=== PATIENT | female | born 1930 | race Caucasian/White ===

== ENCOUNTER 2017-01-15 11:33 | Inpatient (IN) | payer MEDICARE ==
[~2017-01-15] VITALS: Ht 171.4 cm; Wt 71.8 kg
[~2017-01-15 11:33] MED LIST: AMLO5TAB2 PO; ASPI81TA44 PO; ATORVASTATIN CA80 MG PO; CALC-507 PO; CHOL100013 PO; CHOL2000 PO; CYCL10TA2 PO; FOLI20CA PO; HYDR-2758 PO; IBUP-1007 PO; LEVO100T5 PO; LISI40TA PO; MULT-223 PO; OMEG300C PO; PARO30TA3 PO; POLY17PO29 PO; SENN8.6T61 PO
[2017-01-15 12:40] LABS: BASO # 0.1 x10^3/uL (0.0-0.2); BASO % 1 % (0-3); EOS % 13 % (0-3); HEMATOCRIT 36.6 % (36.0-47.0); LYMPH # 1.9 x10^3/uL (1.0-4.8); LYMPH % 32 % (24-48); MEAN CORPUSCULAR HEMOGLOBIN 31 pg (25-35); MEAN CORPUSCULAR HGB CONC 33 g/dL (31-37); MEAN CORPUSCULAR VOLUME 95 fL (79-100); MONO % 10 % (0-9); NEUT % 44 % (31-73); PLATELET COUNT 202 x10^3/uL (140-400); RED BLOOD COUNT 3.85 x10^6/uL (3.50-5.40); RED CELL DISTRIBUTION WIDTH 14.5 % (11.5-14.5)
--- NOTE | 2017-01-15 12:41 | PHYS DOC ---
Past Medical History Past Medical History: Arthritis, COPD, High Cholesterol, Hypertension, Hypothyroid Additional Past Medical Histor: CHRONIC BACK PAIN Past Surgical History: Hip Replacement, Knee Replacement, Tonsillectomy Additional Past Surgical Histo: L hip, bilat knee Alcohol Use: None Drug Use: None Adult General Chief Complaint Chief Complaint: OTHER COMPLAINTS HPI HPI Patient is a 86 year old female was sent from a clinic after they found that she was bradycardic and with low blood pressure as as well as low O2 sats. Patient has no complaints however. She had a fall when she sustained some rib fractures and she was at the clinic for checkup. She did have does not have any recent changes in medications, no recent illnesses. Her friend in the room states the patient has some some probable walking due to feeling weak in her legs. Review of Systems Review of Systems Constitutional: Denies fever or chills [] HENT: Denies nasal congestion or sore throat [] Respiratory: Denies cough or shortness of breath [] Cardiovascular: No chest pain GI: Denies abdominal pain, nausea, vomiting, bloody stools or diarrhea [] : Denies dysuria or hematuria [] Musculoskeletal: Denies back pain or joint pain [] Integument: Denies rash or skin lesions [] Neurologic: Denies headache, focal weakness or sensory changes. Mild weakness of her legs that is chronic Endocrine: Denies polyuria or polydipsia [] Current Medications Current Medications Current Medications Medications (Trade) Dose Ordered Sig/Lukazs Start Time Stop Time Status Last Admin Dose Admin Info (Do NOT chart on this entry -- for MONITORING) 1 each PRN DAILY PRN 01/15/17 14:45 01/17/17 14:44 Iohexol (Omnipaque 300 Mg/ml) 75 ml 1X ONCE 01/15/17 14:45 01/15/17 14:46 DC 01/15/17 15:14 75 ML Ondansetron HCl (Zofran) 4 mg PRN Q8HRS PRN 01/15/17 16:45 01/16/17 16:44 Sodium Chloride 500 ml @ 500 mls/hr 1X ONCE 01/15/17 12:45 01/15/17 13:44 DC 01/15/17 12:53 500 MLS/HR Allergies Allergies Allergies Coded Allergies Type Severity Reaction Last Updated Verified No Known Drug Allergies 01/15/17 No Physical Exam Physical Exam Constitutional: Well developed, well nourished, no acute distress, non-toxic appearance. [] HENT: Normocephalic, atraumatic, dry mucous membranes, no oral exudates, nose normal. [] Eyes:EOMI, conjunctiva normal, no discharge. [] Neck: Normal range of motion, no tenderness, supple, no stridor. No JVD Cardiovascular: Bradycardia, equal pulses, normal perfusion Lungs & Thorax: Bilateral breath sounds clear to auscultation, no tachypnea Abdomen: Bowel sounds normal, soft, no tenderness, no masses, no pulsatile masses. [] Skin: Warm, dry, no erythema, no rash. [] Back: No tenderness, no CVA tenderness. [] Extremities: No tenderness, no cyanosis, no clubbing, ROM intact, no edema. No signs of DVT, no edema Neurologic: Alert and oriented X 3, normal motor function, no focal deficits noted. [] Psychologic: Affect normal, judgement normal, mood normal. [] Current Patient Data Vital Signs Vital Signs Date Time Temp Pulse Resp B/P (MAP) Pulse Ox O2 Delivery O2 Flow Rate FiO2 01/15/17 15:34 54 32 140/63 (88) 97 01/15/17 14:04 Nasal Cannula 4.0 01/15/17 11:39 98.1 98.1 Lab Values Laboratory Tests Test 01/15/17 11:50 01/15/17 12:58 White Blood Count 6.0 x10^3/uL (4.0-11.0) Red Blood Count 3.85 x10^6/uL (3.50-5.40) Hemoglobin 12.0 g/dL (12.0-15.5) Hematocrit 36.6 % (36.0-47.0) Mean Corpuscular Volume 95 fL (79-100) Mean Corpuscular Hemoglobin 31 pg (25-35) Mean Corpuscular Hemoglobin Concent 33 g/dL (31-37) Red Cell Distribution Width 14.5 % (11.5-14.5) Platelet Count 202 x10^3/uL (140-400) Neutrophils (%) (Auto) 44 % (31-73) Lymphocytes (%) (Auto) 32 % (24-48) Monocytes (%) (Auto) 10 % (0-9) H Eosinophils (%) (Auto) 13 % (0-3) H Basophils (%) (Auto) 1 % (0-3) Neutrophils # (Auto) 2.6 x10^3uL (1.8-7.7) Lymphocytes # (Auto) 1.9 x10^3/uL (1.0-4.8) Monocytes # (Auto) 0.6 x10^3/uL (0.0-1.1) Eosinophils # (Auto) 0.8 x10^3/uL (0.0-0.7) H Basophils # (Auto) 0.1 x10^3/uL (0.0-0.2) Sodium Level 143 mmol/L (136-145) Potassium Level 4.4 mmol/L (3.5-5.1) Chloride Level 106 mmol/L (98-107) Carbon Dioxide Level 28 mmol/L (21-32) Anion Gap 9 (6-14) Blood Urea Nitrogen 31 mg/dL (7-20) H Creatinine 0.8 mg/dL (0.6-1.0) Estimated GFR (Cockcroft-Gault) 68.2 Glucose Level 89 mg/dL (70-99) Calcium Level 11.0 mg/dL (8.5-10.1) H Magnesium Level 1.8 mg/dL (1.8-2.4) Total Bilirubin 0.4 mg/dL (0.2-1.0) Direct Bilirubin 0.1 mg/dL (0.0-0.2) Aspartate Amino Transferase (AST) 22 U/L (15-37) Alanine Aminotransferase (ALT) 32 U/L (14-59) Alkaline Phosphatase 71 U/L (46-116) Troponin I Quantitative 0.037 ng/mL (0.000-0.055) Total Protein 6.6 g/dL (6.4-8.2) Albumin 3.2 g/dL (3.4-5.0) L O2 Saturation 82 % (92-99) L Arterial Blood pH 7.36 (7.35-7.45) Arterial Blood pCO2 at Patient Temp 50 mmHg (35-46) H Arterial Blood pO2 at Patient Temp 50 mmHg (65-108) *L Arterial Blood HCO3 27 mmol/L (21-28) Arterial Blood Base Excess 1 mmol/L (-3-3) FiO2 21 Laboratory Tests 01/15/17 11:50 Laboratory Tests 01/15/17 11:50 EKG EKG 1250 48 bradycardia no stemi[] Radiology/Procedures Radiology/Procedures CT no PE, atelectasis questionable infiltrates[] Course & Med Decision Making Course & Med Decision Making Pertinent Labs and Imaging studies reviewed. (See chart for details) Labs, imaging, and plan for admission discussed with patient will agrees with admission Results of labs and imaging discussed with admitting team, questionable findings of pneumonia so they requested holding off on antibiotics. Cardiology consulted for bradycardia, they agreed to send the patient in the morning. [] Dragon Disclaimer Dragon Disclaimer This electronic medical record was generated, in whole or in part, using a voice recognition dictation system. Departure Departure Impression: Primary Impression: Hypoxia Additional Impressions: Bradycardia Hypotension Dehydration Disposition: ADMITTED INPATIENT Admitting Physician: Other Condition: IMPROVED Referrals: AMY WEBER (PCP) Problem Qualifiers Chacho LOZA MD Jan 15, 2017 12:41
[2017-01-15] MEDS ORDERED: IV NORMAL SALINE 500ML BAG 500 ML IV ONE (12:45)
--- NOTE | 2017-01-15 12:51 | RAD ---
Examination: 2 views of the chest History: History of hypoxia Comparison: 12/08/2014 Findings: The cardiomediastinal silhouette grossly appears unremarkable. There is no acute infiltrate or visualized pneumothorax identified. Faint irregularity identified in the left fourth, sixth, seventh ribs region, question nondisplaced fractures. Impression: 1.Faint irregularity identified in the left fourth, sixth, seventh ribs region could be nondisplaced fractures. 2. The lungs appear clear.
[2017-01-15 12:52] LABS: CREATININE 0.8 mg/dL (0.6-1.0); GFR 68.2; POTASSIUM 4.4 mmol/L (3.5-5.1)
[2017-01-15 13:03] LABS: ALBUMIN 3.2 g/dL (3.4-5.0); DIRECT BILIRUBIN 0.1 mg/dL (0.0-0.2); MAGNESIUM 1.8 mg/dL (1.8-2.4); TOTAL BILIRUBIN 0.4 mg/dL (0.2-1.0); TOTAL PROTEIN 6.6 g/dL (6.4-8.2)
--- NOTE | 2017-01-15 13:03 | EKG ---
[facility] [address] [place] [address] Test Date: 2017-01-15 Test Time: 12:49:58 Pat Name: RADHA LUNA Department: Room: Gender: F [employer]: : [id number] Requested By: Chacho LOZA Order Number: [id number] Reading MD: Measurements Intervals [place] Rate: 48 P: 25 VT: 232 QRS: -16 QRSD: 94 T: 16 QT: 416 QTc: 375 Interpretive Statements SINUS BRADYCARDIA PROLONGED VT INTERVAL LEFTWARD AXIS CONSIDER LEFT VENTRICULAR HYPERTROPHY QRS(T) CONTOUR ABNORMALITY CANNOT RULE OUT ANTEROLATERAL MYOCARDIAL DAMAGE CONSIDER INFERIOR INFARCT RI6.01 Unconfirmed report No previous ECG available for comparison
[2017-01-15 13:40] LABS: HCO3 ABG 27 mmol/L (21-28); PCO2 ABG 50 mmHg (35-46); PH ABG 7.36 (7.35-7.45); SAT O2 ABG 82 % (92-99)
[2017-01-15 13:45] LABS: FIO2 ABG 21; PO2 ABG 50 mmHg (65-108)
[2017-01-15] MEDS ORDERED: CONTRAST GIVEN MC PRN (14:45)
[2017-01-15] MEDS ORDERED: IOHEXOL 300 MG/ML 75 ML VIAL IV ONE (14:45)
--- NOTE | 2017-01-15 15:56 | RAD ---
Examination: CT angiogram of the chest History: History of hypoxia. Comparison: None available Technique: Axial CT images of the chest were performed with IV contrast. Coronal and sagittal 3-D MIP reformats are performed. PQRS Compliance Statement: One or more of the following individualized dose reduction techniques were utilized for this examination: 1. Automated exposure control 2. Adjustment of the mA and/or kV according to patient size 3. Use of iterative reconstruction technique Findings: The ascending aorta measures 3.6 cm in transverse dimension There is no evidence of filling defects identified in the main pulmonary artery trunk and right and left main pulmonary arteries and the visualized lobar branches. Evaluation of the distal lobar branches and segmental branches of the pulmonary arteries are limited due to motion artifact particularly in the lower lobes. Mild bibasal lung airspace opacities likely atelectasis or infiltrates. The visualized liver, spleen, adrenals grossly appears unremarkable. Mild degenerative changes thoracic spine. Impression: 1. No evidence of central pulmonary embolism. The evaluation of the distal lobar and segmental branches of the pulmonary arteries is limited on this examination due to motion artifact. Consider bilateral ultrasound lower extremity venous duplex study. 2. Patchy bibasal lung airspace opacities likely atelectasis or infiltrates. Follow-up to resolution. 3. Coronary artery calcifications.
[2017-01-15] MEDS ORDERED: ONDANSETRON PF 4 MG/2 ML VIAL. IV PRN (16:45)
[2017-01-15 18:00] VITALS: BP 147/70
[2017-01-15 19:00] VITALS: BP 130/56
[2017-01-15] MEDS: ATORVASTATIN CALCIUM 40 MG TABLET. PO SCH (21:35)
[2017-01-15 23:01] VITALS: BP 122/57
--- NOTE | 2017-01-15 23:07 | HP ---
ADMIT DATE: 01/15/2017 CHIEF COMPLAINT: Hypoxia and bradycardia. HISTORY OF PRESENT ILLNESS: The patient is an 86-year-old woman with recent history of multiple falls who was found by her home physical therapist to be bradycardic as well as hypoxic with exercise. This is completely new to her. She was asymptomatic at that time, but nevertheless after conferring with her primary care physician, she was recommended to present to the Emergency Room for further evaluation. The patient relates that she never had breathing or heart problems in the past aside from a longstanding heart murmur. She does have a history of hypertension and hypercholesterolemia as well as a history of COPD, although she has never smoked. PAST MEDICAL HISTORY: Hypertension, hypercholesterolemia, hypothyroidism, COPD and arthritis with chronic back pain, receiving injections at pain clinic at [facility]. PAST SURGICAL HISTORY: She is status post hip replacement, knee replacements as well as tonsillectomy. FAMILY HISTORY: Positive only for hypertension in her only sister. SOCIAL HISTORY: Lives by herself, never smoked. No toxic habits. ALLERGIES: No known drug allergies. MEDICATIONS: MAR reconciled with home medications. REVIEW OF SYSTEMS: The patient relates that she has generalized aches and pains due to chronic arthritis as well as recent falls with rib fractures in the left axillary line. She actually gets chronic back injections about every 3-4 months at the pain clinic. She denies, however, any shortness of breath, any chest pain, dizziness, nausea, vomiting, diarrhea or other symptoms in rest of organ system review. PHYSICAL EXAMINATION: VITAL SIGNS: From today show a blood pressure of 147/70, heart rate at 56, respiratory rate at 18. She is afebrile. GENERAL: This is an 86-year-old well-nourished woman, alert and oriented, in no acute distress, very pleasant. HEENT: Shows no scleral icterus. NECK: Supple without any lymphadenopathy. LUNGS: Clear to auscultation bilaterally. CARDIOVASCULAR: Heart is regular rate and rhythm, mildly bradycardic. She does have a 3/6 systolic murmur. ABDOMEN: Has positive bowel sounds, soft, nontender, no organomegaly or masses are appreciated. EXTREMITIES: Show no edema, no clubbing, no cyanosis. SKIN: Warm, soft and dry. LABORATORIES: CBC with a WBC of 6.0, hemoglobin 12.0, platelets of 202. Chemistries with a BUN and creatinine of 31 and 0.8, normal electrolytes, magnesium at 1.8, calcium at 11.0 with an albumin of 3.2 and normal LFTs. Initial troponin at 0.067. IMAGING STUDIES: Chest x-ray showed a left 4th, 6th and 7th rib region with nondisplaced fractures. A CTA did rule out PE but showed bibasilar lung airspace opacities, likely atelectasis or infiltrates. ASSESSMENT AND PLAN: The patient is an 86-year-old woman who is completely asymptomatic, now presenting with hypoxia and bradycardia. The CTA shows some abnormalities in the lower lung bases bilaterally, but I suspect this is more atelectasis and small amount of fluids around the heart than a pneumonia. Hold off on antibiotics at this time. We will obtain a Pulmonary consult. For her bradycardia, which is clearly new, Cardiology consult is indicated as well. Currently, she does not have any medications that could affect her heart rate. She does have minimal troponin leak, which will have to be worked up as well. Cardiology consult has been requested. We will continue all her other home medications including for hypothyroidism and osteoarthritis. DONTE STANFORD MD DR: UR/nts JOB#: [id number] / [id number] Y Butcher MD [facility]
[2017-01-16 03:00] VITALS: BP 148/55
[2017-01-16 05:25] LABS: BASO # 0.1 x10^3/uL (0.0-0.2); BASO % 1 % (0-3); EOS % 12 % (0-3); HEMATOCRIT 32.7 % (36.0-47.0); HEMOGLOBIN 10.8 g/dL (12.0-15.5); LYMPH # 1.7 x10^3/uL (1.0-4.8); LYMPH % 29 % (24-48); MEAN CORPUSCULAR HEMOGLOBIN 31 pg (25-35); MEAN CORPUSCULAR HGB CONC 33 g/dL (31-37); MEAN CORPUSCULAR VOLUME 95 fL (79-100); MONO % 12 % (0-9); NEUT % 46 % (31-73); PLATELET COUNT 196 x10^3/uL (140-400); RED BLOOD COUNT 3.44 x10^6/uL (3.50-5.40); RED CELL DISTRIBUTION WIDTH 14.2 % (11.5-14.5); WHITE BLOOD COUNT 5.8 x10^3/uL (4.0-11.0)
[2017-01-16 06:16] LABS: GFR 52.7; POTASSIUM 4.2 mmol/L (3.5-5.1)
[2017-01-16 07:00] VITALS: BP 140/57
[2017-01-16] MEDS: HYDROcodone/APAP 5/325MG 1 TAB TABLET PO PRN ×3 (08:28→22:05)
[2017-01-16] MEDS: SENNOSIDES 8.6 MG TABLET PO SCH (08:28)
[2017-01-16] MEDS: ASPIRIN CHEWABLE 81 MG TABLET. PO SCH (08:28)
[2017-01-16] MEDS: PARoxetine 20 MG TABLET PO SCH (08:29)
[2017-01-16] MEDS: amLODIPine BESYLATE 5 MG TABLET PO SCH (08:29)
[2017-01-16] MEDS: POLYETHYLENE GLYCOL 3350 17 GM PACKET. PO SCH (08:30)
[2017-01-16] MEDS: LEVOTHYROXINE 100 MCG TABLET PO SCH (08:48)
--- NOTE | 2017-01-16 10:18 | PDOC ---
PROGRESS NOTES Chief Complaint Chief Complaint Bradycardia Hypoxia Hypertension, hypercholesterolemia, hypothyroidism, COPD and arthritis with chronic back pain, receiving injections at pain clinic at [facility]. History of Present Illness History of Present Illness Pt resting. Awoke VSS DW RN Vitals Vitals Vital Signs Date Time Temp Pulse Resp B/P (MAP) Pulse Ox O2 Delivery O2 Flow Rate FiO2 01/16/17 09:50 95 Nasal Cannula 4.0 01/16/17 08:29 60 148/55 01/16/17 07:00 98.3 18 98.3 Physical Exam General: Alert, Oriented X3, Cooperative Heart: Regular rate, Normal S1, Normal S2 Lungs: Clear Abdomen: Normal bowel sounds, Soft Extremities: No clubbing, No cyanosis Skin: No rashes, No breakdown Labs LABS Laboratory Tests Test 01/15/17 11:50 01/15/17 12:58 01/16/17 00:05 01/16/17 03:45 White Blood Count 6.0 x10^3/uL (4.0-11.0) 5.8 x10^3/uL (4.0-11.0) Red Blood Count 3.85 x10^6/uL (3.50-5.40) 3.44 x10^6/uL (3.50-5.40) Hemoglobin 12.0 g/dL (12.0-15.5) 10.8 g/dL (12.0-15.5) Hematocrit 36.6 % (36.0-47.0) 32.7 % (36.0-47.0) Mean Corpuscular Volume 95 fL (79-100) 95 fL (79-100) Mean Corpuscular Hemoglobin 31 pg (25-35) 31 pg (25-35) Mean Corpuscular Hemoglobin Concent 33 g/dL (31-37) 33 g/dL (31-37) Red Cell Distribution Width 14.5 % (11.5-14.5) 14.2 % (11.5-14.5) Platelet Count 202 x10^3/uL (140-400) 196 x10^3/uL (140-400) Neutrophils (%) (Auto) 44 % (31-73) 46 % (31-73) Lymphocytes (%) (Auto) 32 % (24-48) 29 % (24-48) Monocytes (%) (Auto) 10 % (0-9) 12 % (0-9) Eosinophils (%) (Auto) 13 % (0-3) 12 % (0-3) Basophils (%) (Auto) 1 % (0-3) 1 % (0-3) Neutrophils # (Auto) 2.6 x10^3uL (1.8-7.7) 2.7 x10^3uL (1.8-7.7) Lymphocytes # (Auto) 1.9 x10^3/uL (1.0-4.8) 1.7 x10^3/uL (1.0-4.8) Monocytes # (Auto) 0.6 x10^3/uL (0.0-1.1) 0.7 x10^3/uL (0.0-1.1) Eosinophils # (Auto) 0.8 x10^3/uL (0.0-0.7) 0.7 x10^3/uL (0.0-0.7) Basophils # (Auto) 0.1 x10^3/uL (0.0-0.2) 0.1 x10^3/uL (0.0-0.2) Sodium Level 143 mmol/L (136-145) 145 mmol/L (136-145) Potassium Level 4.4 mmol/L (3.5-5.1) 4.2 mmol/L (3.5-5.1) Chloride Level 106 mmol/L (98-107) 109 mmol/L (98-107) Carbon Dioxide Level 28 mmol/L (21-32) 29 mmol/L (21-32) Anion Gap 9 (6-14) 7 (6-14) Blood Urea Nitrogen 31 mg/dL (7-20) 28 mg/dL (7-20) Creatinine 0.8 mg/dL (0.6-1.0) 1.0 mg/dL (0.6-1.0) Estimated GFR (Cockcroft-Gault) 68.2 52.7 Glucose Level 89 mg/dL (70-99) 85 mg/dL (70-99) Calcium Level 11.0 mg/dL (8.5-10.1) 10.0 mg/dL (8.5-10.1) Magnesium Level 1.8 mg/dL (1.8-2.4) Total Bilirubin 0.4 mg/dL (0.2-1.0) Direct Bilirubin 0.1 mg/dL (0.0-0.2) Aspartate Amino Transf (AST/SGOT) 22 U/L (15-37) Alanine Aminotransferase (ALT/SGPT) 32 U/L (14-59) Alkaline Phosphatase 71 U/L (46-116) Troponin I Quantitative 0.037 ng/mL (0.000-0.055) 0.046 ng/mL (0.000-0.055) 0.044 ng/mL (0.000-0.055) Total Protein 6.6 g/dL (6.4-8.2) Albumin 3.2 g/dL (3.4-5.0) O2 Saturation 82 % (92-99) Arterial Blood pH 7.36 (7.35-7.45) Arterial Blood pCO2 at Patient Temp 50 mmHg (35-46) Arterial Blood pO2 at Patient Temp 50 mmHg (65-108) Arterial Blood HCO3 27 mmol/L (21-28) Arterial Blood Base Excess 1 mmol/L (-3-3) FiO2 21 Thyroid Stimulating Hormone (TSH) 1.241 uIU/mL (0.358-3.74) Review of Systems Review of Systems no new complaints Assessment and Plan Assessmemt and Plan Problems Medical Problems: (1) Dehydration Status: Acute (2) Hypotension Status: Acute Bradycardia Hypoxia Hypertension, hypercholesterolemia, hypothyroidism, COPD and arthritis with chronic back pain, receiving injections at pain clinic at [facility]. 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 Labs Laboratory Tests Test 01/15/17 11:50 01/15/17 12:58 01/16/17 00:05 01/16/17 03:45 White Blood Count 6.0 x10^3/uL (4.0-11.0) 5.8 x10^3/uL (4.0-11.0) Red Blood Count 3.85 x10^6/uL (3.50-5.40) 3.44 x10^6/uL (3.50-5.40) Hemoglobin 12.0 g/dL (12.0-15.5) 10.8 g/dL (12.0-15.5) Hematocrit 36.6 % (36.0-47.0) 32.7 % (36.0-47.0) Mean Corpuscular Volume 95 fL (79-100) 95 fL (79-100) Mean Corpuscular Hemoglobin 31 pg (25-35) 31 pg (25-35) Mean Corpuscular Hemoglobin Concent 33 g/dL (31-37) 33 g/dL (31-37) Red Cell Distribution Width 14.5 % (11.5-14.5) 14.2 % (11.5-14.5) Platelet Count 202 x10^3/uL (140-400) 196 x10^3/uL (140-400) Neutrophils (%) (Auto) 44 % (31-73) 46 % (31-73) Lymphocytes (%) (Auto) 32 % (24-48) 29 % (24-48) Monocytes (%) (Auto) 10 % (0-9) 12 % (0-9) Eosinophils (%) (Auto) 13 % (0-3) 12 % (0-3) Basophils (%) (Auto) 1 % (0-3) 1 % (0-3) Neutrophils # (Auto) 2.6 x10^3uL (1.8-7.7) 2.7 x10^3uL (1.8-7.7) Lymphocytes # (Auto) 1.9 x10^3/uL (1.0-4.8) 1.7 x10^3/uL (1.0-4.8) Monocytes # (Auto) 0.6 x10^3/uL (0.0-1.1) 0.7 x10^3/uL (0.0-1.1) Eosinophils # (Auto) 0.8 x10^3/uL (0.0-0.7) 0.7 x10^3/uL (0.0-0.7) Basophils # (Auto) 0.1 x10^3/uL (0.0-0.2) 0.1 x10^3/uL (0.0-0.2) Sodium Level 143 mmol/L (136-145) 145 mmol/L (136-145) Potassium Level 4.4 mmol/L (3.5-5.1) 4.2 mmol/L (3.5-5.1) Chloride Level 106 mmol/L (98-107) 109 mmol/L (98-107) Carbon Dioxide Level 28 mmol/L (21-32) 29 mmol/L (21-32) Anion Gap 9 (6-14) 7 (6-14) Blood Urea Nitrogen 31 mg/dL (7-20) 28 mg/dL (7-20) Creatinine 0.8 mg/dL (0.6-1.0) 1.0 mg/dL (0.6-1.0) Estimated GFR (Cockcroft-Gault) 68.2 52.7 Glucose Level 89 mg/dL (70-99) 85 mg/dL (70-99) Calcium Level 11.0 mg/dL (8.5-10.1) 10.0 mg/dL (8.5-10.1) Magnesium Level 1.8 mg/dL (1.8-2.4) Total Bilirubin 0.4 mg/dL (0.2-1.0) Direct Bilirubin 0.1 mg/dL (0.0-0.2) Aspartate Amino Transf (AST/SGOT) 22 U/L (15-37) Alanine Aminotransferase (ALT/SGPT) 32 U/L (14-59) Alkaline Phosphatase 71 U/L (46-116) Troponin I Quantitative 0.037 ng/mL (0.000-0.055) 0.046 ng/mL (0.000-0.055) 0.044 ng/mL (0.000-0.055) Total Protein 6.6 g/dL (6.4-8.2) Albumin 3.2 g/dL (3.4-5.0) O2 Saturation 82 % (92-99) Arterial Blood pH 7.36 (7.35-7.45) Arterial Blood pCO2 at Patient Temp 50 mmHg (35-46) Arterial Blood pO2 at Patient Temp 50 mmHg (65-108) Arterial Blood HCO3 27 mmol/L (21-28) Arterial Blood Base Excess 1 mmol/L (-3-3) FiO2 21 Thyroid Stimulating Hormone (TSH) 1.241 uIU/mL (0.358-3.74) Laboratory Tests Test 01/15/17 11:50 01/15/17 12:58 01/16/17 00:05 01/16/17 03:45 White Blood Count 6.0 x10^3/uL (4.0-11.0) 5.8 x10^3/uL (4.0-11.0) Red Blood Count 3.85 x10^6/uL (3.50-5.40) 3.44 x10^6/uL (3.50-5.40) Hemoglobin 12.0 g/dL (12.0-15.5) 10.8 g/dL (12.0-15.5) Hematocrit 36.6 % (36.0-47.0) 32.7 % (36.0-47.0) Mean Corpuscular Volume 95 fL (79-100) 95 fL (79-100) Mean Corpuscular Hemoglobin 31 pg (25-35) 31 pg (25-35) Mean Corpuscular Hemoglobin Concent 33 g/dL (31-37) 33 g/dL (31-37) Red Cell Distribution Width 14.5 % (11.5-14.5) 14.2 % (11.5-14.5) Platelet Count 202 x10^3/uL (140-400) 196 x10^3/uL (140-400) Neutrophils (%) (Auto) 44 % (31-73) 46 % (31-73) Lymphocytes (%) (Auto) 32 % (24-48) 29 % (24-48) Monocytes (%) (Auto) 10 % (0-9) 12 % (0-9) Eosinophils (%) (Auto) 13 % (0-3) 12 % (0-3) Basophils (%) (Auto) 1 % (0-3) 1 % (0-3) Neutrophils # (Auto) 2.6 x10^3uL (1.8-7.7) 2.7 x10^3uL (1.8-7.7) Lymphocytes # (Auto) 1.9 x10^3/uL (1.0-4.8) 1.7 x10^3/uL (1.0-4.8) Monocytes # (Auto) 0.6 x10^3/uL (0.0-1.1) 0.7 x10^3/uL (0.0-1.1) Eosinophils # (Auto) 0.8 x10^3/uL (0.0-0.7) 0.7 x10^3/uL (0.0-0.7) Basophils # (Auto) 0.1 x10^3/uL (0.0-0.2) 0.1 x10^3/uL (0.0-0.2) Sodium Level 143 mmol/L (136-145) 145 mmol/L (136-145) Potassium Level 4.4 mmol/L (3.5-5.1) 4.2 mmol/L (3.5-5.1) Chloride Level 106 mmol/L (98-107) 109 mmol/L (98-107) Carbon Dioxide Level 28 mmol/L (21-32) 29 mmol/L (21-32) Anion Gap 9 (6-14) 7 (6-14) Blood Urea Nitrogen 31 mg/dL (7-20) 28 mg/dL (7-20) Creatinine 0.8 mg/dL (0.6-1.0) 1.0 mg/dL (0.6-1.0) Estimated GFR (Cockcroft-Gault) 68.2 52.7 Glucose Level 89 mg/dL (70-99) 85 mg/dL (70-99) Calcium Level 11.0 mg/dL (8.5-10.1) 10.0 mg/dL (8.5-10.1) Magnesium Level 1.8 mg/dL (1.8-2.4) Total Bilirubin 0.4 mg/dL (0.2-1.0) Direct Bilirubin 0.1 mg/dL (0.0-0.2) Aspartate Amino Transf (AST/SGOT) 22 U/L (15-37) Alanine Aminotransferase (ALT/SGPT) 32 U/L (14-59) Alkaline Phosphatase 71 U/L (46-116) Troponin I Quantitative 0.037 ng/mL (0.000-0.055) 0.046 ng/mL (0.000-0.055) 0.044 ng/mL (0.000-0.055) Total Protein 6.6 g/dL (6.4-8.2) Albumin 3.2 g/dL (3.4-5.0) O2 Saturation 82 % (92-99) Arterial Blood pH 7.36 (7.35-7.45) Arterial Blood pCO2 at Patient Temp 50 mmHg (35-46) Arterial Blood pO2 at Patient Temp 50 mmHg (65-108) Arterial Blood HCO3 27 mmol/L (21-28) Arterial Blood Base Excess 1 mmol/L (-3-3) FiO2 21 Thyroid Stimulating Hormone (TSH) 1.241 uIU/mL (0.358-3.74) Medications Current Medications Sodium Chloride 500 ml @ 500 mls/hr 1X ONCE IV Last administered on 12:53; Start 01/15/17 at 12:45; Stop 01/15/17 at 13:44; Status DC Iohexol (Omnipaque 300 Mg/ml) 75 ml 1X ONCE IV Last administered on 01/15/17 15:14; Start 01/15/17 at 14:45; Stop 01/15/17 at 14:46; Status DC Info (Do NOT chart on this entry -- for MONITORING) 1 each PRN DAILY PRN MC SEE COMMENTS; Start 01/15/17 at 14:45; Stop 01/17/17 at 14:44 Ondansetron HCl (Zofran) 4 mg PRN Q8HRS PRN IV NAUSEA/VOMITING; Start 01/15/17 at 16:45; Stop 01/16/17 at 16:44 Amlodipine Besylate (Norvasc) 5 mg DAILY PO Last administered on 01/16/17 08: 29; Start 01/16/17 at 09:00 Aspirin (Children'S Aspirin) 81 mg DAILYWBKFT PO Last administered on 08:28; Start 01/16/17 at 08:00 Atorvastatin Calcium (Lipitor) 80 mg QHS PO Last administered on 01/15/17 21: 35; Start 01/15/17 at 21:00 Acetaminophen/ Hydrocodone Bitart (Lortab 5/325) 1 tab PRN Q6HRS PRN PO SEVERE PAIN Last administered on 01/16/17 08:28; Start 01/15/17 at 21:15 Levothyroxine Sodium (Synthroid) 100 mcg DAILY07 PO Last administered on 08:48; Start 01/16/17 at 07:00 Paroxetine HCl (Paxil) 30 mg DAILY PO Last administered on 01/16/17 08:29; Start 01/16/17 at 09:00 Polyethylene Glycol (miraLAX PACKET) 17 gm DAILY PO Last administered on 08:30; Start 01/16/17 at 09:00 Sennosides (Senna) 17.2 mg DAILY PO Last administered on 01/16/17 08:28; Start 01/16/17 at 09:00 Active Scripts Active Ibuprofen 600 Mg Tablet 400 Mg PO PRN Q6HRS PRN Cyclobenzaprine Hcl 10 Mg Tablet 10 Mg PO TID PRN Reported Vegetable Laxative (Sennosides) 8.6 Mg Tablet 17.2 Mg PO Miralax (Polyethylene Glycol 3350) 17 Gm Powd.pack 1 Packet PO DAILY Children's Aspirin (Aspirin) 81 Mg Tab.chew 81 Mg PO Calcium 600 + D Tablet (Calcium Carbonate/Vitamin D3) 1 Each Tablet 1 Each PO One Daily (Multivitamin) 1 Each Tablet 1 Each PO Vitamin D (Cholecalciferol (Vitamin D3)) 2,000 Unit Capsule 1 Cap PO DAILY Fish Oil ([place]-3 Fatty Acids) 300 Mg Capsule 1,200 Mg PO DAILY Amlodipine Besylate 5 Mg Tablet 1 Tab PO DAILY Hydrocodone-Apap 5-325 (Hydrocodone Bit/Acetaminophen) 1 Each Tablet 1-2 Tab PO Q4-6HRS Paroxetine Hcl 30 Mg Tablet 1.5 Tab PO DAILY Levothyroxine Sodium 100 Mcg Tablet 1 Tab PO DAILY Vitamin D (Cholecalciferol (Vitamin D3)) 1,000 Unit Capsule 5 Cap PO WEEKLY Folic Acid 20 Mg Capsule 80 Mg PO Atorvastatin Calcium 80 Mg Tablet 1 Tab PO DAILY Vitals/I & O Vital Sign - Last 24 Hours 01/15/17 01/15/17 01/15/17 01/15/17 11:39 12:04 12:50 13:04 Temp 98.1 98.1 Pulse 49 46 52 46 Resp 16 32 28 B/P (MAP) 155/67 (96) 114/56 (75) 128/60 (82) 126/60 (82) Pulse Ox 87 88 84 86 O2 Delivery Room Air Room Air 01/15/17 01/15/17 01/15/17 01/15/17 13:34 14:04 14:34 15:04 Pulse 50 46 48 56 Resp 20 14 17 33 B/P (MAP) 131/60 (83) 133/63 (86) 143/68 (93) 146/62 (90) Pulse Ox 100 99 88 O2 Delivery Nasal Cannula O2 Flow Rate 4.0 01/15/17 01/15/17 01/15/17 01/15/17 15:34 16:04 16:34 18:00 Temp 98.9 98.9 Pulse 54 44 44 56 Resp 32 26 32 18 B/P (MAP) 140/63 (88) 122/56 (78) 151/64 (93) 147/70 (95) Pulse Ox 97 92 93 94 O2 Delivery Nasal Cannula O2 Flow Rate 4.0 01/15/17 01/15/17 01/15/17 01/16/17 19:00 19:59 23:01 03:00 Temp 98.6 97.9 98.1 98.6 97.9 98.1 Pulse 56 54 60 Resp 20 20 20 B/P (MAP) 130/56 (80) 122/57 (78) 148/55 (86) Pulse Ox 94 91 95 O2 Delivery Nasal Cannula Nasal Cannula Nasal Cannula Nasal Cannula O2 Flow Rate 4.0 4.0 4.0 4.0 01/16/17 01/16/17 01/16/17 01/16/17 07:00 07:50 08:28 08:29 Temp 98.3 98.3 Pulse 56 60 Resp 18 B/P (MAP) 140/57 (84) 148/55 Pulse Ox 95 95 O2 Delivery Nasal Cannula Nasal Cannula Nasal Cannula O2 Flow Rate 4.0 4.0 4.0 01/16/17 09:50 Pulse Ox 95 O2 Delivery Nasal Cannula O2 Flow Rate 4.0 RON PAINTER III DO Jan 16, 2017 10:18
[2017-01-16 11:00] VITALS: BP 98/45
--- NOTE | 2017-01-16 12:09 | PDOC2 ---
KYLE GRACE COMPUTER REPAIR INSTRUCTOR 01/16/17 1209: CARDIAC CONSULT DATE OF CONSULT Date of Consult DATE: 01/16/17 TIME: 11:56 REASON FOR CONSULT Reason for Consult: Bradycardia REFERRING PHYSICIAN Referring Physician: Dr. Moffett SOURCE Source: Chart review, Patient HISTORY OF PRESENT ILLNESS HISTORY OF PRESENT ILLNESS This is a 86 yo female who sent to the ED after she was found to be bradycardia and hypotensive by visiting physical therapist. Patient was asymptomatic. PCP notified of findings and recommended that patient go to the ED for further evaluation and treatment. No history of CAD or CHF. Is aware of longstanding murmur. Reports multiple recent falls (3 in the last week). Had had home PT/OT. Denies any dizziness, lightheadedness, syncope, or LOC with falls. Reports her "legs just give out" prior to falls. Also denies any chest pain, palpitations, SOA, LE edema, diaphoresis, or nausea/vomiting. Went out of town to visit family for [place]. Had fall while on vacation. Friend reports she had not been the same since. Has noticed some increased fatigue and confusion. Patient has experienced bilateral thigh pain and legs have been giving way intermittently since. PAST MEDICAL HISTORY Cardiovascular: HTN, Hyperlipidemia, Valve insufficiency Pulmonary: COPD GI: GERD Heme/Onc: No pertinent hx, Other (CTCL) Hepatobiliary: No pertinent hx Psych: No pertinent hx Musculoskeletal: Osteoarthritis Infectious disease: No pertinent hx ENT: No pertinent hx Renal/: No pertinent hx Endocrine: No pertinent hx Dermatology: No pertinent hx PAST SURGICAL HISTORY Past Surgical History: Total hip replacement (left ), Total knee replacement ( bilateral), Tonsillectomy FAMILY HISTORY Family History: Coronary Artery Disease (parents ), Hypertension SOCIAL HISTORY Smoke: No ALCOHOL: none Drugs: None Lives: Alone CURRENT MEDICATIONS CURRENT MEDICATIONS Current Medications Medications (Trade) Dose Ordered Sig/Lukasz Route PRN Reason Start Time Stop Time Status Last Admin Dose Admin Sodium Chloride 500 ml @ 500 mls/hr 1X ONCE IV 01/15/17 12:45 01/15/17 13:44 DC 01/15/17 12:53 Iohexol (Omnipaque 300 Mg/ml) 75 ml 1X ONCE IV 01/15/17 14:45 01/15/17 14:46 DC 01/15/17 15:14 Amlodipine Besylate (Norvasc) 5 mg DAILY PO 01/16/17 09:00 01/16/17 08:29 Aspirin (Children'S Aspirin) 81 mg DAILYWBKFT PO 01/16/17 08:00 01/16/17 08:28 Atorvastatin Calcium (Lipitor) 80 mg QHS PO 01/15/17 21:00 01/15/17 21:35 Acetaminophen/ Hydrocodone Bitart (Lortab 5/325) 1 tab PRN Q6HRS PRN PO SEVERE PAIN 01/15/17 21:15 01/16/17 08:28 Levothyroxine Sodium (Synthroid) 100 mcg DAILY07 PO 01/16/17 07:00 01/16/17 08:48 Paroxetine HCl (Paxil) 30 mg DAILY PO 01/16/17 09:00 01/16/17 08:29 Polyethylene Glycol (miraLAX PACKET) 17 gm DAILY PO 01/16/17 09:00 01/16/17 08:30 Sennosides (Senna) 17.2 mg DAILY PO 01/16/17 09:00 01/16/17 08:28 ALLERGIES ALLERGIES: Coded Allergies: No Known Drug Allergies (Unverified , 01/15/17) ROS Review of System 14 point ROS conducted with pertinent positives noted above in HPI. PHYSICAL EXAM General: Alert, Oriented X3, Cooperative, No acute distress HEENT: Atraumatic, Mucous membr. moist/pink Lungs: Clear to auscultation, Normal air movement Heart: Regular rate, Normal S1, Normal S2, Other (2/6 systolic murmur ) Abdomen: Soft, No tenderness Extremities: No edema, Normal pulses Skin: No breakdown, No significant lesion Neuro: Normal speech, Sensation intact Psych/Mental Status: Mental status NL, Mood NL MUSCULOSKELETAL: Osteoarthritic changes both hands VITALS VITALS Vital Signs Date Time Temp Pulse Resp B/P (MAP) Pulse Ox O2 Delivery O2 Flow Rate FiO2 01/16/17 11:00 97.7 56 18 98/45 (62) 92 Nasal Cannula 4.0 97.7 LABS Lab: Laboratory Tests Test 01/15/17 12:58 01/16/17 00:05 01/16/17 03:45 O2 Saturation 82 % (92-99) Arterial Blood pH 7.36 (7.35-7.45) Arterial Blood pCO2 at Patient Temp 50 mmHg (35-46) Arterial Blood pO2 at Patient Temp 50 mmHg (65-108) Arterial Blood HCO3 27 mmol/L (21-28) Arterial Blood Base Excess 1 mmol/L (-3-3) FiO2 21 Troponin I Quantitative 0.046 ng/mL (0.000-0.055) 0.044 ng/mL (0.000-0.055) White Blood Count 5.8 x10^3/uL (4.0-11.0) Red Blood Count 3.44 x10^6/uL (3.50-5.40) Hemoglobin 10.8 g/dL (12.0-15.5) Hematocrit 32.7 % (36.0-47.0) Mean Corpuscular Volume 95 fL (79-100) Mean Corpuscular Hemoglobin 31 pg (25-35) Mean Corpuscular Hemoglobin Concent 33 g/dL (31-37) Red Cell Distribution Width 14.2 % (11.5-14.5) Platelet Count 196 x10^3/uL (140-400) Neutrophils (%) (Auto) 46 % (31-73) Lymphocytes (%) (Auto) 29 % (24-48) Monocytes (%) (Auto) 12 % (0-9) Eosinophils (%) (Auto) 12 % (0-3) Basophils (%) (Auto) 1 % (0-3) Neutrophils # (Auto) 2.7 x10^3uL (1.8-7.7) Lymphocytes # (Auto) 1.7 x10^3/uL (1.0-4.8) Monocytes # (Auto) 0.7 x10^3/uL (0.0-1.1) Eosinophils # (Auto) 0.7 x10^3/uL (0.0-0.7) Basophils # (Auto) 0.1 x10^3/uL (0.0-0.2) Sodium Level 145 mmol/L (136-145) Potassium Level 4.2 mmol/L (3.5-5.1) Chloride Level 109 mmol/L (98-107) Carbon Dioxide Level 29 mmol/L (21-32) Anion Gap 7 (6-14) Blood Urea Nitrogen 28 mg/dL (7-20) Creatinine 1.0 mg/dL (0.6-1.0) Estimated GFR (Cockcroft-Gault) 52.7 Glucose Level 85 mg/dL (70-99) Calcium Level 10.0 mg/dL (8.5-10.1) Thyroid Stimulating Hormone (TSH) 1.241 uIU/mL (0.358-3.74) ASSESSMENT/PLAN ASSESSMENT/PLAN 1. Bradycardia, sinus. asymptomatic. Appropriate chronotropic response noted with activity. 2. Frequent falls 3. Hypoxia with abnormal CXR 4. Hypertension 5. Hyperlipidemia 6. Valvular insufficiency 7. Coronary artery calcifications noted on CT Recommendations Monitor telemetry. No acute indication for PPM at this time. Could consider outpatient event monitor. Avoid AV breana blocking agents Check echo to assess LV function/presence of WMA given CAD noted on CT check lipids, TSH Given risk factors, could consider further ischemic workup, possible on an outpatient basis. Supportive care. Problems: ISAEL JOHNSON MD 01/16/17 1711: CARDIAC CONSULT ALLERGIES ALLERGIES: Coded Allergies: No Known Drug Allergies (Unverified , 01/15/17) ASSESSMENT/PLAN ASSESSMENT/PLAN Pt. seen and examined. 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 Etiology of hypoxia is unclear. No acute cardiac abnormalities noted. echo unremarkable. Supportive care. No indication for pacer Will follow. Thanks for consultation Problems: KYLE GRACE APRN Jan 16, 2017 12:09 ISAEL JOHNSON MD Jan 16, 2017 17:11
[2017-01-16] MEDS ORDERED: CARV3.122 PO (12:35)
[2017-01-16] MEDS ORDERED: PANT40TA3 PO (12:35)
[2017-01-16] MEDS ORDERED: CALC600T4 PO (12:35)
[2017-01-16 12:50] LABS: CHOLESTEROL/HDL RATIO 2.8
[2017-01-16 15:00] VITALS: BP 102/69
--- NOTE | 2017-01-16 15:51 | CARD ---
APPROVED REPORT EXAM: Two-dimensional and M-mode echocardiogram with Doppler and color Doppler. Other Information Quality : GoodHR: 63bpm Rhythm : NSR INDICATION CAD,Hypoxia 2D DIMENSIONS RVDd3.0 (2.9-3.5cm)Left Atrium(2D)3.1 (1.6-4.0cm) IVSd1.0 (0.7-1.1cm)Aortic Root(2D)3.3 (2.0-3.7cm) LVDd3.7 (3.9-5.9cm)LVOT Diameter2.2 (1.8-2.4cm) PWd1.0 (0.7-1.1cm)LVDs2.5 (2.5-4.0cm) FS (%) 31.9 %SV34.8 ml LVEF(%)60.9 (>50%) Aortic Valve AoV Peak Ac.171.6cm/sAoV VTI39.3cm AO Peak GR.11.8mmHgLVOT VTI 33.70cm AO Mean GR.7mmHgAI P 1/2 [id number] Mitral Valve MV E Fbqfhbth29.9cm/sMV E Peak Gr.3mmHg MV DECEL [id number] A Vjynjvyr53.6cm/s MV E Mean Gr.1mmHgE/A Ratio0.7 MV A [id number] TDI Lateral E' P. V10.17cm/sMedial E' P. V6.95cm/s Tricuspid Valve TR P. [id number]/sRAP [id number] TR Peak Gr.24mmHg Pulmonary Vein S1 Qovtsuxs84.9cm/sS2 Jgywdaye51.79cm/s D2 Ypuxisim59.8cm/sPVa [id number] LEFT VENTRICLE The left ventricle is normal size. There is normal left ventricular wall thickness. The left ventricu lar systolic function is normal and the ejection fraction is within normal range. The Ejection Fracti on is 60-65%. There is normal LV segmental wall motion. Transmitral Doppler flow pattern is Grade I-a bnormal relaxation pattern. RIGHT VENTRICLE The right ventricle is normal size. There is normal right ventricular wall thickness. The right ventr icular systolic function is normal. ATRIA The left atrium size is normal. The right atrium size is normal. The interatrial septum is intact wit h no evidence for an atrial septal defect or patent foramen ovale as noted on 2-D or Doppler imaging. AORTIC VALVE The aortic valve is mildly sclerotic. The aortic valve is trileaflet. Doppler and Color Flow revealed mild aortic regurgitation. There is no significant aortic valvular stenosis. MITRAL VALVE Mitral annular calcification is mild. The mitral valve leaflets are thickened. There is no evidence o f mitral valve prolapse. There is no mitral valve stenosis. Doppler and Color Flow revealed trace lisa ral regurgitation. TRICUSPID VALVE Doppler and Color Flow revealed mild tricuspid regurgitation. The pulmonary artery systolic pressure is estimated at 28 mmHg. There is no pulmonary hypertension. PULMONIC VALVE The pulmonic valve is not well visualized but appears to open adequately. Doppler and Color Flow reve aled trace pulmonic valvular regurgitation. There is no pulmonic valvular stenosis by spectral Dopple r. GREAT VESSELS The aortic root is normal in size. The ascending aorta is normal in size. The IVC is obscured, unable to assess. PERICARDIAL EFFUSION There is no evidence of significant pericardial effusion. Critical Notification Critical Value: No <Conclusion> The left ventricular systolic function is normal and the ejection fraction is within normal range. Th e Ejection Fraction is 60-65%. There is normal LV segmental wall motion. Doppler and Color Flow revealed mild aortic regurgitation.
[2017-01-16 19:00] VITALS: BP 106/50
[2017-01-16] MEDS: ATORVASTATIN CALCIUM 40 MG TABLET. PO SCH (21:45)
[2017-01-16 23:00] VITALS: BP 134/57
[2017-01-17 03:00] VITALS: BP 111/52
[2017-01-17 07:00] VITALS: BP 179/89
[2017-01-17] MEDS: LEVOTHYROXINE 100 MCG TABLET PO SCH (07:53)
[2017-01-17] MEDS: ASPIRIN CHEWABLE 81 MG TABLET. PO SCH (07:54)
[2017-01-17] MEDS: SENNOSIDES 8.6 MG TABLET PO SCH (08:58)
[2017-01-17] MEDS: POLYETHYLENE GLYCOL 3350 17 GM PACKET. PO SCH (08:58)
[2017-01-17] MEDS: PARoxetine 20 MG TABLET PO SCH (08:58)
[2017-01-17] MEDS: amLODIPine BESYLATE 5 MG TABLET PO SCH (08:59)
[2017-01-17] MEDS: HYDROcodone/APAP 5/325MG 1 TAB TABLET PO PRN ×3 (09:03→23:58)
--- NOTE | 2017-01-17 09:08 | PDOC ---
VANNESA PATEL ACCELERATOR TECHNICIAN 01/17/17 0908: PROGRESS NOTES Subjective Subjective Continues to require 4L NC oxygen, denies dyspnea however, no chest pain, no lightheadedness or palpitations. Objective Objective tele - mild rebecca with low of 47. Vital Signs Date Time Temp Pulse Resp B/P (MAP) Pulse Ox O2 Delivery O2 Flow Rate FiO2 01/17/17 03:00 98.6 57 18 111/52 (71) 96 Nasal Cannula 4.0 98.6 Physical Exam Abdomen: Normal bowel sounds, Soft, No tenderness Heart: Regular rate, Normal S1, Normal S2, Other (soft systolic murmur, no gallops, clicks or rubs) General: Alert, Oriented X3, Cooperative, No acute distress Lungs: Other (Right upper lobe crackles clears with cough, decreased bases. ) Neuro: Normal speech Psych/Mental Status: Mental status NL, Mood NL Assessment Assessment Problems Medical Problems: (1) Dehydration Status: Acute (2) Hypotension Status: Acute 1. Bradycardia, sinus. asymptomatic. Appropriate chronotropic response noted with activity. No significant decreases and low of 47 during HS. continue to avoid AV breana blockers and plan outpatient MCT 2. Hypoxia - remains on 4L/NC oxygen, consider pulm consult and PFTs 3. Hypertension - controlled 4. Hyperlipidemia - controlled Comment Review of Relevant I have reviewed the following items harvey (where applicable) has been applied. Labs Laboratory Tests Test 01/15/17 11:50 01/15/17 12:58 01/16/17 00:05 01/16/17 03:45 White Blood Count 6.0 x10^3/uL (4.0-11.0) 5.8 x10^3/uL (4.0-11.0) Red Blood Count 3.85 x10^6/uL (3.50-5.40) 3.44 x10^6/uL (3.50-5.40) Hemoglobin 12.0 g/dL (12.0-15.5) 10.8 g/dL (12.0-15.5) Hematocrit 36.6 % (36.0-47.0) 32.7 % (36.0-47.0) Mean Corpuscular Volume 95 fL (79-100) 95 fL (79-100) Mean Corpuscular Hemoglobin 31 pg (25-35) 31 pg (25-35) Mean Corpuscular Hemoglobin Concent 33 g/dL (31-37) 33 g/dL (31-37) Red Cell Distribution Width 14.5 % (11.5-14.5) 14.2 % (11.5-14.5) Platelet Count 202 x10^3/uL (140-400) 196 x10^3/uL (140-400) Neutrophils (%) (Auto) 44 % (31-73) 46 % (31-73) Lymphocytes (%) (Auto) 32 % (24-48) 29 % (24-48) Monocytes (%) (Auto) 10 % (0-9) 12 % (0-9) Eosinophils (%) (Auto) 13 % (0-3) 12 % (0-3) Basophils (%) (Auto) 1 % (0-3) 1 % (0-3) Neutrophils # (Auto) 2.6 x10^3uL (1.8-7.7) 2.7 x10^3uL (1.8-7.7) Lymphocytes # (Auto) 1.9 x10^3/uL (1.0-4.8) 1.7 x10^3/uL (1.0-4.8) Monocytes # (Auto) 0.6 x10^3/uL (0.0-1.1) 0.7 x10^3/uL (0.0-1.1) Eosinophils # (Auto) 0.8 x10^3/uL (0.0-0.7) 0.7 x10^3/uL (0.0-0.7) Basophils # (Auto) 0.1 x10^3/uL (0.0-0.2) 0.1 x10^3/uL (0.0-0.2) Sodium Level 143 mmol/L (136-145) 145 mmol/L (136-145) Potassium Level 4.4 mmol/L (3.5-5.1) 4.2 mmol/L (3.5-5.1) Chloride Level 106 mmol/L (98-107) 109 mmol/L (98-107) Carbon Dioxide Level 28 mmol/L (21-32) 29 mmol/L (21-32) Anion Gap 9 (6-14) 7 (6-14) Blood Urea Nitrogen 31 mg/dL (7-20) 28 mg/dL (7-20) Creatinine 0.8 mg/dL (0.6-1.0) 1.0 mg/dL (0.6-1.0) Estimated GFR (Cockcroft-Gault) 68.2 52.7 Glucose Level 89 mg/dL (70-99) 85 mg/dL (70-99) Calcium Level 11.0 mg/dL (8.5-10.1) 10.0 mg/dL (8.5-10.1) Magnesium Level 1.8 mg/dL (1.8-2.4) Total Bilirubin 0.4 mg/dL (0.2-1.0) Direct Bilirubin 0.1 mg/dL (0.0-0.2) Aspartate Amino Transf (AST/SGOT) 22 U/L (15-37) Alanine Aminotransferase (ALT/SGPT) 32 U/L (14-59) Alkaline Phosphatase 71 U/L (46-116) Troponin I Quantitative 0.037 ng/mL (0.000-0.055) 0.046 ng/mL (0.000-0.055) 0.044 ng/mL (0.000-0.055) Total Protein 6.6 g/dL (6.4-8.2) Albumin 3.2 g/dL (3.4-5.0) O2 Saturation 82 % (92-99) Arterial Blood pH 7.36 (7.35-7.45) Arterial Blood pCO2 at Patient Temp 50 mmHg (35-46) Arterial Blood pO2 at Patient Temp 50 mmHg (65-108) Arterial Blood HCO3 27 mmol/L (21-28) Arterial Blood Base Excess 1 mmol/L (-3-3) FiO2 21 UW-Nxg-I-Type Natriuretic Peptide 374 pg/mL (0-449) Thyroid Stimulating Hormone (TSH) 1.241 uIU/mL (0.358-3.74) Test 01/16/17 06:00 Triglycerides Level 85 mg/dL (0-150) Cholesterol Level 125 mg/dL (0-200) LDL Cholesterol, Calculated 63 mg/dL (0-100) VLDL Cholesterol, Calculated 17 mg/dL (0-40) Non-HDL Cholesterol Calculated 80 mg/dL (0-129) HDL Cholesterol 45 mg/dL (40-60) Cholesterol/HDL Ratio 2.8 Medications Current Medications Sodium Chloride 500 ml @ 500 mls/hr 1X ONCE IV Last administered on 12:53; Start 01/15/17 at 12:45; Stop 01/15/17 at 13:44; Status DC Iohexol (Omnipaque 300 Mg/ml) 75 ml 1X ONCE IV Last administered on 01/15/17 15:14; Start 01/15/17 at 14:45; Stop 01/15/17 at 14:46; Status DC Info (Do NOT chart on this entry -- for MONITORING) 1 each PRN DAILY PRN MC SEE COMMENTS; Start 01/15/17 at 14:45; Stop 01/17/17 at 14:44 Ondansetron HCl (Zofran) 4 mg PRN Q8HRS PRN IV NAUSEA/VOMITING; Start 01/15/17 at 16:45; Stop 01/16/17 at 16:44; Status DC Amlodipine Besylate (Norvasc) 5 mg DAILY PO Last administered on 01/16/17 08: 29; Start 01/16/17 at 09:00 Aspirin (Children'S Aspirin) 81 mg DAILYWBKFT PO Last administered on 07:54; Start 01/16/17 at 08:00 Atorvastatin Calcium (Lipitor) 80 mg QHS PO Last administered on 01/16/17 21: 45; Start 01/15/17 at 21:00 Acetaminophen/ Hydrocodone Bitart (Lortab 5/325) 1 tab PRN Q6HRS PRN PO SEVERE PAIN Last administered on 01/16/17 22:05; Start 01/15/17 at 21:15 Levothyroxine Sodium (Synthroid) 100 mcg DAILY07 PO Last administered on 07:53; Start 01/16/17 at 07:00 Paroxetine HCl (Paxil) 30 mg DAILY PO Last administered on 01/16/17 08:29; Start 01/16/17 at 09:00 Polyethylene Glycol (miraLAX PACKET) 17 gm DAILY PO Last administered on 08:30; Start 01/16/17 at 09:00 Sennosides (Senna) 17.2 mg DAILY PO Last administered on 9/29/17at 08:28; Start 01/16/17 at 09:00 Active Scripts Active Reported Calcium (Calcium Carbonate) 600 Mg Tablet 1,200 Mg PO Protonix (Pantoprazole Sodium) 40 Mg Tablet.dr 1 Tab PO DAILY Carvedilol 3.125 Mg Tablet 1 Tab PO BID Children's Aspirin (Aspirin) 81 Mg Tab.chew 81 Mg PO One Daily (Multivitamin) 1 Each Tablet 1 Each PO Vitamin D (Cholecalciferol (Vitamin D3)) 2,000 Unit Capsule 1 Cap PO DAILY Fish Oil ([place]-3 Fatty Acids) 300 Mg Capsule 1,200 Mg PO DAILY Hydrocodone-Apap 5-325 (Hydrocodone Bit/Acetaminophen) 1 Each Tablet 1-2 Tab PO Q4-6HRS Paroxetine Hcl 30 Mg Tablet 1.5 Tab PO DAILY Levothyroxine Sodium 100 Mcg Tablet 1 Tab PO DAILY Vitamin D (Cholecalciferol (Vitamin D3)) 1,000 Unit Capsule 5 Cap PO WEEKLY Atorvastatin Calcium 80 Mg Tablet 1 Tab PO DAILY Vitals/I & O Vital Sign - Last 24 Hours 01/16/17 01/16/17 01/16/17 01/16/17 11:00 15:00 17:00 19:00 Temp 97.7 98.0 98.0 97.7 98.0 98.0 Pulse 56 60 59 Resp 18 18 18 B/P (MAP) 98/45 (62) 102/69 (80) 106/50 (68) Pulse Ox 92 96 96 97 O2 Delivery Nasal Cannula Nasal Cannula Nasal Cannula Nasal Cannula O2 Flow Rate 4.0 4.0 4.0 4.0 01/16/17 01/16/17 01/16/17 01/16/17 20:00 22:05 23:00 23:10 Temp 98.3 98.3 Pulse 59 Resp 20 18 18 B/P (MAP) 134/57 (82) Pulse Ox 94 94 O2 Delivery Nasal Cannula Room Air Nasal Cannula Nasal Cannula O2 Flow Rate 4.0 4.0 4.0 01/17/17 03:00 Temp 98.6 98.6 Pulse 57 Resp 18 B/P (MAP) 111/52 (71) Pulse Ox 96 O2 Delivery Nasal Cannula O2 Flow Rate 4.0 ISAEL JOHNSON MD 01/17/17 1321: PROGRESS NOTES Plan Plan of Care Patient seen and examined. Agree with above nurse practitioner note. No acute events overnight. Continue supportive care. Please call with any further questions. Await pulmonary evaluation. VANNESA PATEL APRN Jan 17, 2017 09:08 ISAEL JOHNSON MD Jan 17, 2017 13:21
[2017-01-17 11:00] VITALS: BP 126/45
--- NOTE | 2017-01-17 12:42 | PDOC ---
PROGRESS NOTES Chief Complaint Chief Complaint Bradycardia Hypoxia Weakness in legs PMH: Arthritis COPD high cholesterol HTN Hypothyroid Chronic back pain History of Present Illness History of Present Illness Pt was awake and laying in bed. Discussed plan of care with pt and nurse. PT would like to get out of the hospital. Cardio: monitor telemetry possible event monitor post D/C EKG - bradycardia with no STEMI CT - no PE Echo - EF of 60-65% Troponins <.017 Vitals Vitals Vital Signs Date Time Temp Pulse Resp B/P (MAP) Pulse Ox O2 Delivery O2 Flow Rate FiO2 01/17/17 11:00 99.5 54 19 126/45 (72) 93 Nasal Cannula 99.5 01/17/17 10:03 4.0 Physical Exam General: Alert, Oriented X3, Cooperative, No acute distress Heart: Regular rate, Normal S1, Normal S2, Other (distant herart sounds) Lungs: Clear Abdomen: Normal bowel sounds, Soft, No tenderness Extremities: No edema, Normal pulses Skin: No rashes, No breakdown, No significant lesion Review of Systems Review of Systems PT complains of fatigue Pt complains of hunger Pt complains of leg stiffness and pain Assessment and Plan Assessmemt and Plan Problems Medical Problems: (1) Dehydration Status: Acute (2) Hypotension Status: Acute Bradycardia Hypoxia Weakness in legs PMH: Arthritis COPD high cholesterol HTN Hypothyroid Chronic back pain Plan: Appreciate subspecialty input PT/OT needs to walk Consult pulmonary regarding hypoxia consult social work program coordinator for D/C to correction eventually Cont. home meds Monitor pulse ox Problems: Comment Review of Relevant I have reviewed the following items harvey (where applicable) has been applied. Labs Laboratory Tests Test 01/15/17 12:58 01/16/17 00:05 01/16/17 03:45 01/16/17 06:00 O2 Saturation 82 % (92-99) Arterial Blood pH 7.36 (7.35-7.45) Arterial Blood pCO2 at Patient Temp 50 mmHg (35-46) Arterial Blood pO2 at Patient Temp 50 mmHg (65-108) Arterial Blood HCO3 27 mmol/L (21-28) Arterial Blood Base Excess 1 mmol/L (-3-3) FiO2 21 Troponin I Quantitative 0.046 ng/mL (0.000-0.055) 0.044 ng/mL (0.000-0.055) White Blood Count 5.8 x10^3/uL (4.0-11.0) Red Blood Count 3.44 x10^6/uL (3.50-5.40) Hemoglobin 10.8 g/dL (12.0-15.5) Hematocrit 32.7 % (36.0-47.0) Mean Corpuscular Volume 95 fL (79-100) Mean Corpuscular Hemoglobin 31 pg (25-35) Mean Corpuscular Hemoglobin Concent 33 g/dL (31-37) Red Cell Distribution Width 14.2 % (11.5-14.5) Platelet Count 196 x10^3/uL (140-400) Neutrophils (%) (Auto) 46 % (31-73) Lymphocytes (%) (Auto) 29 % (24-48) Monocytes (%) (Auto) 12 % (0-9) Eosinophils (%) (Auto) 12 % (0-3) Basophils (%) (Auto) 1 % (0-3) Neutrophils # (Auto) 2.7 x10^3uL (1.8-7.7) Lymphocytes # (Auto) 1.7 x10^3/uL (1.0-4.8) Monocytes # (Auto) 0.7 x10^3/uL (0.0-1.1) Eosinophils # (Auto) 0.7 x10^3/uL (0.0-0.7) Basophils # (Auto) 0.1 x10^3/uL (0.0-0.2) Sodium Level 145 mmol/L (136-145) Potassium Level 4.2 mmol/L (3.5-5.1) Chloride Level 109 mmol/L (98-107) Carbon Dioxide Level 29 mmol/L (21-32) Anion Gap 7 (6-14) Blood Urea Nitrogen 28 mg/dL (7-20) Creatinine 1.0 mg/dL (0.6-1.0) Estimated GFR (Cockcroft-Gault) 52.7 Glucose Level 85 mg/dL (70-99) Calcium Level 10.0 mg/dL (8.5-10.1) EK-Ima-S-Type Natriuretic Peptide 374 pg/mL (0-449) Thyroid Stimulating Hormone (TSH) 1.241 uIU/mL (0.358-3.74) Triglycerides Level 85 mg/dL (0-150) Cholesterol Level 125 mg/dL (0-200) LDL Cholesterol, Calculated 63 mg/dL (0-100) VLDL Cholesterol, Calculated 17 mg/dL (0-40) Non-HDL Cholesterol Calculated 80 mg/dL (0-129) HDL Cholesterol 45 mg/dL (40-60) Cholesterol/HDL Ratio 2.8 Medications Current Medications Sodium Chloride 500 ml @ 500 mls/hr 1X ONCE IV Last administered on 12:53; Start 01/15/17 at 12:45; Stop 01/15/17 at 13:44; Status DC Iohexol (Omnipaque 300 Mg/ml) 75 ml 1X ONCE IV Last administered on 01/15/17 15:14; Start 01/15/17 at 14:45; Stop 01/15/17 at 14:46; Status DC Info (Do NOT chart on this entry -- for MONITORING) 1 each PRN DAILY PRN MC SEE COMMENTS; Start 01/15/17 at 14:45; Stop 01/17/17 at 14:44 Ondansetron HCl (Zofran) 4 mg PRN Q8HRS PRN IV NAUSEA/VOMITING; Start 01/15/17 at 16:45; Stop 01/16/17 at 16:44; Status DC Amlodipine Besylate (Norvasc) 5 mg DAILY PO Last administered on 01/17/17 08: 59; Start 01/16/17 at 09:00 Aspirin (Children'S Aspirin) 81 mg DAILYWBKFT PO Last administered on 07:54; Start 01/16/17 at 08:00 Atorvastatin Calcium (Lipitor) 80 mg QHS PO Last administered on 01/16/17 21: 45; Start 01/15/17 at 21:00 Acetaminophen/ Hydrocodone Bitart (Lortab 5/325) 1 tab PRN Q6HRS PRN PO SEVERE PAIN Last administered on 01/17/17 09:03; Start 01/15/17 at 21:15 Levothyroxine Sodium (Synthroid) 100 mcg DAILY07 PO Last administered on 07:53; Start 01/16/17 at 07:00 Paroxetine HCl (Paxil) 30 mg DAILY PO Last administered on 01/17/17 08:58; Start 01/16/17 at 09:00 Polyethylene Glycol (miraLAX PACKET) 17 gm DAILY PO Last administered on 08:58; Start 01/16/17 at 09:00 Sennosides (Senna) 17.2 mg DAILY PO Last administered on 01/17/17 08:58; Start 01/16/17 at 09:00 Active Scripts Active Reported Calcium (Calcium Carbonate) 600 Mg Tablet 1,200 Mg PO Protonix (Pantoprazole Sodium) 40 Mg Tablet.dr 1 Tab PO DAILY Carvedilol 3.125 Mg Tablet 1 Tab PO BID Children's Aspirin (Aspirin) 81 Mg Tab.chew 81 Mg PO One Daily (Multivitamin) 1 Each Tablet 1 Each PO Vitamin D (Cholecalciferol (Vitamin D3)) 2,000 Unit Capsule 1 Cap PO DAILY Fish Oil ([place]-3 Fatty Acids) 300 Mg Capsule 1,200 Mg PO DAILY Hydrocodone-Apap 5-325 (Hydrocodone Bit/Acetaminophen) 1 Each Tablet 1-2 Tab PO Q4-6HRS Paroxetine Hcl 30 Mg Tablet 1.5 Tab PO DAILY Levothyroxine Sodium 100 Mcg Tablet 1 Tab PO DAILY Vitamin D (Cholecalciferol (Vitamin D3)) 1,000 Unit Capsule 5 Cap PO WEEKLY Atorvastatin Calcium 80 Mg Tablet 1 Tab PO DAILY Vitals/I & O Vital Sign - Last 24 Hours 01/16/17 01/16/17 01/16/17 01/16/17 15:00 17:00 19:00 20:00 Temp 98.0 98.0 98.0 98.0 Pulse 60 59 Resp 18 18 B/P (MAP) 102/69 (80) 106/50 (68) Pulse Ox 96 96 97 O2 Delivery Nasal Cannula Nasal Cannula Nasal Cannula Nasal Cannula O2 Flow Rate 4.0 4.0 4.0 4.0 01/16/17 01/16/17 01/16/17 01/17/17 22:05 23:00 23:10 03:00 Temp 98.3 98.6 98.3 98.6 Pulse 59 57 Resp 20 18 18 B/P (MAP) 134/57 (82) 111/52 (71) Pulse Ox 94 94 96 O2 Delivery Room Air Nasal Cannula Nasal Cannula O2 Flow Rate 4.0 4.0 01/17/17 01/17/17 01/17/17 01/17/17 07:00 08:00 08:59 09:03 Temp 97.9 97.9 Pulse 62 62 Resp 19 18 B/P (MAP) 179/89 (119) 179/89 Pulse Ox 90 O2 Delivery Nasal Cannula Nasal Cannula Nasal Cannula O2 Flow Rate 4.0 4.0 01/17/17 01/17/17 10:03 11:00 Temp 99.5 99.5 Pulse 54 Resp 18 19 B/P (MAP) 126/45 (72) Pulse Ox 93 O2 Delivery Nasal Cannula Nasal Cannula O2 Flow Rate 4.0 RON PAINTER III DO Jan 17, 2017 12:42
[2017-01-17] MEDS ORDERED: ACETAMINOPHEN 325 MG TABLET. PO PRN (14:45)
[2017-01-17 15:00] VITALS: BP 126/40
[2017-01-17 19:00] VITALS: BP 120/59
[2017-01-17] MEDS: ATORVASTATIN CALCIUM 40 MG TABLET. PO SCH (20:16)
[2017-01-17 23:00] VITALS: BP 139/65
[2017-01-18 03:19] VITALS: BP 183/91
[2017-01-18] MEDS: LEVOTHYROXINE 100 MCG TABLET PO SCH (06:04)
[2017-01-18 06:31] LABS: BASO # 0.1 x10^3/uL (0.0-0.2); BASO % 1 % (0-3); EOS % 12 % (0-3); HEMATOCRIT 34.3 % (36.0-47.0); HEMOGLOBIN 11.7 g/dL (12.0-15.5); LYMPH # 1.9 x10^3/uL (1.0-4.8); LYMPH % 27 % (24-48); MEAN CORPUSCULAR HEMOGLOBIN 32 pg (25-35); MEAN CORPUSCULAR HGB CONC 34 g/dL (31-37); MEAN CORPUSCULAR VOLUME 93 fL (79-100); MONO % 11 % (0-9); NEUT % 50 % (31-73); PLATELET COUNT 192 x10^3/uL (140-400); RED BLOOD COUNT 3.68 x10^6/uL (3.50-5.40); WHITE BLOOD COUNT 7.3 x10^3/uL (4.0-11.0)
[2017-01-18 06:40] LABS: CALCIUM 10.3 mg/dL (8.5-10.1); CREATININE 0.7 mg/dL (0.6-1.0); GFR 79.5
[2017-01-18 06:58] LABS: POTASSIUM 4.9 mmol/L (3.5-5.1)
[2017-01-18 07:00] VITALS: BP 137/62
[2017-01-18] MEDS: POLYETHYLENE GLYCOL 3350 17 GM PACKET. PO SCH (08:44)
[2017-01-18] MEDS: ASPIRIN CHEWABLE 81 MG TABLET. PO SCH (08:45)
[2017-01-18] MEDS: SENNOSIDES 8.6 MG TABLET PO SCH (08:45)
[2017-01-18] MEDS: PARoxetine 20 MG TABLET PO SCH (08:45)
[2017-01-18] MEDS: amLODIPine BESYLATE 5 MG TABLET PO SCH (08:46)
[2017-01-18] MEDS: HYDROcodone/APAP 5/325MG 1 TAB TABLET PO PRN ×3 (08:49→20:53)
[2017-01-18 11:00] VITALS: BP 132/64
--- NOTE | 2017-01-18 12:06 | PDOC ---
Provider Note Provider Note dictated MARVIN COLEY MD Jan 18, 2017 12:05
--- NOTE | 2017-01-18 12:50 | PDOC ---
PROGRESS NOTES Chief Complaint Chief Complaint Bradycardia Hypoxia Weakness in legs PMH: Arthritis COPD high cholesterol HTN Hypothyroid Chronic back pain History of Present Illness History of Present Illness Pt was sitting beside in a chair. Pt was conversant. Discussed plan of care with pt including going to a care home facility due to unsteadiness. on site services specialist consulted. PT mentioned mild right hand pain. Vitals Vitals Vital Signs Date Time Temp Pulse Resp B/P (MAP) Pulse Ox O2 Delivery O2 Flow Rate FiO2 01/18/17 11:00 97.9 61 132/64 (86) 95 Nasal Cannula 4.0 97.9 01/18/17 09:49 18 Physical Exam General: Alert, Oriented X3, Cooperative, No acute distress Heart: Regular rate, Normal S1, Normal S2, Other (distant herart sounds) Lungs: Clear Abdomen: Normal bowel sounds, Soft, No tenderness Extremities: No clubbing, No cyanosis, No edema, Normal pulses Skin: No rashes, No breakdown, No significant lesion Labs LABS Laboratory Tests Test 01/18/17 05:55 White Blood Count 7.3 x10^3/uL (4.0-11.0) Red Blood Count 3.68 x10^6/uL (3.50-5.40) Hemoglobin 11.7 g/dL (12.0-15.5) Hematocrit 34.3 % (36.0-47.0) Mean Corpuscular Volume 93 fL (79-100) Mean Corpuscular Hemoglobin 32 pg (25-35) Mean Corpuscular Hemoglobin Concent 34 g/dL (31-37) Red Cell Distribution Width 14.0 % (11.5-14.5) Platelet Count 192 x10^3/uL (140-400) Neutrophils (%) (Auto) 50 % (31-73) Lymphocytes (%) (Auto) 27 % (24-48) Monocytes (%) (Auto) 11 % (0-9) Eosinophils (%) (Auto) 12 % (0-3) Basophils (%) (Auto) 1 % (0-3) Neutrophils # (Auto) 3.7 x10^3uL (1.8-7.7) Lymphocytes # (Auto) 1.9 x10^3/uL (1.0-4.8) Monocytes # (Auto) 0.8 x10^3/uL (0.0-1.1) Eosinophils # (Auto) 0.9 x10^3/uL (0.0-0.7) Basophils # (Auto) 0.1 x10^3/uL (0.0-0.2) Sodium Level 145 mmol/L (136-145) Potassium Level 4.9 mmol/L (3.5-5.1) Chloride Level 110 mmol/L (98-107) Carbon Dioxide Level 31 mmol/L (21-32) Anion Gap 4 (6-14) Blood Urea Nitrogen 22 mg/dL (7-20) Creatinine 0.7 mg/dL (0.6-1.0) Estimated GFR (Cockcroft-Gault) 79.5 Glucose Level 99 mg/dL (70-99) Calcium Level 10.3 mg/dL (8.5-10.1) Review of Systems Review of Systems Pt complains of fatigue Pt complains of hunger Pt complains of right hand pain Assessment and Plan Assessmemt and Plan Problems Medical Problems: (1) Dehydration Status: Acute (2) Hypotension Status: Acute Bradycardia Hypoxia Weakness in legs PMH: Arthritis COPD high cholesterol HTN Hypothyroid Chronic back pain Plan: Consulted social services manager for SNU eval Recheck labs Cont. PT/OT Cont. meds Appreciate subspecialty input Problems: Comment Review of Relevant I have reviewed the following items harvey (where applicable) has been applied. Labs Laboratory Tests Test 01/18/17 05:55 White Blood Count 7.3 x10^3/uL (4.0-11.0) Red Blood Count 3.68 x10^6/uL (3.50-5.40) Hemoglobin 11.7 g/dL (12.0-15.5) Hematocrit 34.3 % (36.0-47.0) Mean Corpuscular Volume 93 fL (79-100) Mean Corpuscular Hemoglobin 32 pg (25-35) Mean Corpuscular Hemoglobin Concent 34 g/dL (31-37) Red Cell Distribution Width 14.0 % (11.5-14.5) Platelet Count 192 x10^3/uL (140-400) Neutrophils (%) (Auto) 50 % (31-73) Lymphocytes (%) (Auto) 27 % (24-48) Monocytes (%) (Auto) 11 % (0-9) Eosinophils (%) (Auto) 12 % (0-3) Basophils (%) (Auto) 1 % (0-3) Neutrophils # (Auto) 3.7 x10^3uL (1.8-7.7) Lymphocytes # (Auto) 1.9 x10^3/uL (1.0-4.8) Monocytes # (Auto) 0.8 x10^3/uL (0.0-1.1) Eosinophils # (Auto) 0.9 x10^3/uL (0.0-0.7) Basophils # (Auto) 0.1 x10^3/uL (0.0-0.2) Sodium Level 145 mmol/L (136-145) Potassium Level 4.9 mmol/L (3.5-5.1) Chloride Level 110 mmol/L (98-107) Carbon Dioxide Level 31 mmol/L (21-32) Anion Gap 4 (6-14) Blood Urea Nitrogen 22 mg/dL (7-20) Creatinine 0.7 mg/dL (0.6-1.0) Estimated GFR (Cockcroft-Gault) 79.5 Glucose Level 99 mg/dL (70-99) Calcium Level 10.3 mg/dL (8.5-10.1) Laboratory Tests Test 01/18/17 05:55 White Blood Count 7.3 x10^3/uL (4.0-11.0) Red Blood Count 3.68 x10^6/uL (3.50-5.40) Hemoglobin 11.7 g/dL (12.0-15.5) Hematocrit 34.3 % (36.0-47.0) Mean Corpuscular Volume 93 fL (79-100) Mean Corpuscular Hemoglobin 32 pg (25-35) Mean Corpuscular Hemoglobin Concent 34 g/dL (31-37) Red Cell Distribution Width 14.0 % (11.5-14.5) Platelet Count 192 x10^3/uL (140-400) Neutrophils (%) (Auto) 50 % (31-73) Lymphocytes (%) (Auto) 27 % (24-48) Monocytes (%) (Auto) 11 % (0-9) Eosinophils (%) (Auto) 12 % (0-3) Basophils (%) (Auto) 1 % (0-3) Neutrophils # (Auto) 3.7 x10^3uL (1.8-7.7) Lymphocytes # (Auto) 1.9 x10^3/uL (1.0-4.8) Monocytes # (Auto) 0.8 x10^3/uL (0.0-1.1) Eosinophils # (Auto) 0.9 x10^3/uL (0.0-0.7) Basophils # (Auto) 0.1 x10^3/uL (0.0-0.2) Sodium Level 145 mmol/L (136-145) Potassium Level 4.9 mmol/L (3.5-5.1) Chloride Level 110 mmol/L (98-107) Carbon Dioxide Level 31 mmol/L (21-32) Anion Gap 4 (6-14) Blood Urea Nitrogen 22 mg/dL (7-20) Creatinine 0.7 mg/dL (0.6-1.0) Estimated GFR (Cockcroft-Gault) 79.5 Glucose Level 99 mg/dL (70-99) Calcium Level 10.3 mg/dL (8.5-10.1) Medications Current Medications Sodium Chloride 500 ml @ 500 mls/hr 1X ONCE IV Last administered on 12:53; Start 01/15/17 at 12:45; Stop 01/15/17 at 13:44; Status DC Iohexol (Omnipaque 300 Mg/ml) 75 ml 1X ONCE IV Last administered on 01/15/17 15:14; Start 01/15/17 at 14:45; Stop 01/15/17 at 14:46; Status DC Info (Do NOT chart on this entry -- for MONITORING) 1 each PRN DAILY PRN MC SEE COMMENTS; Start 01/15/17 at 14:45; Stop 01/17/17 at 14:44; Status DC Ondansetron HCl (Zofran) 4 mg PRN Q8HRS PRN IV NAUSEA/VOMITING; Start 01/15/17 at 16:45; Stop 01/16/17 at 16:44; Status DC Amlodipine Besylate (Norvasc) 5 mg DAILY PO Last administered on 01/18/17 08: 46; Start 01/16/17 at 09:00 Aspirin (Children'S Aspirin) 81 mg DAILYWBKFT PO Last administered on 08:45; Start 01/16/17 at 08:00 Atorvastatin Calcium (Lipitor) 80 mg QHS PO Last administered on 01/17/17 20: 16; Start 01/15/17 at 21:00 Acetaminophen/ Hydrocodone Bitart (Lortab 5/325) 1 tab PRN Q6HRS PRN PO SEVERE PAIN Last administered on 01/18/17 08:49; Start 01/15/17 at 21:15 Levothyroxine Sodium (Synthroid) 100 mcg DAILY07 PO Last administered on 06:04; Start 01/16/17 at 07:00 Paroxetine HCl (Paxil) 30 mg DAILY PO Last administered on 01/18/17 08:45; Start 01/16/17 at 09:00 Polyethylene Glycol (miraLAX PACKET) 17 gm DAILY PO Last administered on 08:44; Start 01/16/17 at 09:00 Sennosides (Senna) 17.2 mg DAILY PO Last administered on 01/18/17 08:45; Start 01/16/17 at 09:00 Acetaminophen (Tylenol) 650 mg PRN Q6HRS PRN PO MILD PAIN / TEMP Last administered on 01/17/17 14:52; Start 01/17/17 at 14:45 Ceftriaxone Sodium 1 gm/ Sodium Chloride 50 ml @ 100 mls/hr Q24H IV Last administered on 01/17/17 16:15; Start 01/17/17 at 15:00 Albuterol/ Ipratropium (Duoneb) 3 ml RTQID NEB ; Start 01/18/17 at 16:00 Active Scripts Active Reported Calcium (Calcium Carbonate) 600 Mg Tablet 1,200 Mg PO Protonix (Pantoprazole Sodium) 40 Mg Tablet. 1 Tab PO DAILY Carvedilol 3.125 Mg Tablet 1 Tab PO BID Children's Aspirin (Aspirin) 81 Mg Tab.chew 81 Mg PO One Daily (Multivitamin) 1 Each Tablet 1 Each PO Vitamin D (Cholecalciferol (Vitamin D3)) 2,000 Unit Capsule 1 Cap PO DAILY Fish Oil ([place]-3 Fatty Acids) 300 Mg Capsule 1,200 Mg PO DAILY Hydrocodone-Apap 5-325 (Hydrocodone Bit/Acetaminophen) 1 Each Tablet 1-2 Tab PO Q4-6HRS Paroxetine Hcl 30 Mg Tablet 1.5 Tab PO DAILY Levothyroxine Sodium 100 Mcg Tablet 1 Tab PO DAILY Vitamin D (Cholecalciferol (Vitamin D3)) 1,000 Unit Capsule 5 Cap PO WEEKLY Atorvastatin Calcium 80 Mg Tablet 1 Tab PO DAILY Vitals/I & O Vital Sign - Last 24 Hours 01/17/17 01/17/17 01/17/17 01/17/17 14:53 15:00 19:00 20:00 Temp 100.4 98.4 100.4 98.4 Pulse 59 54 Resp 18 19 20 B/P (MAP) 126/40 (68) 120/59 (79) Pulse Ox 89 95 O2 Delivery Nasal Cannula Nasal Cannula Nasal Cannula Nasal Cannula O2 Flow Rate 4.0 4.0 01/17/17 01/17/17 01/18/17 01/18/17 23:00 23:58 00:58 03:19 Temp 98.4 98.0 98.4 98.0 Pulse 61 57 Resp 20 20 B/P (MAP) 139/65 (89) 183/91 (121) Pulse Ox 95 95 95 95 O2 Delivery Nasal Cannula Nasal Cannula Nasal Cannula O2 Flow Rate 4.0 01/18/17 01/18/17 01/18/17 01/18/17 07:00 08:00 08:46 08:49 Temp 95.7 95.7 Pulse 61 61 Resp 18 20 B/P (MAP) 137/62 (87) 137/61 Pulse Ox 94 O2 Delivery Nasal Cannula Nasal Cannula Nasal Cannula O2 Flow Rate 4.0 4.0 01/18/17 01/18/17 09:49 11:00 Temp 97.9 97.9 Pulse 61 Resp 18 B/P (MAP) 132/64 (86) Pulse Ox 95 O2 Delivery Nasal Cannula Nasal Cannula O2 Flow Rate 4.0 4.0 RON PAINTER III DO Jan 18, 2017 12:50
--- NOTE | 2017-01-18 12:51 | CONS ---
DATE OF CONSULTATION: ATTENDING PHYSICIAN: Dr. Mejia. REASON FOR CONSULTATION: Hypoxia. HISTORY OF PRESENT ILLNESS: The patient is an 86-year-old female who has no significant history of tobacco use. She has recent history of multiple falls and was found by her home physical therapists to be bradycardic as well as hypoxic. The patient states that she does not have any shortness of breath. She does not have a cough, fever or chills. Currently, she is requiring 4 liters of oxygen with saturations of 95%. She states she normally does not use oxygen. She is afebrile. I have reviewed patient's CT chest, which was performed in the Emergency Room. There was no evidence of pulmonary embolism; however, it was difficult to evaluate the distal branches. She does have some bilateral basal airspace infiltrates which could be related to infection such as pneumonia versus atelectasis. She appears to be comfortable, with no obvious respiratory distress. PAST MEDICAL HISTORY: Hypertension, hypercholesterolemia, hypothyroidism, questionable COPD, arthritis, chronic back pain. PAST SURGICAL HISTORY: Including hip replacement, knee replacement, and tonsillectomy. FAMILY HISTORY: Positive for hypertension in her sister. SOCIAL HISTORY: Lives by herself. Nonsmoker. ALLERGIES: None. MEDICATIONS: Reviewed as listed in the MRAD including antibiotic, Rocephin. PHYSICAL EXAMINATION: GENERAL: She is awake, following commands. VITAL SIGNS: Pulse ox 95% on 4 liters. NECK: Supple. LUNGS: With few crackles, rhonchi posteriorly at the bases. CARDIOVASCULAR: Regular rate and rhythm. ABDOMEN: Soft, nontender. EXTREMITIES: With no pitting edema. LABORATORY DATA: Reviewed. White cell count 7.3, hemoglobin 11.7, platelets are 192. ABGs with a pH of 7.36, pCO2 of 50, pO2 of 50 on room air. BUN 22, creatinine 0.7. IMPRESSION: 1. Acute hypoxic respiratory failure, most likely secondary to combination of basal pneumonia/atelectasis. 2. No evidence of central pulmonary embolism by CT angiogram. 3. Mild hypernatremia. 4. Compensated respiratory acidosis, but hypoxia on room air, which corrects well with 4 liters of supplemental oxygen. RECOMMENDATIONS: 1. Continue with present antibiotics. 2. Slowly wean FIO2. Keep saturation 92% and above. 3. Add bronchodilators. 4. Incentive spirometry. 5. Once suction requirements improve, then she could be discharged on oral antibiotics. Discussed with RN. MARVIN COLEY MD DR: JO-ANN/monalisa JOB#: [id number] / [id number]
[2017-01-18] MEDS: IPRATRPIUM/ALBUTEROL 0.5/2.5MG 3 ML NEBU. NEB SCH ×2 (14:51→20:53)
[2017-01-18 15:00] VITALS: BP 155/67
[2017-01-18 19:00] VITALS: BP 147/71
[2017-01-18] MEDS: ATORVASTATIN CALCIUM 40 MG TABLET. PO SCH (20:53)
[2017-01-18 23:00] VITALS: BP 121/45
[2017-01-19 03:04] VITALS: BP 188/92
[2017-01-19 04:50] LABS: BASO # 0.1 x10^3/uL (0.0-0.2); BASO % 1 % (0-3); EOS % 10 % (0-3); HEMOGLOBIN 11.2 g/dL (12.0-15.5); LYMPH # 1.8 x10^3/uL (1.0-4.8); LYMPH % 26 % (24-48); MEAN CORPUSCULAR HEMOGLOBIN 31 pg (25-35); MEAN CORPUSCULAR HGB CONC 33 g/dL (31-37); MEAN CORPUSCULAR VOLUME 95 fL (79-100); MONO % 10 % (0-9); NEUT % 53 % (31-73); PLATELET COUNT 186 x10^3/uL (140-400); RED BLOOD COUNT 3.58 x10^6/uL (3.50-5.40); RED CELL DISTRIBUTION WIDTH 14.2 % (11.5-14.5)
[2017-01-19 05:05] LABS: CALCIUM 9.8 mg/dL (8.5-10.1); CREATININE 0.7 mg/dL (0.6-1.0); GFR 79.5; POTASSIUM 3.7 mmol/L (3.5-5.1)
[2017-01-19] MEDS: HYDROcodone/APAP 5/325MG 1 TAB TABLET PO PRN ×3 (05:41→19:52)
[2017-01-19] MEDS: LEVOTHYROXINE 100 MCG TABLET PO SCH (05:41)
[2017-01-19] MEDS: IPRATRPIUM/ALBUTEROL 0.5/2.5MG 3 ML NEBU. NEB SCH ×4 (07:25→20:37)
[2017-01-19 07:30] VITALS: BP 126/79
[2017-01-19] MEDS: SENNOSIDES 8.6 MG TABLET PO SCH (08:09)
[2017-01-19] MEDS: ASPIRIN CHEWABLE 81 MG TABLET. PO SCH (08:10)
[2017-01-19] MEDS: PARoxetine 20 MG TABLET PO SCH (08:10)
[2017-01-19] MEDS: amLODIPine BESYLATE 5 MG TABLET PO SCH (08:21)
[2017-01-19] MEDS: POLYETHYLENE GLYCOL 3350 17 GM PACKET. PO SCH ×2 (08:21→19:57)
--- NOTE | 2017-01-19 09:18 | PDOC ---
PULMONARY PROGRESS NOTES Vitals Vital Signs Date Time Temp Pulse Resp B/P (MAP) Pulse Ox O2 Delivery O2 Flow Rate FiO2 01/19/17 08:21 75 126/79 01/19/17 07:30 98.2 16 91 Nasal Cannula 3.0 98.2 Lungs: Clear Cardiovascular: S1 Labs Laboratory Tests Test 01/18/17 05:55 01/19/17 04:25 White Blood Count 7.3 x10^3/uL (4.0-11.0) 7.0 x10^3/uL (4.0-11.0) Red Blood Count 3.68 x10^6/uL (3.50-5.40) 3.58 x10^6/uL (3.50-5.40) Hemoglobin 11.7 g/dL (12.0-15.5) 11.2 g/dL (12.0-15.5) Hematocrit 34.3 % (36.0-47.0) 34.0 % (36.0-47.0) Mean Corpuscular Volume 93 fL (79-100) 95 fL (79-100) Mean Corpuscular Hemoglobin 32 pg (25-35) 31 pg (25-35) Mean Corpuscular Hemoglobin Concent 34 g/dL (31-37) 33 g/dL (31-37) Red Cell Distribution Width 14.0 % (11.5-14.5) 14.2 % (11.5-14.5) Platelet Count 192 x10^3/uL (140-400) 186 x10^3/uL (140-400) Neutrophils (%) (Auto) 50 % (31-73) 53 % (31-73) Lymphocytes (%) (Auto) 27 % (24-48) 26 % (24-48) Monocytes (%) (Auto) 11 % (0-9) 10 % (0-9) Eosinophils (%) (Auto) 12 % (0-3) 10 % (0-3) Basophils (%) (Auto) 1 % (0-3) 1 % (0-3) Neutrophils # (Auto) 3.7 x10^3uL (1.8-7.7) 3.7 x10^3uL (1.8-7.7) Lymphocytes # (Auto) 1.9 x10^3/uL (1.0-4.8) 1.8 x10^3/uL (1.0-4.8) Monocytes # (Auto) 0.8 x10^3/uL (0.0-1.1) 0.7 x10^3/uL (0.0-1.1) Eosinophils # (Auto) 0.9 x10^3/uL (0.0-0.7) 0.7 x10^3/uL (0.0-0.7) Basophils # (Auto) 0.1 x10^3/uL (0.0-0.2) 0.1 x10^3/uL (0.0-0.2) Sodium Level 145 mmol/L (136-145) 144 mmol/L (136-145) Potassium Level 4.9 mmol/L (3.5-5.1) 3.7 mmol/L (3.5-5.1) Chloride Level 110 mmol/L (98-107) 108 mmol/L (98-107) Carbon Dioxide Level 31 mmol/L (21-32) 29 mmol/L (21-32) Anion Gap 4 (6-14) 7 (6-14) Blood Urea Nitrogen 22 mg/dL (7-20) 25 mg/dL (7-20) Creatinine 0.7 mg/dL (0.6-1.0) 0.7 mg/dL (0.6-1.0) Estimated GFR (Cockcroft-Gault) 79.5 79.5 Glucose Level 99 mg/dL (70-99) 101 mg/dL (70-99) Calcium Level 10.3 mg/dL (8.5-10.1) 9.8 mg/dL (8.5-10.1) Laboratory Tests Test 01/19/17 04:25 White Blood Count 7.0 x10^3/uL (4.0-11.0) Red Blood Count 3.58 x10^6/uL (3.50-5.40) Hemoglobin 11.2 g/dL (12.0-15.5) Hematocrit 34.0 % (36.0-47.0) Mean Corpuscular Volume 95 fL (79-100) Mean Corpuscular Hemoglobin 31 pg (25-35) Mean Corpuscular Hemoglobin Concent 33 g/dL (31-37) Red Cell Distribution Width 14.2 % (11.5-14.5) Platelet Count 186 x10^3/uL (140-400) Neutrophils (%) (Auto) 53 % (31-73) Lymphocytes (%) (Auto) 26 % (24-48) Monocytes (%) (Auto) 10 % (0-9) Eosinophils (%) (Auto) 10 % (0-3) Basophils (%) (Auto) 1 % (0-3) Neutrophils # (Auto) 3.7 x10^3uL (1.8-7.7) Lymphocytes # (Auto) 1.8 x10^3/uL (1.0-4.8) Monocytes # (Auto) 0.7 x10^3/uL (0.0-1.1) Eosinophils # (Auto) 0.7 x10^3/uL (0.0-0.7) Basophils # (Auto) 0.1 x10^3/uL (0.0-0.2) Sodium Level 144 mmol/L (136-145) Potassium Level 3.7 mmol/L (3.5-5.1) Chloride Level 108 mmol/L (98-107) Carbon Dioxide Level 29 mmol/L (21-32) Anion Gap 7 (6-14) Blood Urea Nitrogen 25 mg/dL (7-20) Creatinine 0.7 mg/dL (0.6-1.0) Estimated GFR (Cockcroft-Gault) 79.5 Glucose Level 101 mg/dL (70-99) Calcium Level 9.8 mg/dL (8.5-10.1) Medications Active Scripts Medications Dose Route/Sig Max Daily Dose Days Date Category Calcium (Calcium Carbonate) 600 Mg Tablet 1,200 Mg PO 01/16/17 Reported Protonix (Pantoprazole Sodium) 40 Mg Tablet.dr 1 Tab PO DAILY 01/16/17 Reported Carvedilol 3.125 Mg Tablet 1 Tab PO BID 01/16/17 Reported Children's Aspirin (Aspirin) 81 Mg Tab.chew 81 Mg PO 12/09/14 Reported One Daily (Multivitamin) 1 Each Tablet 1 Each PO 12/09/14 Reported Vitamin D (Cholecalciferol (Vitamin D3)) 2,000 Unit Capsule 1 Cap PO DAILY 12/09/14 Reported Fish Oil ([place]-3 Fatty Acids) 300 Mg Capsule 1,200 Mg PO DAILY 12/09/14 Reported Hydrocodone-Apap 5-325 (Hydrocodone Bit/Acetaminophen) 1 Each Tablet 1-2 Tab PO Q4-6HRS 12/09/14 Reported Paroxetine Hcl 30 Mg Tablet 1.5 Tab PO DAILY 12/09/14 Reported Levothyroxine Sodium 100 Mcg Tablet 1 Tab PO DAILY 12/09/14 Reported Vitamin D (Cholecalciferol (Vitamin D3)) 1,000 Unit Capsule 5 Cap PO WEEKLY 12/09/14 Reported Atorvastatin Calcium 80 Mg Tablet 1 Tab PO DAILY 12/09/14 Reported Impression . IMPRESSION: 1. Acute hypoxic respiratory failure, most likely secondary to combination of basal pneumonia/atelectasis. 2. No evidence of central pulmonary embolism by CT angiogram. 3. Mild hypernatremia. 4. Compensated respiratory acidosis Plan . D/C 02 6 MIN WALK IN AM 1. Continue with present antibiotics. 2. Slowly wean FIO2. Keep saturation 92% and above. 3. Add bronchodilators. 4. Incentive spirometry. 5. Once suction requirements improve, then she could be discharged on oral antibiotics. ANNABELLE HOLLOWAY MD Jan 19, 2017 09:18
[2017-01-19 11:00] VITALS: BP 125/60
--- NOTE | 2017-01-19 11:21 | PDOC ---
PROGRESS NOTES Chief Complaint Chief Complaint Bradycardia Hypoxia Weakness in legs PMH: Arthritis COPD high cholesterol HTN Hypothyroid Chronic back pain History of Present Illness History of Present Illness Pt was laying in bed on 3L of oxygen via NC. Pt was conversant. she says she would like to go home. Discussed plan of care with her including D/C when ok with pulmonary. Pulmonary will cont abx and attempt to slowly wean her FiO2 down. Will also add a bronchodilator and instruct on use of incentive spirometry. Vitals Vitals Vital Signs Date Time Temp Pulse Resp B/P (MAP) Pulse Ox O2 Delivery O2 Flow Rate FiO2 01/19/17 10:40 Nasal Cannula 3.0 01/19/17 08:21 75 126/79 01/19/17 07:30 98.2 16 91 98.2 Physical Exam General: Alert, Oriented X3, Cooperative, No acute distress Heart: Regular rate, Normal S1, Normal S2, Other (distant herart sounds) Lungs: Clear, Other (3L O2 via NC - attempting to wean down) Abdomen: Normal bowel sounds, Soft, No tenderness Extremities: No clubbing, No cyanosis, No edema, Normal pulses Skin: No rashes, No breakdown, No significant lesion Labs LABS Laboratory Tests Test 01/19/17 04:25 White Blood Count 7.0 x10^3/uL (4.0-11.0) Red Blood Count 3.58 x10^6/uL (3.50-5.40) Hemoglobin 11.2 g/dL (12.0-15.5) Hematocrit 34.0 % (36.0-47.0) Mean Corpuscular Volume 95 fL (79-100) Mean Corpuscular Hemoglobin 31 pg (25-35) Mean Corpuscular Hemoglobin Concent 33 g/dL (31-37) Red Cell Distribution Width 14.2 % (11.5-14.5) Platelet Count 186 x10^3/uL (140-400) Neutrophils (%) (Auto) 53 % (31-73) Lymphocytes (%) (Auto) 26 % (24-48) Monocytes (%) (Auto) 10 % (0-9) Eosinophils (%) (Auto) 10 % (0-3) Basophils (%) (Auto) 1 % (0-3) Neutrophils # (Auto) 3.7 x10^3uL (1.8-7.7) Lymphocytes # (Auto) 1.8 x10^3/uL (1.0-4.8) Monocytes # (Auto) 0.7 x10^3/uL (0.0-1.1) Eosinophils # (Auto) 0.7 x10^3/uL (0.0-0.7) Basophils # (Auto) 0.1 x10^3/uL (0.0-0.2) Sodium Level 144 mmol/L (136-145) Potassium Level 3.7 mmol/L (3.5-5.1) Chloride Level 108 mmol/L (98-107) Carbon Dioxide Level 29 mmol/L (21-32) Anion Gap 7 (6-14) Blood Urea Nitrogen 25 mg/dL (7-20) Creatinine 0.7 mg/dL (0.6-1.0) Estimated GFR (Cockcroft-Gault) 79.5 Glucose Level 101 mg/dL (70-99) Calcium Level 9.8 mg/dL (8.5-10.1) Review of Systems Review of Systems Pt complains of mild SOB PT complains of hunger Pt has mild hand pains Assessment and Plan Assessmemt and Plan Problems Medical Problems: (1) Dehydration Status: Acute (2) Hypotension Status: Acute Bradycardia Hypoxia Weakness in legs PMH: Arthritis COPD high cholesterol HTN Hypothyroid Chronic back pain Plan: Recheck labs Bronchodilate Cont. meds Monitor pulse ox PT/OT Wean down FiO2 Will D/C when ok with pulmonary Problems: Comment Review of Relevant I have reviewed the following items harvey (where applicable) has been applied. Labs Laboratory Tests Test 01/18/17 05:55 01/19/17 04:25 White Blood Count 7.3 x10^3/uL (4.0-11.0) 7.0 x10^3/uL (4.0-11.0) Red Blood Count 3.68 x10^6/uL (3.50-5.40) 3.58 x10^6/uL (3.50-5.40) Hemoglobin 11.7 g/dL (12.0-15.5) 11.2 g/dL (12.0-15.5) Hematocrit 34.3 % (36.0-47.0) 34.0 % (36.0-47.0) Mean Corpuscular Volume 93 fL (79-100) 95 fL (79-100) Mean Corpuscular Hemoglobin 32 pg (25-35) 31 pg (25-35) Mean Corpuscular Hemoglobin Concent 34 g/dL (31-37) 33 g/dL (31-37) Red Cell Distribution Width 14.0 % (11.5-14.5) 14.2 % (11.5-14.5) Platelet Count 192 x10^3/uL (140-400) 186 x10^3/uL (140-400) Neutrophils (%) (Auto) 50 % (31-73) 53 % (31-73) Lymphocytes (%) (Auto) 27 % (24-48) 26 % (24-48) Monocytes (%) (Auto) 11 % (0-9) 10 % (0-9) Eosinophils (%) (Auto) 12 % (0-3) 10 % (0-3) Basophils (%) (Auto) 1 % (0-3) 1 % (0-3) Neutrophils # (Auto) 3.7 x10^3uL (1.8-7.7) 3.7 x10^3uL (1.8-7.7) Lymphocytes # (Auto) 1.9 x10^3/uL (1.0-4.8) 1.8 x10^3/uL (1.0-4.8) Monocytes # (Auto) 0.8 x10^3/uL (0.0-1.1) 0.7 x10^3/uL (0.0-1.1) Eosinophils # (Auto) 0.9 x10^3/uL (0.0-0.7) 0.7 x10^3/uL (0.0-0.7) Basophils # (Auto) 0.1 x10^3/uL (0.0-0.2) 0.1 x10^3/uL (0.0-0.2) Sodium Level 145 mmol/L (136-145) 144 mmol/L (136-145) Potassium Level 4.9 mmol/L (3.5-5.1) 3.7 mmol/L (3.5-5.1) Chloride Level 110 mmol/L (98-107) 108 mmol/L (98-107) Carbon Dioxide Level 31 mmol/L (21-32) 29 mmol/L (21-32) Anion Gap 4 (6-14) 7 (6-14) Blood Urea Nitrogen 22 mg/dL (7-20) 25 mg/dL (7-20) Creatinine 0.7 mg/dL (0.6-1.0) 0.7 mg/dL (0.6-1.0) Estimated GFR (Cockcroft-Gault) 79.5 79.5 Glucose Level 99 mg/dL (70-99) 101 mg/dL (70-99) Calcium Level 10.3 mg/dL (8.5-10.1) 9.8 mg/dL (8.5-10.1) Laboratory Tests Test 01/19/17 04:25 White Blood Count 7.0 x10^3/uL (4.0-11.0) Red Blood Count 3.58 x10^6/uL (3.50-5.40) Hemoglobin 11.2 g/dL (12.0-15.5) Hematocrit 34.0 % (36.0-47.0) Mean Corpuscular Volume 95 fL (79-100) Mean Corpuscular Hemoglobin 31 pg (25-35) Mean Corpuscular Hemoglobin Concent 33 g/dL (31-37) Red Cell Distribution Width 14.2 % (11.5-14.5) Platelet Count 186 x10^3/uL (140-400) Neutrophils (%) (Auto) 53 % (31-73) Lymphocytes (%) (Auto) 26 % (24-48) Monocytes (%) (Auto) 10 % (0-9) Eosinophils (%) (Auto) 10 % (0-3) Basophils (%) (Auto) 1 % (0-3) Neutrophils # (Auto) 3.7 x10^3uL (1.8-7.7) Lymphocytes # (Auto) 1.8 x10^3/uL (1.0-4.8) Monocytes # (Auto) 0.7 x10^3/uL (0.0-1.1) Eosinophils # (Auto) 0.7 x10^3/uL (0.0-0.7) Basophils # (Auto) 0.1 x10^3/uL (0.0-0.2) Sodium Level 144 mmol/L (136-145) Potassium Level 3.7 mmol/L (3.5-5.1) Chloride Level 108 mmol/L (98-107) Carbon Dioxide Level 29 mmol/L (21-32) Anion Gap 7 (6-14) Blood Urea Nitrogen 25 mg/dL (7-20) Creatinine 0.7 mg/dL (0.6-1.0) Estimated GFR (Cockcroft-Gault) 79.5 Glucose Level 101 mg/dL (70-99) Calcium Level 9.8 mg/dL (8.5-10.1) Medications Current Medications Sodium Chloride 500 ml @ 500 mls/hr 1X ONCE IV Last administered on 12:53; Start 01/15/17 at 12:45; Stop 01/15/17 at 13:44; Status DC Iohexol (Omnipaque 300 Mg/ml) 75 ml 1X ONCE IV Last administered on 01/15/17 15:14; Start 01/15/17 at 14:45; Stop 01/15/17 at 14:46; Status DC Info (Do NOT chart on this entry -- for MONITORING) 1 each PRN DAILY PRN MC SEE COMMENTS; Start 01/15/17 at 14:45; Stop 01/17/17 at 14:44; Status DC Ondansetron HCl (Zofran) 4 mg PRN Q8HRS PRN IV NAUSEA/VOMITING; Start 01/15/17 at 16:45; Stop 01/16/17 at 16:44; Status DC Amlodipine Besylate (Norvasc) 5 mg DAILY PO Last administered on 01/19/17 08: 21; Start 01/16/17 at 09:00 Aspirin (Children'S Aspirin) 81 mg [id number] PO Last administered on 08:10; Start 01/16/17 at 08:00 Atorvastatin Calcium (Lipitor) 80 mg QHS PO Last administered on 01/18/17 20: 53; Start 01/15/17 at 21:00 Acetaminophen/ Hydrocodone Bitart (Lortab 5/325) 1 tab PRN Q6HRS PRN PO SEVERE PAIN Last administered on 01/19/17 05:41; Start 01/15/17 at 21:15 Levothyroxine Sodium (Synthroid) 100 mcg DAILY07 PO Last administered on 05:41; Start 01/16/17 at 07:00 Paroxetine HCl (Paxil) 30 mg DAILY PO Last administered on 01/19/17 08:10; Start 01/16/17 at 09:00 Polyethylene Glycol (miraLAX PACKET) 17 gm DAILY PO Last administered on 08:44; Start 01/16/17 at 09:00 Sennosides (Senna) 17.2 mg DAILY PO Last administered on 01/19/17 08:09; Start 01/16/17 at 09:00 Acetaminophen (Tylenol) 650 mg PRN Q6HRS PRN PO MILD PAIN / TEMP Last administered on 01/17/17 14:52; Start 01/17/17 at 14:45 Ceftriaxone Sodium 1 gm/ Sodium Chloride 50 ml @ 100 mls/hr Q24H IV Last administered on 01/18/17 14:59; Start 01/17/17 at 15:00 Albuterol/ Ipratropium (Duoneb) 3 ml RTQID NEB Last administered on 01/19/17 07:25; Start 01/18/17 at 16:00 Active Scripts Active Reported Calcium (Calcium Carbonate) 600 Mg Tablet 1,200 Mg PO Protonix (Pantoprazole Sodium) 40 Mg Tablet.dr 1 Tab PO DAILY Carvedilol 3.125 Mg Tablet 1 Tab PO BID Children's Aspirin (Aspirin) 81 Mg Tab.chew 81 Mg PO One Daily (Multivitamin) 1 Each Tablet 1 Each PO Vitamin D (Cholecalciferol (Vitamin D3)) 2,000 Unit Capsule 1 Cap PO DAILY Fish Oil ([place]-3 Fatty Acids) 300 Mg Capsule 1,200 Mg PO DAILY Hydrocodone-Apap 5-325 (Hydrocodone Bit/Acetaminophen) 1 Each Tablet 1-2 Tab PO Q4-6HRS Paroxetine Hcl 30 Mg Tablet 1.5 Tab PO DAILY Levothyroxine Sodium 100 Mcg Tablet 1 Tab PO DAILY Vitamin D (Cholecalciferol (Vitamin D3)) 1,000 Unit Capsule 5 Cap PO WEEKLY Atorvastatin Calcium 80 Mg Tablet 1 Tab PO DAILY Vitals/I & O Vital Sign - Last 24 Hours 01/18/17 01/18/17 01/18/17 01/18/17 14:55 15:00 15:03 16:03 Temp 97.7 97.7 Pulse 64 Resp 18 20 18 B/P (MAP) 155/67 (96) Pulse Ox 91 94 O2 Delivery Nasal Cannula Nasal Cannula Nasal Cannula O2 Flow Rate 4.0 4.0 4.0 01/18/17 01/18/17 01/18/17 01/18/17 19:00 20:11 20:53 20:55 Temp 99.0 99.0 Pulse 65 Resp 20 B/P (MAP) 147/71 (96) Pulse Ox 95 95 97 O2 Delivery Nasal Cannula Nasal Cannula Nasal Cannula Nasal Cannula O2 Flow Rate 4.0 4.0 4.0 01/18/17 01/18/17 01/19/17 01/19/17 21:53 23:00 03:04 05:41 Temp 97.9 97.5 97.9 97.5 Pulse 58 58 Resp 20 20 B/P (MAP) 121/45 (70) 188/92 (124) Pulse Ox 97 91 94 94 O2 Delivery Nasal Cannula Nasal Cannula Nasal Cannula Nasal Cannula O2 Flow Rate 4.0 4.0 01/19/17 01/19/17 01/19/17 01/19/17 07:25 07:30 08:21 10:40 Temp 98.2 98.2 Pulse 75 75 Resp 16 B/P (MAP) 126/79 (95) 126/79 Pulse Ox 96 91 O2 Delivery Nasal Cannula Nasal Cannula O2 Flow Rate 3.0 3.0 Intake and Output 01/19/17 01/19/17 01/20/17 15:00 23:00 07:00 Intake Total 250 ml Balance 250 ml ROGELIO PAINTERL Mckenna III DO Jan 19, 2017 11:21
[2017-01-19 15:00] VITALS: BP 124/43
[2017-01-19 19:00] VITALS: BP 172/90
[2017-01-19] MEDS: ATORVASTATIN CALCIUM 40 MG TABLET. PO SCH (19:52)
[2017-01-19 23:00] VITALS: BP 119/87
[2017-01-20] MEDS: HYDROcodone/APAP 5/325MG 1 TAB TABLET PO PRN ×4 (02:18→20:49)
[2017-01-20] MEDS: LEVOTHYROXINE 100 MCG TABLET PO SCH (02:18)
[2017-01-20 03:00] VITALS: BP 141/76
[2017-01-20 06:14] LABS: BASO # 0.1 x10^3/uL (0.0-0.2); BASO % 1 % (0-3); EOS % 14 % (0-3); HEMATOCRIT 32.9 % (36.0-47.0); HEMOGLOBIN 11.2 g/dL (12.0-15.5); LYMPH # 1.8 x10^3/uL (1.0-4.8); LYMPH % 29 % (24-48); MEAN CORPUSCULAR HEMOGLOBIN 31 pg (25-35); MEAN CORPUSCULAR HGB CONC 34 g/dL (31-37); MEAN CORPUSCULAR VOLUME 93 fL (79-100); MONO % 10 % (0-9); NEUT % 47 % (31-73); PLATELET COUNT 195 x10^3/uL (140-400); RED BLOOD COUNT 3.56 x10^6/uL (3.50-5.40); WHITE BLOOD COUNT 6.5 x10^3/uL (4.0-11.0)
[2017-01-20 06:34] LABS: CALCIUM 9.8 mg/dL (8.5-10.1); CREATININE 0.7 mg/dL (0.6-1.0); GFR 79.5; POTASSIUM 3.6 mmol/L (3.5-5.1)
[2017-01-20 07:00] VITALS: BP 175/83
[2017-01-20] MEDS: SENNOSIDES 8.6 MG TABLET PO SCH (08:21)
[2017-01-20] MEDS: PARoxetine 20 MG TABLET PO SCH (08:22)
[2017-01-20] MEDS: amLODIPine BESYLATE 5 MG TABLET PO SCH (08:22)
[2017-01-20] MEDS: ASPIRIN CHEWABLE 81 MG TABLET. PO SCH (08:22)
[2017-01-20] MEDS: IPRATRPIUM/ALBUTEROL 0.5/2.5MG 3 ML NEBU. NEB SCH ×4 (08:51→19:51)
--- NOTE | 2017-01-20 10:54 | PDOC ---
PROGRESS NOTES Chief Complaint Chief Complaint Bradycardia Hypoxia Weakness in legs PMH: Arthritis COPD high cholesterol HTN Hypothyroid Chronic back pain History of Present Illness History of Present Illness PT just returned from a walk when we arrived. She laid in bed and was conversant and pleasant. Discussed plan of care with her and PT/OT. They mentioned her O2 is 86% while on RA and sitting in her room. Discussed possible D/C in 2-3 days when ok with pulm. Pulmonary says she can be D/C when her suctioning requirement decreases. Vitals Vitals Vital Signs Date Time Temp Pulse Resp B/P (MAP) Pulse Ox O2 Delivery O2 Flow Rate FiO2 01/20/17 08:52 91 Room Air 01/20/17 08:22 65 175/83 01/20/17 07:00 97.9 18 3.0 97.9 Physical Exam General: Alert, Oriented X3, Cooperative, No acute distress Heart: Regular rate, Normal S1, Normal S2, Other (distant herart sounds) Lungs: Clear, Other (pt pulse ox at 86% on RA while seated) Abdomen: Normal bowel sounds, Soft, No tenderness Extremities: No clubbing, No cyanosis, No edema, Normal pulses Skin: No rashes, No breakdown, No significant lesion Labs LABS Laboratory Tests Test 01/20/17 05:25 White Blood Count 6.5 x10^3/uL (4.0-11.0) Red Blood Count 3.56 x10^6/uL (3.50-5.40) Hemoglobin 11.2 g/dL (12.0-15.5) Hematocrit 32.9 % (36.0-47.0) Mean Corpuscular Volume 93 fL (79-100) Mean Corpuscular Hemoglobin 31 pg (25-35) Mean Corpuscular Hemoglobin Concent 34 g/dL (31-37) Red Cell Distribution Width 14.0 % (11.5-14.5) Platelet Count 195 x10^3/uL (140-400) Neutrophils (%) (Auto) 47 % (31-73) Lymphocytes (%) (Auto) 29 % (24-48) Monocytes (%) (Auto) 10 % (0-9) Eosinophils (%) (Auto) 14 % (0-3) Basophils (%) (Auto) 1 % (0-3) Neutrophils # (Auto) 3.0 x10^3uL (1.8-7.7) Lymphocytes # (Auto) 1.8 x10^3/uL (1.0-4.8) Monocytes # (Auto) 0.6 x10^3/uL (0.0-1.1) Eosinophils # (Auto) 0.9 x10^3/uL (0.0-0.7) Basophils # (Auto) 0.1 x10^3/uL (0.0-0.2) Sodium Level 141 mmol/L (136-145) Potassium Level 3.6 mmol/L (3.5-5.1) Chloride Level 107 mmol/L (98-107) Carbon Dioxide Level 27 mmol/L (21-32) Anion Gap 7 (6-14) Blood Urea Nitrogen 23 mg/dL (7-20) Creatinine 0.7 mg/dL (0.6-1.0) Estimated GFR (Cockcroft-Gault) 79.5 Glucose Level 97 mg/dL (70-99) Calcium Level 9.8 mg/dL (8.5-10.1) Review of Systems Review of Systems Pt complains of trouble breathing Pt complains of fatigue Pt complains of hunger Assessment and Plan Assessmemt and Plan Problems Medical Problems: (1) Dehydration Status: Acute (2) Hypotension Status: Acute Bradycardia Hypoxia Weakness in legs PMH: Arthritis COPD high cholesterol HTN Hypothyroid Chronic back pain Plan: Recheck labs Monitor pulse ox Awaiting pulm Possible D/C in 2-3 days PT/OT Bronchodilate Wean FiO2 down slowly Problems: Comment Review of Relevant I have reviewed the following items harvey (where applicable) has been applied. Labs Laboratory Tests Test 01/19/17 04:25 01/20/17 05:25 White Blood Count 7.0 x10^3/uL (4.0-11.0) 6.5 x10^3/uL (4.0-11.0) Red Blood Count 3.58 x10^6/uL (3.50-5.40) 3.56 x10^6/uL (3.50-5.40) Hemoglobin 11.2 g/dL (12.0-15.5) 11.2 g/dL (12.0-15.5) Hematocrit 34.0 % (36.0-47.0) 32.9 % (36.0-47.0) Mean Corpuscular Volume 95 fL (79-100) 93 fL (79-100) Mean Corpuscular Hemoglobin 31 pg (25-35) 31 pg (25-35) Mean Corpuscular Hemoglobin Concent 33 g/dL (31-37) 34 g/dL (31-37) Red Cell Distribution Width 14.2 % (11.5-14.5) 14.0 % (11.5-14.5) Platelet Count 186 x10^3/uL (140-400) 195 x10^3/uL (140-400) Neutrophils (%) (Auto) 53 % (31-73) 47 % (31-73) Lymphocytes (%) (Auto) 26 % (24-48) 29 % (24-48) Monocytes (%) (Auto) 10 % (0-9) 10 % (0-9) Eosinophils (%) (Auto) 10 % (0-3) 14 % (0-3) Basophils (%) (Auto) 1 % (0-3) 1 % (0-3) Neutrophils # (Auto) 3.7 x10^3uL (1.8-7.7) 3.0 x10^3uL (1.8-7.7) Lymphocytes # (Auto) 1.8 x10^3/uL (1.0-4.8) 1.8 x10^3/uL (1.0-4.8) Monocytes # (Auto) 0.7 x10^3/uL (0.0-1.1) 0.6 x10^3/uL (0.0-1.1) Eosinophils # (Auto) 0.7 x10^3/uL (0.0-0.7) 0.9 x10^3/uL (0.0-0.7) Basophils # (Auto) 0.1 x10^3/uL (0.0-0.2) 0.1 x10^3/uL (0.0-0.2) Sodium Level 144 mmol/L (136-145) 141 mmol/L (136-145) Potassium Level 3.7 mmol/L (3.5-5.1) 3.6 mmol/L (3.5-5.1) Chloride Level 108 mmol/L (98-107) 107 mmol/L (98-107) Carbon Dioxide Level 29 mmol/L (21-32) 27 mmol/L (21-32) Anion Gap 7 (6-14) 7 (6-14) Blood Urea Nitrogen 25 mg/dL (7-20) 23 mg/dL (7-20) Creatinine 0.7 mg/dL (0.6-1.0) 0.7 mg/dL (0.6-1.0) Estimated GFR (Cockcroft-Gault) 79.5 79.5 Glucose Level 101 mg/dL (70-99) 97 mg/dL (70-99) Calcium Level 9.8 mg/dL (8.5-10.1) 9.8 mg/dL (8.5-10.1) Laboratory Tests Test 01/20/17 05:25 White Blood Count 6.5 x10^3/uL (4.0-11.0) Red Blood Count 3.56 x10^6/uL (3.50-5.40) Hemoglobin 11.2 g/dL (12.0-15.5) Hematocrit 32.9 % (36.0-47.0) Mean Corpuscular Volume 93 fL (79-100) Mean Corpuscular Hemoglobin 31 pg (25-35) Mean Corpuscular Hemoglobin Concent 34 g/dL (31-37) Red Cell Distribution Width 14.0 % (11.5-14.5) Platelet Count 195 x10^3/uL (140-400) Neutrophils (%) (Auto) 47 % (31-73) Lymphocytes (%) (Auto) 29 % (24-48) Monocytes (%) (Auto) 10 % (0-9) Eosinophils (%) (Auto) 14 % (0-3) Basophils (%) (Auto) 1 % (0-3) Neutrophils # (Auto) 3.0 x10^3uL (1.8-7.7) Lymphocytes # (Auto) 1.8 x10^3/uL (1.0-4.8) Monocytes # (Auto) 0.6 x10^3/uL (0.0-1.1) Eosinophils # (Auto) 0.9 x10^3/uL (0.0-0.7) Basophils # (Auto) 0.1 x10^3/uL (0.0-0.2) Sodium Level 141 mmol/L (136-145) Potassium Level 3.6 mmol/L (3.5-5.1) Chloride Level 107 mmol/L (98-107) Carbon Dioxide Level 27 mmol/L (21-32) Anion Gap 7 (6-14) Blood Urea Nitrogen 23 mg/dL (7-20) Creatinine 0.7 mg/dL (0.6-1.0) Estimated GFR (Cockcroft-Gault) 79.5 Glucose Level 97 mg/dL (70-99) Calcium Level 9.8 mg/dL (8.5-10.1) Medications Current Medications Sodium Chloride 500 ml @ 500 mls/hr 1X ONCE IV Last administered on 12:53; Start 01/15/17 at 12:45; Stop 01/15/17 at 13:44; Status DC Iohexol (Omnipaque 300 Mg/ml) 75 ml 1X ONCE IV Last administered on 01/15/17 15:14; Start 01/15/17 at 14:45; Stop 01/15/17 at 14:46; Status DC Info (Do NOT chart on this entry -- for MONITORING) 1 each PRN DAILY PRN MC SEE COMMENTS; Start 01/15/17 at 14:45; Stop 01/17/17 at 14:44; Status DC Ondansetron HCl (Zofran) 4 mg PRN Q8HRS PRN IV NAUSEA/VOMITING; Start 01/15/17 at 16:45; Stop 01/16/17 at 16:44; Status DC Amlodipine Besylate (Norvasc) 5 mg DAILY PO Last administered on 01/20/17 08: 22; Start 01/16/17 at 09:00 Aspirin (Children'S Aspirin) 81 mg [id number] PO Last administered on 08:22; Start 01/16/17 at 08:00 Atorvastatin Calcium (Lipitor) 80 mg QHS PO Last administered on 01/19/17 19: 52; Start 01/15/17 at 21:00 Acetaminophen/ Hydrocodone Bitart (Lortab 5/325) 1 tab PRN Q6HRS PRN PO SEVERE PAIN Last administered on 01/20/17 08:21; Start 01/15/17 at 21:15 Levothyroxine Sodium (Synthroid) 100 mcg DAILY07 PO Last administered on 02:18; Start 01/16/17 at 07:00 Paroxetine HCl (Paxil) 30 mg DAILY PO Last administered on 01/20/17 08:22; Start 01/16/17 at 09:00 Polyethylene Glycol (miraLAX PACKET) 17 gm DAILY PO Last administered on 19:57; Start 01/16/17 at 09:00; Stop 01/19/17 at 20:02; Status DC Sennosides (Senna) 17.2 mg DAILY PO Last administered on 01/20/17 08:21; Start 01/16/17 at 09:00 Acetaminophen (Tylenol) 650 mg PRN Q6HRS PRN PO MILD PAIN / TEMP Last administered on 01/17/17 14:52; Start 01/17/17 at 14:45 Ceftriaxone Sodium 1 gm/ Sodium Chloride 50 ml @ 100 mls/hr Q24H IV Last administered on 01/19/17 14:47; Start 01/17/17 at 15:00 Albuterol/ Ipratropium (Duoneb) 3 ml RTQID NEB Last administered on 01/20/17 08:51; Start 01/18/17 at 16:00 Polyethylene Glycol (miraLAX PACKET) 17 gm HS PO ; Start 01/20/17 at 21:00 Active Scripts Active Reported Calcium (Calcium Carbonate) 600 Mg Tablet 1,200 Mg PO Protonix (Pantoprazole Sodium) 40 Mg Tablet.dr 1 Tab PO DAILY Carvedilol 3.125 Mg Tablet 1 Tab PO BID Children's Aspirin (Aspirin) 81 Mg Tab.chew 81 Mg PO One Daily (Multivitamin) 1 Each Tablet 1 Each PO Vitamin D (Cholecalciferol (Vitamin D3)) 2,000 Unit Capsule 1 Cap PO DAILY Fish Oil ([place]-3 Fatty Acids) 300 Mg Capsule 1,200 Mg PO DAILY Hydrocodone-Apap 5-325 (Hydrocodone Bit/Acetaminophen) 1 Each Tablet 1-2 Tab PO Q4-6HRS Paroxetine Hcl 30 Mg Tablet 1.5 Tab PO DAILY Levothyroxine Sodium 100 Mcg Tablet 1 Tab PO DAILY Vitamin D (Cholecalciferol (Vitamin D3)) 1,000 Unit Capsule 5 Cap PO WEEKLY Atorvastatin Calcium 80 Mg Tablet 1 Tab PO DAILY Vitals/I & O Vital Sign - Last 24 Hours 01/19/17 01/19/17 01/19/17 01/19/17 11:00 11:22 13:32 15:00 Temp 97.9 98.1 97.9 98.1 Pulse 64 64 Resp 18 16 18 B/P (MAP) 125/60 (81) 124/43 (70) Pulse Ox 92 92 92 O2 Delivery Nasal Cannula Nasal Cannula Nasal Cannula Nasal Cannula O2 Flow Rate 3.0 4.0 2.0 3.0 01/19/17 01/19/17 01/19/17 01/19/17 15:17 19:00 19:20 19:52 Temp 98.4 98.4 Pulse 70 Resp 18 18 B/P (MAP) 172/90 (117) Pulse Ox 95 91 95 O2 Delivery Nasal Cannula Nasal Cannula Nasal Cannula Nasal Cannula O2 Flow Rate 1.0 3.0 1.0 1.0 01/19/17 01/19/17 01/19/17 01/20/17 20:38 20:50 23:00 02:18 Temp 98.4 98.4 Pulse 79 Resp 18 18 B/P (MAP) 119/87 (98) Pulse Ox 92 93 93 O2 Delivery Room Air Nasal Cannula Nasal Cannula O2 Flow Rate 1.0 3.0 01/20/17 01/20/17 01/20/17 01/20/17 03:00 03:04 07:00 08:21 Temp 98.4 97.9 98.4 97.9 Pulse 79 65 Resp 18 18 18 B/P (MAP) 141/76 (97) 175/83 (113) Pulse Ox 93 93 98 O2 Delivery Nasal Cannula Room Air Nasal Cannula Room Air O2 Flow Rate 3.0 3.0 01/20/17 01/20/17 08:22 08:52 Pulse 65 B/P (MAP) 175/83 Pulse Ox 91 O2 Delivery Room Air RON PAINTER III DO Jan 20, 2017 10:54
[2017-01-20 11:00] VITALS: BP 134/55
--- NOTE | 2017-01-20 13:06 | PDOC ---
PULMONARY PROGRESS NOTES Subjective PT STILL SOA AT TIMES Vitals Vital Signs Date Time Temp Pulse Resp B/P (MAP) Pulse Ox O2 Delivery O2 Flow Rate FiO2 01/20/17 13:00 94 Nasal Cannula 2.0 01/20/17 11:00 98.1 68 18 134/55 (81) 98.1 ROS: No Nausea, No Chest Pain, No Abdominal Pain, No Increase Cough Lungs: Crackles Cardiovascular: S1, S2 Abdomen: Soft Neuro Exam: Alert Extremities: No Edema Skin: Warm Labs Laboratory Tests Test 01/19/17 04:25 01/20/17 05:25 White Blood Count 7.0 x10^3/uL (4.0-11.0) 6.5 x10^3/uL (4.0-11.0) Red Blood Count 3.58 x10^6/uL (3.50-5.40) 3.56 x10^6/uL (3.50-5.40) Hemoglobin 11.2 g/dL (12.0-15.5) 11.2 g/dL (12.0-15.5) Hematocrit 34.0 % (36.0-47.0) 32.9 % (36.0-47.0) Mean Corpuscular Volume 95 fL (79-100) 93 fL (79-100) Mean Corpuscular Hemoglobin 31 pg (25-35) 31 pg (25-35) Mean Corpuscular Hemoglobin Concent 33 g/dL (31-37) 34 g/dL (31-37) Red Cell Distribution Width 14.2 % (11.5-14.5) 14.0 % (11.5-14.5) Platelet Count 186 x10^3/uL (140-400) 195 x10^3/uL (140-400) Neutrophils (%) (Auto) 53 % (31-73) 47 % (31-73) Lymphocytes (%) (Auto) 26 % (24-48) 29 % (24-48) Monocytes (%) (Auto) 10 % (0-9) 10 % (0-9) Eosinophils (%) (Auto) 10 % (0-3) 14 % (0-3) Basophils (%) (Auto) 1 % (0-3) 1 % (0-3) Neutrophils # (Auto) 3.7 x10^3uL (1.8-7.7) 3.0 x10^3uL (1.8-7.7) Lymphocytes # (Auto) 1.8 x10^3/uL (1.0-4.8) 1.8 x10^3/uL (1.0-4.8) Monocytes # (Auto) 0.7 x10^3/uL (0.0-1.1) 0.6 x10^3/uL (0.0-1.1) Eosinophils # (Auto) 0.7 x10^3/uL (0.0-0.7) 0.9 x10^3/uL (0.0-0.7) Basophils # (Auto) 0.1 x10^3/uL (0.0-0.2) 0.1 x10^3/uL (0.0-0.2) Sodium Level 144 mmol/L (136-145) 141 mmol/L (136-145) Potassium Level 3.7 mmol/L (3.5-5.1) 3.6 mmol/L (3.5-5.1) Chloride Level 108 mmol/L (98-107) 107 mmol/L (98-107) Carbon Dioxide Level 29 mmol/L (21-32) 27 mmol/L (21-32) Anion Gap 7 (6-14) 7 (6-14) Blood Urea Nitrogen 25 mg/dL (7-20) 23 mg/dL (7-20) Creatinine 0.7 mg/dL (0.6-1.0) 0.7 mg/dL (0.6-1.0) Estimated GFR (Cockcroft-Gault) 79.5 79.5 Glucose Level 101 mg/dL (70-99) 97 mg/dL (70-99) Calcium Level 9.8 mg/dL (8.5-10.1) 9.8 mg/dL (8.5-10.1) Laboratory Tests Test 01/20/17 05:25 White Blood Count 6.5 x10^3/uL (4.0-11.0) Red Blood Count 3.56 x10^6/uL (3.50-5.40) Hemoglobin 11.2 g/dL (12.0-15.5) Hematocrit 32.9 % (36.0-47.0) Mean Corpuscular Volume 93 fL (79-100) Mean Corpuscular Hemoglobin 31 pg (25-35) Mean Corpuscular Hemoglobin Concent 34 g/dL (31-37) Red Cell Distribution Width 14.0 % (11.5-14.5) Platelet Count 195 x10^3/uL (140-400) Neutrophils (%) (Auto) 47 % (31-73) Lymphocytes (%) (Auto) 29 % (24-48) Monocytes (%) (Auto) 10 % (0-9) Eosinophils (%) (Auto) 14 % (0-3) Basophils (%) (Auto) 1 % (0-3) Neutrophils # (Auto) 3.0 x10^3uL (1.8-7.7) Lymphocytes # (Auto) 1.8 x10^3/uL (1.0-4.8) Monocytes # (Auto) 0.6 x10^3/uL (0.0-1.1) Eosinophils # (Auto) 0.9 x10^3/uL (0.0-0.7) Basophils # (Auto) 0.1 x10^3/uL (0.0-0.2) Sodium Level 141 mmol/L (136-145) Potassium Level 3.6 mmol/L (3.5-5.1) Chloride Level 107 mmol/L (98-107) Carbon Dioxide Level 27 mmol/L (21-32) Anion Gap 7 (6-14) Blood Urea Nitrogen 23 mg/dL (7-20) Creatinine 0.7 mg/dL (0.6-1.0) Estimated GFR (Cockcroft-Gault) 79.5 Glucose Level 97 mg/dL (70-99) Calcium Level 9.8 mg/dL (8.5-10.1) Medications Active Scripts Medications Dose Route/Sig Max Daily Dose Days Date Category Calcium (Calcium Carbonate) 600 Mg Tablet 1,200 Mg PO 01/16/17 Reported Protonix (Pantoprazole Sodium) 40 Mg Tablet.dr 1 Tab PO DAILY 01/16/17 Reported Carvedilol 3.125 Mg Tablet 1 Tab PO BID 01/16/17 Reported Children's Aspirin (Aspirin) 81 Mg Tab.chew 81 Mg PO 12/09/14 Reported One Daily (Multivitamin) 1 Each Tablet 1 Each PO 12/09/14 Reported Vitamin D (Cholecalciferol (Vitamin D3)) 2,000 Unit Capsule 1 Cap PO DAILY 12/09/14 Reported Fish Oil ([place]-3 Fatty Acids) 300 Mg Capsule 1,200 Mg PO DAILY 12/09/14 Reported Hydrocodone-Apap 5-325 (Hydrocodone Bit/Acetaminophen) 1 Each Tablet 1-2 Tab PO Q4-6HRS 12/09/14 Reported Paroxetine Hcl 30 Mg Tablet 1.5 Tab PO DAILY 12/09/14 Reported Levothyroxine Sodium 100 Mcg Tablet 1 Tab PO DAILY 12/09/14 Reported Vitamin D (Cholecalciferol (Vitamin D3)) 1,000 Unit Capsule 5 Cap PO WEEKLY 12/09/14 Reported Atorvastatin Calcium 80 Mg Tablet 1 Tab PO DAILY 12/09/14 Reported Impression . 1. Acute hypoxic respiratory failure, most likely secondary to combination of basal pneumonia/atelectasis. 2. No evidence of central pulmonary embolism by CT angiogram. 3. Mild hypernatremia. 4. Compensated respiratory acidosis Plan . D/C IN AM 6 MIN WALK NEEDS O2 RX WRITTEN FOLLOW UP IN OFFICE IN 4-6 WEEKS I/S HOME ON [facility]QU[facility] OR [facility] ANNABELLE HOLLOWAY MD Jan 20, 2017 13:06
[2017-01-20 15:00] VITALS: BP 143/56
[2017-01-20 19:00] VITALS: BP 139/63
[2017-01-20] MEDS: ATORVASTATIN CALCIUM 40 MG TABLET. PO SCH (20:49)
[2017-01-20] MEDS ORDERED: POLYETHYLENE GLYCOL 3350 17 GM PACKET. PO SCH (21:00)
[2017-01-20 23:00] VITALS: BP 159/64
[2017-01-21 03:25] VITALS: BP 164/91
[2017-01-21] MEDS: LEVOTHYROXINE 100 MCG TABLET PO SCH (05:42)
[2017-01-21] MEDS: HYDROcodone/APAP 5/325MG 1 TAB TABLET PO PRN (05:43)
[2017-01-21 05:55] LABS: BASO # 0.1 x10^3/uL (0.0-0.2); BASO % 1 % (0-3); EOS % 19 % (0-3); HEMATOCRIT 32.7 % (36.0-47.0); HEMOGLOBIN 11.1 g/dL (12.0-15.5); LYMPH # 1.9 x10^3/uL (1.0-4.8); LYMPH % 29 % (24-48); MEAN CORPUSCULAR HEMOGLOBIN 32 pg (25-35); MEAN CORPUSCULAR HGB CONC 34 g/dL (31-37); MEAN CORPUSCULAR VOLUME 93 fL (79-100); MONO % 10 % (0-9); NEUT % 41 % (31-73); PLATELET COUNT 186 x10^3/uL (140-400); RED BLOOD COUNT 3.51 x10^6/uL (3.50-5.40); RED CELL DISTRIBUTION WIDTH 14.2 % (11.5-14.5); WHITE BLOOD COUNT 6.5 x10^3/uL (4.0-11.0)
[2017-01-21 06:25] LABS: CREATININE 0.7 mg/dL (0.6-1.0); GFR 79.5
[2017-01-21 07:00] VITALS: BP 163/55
[2017-01-21] MEDS: IPRATRPIUM/ALBUTEROL 0.5/2.5MG 3 ML NEBU. NEB SCH ×2 (07:36→11:15)
[2017-01-21] MEDS: PARoxetine 20 MG TABLET PO SCH (08:27)
[2017-01-21] MEDS: SENNOSIDES 8.6 MG TABLET PO SCH (08:27)
[2017-01-21] MEDS: ASPIRIN CHEWABLE 81 MG TABLET. PO SCH (08:27)
[2017-01-21] MEDS: amLODIPine BESYLATE 5 MG TABLET PO SCH (08:28)
--- NOTE | 2017-01-21 10:40 | PDOC ---
PROGRESS NOTES Chief Complaint Chief Complaint Bradycardia Hypoxia Weakness in legs PMH: Arthritis COPD high cholesterol HTN Hypothyroid Chronic back pain History of Present Illness History of Present Illness Pt seen at bedside. She is resting comfortably and in no acute distress. No acute complaints at this time. Probable d/c this AM if cleared with pulm. Vitals Vitals Vital Signs Date Time Temp Pulse Resp B/P (MAP) Pulse Ox O2 Delivery O2 Flow Rate FiO2 01/21/17 08:30 Nasal Cannula 2.0 01/21/17 08:28 74 163/55 01/21/17 07:37 92 01/21/17 07:00 97.7 19 97.7 Physical Exam General: Alert, Oriented X3, Cooperative, No acute distress Heart: Regular rate, Normal S1, Normal S2, Other (distant herart sounds) Lungs: Clear, Crackles Abdomen: Normal bowel sounds, Soft, No tenderness Extremities: No clubbing, No cyanosis, No edema, Normal pulses Skin: No rashes, No breakdown, No significant lesion Labs LABS Laboratory Tests Test 01/21/17 05:20 White Blood Count 6.5 x10^3/uL (4.0-11.0) Red Blood Count 3.51 x10^6/uL (3.50-5.40) Hemoglobin 11.1 g/dL (12.0-15.5) Hematocrit 32.7 % (36.0-47.0) Mean Corpuscular Volume 93 fL (79-100) Mean Corpuscular Hemoglobin 32 pg (25-35) Mean Corpuscular Hemoglobin Concent 34 g/dL (31-37) Red Cell Distribution Width 14.2 % (11.5-14.5) Platelet Count 186 x10^3/uL (140-400) Neutrophils (%) (Auto) 41 % (31-73) Lymphocytes (%) (Auto) 29 % (24-48) Monocytes (%) (Auto) 10 % (0-9) Eosinophils (%) (Auto) 19 % (0-3) Basophils (%) (Auto) 1 % (0-3) Neutrophils # (Auto) 2.6 x10^3uL (1.8-7.7) Lymphocytes # (Auto) 1.9 x10^3/uL (1.0-4.8) Monocytes # (Auto) 0.7 x10^3/uL (0.0-1.1) Eosinophils # (Auto) 1.3 x10^3/uL (0.0-0.7) Basophils # (Auto) 0.1 x10^3/uL (0.0-0.2) Sodium Level 144 mmol/L (136-145) Potassium Level 4.0 mmol/L (3.5-5.1) Chloride Level 109 mmol/L (98-107) Carbon Dioxide Level 28 mmol/L (21-32) Anion Gap 7 (6-14) Blood Urea Nitrogen 23 mg/dL (7-20) Creatinine 0.7 mg/dL (0.6-1.0) Estimated GFR (Cockcroft-Gault) 79.5 Glucose Level 97 mg/dL (70-99) Calcium Level 10.0 mg/dL (8.5-10.1) Review of Systems Review of Systems Gen: + fatigue, No fevers or chills CV: No CP or palpitations Resp: No SOB or wheezing Assessment and Plan Assessmemt and Plan Problems Medical Problems: (1) Dehydration Status: Acute (2) Hypotension Status: Acute Assessment: Bradycardia Hypoxia Weakness in legs Arthritis COPD high cholesterol HTN Hypothyroid Chronic back pain Plan: -discussed plan of care with RN at bedside -Rx for home Levoquin per pulm -Rx for home O2 per pulm -probable d/c to appropriate facility if cleared by pulm -follow up with pulm as an outpatient Problems: Comment Review of Relevant I have reviewed the following items harvey (where applicable) has been applied. Labs Laboratory Tests Test 01/20/17 05:25 01/21/17 05:20 White Blood Count 6.5 x10^3/uL (4.0-11.0) 6.5 x10^3/uL (4.0-11.0) Red Blood Count 3.56 x10^6/uL (3.50-5.40) 3.51 x10^6/uL (3.50-5.40) Hemoglobin 11.2 g/dL (12.0-15.5) 11.1 g/dL (12.0-15.5) Hematocrit 32.9 % (36.0-47.0) 32.7 % (36.0-47.0) Mean Corpuscular Volume 93 fL (79-100) 93 fL (79-100) Mean Corpuscular Hemoglobin 31 pg (25-35) 32 pg (25-35) Mean Corpuscular Hemoglobin Concent 34 g/dL (31-37) 34 g/dL (31-37) Red Cell Distribution Width 14.0 % (11.5-14.5) 14.2 % (11.5-14.5) Platelet Count 195 x10^3/uL (140-400) 186 x10^3/uL (140-400) Neutrophils (%) (Auto) 47 % (31-73) 41 % (31-73) Lymphocytes (%) (Auto) 29 % (24-48) 29 % (24-48) Monocytes (%) (Auto) 10 % (0-9) 10 % (0-9) Eosinophils (%) (Auto) 14 % (0-3) 19 % (0-3) Basophils (%) (Auto) 1 % (0-3) 1 % (0-3) Neutrophils # (Auto) 3.0 x10^3uL (1.8-7.7) 2.6 x10^3uL (1.8-7.7) Lymphocytes # (Auto) 1.8 x10^3/uL (1.0-4.8) 1.9 x10^3/uL (1.0-4.8) Monocytes # (Auto) 0.6 x10^3/uL (0.0-1.1) 0.7 x10^3/uL (0.0-1.1) Eosinophils # (Auto) 0.9 x10^3/uL (0.0-0.7) 1.3 x10^3/uL (0.0-0.7) Basophils # (Auto) 0.1 x10^3/uL (0.0-0.2) 0.1 x10^3/uL (0.0-0.2) Sodium Level 141 mmol/L (136-145) 144 mmol/L (136-145) Potassium Level 3.6 mmol/L (3.5-5.1) 4.0 mmol/L (3.5-5.1) Chloride Level 107 mmol/L (98-107) 109 mmol/L (98-107) Carbon Dioxide Level 27 mmol/L (21-32) 28 mmol/L (21-32) Anion Gap 7 (6-14) 7 (6-14) Blood Urea Nitrogen 23 mg/dL (7-20) 23 mg/dL (7-20) Creatinine 0.7 mg/dL (0.6-1.0) 0.7 mg/dL (0.6-1.0) Estimated GFR (Cockcroft-Gault) 79.5 79.5 Glucose Level 97 mg/dL (70-99) 97 mg/dL (70-99) Calcium Level 9.8 mg/dL (8.5-10.1) 10.0 mg/dL (8.5-10.1) Laboratory Tests Test 01/21/17 05:20 White Blood Count 6.5 x10^3/uL (4.0-11.0) Red Blood Count 3.51 x10^6/uL (3.50-5.40) Hemoglobin 11.1 g/dL (12.0-15.5) Hematocrit 32.7 % (36.0-47.0) Mean Corpuscular Volume 93 fL (79-100) Mean Corpuscular Hemoglobin 32 pg (25-35) Mean Corpuscular Hemoglobin Concent 34 g/dL (31-37) Red Cell Distribution Width 14.2 % (11.5-14.5) Platelet Count 186 x10^3/uL (140-400) Neutrophils (%) (Auto) 41 % (31-73) Lymphocytes (%) (Auto) 29 % (24-48) Monocytes (%) (Auto) 10 % (0-9) Eosinophils (%) (Auto) 19 % (0-3) Basophils (%) (Auto) 1 % (0-3) Neutrophils # (Auto) 2.6 x10^3uL (1.8-7.7) Lymphocytes # (Auto) 1.9 x10^3/uL (1.0-4.8) Monocytes # (Auto) 0.7 x10^3/uL (0.0-1.1) Eosinophils # (Auto) 1.3 x10^3/uL (0.0-0.7) Basophils # (Auto) 0.1 x10^3/uL (0.0-0.2) Sodium Level 144 mmol/L (136-145) Potassium Level 4.0 mmol/L (3.5-5.1) Chloride Level 109 mmol/L (98-107) Carbon Dioxide Level 28 mmol/L (21-32) Anion Gap 7 (6-14) Blood Urea Nitrogen 23 mg/dL (7-20) Creatinine 0.7 mg/dL (0.6-1.0) Estimated GFR (Cockcroft-Gault) 79.5 Glucose Level 97 mg/dL (70-99) Calcium Level 10.0 mg/dL (8.5-10.1) Medications Current Medications Sodium Chloride 500 ml @ 500 mls/hr 1X ONCE IV Last administered on 12:53; Start 01/15/17 at 12:45; Stop 01/15/17 at 13:44; Status DC Iohexol (Omnipaque 300 Mg/ml) 75 ml 1X ONCE IV Last administered on 01/15/17 15:14; Start 01/15/17 at 14:45; Stop 01/15/17 at 14:46; Status DC Info (Do NOT chart on this entry -- for MONITORING) 1 each PRN DAILY PRN MC SEE COMMENTS; Start 01/15/17 at 14:45; Stop 01/17/17 at 14:44; Status DC Ondansetron HCl (Zofran) 4 mg PRN Q8HRS PRN IV NAUSEA/VOMITING; Start 01/15/17 at 16:45; Stop 01/16/17 at 16:44; Status DC Amlodipine Besylate (Norvasc) 5 mg DAILY PO Last administered on 01/21/17 08: 28; Start 01/16/17 at 09:00 Aspirin (Children'S Aspirin) 81 mg [id number] PO Last administered on 08:27; Start 01/16/17 at 08:00 Atorvastatin Calcium (Lipitor) 80 mg QHS PO Last administered on 01/20/17 20: 49; Start 01/15/17 at 21:00 Acetaminophen/ Hydrocodone Bitart (Lortab 5/325) 1 tab PRN Q6HRS PRN PO SEVERE PAIN Last administered on 01/21/17 05:43; Start 01/15/17 at 21:15 Levothyroxine Sodium (Synthroid) 100 mcg DAILY07 PO Last administered on 05:42; Start 01/16/17 at 07:00 Paroxetine HCl (Paxil) 30 mg DAILY PO Last administered on 01/21/17 08:27; Start 01/16/17 at 09:00 Polyethylene Glycol (miraLAX PACKET) 17 gm DAILY PO Last administered on 19:57; Start 01/16/17 at 09:00; Stop 01/19/17 at 20:02; Status DC Sennosides (Senna) 17.2 mg DAILY PO Last administered on 01/21/17 08:27; Start 01/16/17 at 09:00 Acetaminophen (Tylenol) 650 mg PRN Q6HRS PRN PO MILD PAIN / TEMP Last administered on 01/17/17 14:52; Start 01/17/17 at 14:45 Ceftriaxone Sodium 1 gm/ Sodium Chloride 50 ml @ 100 mls/hr Q24H IV Last administered on 01/20/17 14:35; Start 01/17/17 at 15:00 Albuterol/ Ipratropium (Duoneb) 3 ml RTQID NEB Last administered on 01/21/17 07:36; Start 01/18/17 at 16:00 Polyethylene Glycol (miraLAX PACKET) 17 gm HS PO Last administered on 20:49; Start 01/20/17 at 21:00 Active Scripts Active Reported Calcium (Calcium Carbonate) 600 Mg Tablet 1,200 Mg PO Protonix (Pantoprazole Sodium) 40 Mg Tablet.dr 1 Tab PO DAILY Carvedilol 3.125 Mg Tablet 1 Tab PO BID Children's Aspirin (Aspirin) 81 Mg Tab.chew 81 Mg PO One Daily (Multivitamin) 1 Each Tablet 1 Each PO Vitamin D (Cholecalciferol (Vitamin D3)) 2,000 Unit Capsule 1 Cap PO DAILY Fish Oil ([place]-3 Fatty Acids) 300 Mg Capsule 1,200 Mg PO DAILY Hydrocodone-Apap 5-325 (Hydrocodone Bit/Acetaminophen) 1 Each Tablet 1-2 Tab PO Q4-6HRS Paroxetine Hcl 30 Mg Tablet 1.5 Tab PO DAILY Levothyroxine Sodium 100 Mcg Tablet 1 Tab PO DAILY Vitamin D (Cholecalciferol (Vitamin D3)) 1,000 Unit Capsule 5 Cap PO WEEKLY Atorvastatin Calcium 80 Mg Tablet 1 Tab PO DAILY Vitals/I & O Vital Sign - Last 24 Hours 10/3/17 10/3/17 10/3/17 10/3/17 11:00 13:00 14:35 15:00 Temp 98.1 97.9 98.1 97.9 Pulse 68 74 Resp 18 18 B/P (MAP) 134/55 (81) 143/56 (85) Pulse Ox 91 94 93 O2 Delivery Nasal Cannula Nasal Cannula Nasal Cannula Nasal Cannula O2 Flow Rate 3.0 2.0 2.0 3.0 01/20/17 01/20/17 01/20/17 01/20/17 19:00 19:52 20:00 20:49 Temp 98.2 98.2 Pulse 65 Resp 20 B/P (MAP) 139/63 (88) Pulse Ox 94 94 94 O2 Delivery Nasal Cannula Nasal Cannula Nasal Cannula Nasal Cannula O2 Flow Rate 2.0 2.0 2.0 01/20/17 01/21/17 01/21/17 01/21/17 23:00 03:25 05:43 06:43 Temp 97.9 98.2 97.9 98.2 Pulse 64 65 Resp 20 20 B/P (MAP) 159/64 (95) 164/91 (115) Pulse Ox 91 94 94 94 O2 Delivery Nasal Cannula Nasal Cannula Nasal Cannula Nasal Cannula O2 Flow Rate 2.0 2.0 01/21/17 01/21/17 01/21/17 01/21/17 07:00 07:37 08:28 08:30 Temp 97.7 97.7 Pulse 74 74 Resp 19 B/P (MAP) 163/55 (91) 163/55 Pulse Ox 97 92 O2 Delivery Nasal Cannula Nasal Cannula Nasal Cannula O2 Flow Rate 2.0 2.0 RON PAINTER III DO Jan 21, 2017 10:40
[2017-01-21 10:53] LABS: % EOS 21 % (0-5)
[2017-01-21 10:54] LABS: PLT ESTIMATE ADEQUATE (ADEQUATE)
[2017-01-21 11:00] VITALS: BP 162/71
--- NOTE | 2017-01-21 12:05 | PDOC ---
PULMONARY PROGRESS NOTES Subjective PT feels better Vitals Vital Signs Date Time Temp Pulse Resp B/P (MAP) Pulse Ox O2 Delivery O2 Flow Rate FiO2 01/21/17 11:15 94 Nasal Cannula 2.0 01/21/17 11:00 98.2 71 19 162/71 (101) 98.2 ROS: No Nausea, No Chest Pain, No Abdominal Pain, No Increase Cough General: Alert, No acute distress Lungs: Clear Cardiovascular: S1, S2 Abdomen: Soft Neuro Exam: Alert Extremities: No Edema Skin: Warm Labs Laboratory Tests Test 01/20/17 05:25 01/21/17 05:20 White Blood Count 6.5 x10^3/uL (4.0-11.0) 6.5 x10^3/uL (4.0-11.0) Red Blood Count 3.56 x10^6/uL (3.50-5.40) 3.51 x10^6/uL (3.50-5.40) Hemoglobin 11.2 g/dL (12.0-15.5) 11.1 g/dL (12.0-15.5) Hematocrit 32.9 % (36.0-47.0) 32.7 % (36.0-47.0) Mean Corpuscular Volume 93 fL (79-100) 93 fL (79-100) Mean Corpuscular Hemoglobin 31 pg (25-35) 32 pg (25-35) Mean Corpuscular Hemoglobin Concent 34 g/dL (31-37) 34 g/dL (31-37) Red Cell Distribution Width 14.0 % (11.5-14.5) 14.2 % (11.5-14.5) Platelet Count 195 x10^3/uL (140-400) 186 x10^3/uL (140-400) Neutrophils (%) (Auto) 47 % (31-73) 41 % (31-73) Lymphocytes (%) (Auto) 29 % (24-48) 29 % (24-48) Monocytes (%) (Auto) 10 % (0-9) 10 % (0-9) Eosinophils (%) (Auto) 14 % (0-3) 19 % (0-3) Basophils (%) (Auto) 1 % (0-3) 1 % (0-3) Neutrophils # (Auto) 3.0 x10^3uL (1.8-7.7) 2.6 x10^3uL (1.8-7.7) Lymphocytes # (Auto) 1.8 x10^3/uL (1.0-4.8) 1.9 x10^3/uL (1.0-4.8) Monocytes # (Auto) 0.6 x10^3/uL (0.0-1.1) 0.7 x10^3/uL (0.0-1.1) Eosinophils # (Auto) 0.9 x10^3/uL (0.0-0.7) 1.3 x10^3/uL (0.0-0.7) Basophils # (Auto) 0.1 x10^3/uL (0.0-0.2) 0.1 x10^3/uL (0.0-0.2) Sodium Level 141 mmol/L (136-145) 144 mmol/L (136-145) Potassium Level 3.6 mmol/L (3.5-5.1) 4.0 mmol/L (3.5-5.1) Chloride Level 107 mmol/L (98-107) 109 mmol/L (98-107) Carbon Dioxide Level 27 mmol/L (21-32) 28 mmol/L (21-32) Anion Gap 7 (6-14) 7 (6-14) Blood Urea Nitrogen 23 mg/dL (7-20) 23 mg/dL (7-20) Creatinine 0.7 mg/dL (0.6-1.0) 0.7 mg/dL (0.6-1.0) Estimated GFR (Cockcroft-Gault) 79.5 79.5 Glucose Level 97 mg/dL (70-99) 97 mg/dL (70-99) Calcium Level 9.8 mg/dL (8.5-10.1) 10.0 mg/dL (8.5-10.1) Segmented Neutrophils % 46 % (35-66) Lymphocytes % 30 % (24-48) Monocytes % 3 % (0-10) Eosinophils % 21 % (0-5) Platelet Estimate Adequate (ADEQUATE) Laboratory Tests Test 01/21/17 05:20 White Blood Count 6.5 x10^3/uL (4.0-11.0) Red Blood Count 3.51 x10^6/uL (3.50-5.40) Hemoglobin 11.1 g/dL (12.0-15.5) Hematocrit 32.7 % (36.0-47.0) Mean Corpuscular Volume 93 fL (79-100) Mean Corpuscular Hemoglobin 32 pg (25-35) Mean Corpuscular Hemoglobin Concent 34 g/dL (31-37) Red Cell Distribution Width 14.2 % (11.5-14.5) Platelet Count 186 x10^3/uL (140-400) Neutrophils (%) (Auto) 41 % (31-73) Lymphocytes (%) (Auto) 29 % (24-48) Monocytes (%) (Auto) 10 % (0-9) Eosinophils (%) (Auto) 19 % (0-3) Basophils (%) (Auto) 1 % (0-3) Neutrophils # (Auto) 2.6 x10^3uL (1.8-7.7) Lymphocytes # (Auto) 1.9 x10^3/uL (1.0-4.8) Monocytes # (Auto) 0.7 x10^3/uL (0.0-1.1) Eosinophils # (Auto) 1.3 x10^3/uL (0.0-0.7) Basophils # (Auto) 0.1 x10^3/uL (0.0-0.2) Segmented Neutrophils % 46 % (35-66) Lymphocytes % 30 % (24-48) Monocytes % 3 % (0-10) Eosinophils % 21 % (0-5) Platelet Estimate Adequate (ADEQUATE) Sodium Level 144 mmol/L (136-145) Potassium Level 4.0 mmol/L (3.5-5.1) Chloride Level 109 mmol/L (98-107) Carbon Dioxide Level 28 mmol/L (21-32) Anion Gap 7 (6-14) Blood Urea Nitrogen 23 mg/dL (7-20) Creatinine 0.7 mg/dL (0.6-1.0) Estimated GFR (Cockcroft-Gault) 79.5 Glucose Level 97 mg/dL (70-99) Calcium Level 10.0 mg/dL (8.5-10.1) Medications Active Scripts Medications Dose Route/Sig Max Daily Dose Days Date Category Calcium (Calcium Carbonate) 600 Mg Tablet 1,200 Mg PO 01/16/17 Reported Protonix (Pantoprazole Sodium) 40 Mg Tablet.dr 1 Tab PO DAILY 01/16/17 Reported Carvedilol 3.125 Mg Tablet 1 Tab PO BID 01/16/17 Reported Children's Aspirin (Aspirin) 81 Mg Tab.chew 81 Mg PO 12/09/14 Reported One Daily (Multivitamin) 1 Each Tablet 1 Each PO 12/09/14 Reported Vitamin D (Cholecalciferol (Vitamin D3)) 2,000 Unit Capsule 1 Cap PO DAILY 12/09/14 Reported Fish Oil ([place]-3 Fatty Acids) 300 Mg Capsule 1,200 Mg PO DAILY 12/09/14 Reported Hydrocodone-Apap 5-325 (Hydrocodone Bit/Acetaminophen) 1 Each Tablet 1-2 Tab PO Q4-6HRS 12/09/14 Reported Paroxetine Hcl 30 Mg Tablet 1.5 Tab PO DAILY 12/09/14 Reported Levothyroxine Sodium 100 Mcg Tablet 1 Tab PO DAILY 12/09/14 Reported Vitamin D (Cholecalciferol (Vitamin D3)) 1,000 Unit Capsule 5 Cap PO WEEKLY 12/09/14 Reported Atorvastatin Calcium 80 Mg Tablet 1 Tab PO DAILY 12/09/14 Reported Impression . 1. Acute hypoxic respiratory failure, most likely secondary to combination of basal pneumonia/atelectasis. 2. No evidence of central pulmonary embolism by CT angiogram. 3. Mild hypernatremia. 4. Compensated respiratory acidosis Plan . D/C TODAY 6 MIN WALK NEEDS O2 RX WRITTEN FOLLOW UP IN OFFICE IN 4-6 WEEKS I/S HOME ON [place] OR [facility] MARVIN COLEY MD Jan 21, 2017 12:05
== END 2017-01-21 14:59 | disposition home health service (06) | DRG 871 ==
LOC: ER 11:33 → 5 NORTH 16:14 → OBSVTOIN 01-16 09:20
PROVIDERS: ADMIT Internal Medicine Hematology & Oncology; ATTEND Internal Medicine Hematology & Oncology
DX: A41.9 Sepsis, unspecified organism (principal); J96.01 Acute respiratory failure with hypoxia; J15.6 Pneumonia due to other Gram-negative bacteria; E44.0 Moderate protein-calorie malnutrition; E87.0 Hyperosmolality and hypernatremia; E87.2 Acidosis; J44.0 Chronic obstructive pulmonary disease with (acute) lower respiratory infection; E86.0 Dehydration; J98.11 Atelectasis; E03.9 Hypothyroidism, unspecified; E78.00 Pure hypercholesterolemia, unspecified; E78.5 Hyperlipidemia, unspecified; G89.29 Other chronic pain; M54.9 Dorsalgia, unspecified; I10 Essential (primary) hypertension; I25.10 Atherosclerotic heart disease of native coronary artery without angina pectoris; Z96.642 Presence of left artificial hip joint; Z96.653 Presence of artificial knee joint, bilateral; K21.9 Gastro-esophageal reflux disease without esophagitis; R53.81 Other malaise; M19.90 Unspecified osteoarthritis, unspecified site; R29.6 Repeated falls; Z82.49 Family history of ischemic heart disease and other diseases of the circulatory system; Z91.81 History of falling; Z90.89 Acquired absence of other organs; Z68.24 Body mass index [BMI] 24.0-24.9, adult
CPT/HCPCS: 36415; 36600; 71020; 71275; 80048; 80061; 80076; 82805; 83735; 83880; 84443; 84484; 85007; 85025; 93005; 93306; 94250; 94620; 94640; 94760; 96360; G0238; G0378; G0379; J0696; J7040; J7620; Q9967; 97110; 97116; 97530; 97535; 99285-25

== ENCOUNTER 2017-12-24 13:06 | Inpatient (IN) | payer MEDICARE ==
[~2017-12-24] VITALS: Ht 170.2 cm; Wt 74.0 kg
[~2017-12-24 13:06] MED LIST changes: -AMLO5TAB2 PO; +AMLO5TAB7 PO; -ASPI81TA44 PO; +ASPI81TA59 PO; +CALC600T4 PO; +CARV3.122 PO; +LISI-130 PO; -LISI40TA PO; +PANT40TA3 PO
--- NOTE | 2017-12-24 13:43 | PHYS DOC ---
Past Medical History Past Medical History: Arthritis, COPD, High Cholesterol, Hypertension, Hypothyroid Additional Past Medical Histor: CHRONIC BACK PAIN Past Surgical History: Hip Replacement, Knee Replacement, Tonsillectomy Additional Past Surgical Histo: L hip, bilat knee Alcohol Use: None Drug Use: None Adult General Chief Complaint Chief Complaint: MECHANICAL FALL HPI HPI 87-year-old female presents to ER via EMS for complaints of slipping and falling while grocery shopping at him house. Patient reports she landed on her left elbow and has since had left elbow pain. Patient reports she has also had some right rib pain denying any shortness of air or difficulty breathing. Patient reports her left hand feels numb and tingly. Patient denies striking her head or having any head, neck, or back pain. Patient denies any loss of consciousness. Patient reports she is uncertain if she slipped in water or if her sandals were slick due to the wet pavement. Any symptoms prior to fall including dizziness, lightheadedness, chest pain, or palpitations. Review of Systems Review of Systems Constitutional: Denies confusion or LOC Eyes: Denies change in visual acuity, redness, or eye pain [] HENT: Denies head pain or injury Respiratory: Denies cough or shortness of breath. Reports right side rib pain Cardiovascular: Denies chest pain or palpitations GI: Denies abdominal pain, nausea, vomiting, bloody stools or diarrhea [] : Denies dysuria or hematuria. Denies incontinence Musculoskeletal: Denies back/neck pain. Reports left elbow pain with numbness and tingling in left hand Integument: Denies abrasions, bruising, or swelling Neurologic: Denies headache, focal weakness or sensory changes [] All other systems were reviewed and found to be within normal limits, except as documented in this note. Current Medications Current Medications Current Medications Medications (Trade) Dose Ordered Sig/Lukasz Start Time Stop Time Status Last Admin Dose Admin Fentanyl Citrate (Fentanyl 2ml Vial) 25 mcg 1X ONCE 12/24/17 13:45 12/24/17 13:46 DC 12/24/17 14:03 25 MCG Allergies Allergies Allergies Coded Allergies Type Severity Reaction Last Updated Verified No Known Drug Allergies 01/15/17 No Physical Exam Physical Exam Constitutional: Well developed, well nourished, mild distress with any movement of left upper extremity, non-toxic appearance. Clear speech HENT: Normocephalic, atraumatic, bilateral external ears normal, oropharynx moist, no oral exudates, nose normal. [] Eyes: PERRLA, EOMI, conjunctiva normal, no discharge. [] Neck: Normal range of motion, no tenderness-no midline cervical tenderness on palpation or palpable deformity/step-off, supple, no stridor. [] Cardiovascular:Heart rate regular rhythm, no murmur [] Lungs & Thorax: Bilateral breath sounds clear to auscultation respirations equal and nonlabored. Tender to palpation right anterior lower ribs with no palp. deformity/crepitus Abdomen: Bowel sounds normal, soft/nondistended, no tenderness, no masses, no pulsatile masses. [] Skin: Warm, dry, no ecchymosis/abrasions/swelling Back: No tenderness- no midline spinal tenderness or palp. deformity, no CVA tenderness. [] Extremities: Pelvis stable and nontender. No cyanosis, no clubbing. Tender to palpation left posterior elbow with no palpable deformity or visible injury. Patient has full range of motion of left shoulder and left wrist/hand with no skin discoloration in extremity. Right upper and bilateral lower extremity normal limits exams with full range of motion denying any pain. Neurologic: Alert and oriented X 3, normal motor function, normal sensory function, no focal deficits noted. [] Psychologic: Affect normal, judgement normal, mood normal. [] Current Patient Data Vital Signs Vital Signs Date Time Temp Pulse Resp B/P (MAP) Pulse Ox O2 Delivery O2 Flow Rate FiO2 12/24/17 14:34 20 87 12/24/17 14:32 59 12/24/17 13:06 98.3 151/68 (95) Room Air 98.3 EKG EKG [] Radiology/Procedures Radiology/Procedures [] Course & Med Decision Making Course & Med Decision Making Pertinent Imaging studies reviewed. (See chart for details) [] Dragon Disclaimer Dragon Disclaimer This electronic medical record was generated, in whole or in part, using a voice recognition dictation system. Departure Departure Impression: Primary Impression: Left humeral fracture Additional Impressions: Rib pain on right side Fall Disposition: ADMITTED INPATIENT Admitting Physician: Kurtis Conner Condition: STABLE Referrals: AMY WEBER (PCP) Problem Qualifiers SANDRA MORENO [employer] Dec 24, 2017 13:43
[2017-12-24] MEDS ORDERED: fentaNYL PF VIAL 100 MCG/2 ML VIAL IV ONE ×2 (13:45→15:00)
[2017-12-24] MEDS: fentaNYL PF VIAL 100 MCG/2 ML VIAL IV PRN ×3 (13:55→19:18)
[2017-12-24] MEDS ORDERED: ONDANSETRON PF 4 MG/2 ML VIAL. IV PRN (15:00)
--- NOTE | 2017-12-24 15:25 | RAD ---
Portable portable left humerus, 2 views, 12/24/2017: HISTORY: Fall There is a spiral fracture of the mid to distal humeral shaft. There is moderate lateral and posterior displacement of the proximal end of the distal fracture fragment with mild anterior angulation of the distal fracture fragment. The bony structures are demineralized. The proximal humerus is unremarkable. Left elbow, 2 views, 12/24/2017: No additional fracture or dislocation is identified. No joint effusion is evident. IMPRESSION: Mildly displaced and angulated left humeral shaft fracture. Portable chest, 12/24/2017: HISTORY: Fall, right rib pain Comparison is made to a study from 01/15/2017. The heart is at the upper limits of normal in size. There is calcific plaquing of the aorta. There is minimal left basilar atelectasis or scarring. The lungs are otherwise clear. There is no evidence of pleural fluid or pneumothorax. The bony structures are demineralized. There are degenerative changes at both shoulders. There are several left lateral rib deformities which are probably old. The given history is that of right-sided pain IMPRESSION: 1. Borderline cardiomegaly and aortic atherosclerosis. 2. Minimal left basilar atelectasis or scarring. Electronically signed by: Gabriel Chavira MD (12/24/2017 3:22 PM) [facility]
--- NOTE | 2017-12-24 17:14 | PDOC1 ---
History and Physical Date of Admission Date of Admission DATE: 12/24/17 TIME: 17:13 Identification/Chief Complaint Chief Complaint CC presented to ER via EMS for complaints of slipping and falling while grocery shopping Patient reports she landed on her left elbow and has since had left elbow pain. NO HEAD INJURY OR loc Past Medical History Cardiovascular: HTN, Hyperlipidemia, Valve insufficiency Pulmonary: COPD GI: GERD Heme/Onc: No pertinent hx, Other Hepatobiliary: No pertinent hx Psych: No pertinent hx Musculoskeletal: Osteoarthritis Infectious disease: No pertinent hx Renal/: No pertinent hx Endocrine: No pertinent hx Past Surgical History Past Surgical History: Total hip replacement, Total knee replacement, Tonsillectomy Family History Family History: Coronary Artery Disease, Hypertension Family History: Other Social History Smoke: No ALCOHOL: none Drugs: None Current Problem List Problem List Problems Medical Problems: (1) Fall Status: Acute (2) Rib pain on right side Status: Acute Current Medications Current Medications Current Medications Fentanyl Citrate (Fentanyl 2ml Vial) 25 mcg 1X ONCE IV Last administered on 12/24/17at 14:03; Start 12/24/17 at 13:45; Stop 12/24/17 at 13:46; Status DC Fentanyl Citrate (Fentanyl 2ml Vial) 25 mcg 1X ONCE IV Last administered on 12/24/17at 15:26; Start 12/24/17 at 15:00; Stop 12/24/17 at 15:01; Status DC Ondansetron HCl (Zofran) 4 mg PRN Q8HRS PRN IV NAUSEA/VOMITING; Start 12/24/17 at 15:00; Stop 12/25/17 at 14:59 Fentanyl Citrate (Fentanyl 2ml Vial) 25 mcg PRN Q3HRS PRN IV PAIN Last administered on 12/24/17at 15:55; Start 12/24/17 at 15:00; Stop 12/25/17 at 14:59 Active Scripts Active Reported Calcium (Calcium Carbonate) 600 Mg Tablet 1,200 Mg PO Protonix (Pantoprazole Sodium) 40 Mg Tablet.dr 1 Tab PO DAILY Carvedilol 3.125 Mg Tablet 1 Tab PO BID Children's Aspirin (Aspirin) 81 Mg Tab.chew 81 Mg PO One Daily (Multivitamin) 1 Each Tablet 1 Each PO Vitamin D (Cholecalciferol (Vitamin D3)) 2,000 Unit Capsule 1 Cap PO DAILY Fish Oil ([place]-3 Fatty Acids) 300 Mg Capsule 1,200 Mg PO DAILY Hydrocodone-Apap 5-325 (Hydrocodone Bit/Acetaminophen) 1 Each Tablet 1-2 Tab PO Q4-6HRS Paroxetine Hcl 30 Mg Tablet 1.5 Tab PO DAILY Levothyroxine Sodium 100 Mcg Tablet 1 Tab PO DAILY Vitamin D (Cholecalciferol (Vitamin D3)) 1,000 Unit Capsule 5 Cap PO WEEKLY Atorvastatin Calcium 80 Mg Tablet 1 Tab PO DAILY Allergies Allergies: Coded Allergies: No Known Drug Allergies (Unverified , 01/15/17) ROS Review of System Review of Systems Review of Systems Constitutional: Denies confusion or LOC Eyes: Denies change in visual acuity, redness, or eye pain [] HENT: Denies head pain or injury Respiratory: Denies cough or shortness of breath. Reports right side rib pain Cardiovascular: Denies chest pain or palpitations GI: Denies abdominal pain, nausea, vomiting, bloody stools or diarrhea [] : Denies dysuria or hematuria. Denies incontinence Musculoskeletal: Denies back/neck pain. Reports left elbow pain with numbness and tingling in left hand Integument: Denies abrasions, bruising, has left elbow swelling Neurologic: Denies headache, focal weakness or sensory changes [] 14 pt systems were reviewed and found to be within normal limits, except as documented General: No: Chills, Night Sweats, Fatigue, Malaise, Appetite, Other Neurological: Yes Gait Disturbance Skin: Yes Dry Skin Physical Exam Physical Exam Physical Exam Physical Exam Constitutional: Well developed, well nourished, mild distress with any movement of left upper extremity, non-toxic appearance. Clear speech HENT: Normocephalic, atraumatic, bilateral external ears normal, oropharynx moist, no oral exudates, nose normal. [] Eyes: PERRLA, EOMI, conjunctiva normal, no discharge. [] Neck: Normal range of motion, no tenderness-no midline cervical tenderness on palpation or palpable deformity/step-off, supple, no stridor. [] Cardiovascular:Heart rate regular rhythm, no murmur [] Lungs & Thorax: Bilateral breath sounds clear to auscultation respirations equal and nonlabored. Tender to palpation right anterior lower ribs with no palp. deformity/crepitus Abdomen: Bowel sounds normal, soft/nondistended, no tenderness, no masses, no pulsatile masses. [] Skin: Warm, dry, no ecchymosis/abrasions/swelling Back: No tenderness- no midline spinal tenderness or palp. deformity, no CVA tenderness. [] Extremities: Pelvis stable and nontender. No cyanosis, no clubbing. Tender to palpation left posterior elbow with no palpable deformity or visible injury. Patient has full range of motion of left shoulder and left wrist/hand with no skin discoloration in extremity. Right upper and bilateral lower extremity normal limits exams with full range of motion denying any pain. Neurologic: Alert and oriented X 3, normal motor function, normal sensory function, no focal deficits noted. [] Psychologic: Affect normal, judgement normal, mood normal. [] General: Alert, Oriented X3, Cooperative HEENT: Atraumatic, EOMI, Mucous membr. moist/pink Lungs: Clear to auscultation Breasts: Not examined Abdomen: Normal bowel sounds, Soft, No tenderness Rectal Exam: not examined PELVIC: Examination not indicated Extremities: No cyanosis Vitals Vitals Vital Signs Date Time Temp Pulse Resp B/P (MAP) Pulse Ox O2 Delivery O2 Flow Rate FiO2 12/24/17 16:45 52 18 92 12/24/17 15:26 Nasal Cannula 2.0 12/24/17 13:06 98.3 151/68 (95) 98.3 Images Images HISTORY: Fall There is a spiral fracture of the mid to distal humeral shaft. There is moderate lateral and posterior displacement of the proximal end of the distal fracture fragment with mild anterior angulation of the distal fracture fragment. The bony structures are demineralized. The proximal humerus is unremarkable. Left elbow, 2 views, 12/24/2017: No additional fracture or dislocation is identified. No joint effusion is evident. IMPRESSION: Mildly displaced and angulated left humeral shaft fracture. Portable chest, 12/24/2017: HISTORY: Fall, right rib pain Comparison is made to a study from 01/15/2017. The heart is at the upper limits of normal in size. There is calcific plaquing of the aorta. There is minimal left basilar atelectasis or scarring. The lungs are otherwise clear. There is no evidence of pleural fluid or pneumothorax. The bony structures are demineralized. There are degenerative changes at both shoulders. There are several left lateral rib deformities which are probably old. The given history is that of right-sided pain IMPRESSION: 1. Borderline cardiomegaly and aortic atherosclerosis. 2. Minimal left basilar atelectasis or scarring. Electronically signed by: Gabriel Chavira MD (12/24/2017 3:22 PM) [facility] VTE Prophylaxis Ordered VTE Prophylaxis Devices: Yes VTE Pharmacological Prophylaxi: Yes Assessment/Plan Assessment/Plan impression spiral fracture of the mid to distal humeral shaft. moderate lateral and posterior displacement of the proximal end of the distal fracture fragment with mild anterior angulation of the distal fracture fragment. proximal humerus is unremarkable. htn GERD Osteoporosis hypothyroid state on replacement plan npo ortho consult gi prophylaxis sq lovenox dvt prophylaxis CHI SUN MD Dec 24, 2017 17:14
[2017-12-24] MEDS ORDERED: [UNRECOGNIZED DRUG - CODE] TP (17:36)
[2017-12-24] MEDS ORDERED: FISH1CAP PO (17:36)
[2017-12-24] MEDS ORDERED: ACET325T9 PO (17:36)
[2017-12-24] MEDS ORDERED: SENN8.6T11 PO (17:36)
[2017-12-24] MEDS ORDERED: AMLO5TAB7 PO (17:36)
[2017-12-24] MEDS ORDERED: OXYC-323 PO (17:36)
[2017-12-24 19:20] VITALS: BP 116/65
[2017-12-24] MEDS ORDERED: ACETAMINOPHEN 325 MG TABLET. PO SCH (20:00)
[2017-12-24] MEDS ORDERED: HYDROcodone/APAP 5/325MG 1 TAB TABLET PO PRN (20:00)
[2017-12-24] MEDS: ENOXAPARIN 40 MG/0.4 ML SYRINGE. SQ SCH (20:15)
[2017-12-24] MEDS: CARVEDILOL 3.125 MG TABLET. PO SCH (21:00)
[2017-12-24] MEDS: CHOLECALCIFEROL (VITAMIN D3) 1,000 UNIT TABLET PO SCH (21:25)
[2017-12-24] MEDS: ATORVASTATIN CALCIUM 40 MG TABLET. PO SCH (21:25)
[2017-12-24 23:20] VITALS: BP 139/69
[2017-12-25] VITALS (10 sets, daily range): BP systolic 143–166; BP diastolic 47–80
[2017-12-25] MEDS: fentaNYL PF VIAL 100 MCG/2 ML VIAL IV PRN ×4 (02:48→13:15)
[2017-12-25] MEDS: PANTOPRAZOLE 40 MG TABLET.DR. PO SCH ×2 (05:23→08:12)
[2017-12-25] MEDS: ASPIRIN CHEWABLE 81 MG TABLET. PO SCH (05:23)
[2017-12-25] MEDS: amLODIPine BESYLATE 5 MG TABLET PO SCH (08:11)
[2017-12-25] MEDS: OMEGA-3 FATTY ACIDS/FISH OIL 1,000 MG CAPSULE. PO SCH (08:11)
[2017-12-25] MEDS: CALCIUM CARBONATE 500 MG TABLET PO SCH ×3 (08:12→17:12)
[2017-12-25] MEDS: LEVOTHYROXINE 100 MCG TABLET PO SCH (08:12)
[2017-12-25] MEDS: CARVEDILOL 3.125 MG TABLET. PO SCH ×2 (08:13→21:54)
[2017-12-25] MEDS ORDERED: PARO40TA61 PO (08:22)
[2017-12-25] MEDS ORDERED: PANTOPRAZOLE 40 MG TABLET.DR. PO SCH (09:00)
[2017-12-25] MEDS ORDERED: PARoxetine 10 MG TABLET PO SCH (09:00)
[2017-12-25] MEDS: CHOLECALCIFEROL (VITAMIN D3) 5,000 UNIT CAPSULE PO SCH ×2 (09:18→21:59)
--- NOTE | 2017-12-25 10:33 | PDOC2 ---
CONSULT Date of Consult Date of Consult DATE: 12/25/17 TIME: 10:29 Reason for Consult Reason for Consult: Left humerus fracture Referring Physician Referring Physician: Stevenson Identification/Chief Complaint Chief Complaint Left arm pain Source Source: Patient History of Present Illness Reason for Visit: Patient had a ground-level fall without any preceding symptoms and her posterior left elbow. She had immediate pain and deformity and inability to move her arm and was brought into the emergency department and discovered to have a left humerus fracture. She was placed into a posterior splint and admitted for care regarding this. She tells me her arm is still quite sore hurts worse in the any attempted movement. His low bit better in the splint and with pain medicine. She denies any abnormal sensations in her left hand. Past Medical History Cardiovascular: HTN, Hyperlipidemia, Valve insufficiency Pulmonary: COPD GI: GERD Heme/Onc: No pertinent hx, Other Hepatobiliary: No pertinent hx Psych: No pertinent hx Musculoskeletal: Osteoarthritis Infectious disease: No pertinent hx Renal/: No pertinent hx Endocrine: No pertinent hx Past Surgical History Past Surgical History: Total hip replacement, Total knee replacement, Tonsillectomy Family History Family History: Coronary Artery Disease, Hypertension Social History Social History: Other No ALCOHOL: none Drugs: None Lives: Alone Current Problem List Problem List Problems Medical Problems: (1) Fall Status: Acute (2) Rib pain on right side Status: Acute Current Medications Current Medications Current Medications Fentanyl Citrate (Fentanyl 2ml Vial) 25 mcg 1X ONCE IV Last administered on 12/24/17at 14:03; Start 12/24/17 at 13:45; Stop 12/24/17 at 13:46; Status DC Fentanyl Citrate (Fentanyl 2ml Vial) 25 mcg 1X ONCE IV Last administered on 12/24/17at 15:26; Start 12/24/17 at 15:00; Stop 12/24/17 at 15:01; Status DC Ondansetron HCl (Zofran) 4 mg PRN Q8HRS PRN IV NAUSEA/VOMITING Last administered on 12/24/17at 17:17; Start 12/24/17 at 15:00; Stop 12/25/17 at 14:59 Fentanyl Citrate (Fentanyl 2ml Vial) 25 mcg PRN Q3HRS PRN IV PAIN Last administered on 12/25/17at 06:14; Start 12/24/17 at 15:00; Stop 12/25/17 at 14:59 Albuterol Sulfate (Ventolin Neb Soln) 2.5 mg PRN Q4HRS PRN NEB SHORTNESS OF BREATH; Start 12/24/17 at 18:15 Acetaminophen (Tylenol) 325 mg PRN Q4HRS PO ; Start 12/24/17 at 20:00 Amlodipine Besylate (Norvasc) 5 mg DAILY PO Last administered on 12/25/17at 08:11 ; Start 12/25/17 at 09:00 Aspirin (Children'S Aspirin) 81 mg DAILY07 PO ; Start 12/25/17 at 07:00 Carvedilol (Coreg) 3.125 mg BID PO Last administered on 12/25/17at 08:13; Start 12/24/17 at 21:00 Acetaminophen/ Hydrocodone Bitart (Lortab 5/325) 1 tab PRN Q4HRS PRN PO MODERATE PAIN Last administered on 12/24/17at 23:32; Start 12/24/17 at 20:00 Levothyroxine Sodium (Synthroid) 100 mcg DAILY PO Last administered on at 08:12; Start 12/25/17 at 09:00 Pantoprazole Sodium (Protonix) 40 mg DAILY PO ; Start 12/25/17 at 09:00; Stop 12/25/17 at 09:00; Status DC Atorvastatin Calcium (Lipitor) 80 mg QHS PO Last administered on 12/24/17at 21:25 ; Start 12/24/17 at 21:00 Non-Formulary Medication (Cholecalciferol (Vitamin D3) (Vitamin D)) 5 cap WEEKLY PO ; Start 12/31/17 at 09:00; Status UNV Vitamin D (Vitamin D3) 2,000 unit HS PO Last administered on 12/24/17at 21:25; Start 12/24/17 at 21:00 Fish Oil (Fish Oil) 1,000 mg DAILY PO Last administered on 12/25/17at 08:11; Start 12/25/17 at 09:00 Paroxetine HCl (Paxil) 45 mg DAILY PO ; Start 12/25/17 at 09:00; Stop 12/25/17 at 09:00; Status DC Calcium Carbonate/ Glycine (Oscal) 500 mg TIDAFTMEAL PO Last administered on 12/25/17at 08:12; Start 12/25/17 at 09:00 Sennosides (Senna) 8.6 mg PRN BID PRN PO CONSTIPATION; Start 12/24/17 at 20:00 Enoxaparin Sodium (Lovenox 40mg Syringe) 40 mg Q24H SQ ; Start 12/24/17 at 20:15 Pantoprazole Sodium (Protonix) 40 mg DAILYAC PO Last administered on 12/25/17at 08:12; Start 12/25/17 at 07:30 Fentanyl Citrate (Fentanyl 2ml Vial) 50 mcg PRN Q2HR PRN IV SEVERE PAIN Last administered on 12/25/17at 09:15; Start 12/25/17 at 07:00 Non-Formulary Medication (Paroxetine Hcl (Paxil)) 45 mg QHS PO ; Start 12/25/17 at 21:00; Status UNV Paroxetine HCl (Paxil) 45 mg QHS PO ; Start 12/25/17 at 21:00 Vitamin D (Vitamin D3) 5,000 unit DAILY PO Last administered on 12/25/17at 09:18 ; Start 12/25/17 at 09:00 Active Scripts Active Reported Paxil (Paroxetine Hcl) 40 Mg Tablet 45 Mg PO QHS Targretin (Bexarotene) 60 Gm Gel..gram. 60 Gm TP Fish Oil 1,200 Mg Fish Oil (Fish Oil/Dha/Epa) 1 Each Capsule 1 Each PO Tylenol (Acetaminophen) 325 Mg Tablet 1 Tab PO PRN Q4HRS Senna Laxative (Sennosides) 8.6 Mg Tablet 8.6 Mg PO Amlodipine Besylate 5 Mg Tablet 5 Mg PO DAILY Percocet 5-325 Mg Tablet (Oxycodone/Acetaminophen) 1 Each Tablet 1 Tab PO PRN Q8HRS PRN Calcium (Calcium Carbonate) 600 Mg Tablet 1,200 Mg PO Protonix (Pantoprazole Sodium) 40 Mg Tablet.dr 1 Tab PO DAILY Carvedilol 3.125 Mg Tablet 1 Tab PO BID Children's Aspirin (Aspirin) 81 Mg Tab.chew 81 Mg PO One Daily (Multivitamin) 1 Each Tablet 1 Each PO Vitamin D (Cholecalciferol (Vitamin D3)) 2,000 Unit Capsule 1 Cap PO HS Fish Oil ([place]-3 Fatty Acids) 300 Mg Capsule 1,200 Mg PO DAILY Hydrocodone-Apap 5-325 (Hydrocodone Bit/Acetaminophen) 1 Each Tablet 1-2 Tab PO Q4-6HRS Levothyroxine Sodium 100 Mcg Tablet 1 Tab PO DAILY Vitamin D (Cholecalciferol (Vitamin D3)) 1,000 Unit Capsule 5 Cap PO DAILY Atorvastatin Calcium 80 Mg Tablet 1 Tab PO DAILY Allergies Allergies: Coded Allergies: No Known Drug Allergies (Unverified , 01/15/17) ROS General: No: Chills, Night Sweats, Fatigue, Malaise, Appetite, Other PSYCHOLOGICAL ROS: No: Anxiety, Behavioral Disorder, Concentration difficultie , Decreased libido, Depression, Disorientation, Hallucinations, Hostility, Irritablity, Memory difficulties, Mood Swings, Obsessive thoughts, Physical abuse, Sexual abuse, Sleep disturbances, Suicidal ideation, Other Eyes: No Blurry vision, No Decreased vision, No Double vision, No Dry eyes, No Excessive tearing, No Eye Pain, No Itchy Eyes, No Loss of vision, No Photophobia , No Scotomata, No Uses contacts, No Uses glasses, No Other HEENT: No: Heacaches, Visual Changes, Hearing change, Nasal congestion, Nasal discharge, Oral lesions, Sinus pain, Sore Throat, Epistaxis, Sneezing, Snoring, Tinnitus, Vertigo, Vocal changes, Other ALLERGY AND IMMUNOLOGY: No: Hives, Insect Bite Sensitivity, Itchy/Watery Eyes, Nasal Congestion, Post Nasal Drip, Seasonal Allergies, Other Hematological and Lymphatic: No: Bleeding Problems, Blood Clots, Blood Transfusions, Brusing, Night Sweats, Pallor, Swollen Lymph Nodes, Other ENDOCRINE: No: Breast Changes, Galactorrhea, Hair Pattern Changes, Hot Flashes , Malaise/lethargy, Mood Swings, Palpitations, Polydipsia/polyuria, Skin Changes , Temperature Intolerance, Unexpected Weight Changes, Other Respiratory: No: Cough, Hemoptysis, Orthopnea, Pleuritic Pain, Shortness of breath, SOB with excertion, Sputum Changes, Stridor, Tachypnea, Wheezing, Other Cardiovascular: No Chest Pain, No Palpitations, No Orthopnea, No Paroxysmal Noc. Dyspnea, No Edema, No Lt Headedness, No Other Gastrointestinal: No Nausea, No Vomiting, No Abdominal Pain, No Diarrhea, No Constipation, No Melena, No Hematochezia, No Other Genitourinary: No Dysuria, No Frequency, No Incontinence, No Hematuria, No Retention, No Discharge, No Urgency, No Pain, No Flank Pain, No Other, No , No , No , No , No , No , No Musculoskeletal: Yes Joint Pain Neurological: No Behavorial Changes, No Bowel/Bladder ControlChng, No Confusion , No Dizziness, No Gait Disturbance, No Headaches, No Impaired Coord/balance, No Memory Loss, No Numbness/Tingling, No Seizures, No Speech Problems, No Tremors, No Visual Changes, No Weakness, No Other Physical Exam General: Alert, Oriented X3, mild distress HEENT: Atraumatic, EOMI Lungs: Other (respirations unlabored with symmetric chest rise.) Heart: Other (regular rate and rhythm, radial pulse 2+) Extremities: No clubbing, No edema Skin: No rashes Neuro: Strength at 5/5 X4 ext, Sensation intact, Other (able to extend her wrist and fingers with good strength. Normal sensation in her left hand.) Psych/Mental Status: Mental status NL, Mood NL MUSCULOSKELETAL: Other (left upper extremity is in a posterior splint. Visible skin is intact and unremarkable. Motor and sensation are intact in her hand median, radial, ulnar nerves.) Vitals VITALS Vital Signs Date Time Temp Pulse Resp B/P (MAP) Pulse Ox O2 Delivery O2 Flow Rate FiO2 12/25/17 09:15 18 Nasal Cannula 4.0 12/25/17 08:13 63 166/71 12/25/17 07:00 98.3 91 98.3 Images Images X-rays were interpreted by myself. Reports reviewed. She has a long spiral humeral shaft fracture Assessment/Plan Assessment/Plan Closed left humeral shaft fracture. Given the nature of the fracture I think he would benefit her to proceed with operative intervention I did discuss the risks , benefits, and alternatives with her as well as a rationale for earlier joint mobilization. Surgery scheduled for midafternoon today NIHARIKA CORREIA II, MD Dec 25, 2017 10:33
[2017-12-25] MEDS ORDERED: LIDOCAINE 1% PF 30 ML VIAL. ONE (14:15)
[2017-12-25] MEDS ORDERED: fentaNYL PF VIAL 100 MCG/2 ML VIAL ONE (14:16)
[2017-12-25] MEDS ORDERED: PROPOFOL 20 ML IV ONE (14:16)
[2017-12-25] MEDS ORDERED: BUPIVACAINE 0.5% 50 ML VIAL. ONE (14:16)
--- NOTE | 2017-12-25 14:20 | PDOC ---
PROGRESS NOTES Chief Complaint Chief Complaint spiral fracture of the mid to distal humeral shaft. moderate lateral and posterior displacement of the proximal end of the distal fracture fragment with mild anterior angulation of the distal fracture fragment. proximal humerus is unremarkable. htn GERD Osteoporosis hypothyroid state on replacement History of Present Illness History of Present Illness plan npo ortho consult gi prophylaxis sq lovenox dvt prophylaxis Vitals Vitals Vital Signs Date Time Temp Pulse Resp B/P (MAP) Pulse Ox O2 Delivery O2 Flow Rate FiO2 12/25/17 13:15 16 Nasal Cannula 4.0 12/25/17 11:00 98.3 54 143/53 (83) 92 98.3 Physical Exam General: Alert, Oriented X3, mild distress Heart: Regular rate, No murmurs, Other (regular rate and rhythm, radial pulse 2 +) Lungs: Clear Abdomen: Normal bowel sounds, Soft, No tenderness Extremities: No clubbing, No edema Skin: No rashes Assessment and Plan Assessmemt and Plan Problems Medical Problems: (1) Fall Status: Acute (2) Rib pain on right side Status: Acute Comment Review of Relevant I have reviewed the following items harvey (where applicable) has been applied. Medications Current Medications Fentanyl Citrate (Fentanyl 2ml Vial) 25 mcg 1X ONCE IV Last administered on 12/24/17at 14:03; Start 12/24/17 at 13:45; Stop 12/24/17 at 13:46; Status DC Fentanyl Citrate (Fentanyl 2ml Vial) 25 mcg 1X ONCE IV Last administered on 12/24/17at 15:26; Start 12/24/17 at 15:00; Stop 12/24/17 at 15:01; Status DC Ondansetron HCl (Zofran) 4 mg PRN Q8HRS PRN IV NAUSEA/VOMITING Last administered on 12/24/17at 17:17; Start 12/24/17 at 15:00; Stop 12/25/17 at 14:59 Fentanyl Citrate (Fentanyl 2ml Vial) 25 mcg PRN Q3HRS PRN IV PAIN Last administered on 12/25/17at 06:14; Start 12/24/17 at 15:00; Stop 12/25/17 at 14:59 Albuterol Sulfate (Ventolin Neb Soln) 2.5 mg PRN Q4HRS PRN NEB SHORTNESS OF BREATH; Start 12/24/17 at 18:15 Acetaminophen (Tylenol) 325 mg PRN Q4HRS PO ; Start 12/24/17 at 20:00 Amlodipine Besylate (Norvasc) 5 mg DAILY PO Last administered on 12/25/17at 08:11 ; Start 12/25/17 at 09:00 Aspirin (Children'S Aspirin) 81 mg DAILY07 PO ; Start 12/25/17 at 07:00 Carvedilol (Coreg) 3.125 mg BID PO Last administered on 12/25/17at 08:13; Start 12/24/17 at 21:00 Acetaminophen/ Hydrocodone Bitart (Lortab 5/325) 1 tab PRN Q4HRS PRN PO PAIN Last administered on 12/24/17at 23:32; Start 12/24/17 at 20:00 Levothyroxine Sodium (Synthroid) 100 mcg DAILY PO Last administered on at 08:12; Start 12/25/17 at 09:00 Pantoprazole Sodium (Protonix) 40 mg DAILY PO ; Start 12/25/17 at 09:00; Stop 12/25/17 at 09:00; Status DC Atorvastatin Calcium (Lipitor) 80 mg QHS PO Last administered on 12/24/17at 21:25 ; Start 12/24/17 at 21:00 Non-Formulary Medication (Cholecalciferol (Vitamin D3) (Vitamin D)) 5 cap WEEKLY PO ; Start 12/31/17 at 09:00; Status UNV Vitamin D (Vitamin D3) 2,000 unit HS PO Last administered on 12/24/17at 21:25; Start 12/24/17 at 21:00 Fish Oil (Fish Oil) 1,000 mg DAILY PO Last administered on 12/25/17at 08:11; Start 12/25/17 at 09:00 Paroxetine HCl (Paxil) 45 mg DAILY PO ; Start 12/25/17 at 09:00; Stop 12/25/17 at 09:00; Status DC Calcium Carbonate/ Glycine (Oscal) 500 mg TIDAFTMEAL PO Last administered on 12/25/17at 08:12; Start 12/25/17 at 09:00 Sennosides (Senna) 8.6 mg PRN BID PRN PO CONSTIPATION; Start 12/24/17 at 20:00 Enoxaparin Sodium (Lovenox 40mg Syringe) 40 mg Q24H SQ ; Start 12/24/17 at 20:15 Pantoprazole Sodium (Protonix) 40 mg DAILYAC PO Last administered on 12/25/17at 08:12; Start 12/25/17 at 07:30 Fentanyl Citrate (Fentanyl 2ml Vial) 50 mcg PRN Q2HR PRN IV SEVERE PAIN Last administered on 12/25/17at 13:15; Start 12/25/17 at 07:00 Non-Formulary Medication (Paroxetine Hcl (Paxil)) 45 mg QHS PO ; Start 12/25/17 at 21:00; Status UNV Paroxetine HCl (Paxil) 45 mg QHS PO ; Start 12/25/17 at 21:00 Vitamin D (Vitamin D3) 5,000 unit DAILY PO Last administered on 12/25/17at 09:18 ; Start 12/25/17 at 09:00 Cefazolin Sodium 50 ml @ 100 mls/hr 1X ONCE IV ; Start 12/25/17 at 10:15; Stop 12/25/17 at 10:44; Status DC Propofol 20 ml @ As Directed STK-MED ONCE IV ; Start 12/25/17 at 14:16; Stop 12/25 at 14:17; Status DC Fentanyl Citrate (Fentanyl 2ml Vial) 100 mcg STK-MED ONCE .ROUTE ; Start at 14:16; Stop 12/25/17 at 14:17; Status DC Active Scripts Active Reported Paxil (Paroxetine Hcl) 40 Mg Tablet 45 Mg PO QHS Targretin (Bexarotene) 60 Gm Gel..gram. 60 Gm TP Fish Oil 1,200 Mg Fish Oil (Fish Oil/Dha/Epa) 1 Each Capsule 1 Each PO Tylenol (Acetaminophen) 325 Mg Tablet 1 Tab PO PRN Q4HRS Senna Laxative (Sennosides) 8.6 Mg Tablet 8.6 Mg PO Amlodipine Besylate 5 Mg Tablet 5 Mg PO DAILY Percocet 5-325 Mg Tablet (Oxycodone/Acetaminophen) 1 Each Tablet 1 Tab PO PRN Q8HRS PRN Calcium (Calcium Carbonate) 600 Mg Tablet 1,200 Mg PO Protonix (Pantoprazole Sodium) 40 Mg Tablet.dr 1 Tab PO DAILY Carvedilol 3.125 Mg Tablet 1 Tab PO BID Children's Aspirin (Aspirin) 81 Mg Tab.chew 81 Mg PO One Daily (Multivitamin) 1 Each Tablet 1 Each PO Vitamin D (Cholecalciferol (Vitamin D3)) 2,000 Unit Capsule 1 Cap PO HS Fish Oil ([place]-3 Fatty Acids) 300 Mg Capsule 1,200 Mg PO DAILY Hydrocodone-Apap 5-325 (Hydrocodone Bit/Acetaminophen) 1 Each Tablet 1-2 Tab PO Q4-6HRS Levothyroxine Sodium 100 Mcg Tablet 1 Tab PO DAILY Vitamin D (Cholecalciferol (Vitamin D3)) 1,000 Unit Capsule 5 Cap PO DAILY Atorvastatin Calcium 80 Mg Tablet 1 Tab PO DAILY Vitals/I & O Vital Sign - Last 24 Hours 12/24/17 12/24/17 12/24/17 12/24/17 14:32 14:34 15:13 15:26 Pulse 59 63 Resp 18 20 18 16 Pulse Ox 87 87 83 93 O2 Delivery Nasal Cannula O2 Flow Rate 2.0 12/24/17 12/24/17 12/24/17 12/24/17 16:30 16:45 19:18 19:20 Temp 98.3 98.3 Pulse 52 69 Resp 18 18 18 B/P (MAP) 116/65 (82) Pulse Ox 92 92 O2 Delivery Nasal Cannula Nasal Cannula O2 Flow Rate 4.0 3.0 12/24/17 12/24/17 12/24/17 12/24/17 20:00 21:06 23:20 23:32 Temp 99.0 99.0 Pulse 64 Resp 18 B/P (MAP) 139/69 (92) Pulse Ox 92 91 O2 Delivery Nasal Cannula Nasal Cannula Nasal Cannula Nasal Cannula O2 Flow Rate 4.0 3.0 3.0 4.0 12/25/17 12/25/17 12/25/17 12/25/17 00:20 02:48 03:28 06:14 Temp 98.3 98.3 Pulse 68 Resp 20 B/P (MAP) 154/69 (97) Pulse Ox 93 O2 Delivery Nasal Cannula Nasal Cannula Nasal Cannula Nasal Cannula O2 Flow Rate 4.0 4.0 3.0 4.0 12/25/17 12/25/17 12/25/17 12/25/17 06:48 07:00 08:00 08:11 Temp 98.3 98.3 Pulse 63 63 Resp 18 B/P (MAP) 166/71 (102) 166/71 Pulse Ox 91 O2 Delivery Nasal Cannula Nasal Cannula Nasal Cannula O2 Flow Rate 4.0 4.0 4.0 12/25/17 12/25/17 12/25/17 12/25/17 08:13 09:15 09:45 11:00 Temp 98.3 98.3 Pulse 63 54 Resp 18 16 18 B/P (MAP) 166/71 143/53 (83) Pulse Ox 92 O2 Delivery Nasal Cannula Room Air Nasal Cannula O2 Flow Rate 4.0 12/25/17 13:15 Resp 16 O2 Delivery Nasal Cannula O2 Flow Rate 4.0 Intake and Output 12/24/17 12/24/17 12/25/17 15:00 23:00 07:00 Intake Total 360 ml Balance 360 ml ASHLY SERVIN MD Dec 25, 2017 14:20
[2017-12-25] MEDS ORDERED: IV RINGERS,LACTATED 1000ML 1,000 ML IV SCH (14:56)
[2017-12-25] MEDS ORDERED: ROCURONIUM 50 MG/5 ML VIAL. ONE (14:58)
[2017-12-25] MEDS ORDERED: LIDOCAINE 1% PF 5 ML VIAL. ONE (14:58)
[2017-12-25] MEDS ORDERED: FAMOTIDINE 20 MG/2 ML VIAL ONE (14:58)
[2017-12-25] MEDS ORDERED: DEXAMETHASONE SOD PHOS 20 MG/5 ML VIAL. ONE (14:58)
[2017-12-25] MEDS ORDERED: fentaNYL PF VIAL 100 MCG/2 ML VIAL IV PRN ×2 (15:00)
[2017-12-25] MEDS ORDERED: ONDANSETRON PF 4 MG/2 ML VIAL. IV PRN (15:00)
[2017-12-25] MEDS ORDERED: HYDROmorphone 2 MG/ML VIAL IV PRN (15:00)
[2017-12-25] MEDS ORDERED: LIDOCAINE 1% PF 2 ML VIAL. ID PRN (15:00)
[2017-12-25] MEDS ORDERED: MORPHINE SULFATE 2 MG/ML VIAL. IV PRN (15:00)
[2017-12-25] MEDS ORDERED: PROCHLORPERAZINE 10 MG/2 ML VIAL. IV PRN (15:00)
[2017-12-25] MEDS ORDERED: ePHEDrine PF IN SALINE 50 MG/5 ML DISP.SYRIN IV ONE (15:43)
[2017-12-25] MEDS ORDERED: GLYCOPYRROLATE 1 MG/5 ML VIAL. ONE (15:45)
[2017-12-25] MEDS ORDERED: ceFAZolin SODIUM 1 GM in IV DEXTROSE 5% 50 ML IV SCH (15:45)
[2017-12-25] MEDS: ENOXAPARIN 40 MG/0.4 ML SYRINGE. SQ SCH (17:13)
[2017-12-25] MEDS ORDERED: DESFLURANE > 120 MINUTES IH ONE (17:34)
[2017-12-25] MEDS ORDERED: NEOSTIGMINE METHYLSULFATE 5 MG/5 ML SYRINGE. ONE (17:34)
--- NOTE | 2017-12-25 18:27 | PDOC4 ---
Operative Note Operative Note Date of Procedure: 12/25/17 Surgeon: Shine Correia Powdered Metal Supervisor: Hoa Salgado Pre-operative diagnosis: Left spiral humeral shaft fracture, closed Postoperative diagnosis: Same Procedure performed: Open reduction internal fixation left humeral shaft fracture Anesthesia: Gen. Tourniquet time: 70 minutes Blood loss: 100 mL Complications: None Components inserted Marcos periarticular locking plate system distal posterior/ lateral humeral plate (15 holes 220 mm length Findings: Acute fracture Radial nerve begins at hole 5 from top of the plate, proceeding to hole 7, nerve immediately lateral to plate at hole 8 Reason for procedure: Monica Harden is a pleasant 87-year-old female with a ground- level fall. Please see my consult note for full details. Clinical and radiographic examination were consistent with the preoperative diagnosis. In order to help facilitate her recovery and allow earlier joint mobilization had a discussion of the risks, benefits, alternatives to the above surgery. She wished to proceed. Description of procedure: Patient was greeted in the preoperative area by myself for the correct extremity was verified and marked. She was taken back to the operative suite and underwent successful induction of a general anesthetic after being transferred gently supine to the operating room table and secured to bed with all pressure points padded in a lateral decubitus position with the left side up. We used a vacuum beanbag for this case. I then took her splint down and performed a chlorhexidine pre-scrub to her left upper extremity. We then proceeded prep and drape left upper extremity in our usual sterile fashion. I then applied a sterile tourniquet to her left arm. I then palpated and marked surface anatomy including medial and lateral epicondyles as well as a 20 cm proximal to the medial epicondyle 14 cm proximal to the lateral epicondyle. I then tyson a line from my skin incision and made a long posterior incision in the midline. I dissected subcutaneous tissues tissue with electrocautery and cauterized bleeders. I incised fashion line with the skin incision. Identified the tricipital aponeurosis and muscle fibers I incised the tricipital aponeurosis with a scalpel and then split the muscle fibers in line. Identified the radial nerve and using a mosquito and tenotomies dissected it free carefully. I took my time and work slowly. I then passed a vessel loop around it once I had mobilized it up adequately. After this I proceeded to use an elevator along the course of my anticipated plate application. I then inspected the fracture site and debrided the fracture of the early hematoma using a metal tipped suction and small Rongeur. After this I inspected the fracture and an laboratory chemical assistant held very gentle traction elevating the nerve off the cortex and I pulled traction and heat the fracture back into position with digital manipulation and then clamped it securely. I then checked fracture alignment and reduction under biplanar fluoroscopy and was happy with reduction. I then placed my plate against bone and checked position as well and was happy with this and then placed 2 nonlocking screws, 1 proximal and distal the fracture site and I then placed the remainder of the holes, at least 4 above and below the fracture with locking screws. After this I took my final images and was happy with plate position and fracture reduction. In order to place the 2 most proximal screws I did let the tourniquet down and cauterized couple bleeders and extended the incision approximately 4 cm proximal. Without my plate and screws in place I again checked my final images and was happy. After this, irrigated out the operative field thoroughly with sterile saline and proceeded to reapproximate the aponeurosis with simple interrupted 0 Vicryl. Fascia was closed with simple interrupted 0 Vicryl as well. Inverted interrupted 2-0 Vicryl was used for subcutaneous tissues tissue and moiz for skin. I injected about 20 mL of sterile local anesthetic mixture into the layne- incisional soft tissues. The arm was cleansed and dried and a sterile dressing was applied we noted 2 skin tears over her dorsal mid forearm that were reapproximated with Steri-Strips and covered with sterile gauze as well. After this, I fashioned a well-padded posterior splint. She was then awakened from anesthesia and laid gently supine. Prior to wound closure, all counts correct 2. No complications. The conclusion of the surgery she was transferred gently supine to the hospital bed and taken to PACU stable and extubated condition. Postoperative plan is to transfer back to the floor. She'll be nonweightbearing in her operative extremity. She will receive antibiotic prophylaxis. I anticipate she will need placement. I will follow along with her postoperative course. SHINE CORREIA II, MD Dec 25, 2017 18:27
[2017-12-25] MEDS: ALBUTEROL SULFATE 2.5 MG/3 ML NEBU. NEB PRN (18:45)
[2017-12-25] MEDS: CHOLECALCIFEROL (VITAMIN D3) 1,000 UNIT TABLET PO SCH (21:00)
[2017-12-25] MEDS ORDERED: PAROXETINE HCL PO SCH (21:00)
[2017-12-25] MEDS: PARoxetine 10 MG TABLET PO SCH (21:54)
[2017-12-25] MEDS: ATORVASTATIN CALCIUM 40 MG TABLET. PO SCH (21:54)
[2017-12-25] MEDS: ceFAZolin SODIUM IV Push 1 GM VIAL. IVP SCH (21:56)
[2017-12-25] MEDS: ACETAMINOPHEN 325 MG TABLET. PO PRN (22:13)
[2017-12-25] MEDS: HYDROcodone/APAP 5/325MG 1 TAB TABLET PO PRN (22:48)
[2017-12-25] MEDS: LORazepam 0.5 MG TABLET PO PRN (23:56)
[2017-12-26] MEDS: fentaNYL PF VIAL 100 MCG/2 ML VIAL IV PRN (02:15)
[2017-12-26 03:00] VITALS: BP 151/67
[2017-12-26] MEDS: ceFAZolin SODIUM IV Push 1 GM VIAL. IVP SCH ×2 (05:31→11:45)
[2017-12-26 05:51] LABS: BASO % 0 % (0-3); EOS % 0 % (0-3); HEMATOCRIT 34.5 % (36.0-47.0); HEMOGLOBIN 11.6 g/dL (12.0-15.5); LYMPH # 0.9 x10^3/uL (1.0-4.8); LYMPH % 9 % (24-48); MEAN CORPUSCULAR HEMOGLOBIN 33 pg (25-35); MEAN CORPUSCULAR HGB CONC 34 g/dL (31-37); MEAN CORPUSCULAR VOLUME 97 fL (79-100); MONO # 0.6 x10^3/uL (0.0-1.1); MONO % 6 % (0-9); NEUT # 8.6 x10^3uL (1.8-7.7); NEUT % 85 % (31-73); PLATELET COUNT 128 x10^3/uL (140-400); RED BLOOD COUNT 3.56 x10^6/uL (3.50-5.40)
[2017-12-26 06:26] LABS: ALBUMIN 2.9 g/dL (3.4-5.0); ALBUMIN/GLOBULIN RATIO 0.9 (1.0-1.7); CALCIUM 9.6 mg/dL (8.5-10.1); CREATININE 0.7 mg/dL (0.6-1.0); GFR 79.3; POTASSIUM 4.4 mmol/L (3.5-5.1); TOTAL BILIRUBIN 0.4 mg/dL (0.2-1.0)
[2017-12-26 07:00] VITALS: BP 175/69
--- NOTE | 2017-12-26 09:44 | PDOC ---
ORTHO PROGRESS NOTES Subjective arm pain, little better since OR. no other complaints. Denies numbness/tingling LUE Vitals Vital Signs Date Time Temp Pulse Resp B/P (MAP) Pulse Ox O2 Delivery O2 Flow Rate FiO2 12/26/17 07:00 98.1 68 20 175/69 (104) 90 Nasal Cannula 4.0 98.1 Labs Laboratory Tests Test 12/26/17 04:20 White Blood Count 10.0 x10^3/uL (4.0-11.0) Red Blood Count 3.56 x10^6/uL (3.50-5.40) Hemoglobin 11.6 g/dL (12.0-15.5) Hematocrit 34.5 % (36.0-47.0) Mean Corpuscular Volume 97 fL (79-100) Mean Corpuscular Hemoglobin 33 pg (25-35) Mean Corpuscular Hemoglobin Concent 34 g/dL (31-37) Red Cell Distribution Width 14.0 % (11.5-14.5) Platelet Count 128 x10^3/uL (140-400) Neutrophils (%) (Auto) 85 % (31-73) Lymphocytes (%) (Auto) 9 % (24-48) Monocytes (%) (Auto) 6 % (0-9) Eosinophils (%) (Auto) 0 % (0-3) Basophils (%) (Auto) 0 % (0-3) Neutrophils # (Auto) 8.6 x10^3uL (1.8-7.7) Lymphocytes # (Auto) 0.9 x10^3/uL (1.0-4.8) Monocytes # (Auto) 0.6 x10^3/uL (0.0-1.1) Eosinophils # (Auto) 0.0 x10^3/uL (0.0-0.7) Basophils # (Auto) 0.0 x10^3/uL (0.0-0.2) Sodium Level 142 mmol/L (136-145) Potassium Level 4.4 mmol/L (3.5-5.1) Chloride Level 107 mmol/L (98-107) Carbon Dioxide Level 23 mmol/L (21-32) Anion Gap 12 (6-14) Blood Urea Nitrogen 20 mg/dL (7-20) Creatinine 0.7 mg/dL (0.6-1.0) Estimated GFR (Cockcroft-Gault) 79.3 BUN/Creatinine Ratio 29 (6-20) Glucose Level 147 mg/dL (70-99) Calcium Level 9.6 mg/dL (8.5-10.1) Total Bilirubin 0.4 mg/dL (0.2-1.0) Aspartate Amino Transf (AST/SGOT) 44 U/L (15-37) Alanine Aminotransferase (ALT/SGPT) 36 U/L (14-59) Alkaline Phosphatase 32 U/L (46-116) Total Protein 6.0 g/dL (6.4-8.2) Albumin 2.9 g/dL (3.4-5.0) Albumin/Globulin Ratio 0.9 (1.0-1.7) Laboratory Tests Test 12/26/17 04:20 White Blood Count 10.0 x10^3/uL (4.0-11.0) Red Blood Count 3.56 x10^6/uL (3.50-5.40) Hemoglobin 11.6 g/dL (12.0-15.5) Hematocrit 34.5 % (36.0-47.0) Mean Corpuscular Volume 97 fL (79-100) Mean Corpuscular Hemoglobin 33 pg (25-35) Mean Corpuscular Hemoglobin Concent 34 g/dL (31-37) Red Cell Distribution Width 14.0 % (11.5-14.5) Platelet Count 128 x10^3/uL (140-400) Neutrophils (%) (Auto) 85 % (31-73) Lymphocytes (%) (Auto) 9 % (24-48) Monocytes (%) (Auto) 6 % (0-9) Eosinophils (%) (Auto) 0 % (0-3) Basophils (%) (Auto) 0 % (0-3) Neutrophils # (Auto) 8.6 x10^3uL (1.8-7.7) Lymphocytes # (Auto) 0.9 x10^3/uL (1.0-4.8) Monocytes # (Auto) 0.6 x10^3/uL (0.0-1.1) Eosinophils # (Auto) 0.0 x10^3/uL (0.0-0.7) Basophils # (Auto) 0.0 x10^3/uL (0.0-0.2) Sodium Level 142 mmol/L (136-145) Potassium Level 4.4 mmol/L (3.5-5.1) Chloride Level 107 mmol/L (98-107) Carbon Dioxide Level 23 mmol/L (21-32) Anion Gap 12 (6-14) Blood Urea Nitrogen 20 mg/dL (7-20) Creatinine 0.7 mg/dL (0.6-1.0) Estimated GFR (Cockcroft-Gault) 79.3 BUN/Creatinine Ratio 29 (6-20) Glucose Level 147 mg/dL (70-99) Calcium Level 9.6 mg/dL (8.5-10.1) Total Bilirubin 0.4 mg/dL (0.2-1.0) Aspartate Amino Transf (AST/SGOT) 44 U/L (15-37) Alanine Aminotransferase (ALT/SGPT) 36 U/L (14-59) Alkaline Phosphatase 32 U/L (46-116) Total Protein 6.0 g/dL (6.4-8.2) Albumin 2.9 g/dL (3.4-5.0) Albumin/Globulin Ratio 0.9 (1.0-1.7) Notes A and A speech clear LUE in splint able to ext at wrist and fingers, normal sensation Assessment and Plan cont splint NWB LUE placement f/u in my clinic in 2 wks NIHARIKA CORREIA II, MD Dec 26, 2017 09:44
[2017-12-26] MEDS: OMEGA-3 FATTY ACIDS/FISH OIL 1,000 MG CAPSULE. PO SCH (10:14)
[2017-12-26] MEDS: amLODIPine BESYLATE 5 MG TABLET PO SCH (10:15)
[2017-12-26] MEDS: LEVOTHYROXINE 100 MCG TABLET PO SCH (10:16)
[2017-12-26] MEDS: CALCIUM CARBONATE 500 MG TABLET PO SCH ×3 (10:16→17:55)
[2017-12-26] MEDS: CARVEDILOL 3.125 MG TABLET. PO SCH ×2 (10:17→16:14)
[2017-12-26] MEDS: ASPIRIN CHEWABLE 81 MG TABLET. PO SCH (10:33)
[2017-12-26] MEDS: CHOLECALCIFEROL (VITAMIN D3) 5,000 UNIT CAPSULE PO SCH (10:34)
[2017-12-26] MEDS: HYDROcodone/APAP 5/325MG 1 TAB TABLET PO PRN ×3 (10:34→21:14)
[2017-12-26 10:51] LABS: % BANDS 4 % (0-9); % LYMPHS 7 % (24-48); % MONOS 6 % (0-10); % SEGS 83 % (35-66); PLT ESTIMATE ADEQUATE (ADEQUATE)
[2017-12-26 11:00] VITALS: BP 172/68
--- NOTE | 2017-12-26 12:41 | PDOC ---
PROGRESS NOTES Chief Complaint Chief Complaint spiral fracture of the mid to distal humeral shaft. moderate lateral and posterior displacement of the proximal end of the distal fracture fragment with mild anterior angulation of the distal fracture fragment. proximal humerus is unremarkable. htn GERD Osteoporosis hypothyroid state on replacement acute encephalopathy, delirium post-op, improving History of Present Illness History of Present Illness start PT and OT pain better, some hallucinations this AM, likely post-anethesia, and hospital, pain related, OOB to chair POD #1, surg went well Vitals Vitals Vital Signs Date Time Temp Pulse Resp B/P (MAP) Pulse Ox O2 Delivery O2 Flow Rate FiO2 12/26/17 11:34 90 Nasal Cannula 4.0 12/26/17 10:17 68 175/69 12/26/17 07:00 98.1 20 98.1 Physical Exam General: Alert, Oriented X3, mild distress Heart: Regular rate, No murmurs, Other (regular rate and rhythm, radial pulse 2 +) Lungs: Clear Abdomen: Normal bowel sounds, Soft, No tenderness Extremities: No clubbing, No edema Skin: No rashes Labs LABS Laboratory Tests Test 12/26/17 04:20 White Blood Count 10.0 x10^3/uL (4.0-11.0) Red Blood Count 3.56 x10^6/uL (3.50-5.40) Hemoglobin 11.6 g/dL (12.0-15.5) Hematocrit 34.5 % (36.0-47.0) Mean Corpuscular Volume 97 fL (79-100) Mean Corpuscular Hemoglobin 33 pg (25-35) Mean Corpuscular Hemoglobin Concent 34 g/dL (31-37) Red Cell Distribution Width 14.0 % (11.5-14.5) Platelet Count 128 x10^3/uL (140-400) Neutrophils (%) (Auto) 85 % (31-73) Lymphocytes (%) (Auto) 9 % (24-48) Monocytes (%) (Auto) 6 % (0-9) Eosinophils (%) (Auto) 0 % (0-3) Basophils (%) (Auto) 0 % (0-3) Neutrophils # (Auto) 8.6 x10^3uL (1.8-7.7) Lymphocytes # (Auto) 0.9 x10^3/uL (1.0-4.8) Monocytes # (Auto) 0.6 x10^3/uL (0.0-1.1) Eosinophils # (Auto) 0.0 x10^3/uL (0.0-0.7) Basophils # (Auto) 0.0 x10^3/uL (0.0-0.2) Segmented Neutrophils % 83 % (35-66) Band Neutrophils % 4 % (0-9) Lymphocytes % 7 % (24-48) Monocytes % 6 % (0-10) Platelet Estimate Adequate (ADEQUATE) Sodium Level 142 mmol/L (136-145) Potassium Level 4.4 mmol/L (3.5-5.1) Chloride Level 107 mmol/L (98-107) Carbon Dioxide Level 23 mmol/L (21-32) Anion Gap 12 (6-14) Blood Urea Nitrogen 20 mg/dL (7-20) Creatinine 0.7 mg/dL (0.6-1.0) Estimated GFR (Cockcroft-Gault) 79.3 BUN/Creatinine Ratio 29 (6-20) Glucose Level 147 mg/dL (70-99) Calcium Level 9.6 mg/dL (8.5-10.1) Total Bilirubin 0.4 mg/dL (0.2-1.0) Aspartate Amino Transf (AST/SGOT) 44 U/L (15-37) Alanine Aminotransferase (ALT/SGPT) 36 U/L (14-59) Alkaline Phosphatase 32 U/L (46-116) Total Protein 6.0 g/dL (6.4-8.2) Albumin 2.9 g/dL (3.4-5.0) Albumin/Globulin Ratio 0.9 (1.0-1.7) Assessment and Plan Assessmemt and Plan Problems Medical Problems: (1) Fall Status: Acute (2) Rib pain on right side Status: Acute Comment Review of Relevant I have reviewed the following items harvey (where applicable) has been applied. Labs Laboratory Tests Test 12/26/17 04:20 White Blood Count 10.0 x10^3/uL (4.0-11.0) Red Blood Count 3.56 x10^6/uL (3.50-5.40) Hemoglobin 11.6 g/dL (12.0-15.5) Hematocrit 34.5 % (36.0-47.0) Mean Corpuscular Volume 97 fL (79-100) Mean Corpuscular Hemoglobin 33 pg (25-35) Mean Corpuscular Hemoglobin Concent 34 g/dL (31-37) Red Cell Distribution Width 14.0 % (11.5-14.5) Platelet Count 128 x10^3/uL (140-400) Neutrophils (%) (Auto) 85 % (31-73) Lymphocytes (%) (Auto) 9 % (24-48) Monocytes (%) (Auto) 6 % (0-9) Eosinophils (%) (Auto) 0 % (0-3) Basophils (%) (Auto) 0 % (0-3) Neutrophils # (Auto) 8.6 x10^3uL (1.8-7.7) Lymphocytes # (Auto) 0.9 x10^3/uL (1.0-4.8) Monocytes # (Auto) 0.6 x10^3/uL (0.0-1.1) Eosinophils # (Auto) 0.0 x10^3/uL (0.0-0.7) Basophils # (Auto) 0.0 x10^3/uL (0.0-0.2) Segmented Neutrophils % 83 % (35-66) Band Neutrophils % 4 % (0-9) Lymphocytes % 7 % (24-48) Monocytes % 6 % (0-10) Platelet Estimate Adequate (ADEQUATE) Sodium Level 142 mmol/L (136-145) Potassium Level 4.4 mmol/L (3.5-5.1) Chloride Level 107 mmol/L (98-107) Carbon Dioxide Level 23 mmol/L (21-32) Anion Gap 12 (6-14) Blood Urea Nitrogen 20 mg/dL (7-20) Creatinine 0.7 mg/dL (0.6-1.0) Estimated GFR (Cockcroft-Gault) 79.3 BUN/Creatinine Ratio 29 (6-20) Glucose Level 147 mg/dL (70-99) Calcium Level 9.6 mg/dL (8.5-10.1) Total Bilirubin 0.4 mg/dL (0.2-1.0) Aspartate Amino Transf (AST/SGOT) 44 U/L (15-37) Alanine Aminotransferase (ALT/SGPT) 36 U/L (14-59) Alkaline Phosphatase 32 U/L (46-116) Total Protein 6.0 g/dL (6.4-8.2) Albumin 2.9 g/dL (3.4-5.0) Albumin/Globulin Ratio 0.9 (1.0-1.7) Laboratory Tests Test 12/26/17 04:20 White Blood Count 10.0 x10^3/uL (4.0-11.0) Red Blood Count 3.56 x10^6/uL (3.50-5.40) Hemoglobin 11.6 g/dL (12.0-15.5) Hematocrit 34.5 % (36.0-47.0) Mean Corpuscular Volume 97 fL (79-100) Mean Corpuscular Hemoglobin 33 pg (25-35) Mean Corpuscular Hemoglobin Concent 34 g/dL (31-37) Red Cell Distribution Width 14.0 % (11.5-14.5) Platelet Count 128 x10^3/uL (140-400) Neutrophils (%) (Auto) 85 % (31-73) Lymphocytes (%) (Auto) 9 % (24-48) Monocytes (%) (Auto) 6 % (0-9) Eosinophils (%) (Auto) 0 % (0-3) Basophils (%) (Auto) 0 % (0-3) Neutrophils # (Auto) 8.6 x10^3uL (1.8-7.7) Lymphocytes # (Auto) 0.9 x10^3/uL (1.0-4.8) Monocytes # (Auto) 0.6 x10^3/uL (0.0-1.1) Eosinophils # (Auto) 0.0 x10^3/uL (0.0-0.7) Basophils # (Auto) 0.0 x10^3/uL (0.0-0.2) Segmented Neutrophils % 83 % (35-66) Band Neutrophils % 4 % (0-9) Lymphocytes % 7 % (24-48) Monocytes % 6 % (0-10) Platelet Estimate Adequate (ADEQUATE) Sodium Level 142 mmol/L (136-145) Potassium Level 4.4 mmol/L (3.5-5.1) Chloride Level 107 mmol/L (98-107) Carbon Dioxide Level 23 mmol/L (21-32) Anion Gap 12 (6-14) Blood Urea Nitrogen 20 mg/dL (7-20) Creatinine 0.7 mg/dL (0.6-1.0) Estimated GFR (Cockcroft-Gault) 79.3 BUN/Creatinine Ratio 29 (6-20) Glucose Level 147 mg/dL (70-99) Calcium Level 9.6 mg/dL (8.5-10.1) Total Bilirubin 0.4 mg/dL (0.2-1.0) Aspartate Amino Transf (AST/SGOT) 44 U/L (15-37) Alanine Aminotransferase (ALT/SGPT) 36 U/L (14-59) Alkaline Phosphatase 32 U/L (46-116) Total Protein 6.0 g/dL (6.4-8.2) Albumin 2.9 g/dL (3.4-5.0) Albumin/Globulin Ratio 0.9 (1.0-1.7) Medications Current Medications Fentanyl Citrate (Fentanyl 2ml Vial) 25 mcg 1X ONCE IV Last administered on 12/24/17at 14:03; Start 12/24/17 at 13:45; Stop 12/24/17 at 13:46; Status DC Fentanyl Citrate (Fentanyl 2ml Vial) 25 mcg 1X ONCE IV Last administered on 12/24/17at 15:26; Start 12/24/17 at 15:00; Stop 12/24/17 at 15:01; Status DC Ondansetron HCl (Zofran) 4 mg PRN Q8HRS PRN IV NAUSEA/VOMITING Last administered on 12/24/17at 17:17; Start 12/24/17 at 15:00; Stop 12/25/17 at 14:59; Status DC Fentanyl Citrate (Fentanyl 2ml Vial) 25 mcg PRN Q3HRS PRN IV PAIN Last administered on 12/25/17at 06:14; Start 12/24/17 at 15:00; Stop 12/25/17 at 14:59; Status DC Albuterol Sulfate (Ventolin Neb Soln) 2.5 mg PRN Q4HRS PRN NEB SHORTNESS OF BREATH Last administered on 12/25/17at 18:45; Start 12/24/17 at 18:15 Acetaminophen (Tylenol) 325 mg PRN Q4HRS PO ; Start 12/24/17 at 20:00; Stop 12/25 at 22:04; Status DC Amlodipine Besylate (Norvasc) 5 mg DAILY PO Last administered on 12/26/17 10:15 ; Start 12/25/17 at 09:00 Aspirin (Children'S Aspirin) 81 mg DAILY07 PO Last administered on 12/26/17 10: 33; Start 12/25/17 at 07:00 Carvedilol (Coreg) 3.125 mg BID PO Last administered on 12/26/17 10:17; Start 12/24/17 at 21:00 Acetaminophen/ Hydrocodone Bitart (Lortab 5/325) 1 tab PRN Q4HRS PRN PO PAIN Last administered on 12/24/17 23:32; Start 12/24/17 at 20:00; Stop 12/25/17 at 15: 39; Status DC Levothyroxine Sodium (Synthroid) 100 mcg DAILY PO Last administered on 10:16; Start 12/25/17 at 09:00 Pantoprazole Sodium (Protonix) 40 mg DAILY PO ; Start 12/25/17 at 09:00; Stop 12/25/17 at 09:00; Status DC Atorvastatin Calcium (Lipitor) 80 mg QHS PO Last administered on 12/25/17at 21:54 ; Start 12/24/17 at 21:00 Non-Formulary Medication (Cholecalciferol (Vitamin D3) (Vitamin D)) 5 cap WEEKLY PO ; Start 12/31/17 at 09:00; Status UNV Vitamin D (Vitamin D3) 2,000 unit HS PO Last administered on 12/25/17at 21:00; Start 12/24/17 at 21:00 Fish Oil (Fish Oil) 1,000 mg DAILY PO Last administered on 12/26/17at 10:14; Start 12/25/17 at 09:00 Paroxetine HCl (Paxil) 45 mg DAILY PO ; Start 12/25/17 at 09:00; Stop 12/25/17 at 09:00; Status DC Calcium Carbonate/ Glycine (Oscal) 500 mg TIDAFTMEAL PO Last administered on 12/26/17at 10:16; Start 12/25/17 at 09:00 Sennosides (Senna) 8.6 mg PRN BID PRN PO CONSTIPATION; Start 12/24/17 at 20:00 Enoxaparin Sodium (Lovenox 40mg Syringe) 40 mg Q24H SQ ; Start 12/24/17 at 20:15 Pantoprazole Sodium (Protonix) 40 mg DAILYAC PO Last administered on 12/25/17at 08:12; Start 12/25/17 at 07:30 Fentanyl Citrate (Fentanyl 2ml Vial) 50 mcg PRN Q2HR PRN IV SEVERE PAIN Last administered on 12/26/17at 02:15; Start 12/25/17 at 07:00 Non-Formulary Medication (Paroxetine Hcl (Paxil)) 45 mg QHS PO ; Start 12/25/17 at 21:00; Status UNV Paroxetine HCl (Paxil) 45 mg QHS PO Last administered on 12/25/17at 21:54; Start 12/25/17 at 21:00 Vitamin D (Vitamin D3) 5,000 unit DAILY PO Last administered on 12/26/17at 10:34 ; Start 12/25/17 at 09:00 Cefazolin Sodium 50 ml @ 100 mls/hr 1X ONCE IV Last administered on 12/25/17at 15:45; Start 12/25/17 at 10:15; Stop 12/25/17 at 10:44; Status DC Propofol 20 ml @ As Directed STK-MED ONCE IV ; Start 12/25/17 at 14:16; Stop 12/25 at 14:17; Status DC Fentanyl Citrate (Fentanyl 2ml Vial) 100 mcg STK-MED ONCE .ROUTE ; Start at 14:16; Stop 12/25/17 at 14:17; Status DC Ondansetron HCl (Zofran) 4 mg PRN Q6HRS PRN IV NAUSEA/VOMITING; Start 12/25/17 at 15:00; Stop 12/26/17 at 14:59 Fentanyl Citrate (Fentanyl 2ml Vial) 25 mcg PRN Q5MIN PRN IV MILD PAIN; Start 12/25/17 at 15:00; Stop 12/25/17 at 20:00; Status DC Fentanyl Citrate (Fentanyl 2ml Vial) 50 mcg PRN Q5MIN PRN IV MODERATE TO SEVERE PAIN; Start 12/25/17 at 15:00; Stop 12/25/17 at 20:00; Status DC Morphine Sulfate (Morphine Sulfate) 1 mg PRN Q10MIN PRN IV SEVERE PAIN; Start 12/25/17 at 15:00; Stop 12/25/17 at 20:00; Status DC Ringer's Solution 1,000 ml @ 30 mls/hr Q24H IV Last administered on 12/25/17at 15:01; Start 12/25/17 at 14:56; Stop 12/26/17 at 02:55; Status DC Lidocaine HCl (Xylocaine-Mpf 1% 2ml Vial) 2 ml 1X PRN PRN ID IV START; Start at 15:00; Stop 12/25/17 at 20:00; Status DC Hydromorphone HCl (Dilaudid) 0.5 mg PRN Q10MIN PRN IV SEV PAIN, Second choice; Start 12/25/17 at 15:00; Stop 12/25/17 at 20:00; Status DC Prochlorperazine Edisylate (Compazine) 5 mg PACU PRN PRN IV NAUSEA, MRX1; Start 12/25/17 at 15:00; Stop 12/25/17 at 20:00; Status DC Dexamethasone Sodium Phosphate (Decadron) 20 mg STK-MED ONCE .ROUTE ; Start 12/25 at 14:58; Stop 12/25/17 at 14:59; Status DC Famotidine (Pepcid Vial) 20 mg STK-MED ONCE .ROUTE ; Start 12/25/17 at 14:58; Stop 12/25/17 at 14:59; Status DC Lidocaine HCl (Xylocaine-Mpf 1% 5ml Vial) 5 ml STK-MED ONCE .ROUTE ; Start at 14:58; Stop 12/25/17 at 14:59; Status DC Rocuronium [place] (Zemuron) 50 mg STK-MED ONCE .ROUTE ; Start 12/25/17 at 14:58 ; Stop 12/25/17 at 14:59; Status DC Lidocaine HCl (Xylocaine 1% Pf 30ml Vial) 30 ml STK-MED ONCE .ROUTE Last administered on 12/25/17at 15:58; Start 12/25/17 at 14:15; Stop 12/25/17 at 15:16; Status DC Bupivacaine HCl (Marcaine 0.5%) 50 ml STK-MED ONCE .ROUTE Last administered on 12/25/17at 15:58; Start 12/25/17 at 14:16; Stop 12/25/17 at 15:16; Status DC Cefazolin Sodium 1 gm/Dextrose 50 ml @ 100 mls/hr Q6H IV ; Start 12/25/17 at 15: 45; Stop 12/26/17 at 04:14; Status UNV Acetaminophen/ Hydrocodone Bitart (Lortab 5/325) 1 tab PRN Q4HRS PRN PO PAIN Last administered on 12/26/17at 10:34; Start 12/25/17 at 15:30 Ephedrine Sulfate (ePHEDrine PF IN SALINE SYRINGE) 50 mg STK-MED ONCE IV ; Start 12/25/17 at 15:43; Stop 12/25/17 at 15:44; Status DC Glycopyrrolate (Robinul) 1 mg STK-MED ONCE .ROUTE ; Start 12/25/17 at 15:45; Stop 12/25/17 at 15:46; Status DC Cefazolin Sodium (Ancef) 1 gm Q6H IVP Last administered on 12/26/17at 11:45; Start 12/25/17 at 23:00 Neostigmine Methylsulfate (Neostigmine Methylsulfate) 5 mg STK-MED ONCE .ROUTE ; Start 12/25/17 at 17:34; Stop 12/25/17 at 17:35; Status DC Desflurane (Suprane) 90 ml STK-MED ONCE IH ; Start 12/25/17 at 17:34; Stop at 17:35; Status DC Acetaminophen (Tylenol) 325 mg PRN Q4HRS PRN PO MILD PAIN / TEMP Last administered on 12/25/17at 22:13; Start 12/25/17 at 22:15 Lorazepam (Ativan) 0.5 mg PRN Q4HRS PRN PO ANXIETY / AGITATION Last administered on 12/25/17at 23:56; Start 12/25/17 at 23:45 Active Scripts Active Reported Paxil (Paroxetine Hcl) 40 Mg Tablet 45 Mg PO QHS Targretin (Bexarotene) 60 Gm Gel..gram. 60 Gm TP Fish Oil 1,200 Mg Fish Oil (Fish Oil/Dha/Epa) 1 Each Capsule 1 Each PO Tylenol (Acetaminophen) 325 Mg Tablet 1 Tab PO PRN Q4HRS Senna Laxative (Sennosides) 8.6 Mg Tablet 8.6 Mg PO Amlodipine Besylate 5 Mg Tablet 5 Mg PO DAILY Percocet 5-325 Mg Tablet (Oxycodone/Acetaminophen) 1 Each Tablet 1 Tab PO PRN Q8HRS PRN Calcium (Calcium Carbonate) 600 Mg Tablet 1,200 Mg PO Protonix (Pantoprazole Sodium) 40 Mg Tablet.dr 1 Tab PO DAILY Carvedilol 3.125 Mg Tablet 1 Tab PO BID Children's Aspirin (Aspirin) 81 Mg Tab.chew 81 Mg PO One Daily (Multivitamin) 1 Each Tablet 1 Each PO Vitamin D (Cholecalciferol (Vitamin D3)) 2,000 Unit Capsule 1 Cap PO HS Fish Oil ([place]-3 Fatty Acids) 300 Mg Capsule 1,200 Mg PO DAILY Hydrocodone-Apap 5-325 (Hydrocodone Bit/Acetaminophen) 1 Each Tablet 1-2 Tab PO Q4-6HRS Levothyroxine Sodium 100 Mcg Tablet 1 Tab PO DAILY Vitamin D (Cholecalciferol (Vitamin D3)) 1,000 Unit Capsule 5 Cap PO DAILY Atorvastatin Calcium 80 Mg Tablet 1 Tab PO DAILY Vitals/I & O Vital Sign - Last 24 Hours 12/25/17 12/25/17 12/25/17 12/25/17 13:15 15:09 18:14 18:28 Temp 98.8 99.1 98.8 99.1 Pulse 54 67 Resp 16 24 24 B/P (MAP) 170/72 134/55 Pulse Ox 91 89 O2 Delivery Nasal Cannula Nasal Cannula Simple Mask Mask O2 Flow Rate 4.0 4.0 10 10 12/25/17 12/25/17 12/25/17 12/25/17 18:30 18:45 18:50 19:00 Temp 99.1 99.1 99.1 99.1 99.1 99.1 Pulse 62 62 64 Resp 24 24 B/P (MAP) 149/58 146/75 155/73 Pulse Ox 89 87 90 O2 Delivery Simple Mask Simple Mask BiPAP/CPAP Simple Mask O2 Flow Rate 10 10 10 12/25/17 12/25/17 12/25/17 12/25/17 19:05 19:23 19:32 19:47 Temp 99.1 99.1 99.1 99.1 99.1 99.1 Pulse 64 66 64 Resp 24 20 B/P (MAP) 155/73 163/70 163/70 Pulse Ox 90 94 90 89 O2 Delivery BiPAP/CPAP BiPAP/CPAP BiPAP/CPAP O2 Flow Rate 10 4 12/25/17 12/25/17 12/25/17 12/25/17 20:07 20:30 20:30 21:01 Temp 99.4 98.5 99.4 98.5 Pulse 65 66 66 Resp 20 20 20 B/P (MAP) 156/74 148/63 (91) 159/73 (101) Pulse Ox 90 88 88 O2 Delivery BiPAP/CPAP Nasal Cannula Nasal Cannula Nasal Cannula O2 Flow Rate 4 4.0 4.0 4.0 12/25/17 12/25/17 12/25/17 12/25/17 21:19 21:45 21:54 22:04 Pulse 69 71 65 74 Resp 20 20 20 B/P (MAP) 154/68 (96) 153/47 (82) 156/74 149/80 (103) Pulse Ox 88 88 O2 Delivery Nasal Cannula Nasal Cannula Nasal Cannula O2 Flow Rate 4.0 4.0 4.0 12/25/17 12/25/17 12/25/17 12/25/17 22:15 22:45 22:48 23:58 Pulse 69 78 Resp 20 18 18 18 B/P (MAP) 149/80 (103) 149/68 (95) Pulse Ox 88 87 89 O2 Delivery Nasal Cannula Nasal Cannula BiPAP/CPAP O2 Flow Rate 4.0 4.0 4.0 12/26/17 12/26/17 12/26/17 12/26/17 02:15 02:45 03:00 07:00 Temp 99.7 98.1 99.7 98.1 Pulse 76 68 Resp 16 18 20 20 B/P (MAP) 151/67 (95) 175/69 (104) Pulse Ox 90 90 90 90 O2 Delivery Nasal Cannula Nasal Cannula Nasal Cannula Nasal Cannula O2 Flow Rate 4.0 4.0 4.0 4.0 12/26/17 12/26/17 12/26/17 12/26/17 10:15 10:17 10:34 11:34 Pulse 68 68 B/P (MAP) 175/69 175/69 Pulse Ox 90 O2 Delivery Nasal Cannula Nasal Cannula O2 Flow Rate 4.0 4.0 Intake and Output 12/25/17 12/25/17 12/26/17 15:00 23:00 07:00 Intake Total 1150 ml 200 ml Output Total 100 ml Balance 1050 ml 200 ml ASHLY SERVIN MD Dec 26, 2017 12:41
[2017-12-26 15:00] VITALS: BP 160/62
[2017-12-26] MEDS: ALBUTEROL SULFATE 2.5 MG/3 ML NEBU. NEB PRN (16:33)
[2017-12-26 19:00] VITALS: BP 152/51
[2017-12-26] MEDS: ENOXAPARIN 40 MG/0.4 ML SYRINGE. SQ SCH (21:14)
[2017-12-26] MEDS: CHOLECALCIFEROL (VITAMIN D3) 1,000 UNIT TABLET PO SCH (21:14)
[2017-12-26] MEDS: LORazepam 0.5 MG TABLET PO PRN (21:14)
[2017-12-26] MEDS: ATORVASTATIN CALCIUM 40 MG TABLET. PO SCH (21:14)
[2017-12-26] MEDS: PARoxetine 10 MG TABLET PO SCH (21:16)
[2017-12-26 23:00] VITALS: BP 176/66
[2017-12-27] VITALS (19 sets, daily range): BP systolic 116–200; BP diastolic 50–86
[2017-12-27] MEDS ORDERED: IPRATRPIUM/ALBUTEROL 0.5/2.5MG 3 ML NEBU. NEB ONE (04:00)
[2017-12-27 04:11] LABS: BASE EXCESS ABG 1 mmol/L (-3-3); HCO3 ABG 26 mmol/L (21-28); PCO2 ABG 46 mmHg (35-46); PO2 ABG 64 mmHg (65-108); SAT O2 ABG 92 % (92-99)
--- NOTE | 2017-12-27 04:51 | RAD ---
INDICATION: low O2 sats and rt side cp, s/p arm surgery, prior sent COMPARISON: December 24, 2017 FINDINGS: Single view of chest obtained. Enlarged cardiomediastinal silhouette. Hypoexpanded lungs with interstitial opacities bilaterally. Elevation of the right hemidiaphragm with patchy opacity in the region. Prominent air-filled structures are seen at the left upper abdomen as well as right upper abdomen. IMPRESSION: 1. Hypoexpanded examination the lungs with mild interstitial prominence bilaterally. Could be from causes such as edema or interstitial infiltrate. 2. Elevation of the right hemidiaphragm with mild opacity in the region which could be from atelectasis or infiltrate. Aspiration also not excluded. There is some blunting of the right costophrenic angle therefore a component of pleural effusion is also possible. 3. Air-filled prominent structures are seen in the left upper quadrant the abdomen as well as right upper quadrant underneath the hemidiaphragm. Could be from air-filled dilated loops of bowel but would consider obtaining a dedicated free air series of the abdomen to further evaluate for pathologic causes of bowel dilatation as well as to ensure that there is no free air contributing to this appearance. Report was called to the patient's floor at 4:45AM on date of exam. Electronically signed by: Sandro Hansen MD (12/27/2017 4:47 AM) [place] [id number]
--- NOTE | 2017-12-27 05:55 | RAD ---
INDICATION: abnormal cxr, dilated bowel COMPARISON: Chest x-ray earlier same day IMPRESSION: 2 views of abdomen obtained. There is air-filled dilated loops of bowel within the abdomen including underneath the right hemidiaphragm which is likely secondary to air-filled dilated colon. Would correlate for possible causes such as colonic ileus. There is air-filled distended loops of bowel in the left upper quadrant the abdomen which could be secondary to combination of stomach bubble and large bowel. Elevation of the right hemidiaphragm again seen. Severe degenerative changes the spine with scoliotic curvature. Calcific atherosclerosis. Left hip arthroplasty changes. Electronically signed by: Sandro Hansen MD (12/27/2017 5:51 AM) [id number]
[2017-12-27] MEDS: ASPIRIN CHEWABLE 81 MG TABLET. PO SCH (06:31)
[2017-12-27 07:00] LABS: BASO % 0 % (0-3); EOS # 0.2 x10^3/uL (0.0-0.7); EOS % 2 % (0-3); HEMATOCRIT 33.2 % (36.0-47.0); HEMOGLOBIN 11.3 g/dL (12.0-15.5); LYMPH % 12 % (24-48); MEAN CORPUSCULAR HEMOGLOBIN 32 pg (25-35); MEAN CORPUSCULAR HGB CONC 34 g/dL (31-37); MEAN CORPUSCULAR VOLUME 95 fL (79-100); MONO # 0.7 x10^3/uL (0.0-1.1); MONO % 8 % (0-9); NEUT # 6.9 x10^3uL (1.8-7.7); NEUT % 78 % (31-73); PLATELET COUNT 133 x10^3/uL (140-400); RED BLOOD COUNT 3.51 x10^6/uL (3.50-5.40); RED CELL DISTRIBUTION WIDTH 13.9 % (11.5-14.5); WHITE BLOOD COUNT 8.8 x10^3/uL (4.0-11.0)
[2017-12-27 07:02] LABS: CALCIUM 9.9 mg/dL (8.5-10.1); CREATININE 0.7 mg/dL (0.6-1.0); GFR 79.3; POTASSIUM 4.1 mmol/L (3.5-5.1)
[2017-12-27 07:07] LABS: ALBUMIN 2.8 g/dL (3.4-5.0); ALBUMIN/GLOBULIN RATIO 0.8 (1.0-1.7); TOTAL BILIRUBIN 0.4 mg/dL (0.2-1.0); TOTAL PROTEIN 6.3 g/dL (6.4-8.2)
--- NOTE | 2017-12-27 07:12 | PDOC ---
Provider Note Provider Note [id number] acute resp fail atelectasis ? over sedation bipap, BD, ICS see orders KEVIN GUADARRAMA MD Dec 27, 2017 07:12
[2017-12-27] MEDS: CARVEDILOL 3.125 MG TABLET. PO SCH ×2 (08:00→16:05)
--- NOTE | 2017-12-27 08:50 | CONS ---
DATE OF CONSULTATION: 12/27/2017 I was asked to see this 87-year-old lady for acute hypoxemic respiratory failure. HISTORY OF PRESENT ILLNESS: She has history of smoking. Details are not known. She is currently on BiPAP and answers some of my questions. She states that she does not smoke anymore. She fell and had a mid to distal humeral shaft fracture of humerus, underwent an open reduction and internal fixation. She was given pain medication, and she was found to be hypoxemic. She was transferred to ICU, was placed on BiPAP. Currently, she is on BiPAP. She answers some of my questions. She appears comfortable. PAST MEDICAL HISTORY: COPD, osteoporosis, gastroesophageal reflux disease, hypertension and hypothyroidism. ALLERGIES: No known drug allergies. CURRENT MEDICATIONS: She is on Coreg, Ativan p.r.n., Paxil, hydrocodone p.r.n., vitamin D, levothyroxine, Norvasc, Protonix, aspirin, Lovenox 40 mg subcutaneous daily, albuterol p.r.n. SOCIAL HISTORY: Positive for smoking, details are not known. FAMILY HISTORY: Hypertension per chart. REVIEW OF SYSTEMS: As mentioned above. I have discussed the patient with RN. Apparently, the patient was in her normal health when she fell in grocery store yesterday. She did not lose consciousness. Other systems are otherwise negative. PHYSICAL EXAMINATION: GENERAL: This is an elderly lady. VITAL SIGNS: Her O2 saturation on BiPAP 14/6 is 96%, respiratory rate 22, heart rate 54. Blood pressure 170/77, temperature 97.8. HEENT: Normocephalic, atraumatic. Pupils equal, round, reactive to light. She has a BiPAP mask on. NECK: There is no JVD, lymphadenopathy or thyromegaly. CARDIOVASCULAR: Regular rate and rhythm. PMI is nondisplaced. CHEST: Inspection is normal. LUNGS: There are bibasilar crackles, dullness at the bases. ABDOMEN: Distended, diminished bowel sounds. EXTREMITIES: There is no edema. LYMPHATICS: There is no lymphadenopathy. NEUROLOGIC: She answers all my questions. SKIN: Chronic changes. LYMPHATICS: There is no lymphadenopathy. LABORATORY DATA: I reviewed the following lab data: Chest x-ray shows bibasilar atelectasis, elevation of right hemidiaphragm, air filled prominent structure seen in the left upper quadrant of abdomen as well as right upper quadrant underneath the hemidiaphragm. She appears to have air filled dilated loops. WBC 10, hemoglobin 11.6, platelets 128. Sodium 142, potassium 4.4, chloride 107, CO2 of 23, glucose 147, BUN 20, creatinine 0.7. ABG earlier this morning, pH 7.38, pCO2 of 46, pO2 of 64. IMPRESSION: 1. Acute hypoxemic respiratory failure, could be secondary to atelectasis, pain medication, ileus versus others. 2. Abnormal chest x-ray. 3. Status post left spiral humeral shaft fracture, open reduction and internal fixation. 4. Chronic obstructive pulmonary disease. 5. ?ileus. 6. Hypothyroidism. 7. Hypertension. 8. Gastroesophageal reflux disease. PLAN AND RECOMMENDATIONS: 1. Continue BiPAP. BiPAP setting was reviewed. We will titrate FiO2 to keep O2 saturation 92%. We will do an ABG. 2. NG, which was placed by RN, will connect to low intermittent suction. 3. Elevate head of bed. 4. Start bronchodilator. 5. Start inhaled corticosteroid, Pulmicort b.i.d. 6. Monitor respiratory status very closely. 7. Continue BiPAP until the patient is more stable. We will monitor closely in ICU. 8. Protonix for stress ulcer prophylaxis. 9. Lovenox for DVT prophylaxis. 10. Avoid oversedation. 11. The findings and recommendations were discussed with RN and RT. Thank you very much for allowing me to participate in care of this very nice lady. KEVIN GUADARRAMA M.D. DR: AMPARO/monalisa JOB#: [id number] / [id number]
--- NOTE | 2017-12-27 09:16 | RAD ---
EXAM: Supine AP view of the abdomen DATE: 12/27/2017 9:00 AM INDICATION: PLACEMENT VERIFICATION OF NG TUBE COMPARISON: No Prior FINDINGS: NG tube is looped within the body of the stomach, tip projecting toward the fundus. Prominent gas-filled loops of small and large bowel without abnormal dilatation. Moderate colonic stool content. No abnormal soft tissue mass effect. No suspicious calcifications are seen. Evaluation for free intraperitoneal gas is limited on this supine exam. Levoscoliosis of the thoracolumbar spine. IMPRESSION: 1. NG tube is looped within the body of the stomach, tip projecting toward the fundus. 2. No evidence for bowel obstruction. Electronically signed by: Michael Acevedo MD (12/27/2017 9:13 AM) [facility]
[2017-12-27] MEDS: OMEGA-3 FATTY ACIDS/FISH OIL 1,000 MG CAPSULE. PO SCH (10:14)
[2017-12-27] MEDS: PANTOPRAZOLE 40 MG TABLET.DR. PO SCH (10:14)
[2017-12-27] MEDS: amLODIPine BESYLATE 5 MG TABLET PO SCH (10:15)
[2017-12-27] MEDS: CALCIUM CARBONATE 500 MG TABLET PO SCH ×3 (10:15→16:04)
[2017-12-27] MEDS: LEVOTHYROXINE 100 MCG TABLET PO SCH (10:15)
[2017-12-27] MEDS: CHOLECALCIFEROL (VITAMIN D3) 5,000 UNIT CAPSULE PO SCH (10:17)
[2017-12-27] MEDS ORDERED: ENALAPRILAT 1.25 MG/ML VIAL. IVP PRN (10:30)
--- NOTE | 2017-12-27 10:55 | PDOC2 ---
CARDIOLOGY CONSULT NOTE CHEIF COMPLAINT: High BP mgmt. HPI: 87 y.o woman with past medical history as noted below presented due to fall and left humeral fracture, s/p treatment with ORIF. Cardiology asked to see her for evaluation of acute hypoxic resp failure. She is currently sleeping and sedated on BiPAP. She had high BP this a.m. in the setting of pain but currently comfortable. She was admitted last year with hypoxia of unclear etiology. Currently on FiO2 of 40%. PMHX: HTN Probable diastolic HF SOCHX: Lives by herself at home. FAMHX: NC CURRENT MEDS: amlodipine, atorvastatin, asa, and coreg ALLERGIES: Allergies Coded Allergies Type Severity Reaction Last Updated Verified No Known Drug Allergies 01/15/17 No ROS: Not obtained due to patient sleeping PHYSICAL EXAM: Vital Signs: On bipap, af, HR 50's, BP- 170/90. I & O +740 ml Physical Exam: Gen: Sedated on BiPAP CVS: RRR, no m/r/g PULM: Bilateral rhonchi ABD: Soft, hypoactive bowel sounds EXT: no edema, warm.2+ radial DIAGNOSTIC TESTING: Labs reviewed. CXR reviewed. Prior CT/Echo reviewed ASSESSMENT: 1. Acute hypoxic resp failure: DDx is broad, consider flash pulm edema versus oversedation versus AMI versus hypoventilation due to bowel issues. 2. HTN PLAN: 1. Check EKG/Trop 2. Consider diuresis if she starts taking p.o and has B.M 3. Prior CTA reviewed and no significant lung disease. 4. Will consider for ischemic evaluation based on above. Thanks for consultation. ISAEL JOHNSON MD Dec 27, 2017 10:55
[2017-12-27] MEDS: amLODIPine BESYLATE 10 MG TABLET PO SCH (11:00)
[2017-12-27] MEDS: IPRATRPIUM/ALBUTEROL 0.5/2.5MG 3 ML NEBU. NEB SCH ×3 (11:53→19:33)
[2017-12-27] MEDS: BUDESONIDE 0.5 MG/2 ML NEBU. NEB SCH ×2 (12:00→19:33)
--- NOTE | 2017-12-27 12:15 | EKG ---
[facility] [address] [place] [address] Test Date: 2017-12-27 Test Time: 11:16:32 Pat Name: RADHA LUNA Department: Room: 106 1 Gender: F Extension Service Advisor: SHERRI : [id number] Requested By: ISAEL JOHNSON Order Number: [id number] Reading MD: Isael Johnson MD Measurements Intervals [place] Rate: 51 P: [place]: QRS: 3 QRSD: 96 T: -1 QT: 402 QTc: 372 Interpretive Statements SR Electronically Signed On 12-29-2017 13:40:50 CDT by Isael Johnson MD
--- NOTE | 2017-12-27 13:19 | PDOC ---
PROGRESS NOTES Chief Complaint Chief Complaint acute hypoxic respiratory failure overnight, transferred to ICU, CV and PULM consult, spiral fracture of the mid to distal humeral shaft. moderate lateral and posterior displacement of the proximal end of the distal fracture fragment with mild anterior angulation of the distal fracture fragment. proximal humerus is unremarkable. htn GERD Osteoporosis hypothyroid state on replacement acute encephalopathy, delirium post-op, improving History of Present Illness History of Present Illness jansen CHF or acute coronary, consider other or embolism, has been on lovenox better on BIPAP in ICU POD#2 Vitals Vitals Vital Signs Date Time Temp Pulse Resp B/P (MAP) Pulse Ox O2 Delivery O2 Flow Rate FiO2 12/27/17 11:53 93 BiPAP/CPAP 12/27/17 11:00 58 23 185/84 (117) 12/27/17 10:00 97.2 97.2 12/27/17 08:15 15.0 Physical Exam General: Alert, Oriented X3, mild distress Heart: Regular rate, No murmurs, Other (regular rate and rhythm, radial pulse 2 +) Lungs: Clear Abdomen: Normal bowel sounds, Soft, No tenderness Extremities: No clubbing, No edema Skin: No rashes Labs LABS Laboratory Tests Test 12/27/17 04:09 12/27/17 06:30 O2 Saturation 92 % (92-99) Arterial Blood pH 7.38 (7.35-7.45) Arterial Blood pCO2 at Patient Temp 46 mmHg (35-46) Arterial Blood pO2 at Patient Temp 64 mmHg (65-108) Arterial Blood HCO3 26 mmol/L (21-28) Arterial Blood Base Excess 1 mmol/L (-3-3) FiO2 100.0 White Blood Count 8.8 x10^3/uL (4.0-11.0) Red Blood Count 3.51 x10^6/uL (3.50-5.40) Hemoglobin 11.3 g/dL (12.0-15.5) Hematocrit 33.2 % (36.0-47.0) Mean Corpuscular Volume 95 fL (79-100) Mean Corpuscular Hemoglobin 32 pg (25-35) Mean Corpuscular Hemoglobin Concent 34 g/dL (31-37) Red Cell Distribution Width 13.9 % (11.5-14.5) Platelet Count 133 x10^3/uL (140-400) Neutrophils (%) (Auto) 78 % (31-73) Lymphocytes (%) (Auto) 12 % (24-48) Monocytes (%) (Auto) 8 % (0-9) Eosinophils (%) (Auto) 2 % (0-3) Basophils (%) (Auto) 0 % (0-3) Neutrophils # (Auto) 6.9 x10^3uL (1.8-7.7) Lymphocytes # (Auto) 1.0 x10^3/uL (1.0-4.8) Monocytes # (Auto) 0.7 x10^3/uL (0.0-1.1) Eosinophils # (Auto) 0.2 x10^3/uL (0.0-0.7) Basophils # (Auto) 0.0 x10^3/uL (0.0-0.2) Sodium Level 137 mmol/L (136-145) Potassium Level 4.1 mmol/L (3.5-5.1) Chloride Level 103 mmol/L (98-107) Carbon Dioxide Level 27 mmol/L (21-32) Anion Gap 7 (6-14) Blood Urea Nitrogen 18 mg/dL (7-20) Creatinine 0.7 mg/dL (0.6-1.0) Estimated GFR (Cockcroft-Gault) 79.3 BUN/Creatinine Ratio 26 (6-20) Glucose Level 127 mg/dL (70-99) Calcium Level 9.9 mg/dL (8.5-10.1) Total Bilirubin 0.4 mg/dL (0.2-1.0) Aspartate Amino Transf (AST/SGOT) 59 U/L (15-37) Alanine Aminotransferase (ALT/SGPT) 53 U/L (14-59) Alkaline Phosphatase 34 U/L (46-116) Troponin I Quantitative 0.121 ng/mL (0.000-0.055) Total Protein 6.3 g/dL (6.4-8.2) Albumin 2.8 g/dL (3.4-5.0) Albumin/Globulin Ratio 0.8 (1.0-1.7) Assessment and Plan Assessmemt and Plan Problems Medical Problems: (1) Fall Status: Acute (2) Rib pain on right side Status: Acute Comment Review of Relevant I have reviewed the following items harvey (where applicable) has been applied. Labs Laboratory Tests Test 9/8/18 04:20 12/27/17 04:09 12/27/17 06:30 White Blood Count 10.0 x10^3/uL (4.0-11.0) 8.8 x10^3/uL (4.0-11.0) Red Blood Count 3.56 x10^6/uL (3.50-5.40) 3.51 x10^6/uL (3.50-5.40) Hemoglobin 11.6 g/dL (12.0-15.5) 11.3 g/dL (12.0-15.5) Hematocrit 34.5 % (36.0-47.0) 33.2 % (36.0-47.0) Mean Corpuscular Volume 97 fL (79-100) 95 fL (79-100) Mean Corpuscular Hemoglobin 33 pg (25-35) 32 pg (25-35) Mean Corpuscular Hemoglobin Concent 34 g/dL (31-37) 34 g/dL (31-37) Red Cell Distribution Width 14.0 % (11.5-14.5) 13.9 % (11.5-14.5) Platelet Count 128 x10^3/uL (140-400) 133 x10^3/uL (140-400) Neutrophils (%) (Auto) 85 % (31-73) 78 % (31-73) Lymphocytes (%) (Auto) 9 % (24-48) 12 % (24-48) Monocytes (%) (Auto) 6 % (0-9) 8 % (0-9) Eosinophils (%) (Auto) 0 % (0-3) 2 % (0-3) Basophils (%) (Auto) 0 % (0-3) 0 % (0-3) Neutrophils # (Auto) 8.6 x10^3uL (1.8-7.7) 6.9 x10^3uL (1.8-7.7) Lymphocytes # (Auto) 0.9 x10^3/uL (1.0-4.8) 1.0 x10^3/uL (1.0-4.8) Monocytes # (Auto) 0.6 x10^3/uL (0.0-1.1) 0.7 x10^3/uL (0.0-1.1) Eosinophils # (Auto) 0.0 x10^3/uL (0.0-0.7) 0.2 x10^3/uL (0.0-0.7) Basophils # (Auto) 0.0 x10^3/uL (0.0-0.2) 0.0 x10^3/uL (0.0-0.2) Segmented Neutrophils % 83 % (35-66) Band Neutrophils % 4 % (0-9) Lymphocytes % 7 % (24-48) Monocytes % 6 % (0-10) Platelet Estimate Adequate (ADEQUATE) Sodium Level 142 mmol/L (136-145) 137 mmol/L (136-145) Potassium Level 4.4 mmol/L (3.5-5.1) 4.1 mmol/L (3.5-5.1) Chloride Level 107 mmol/L (98-107) 103 mmol/L (98-107) Carbon Dioxide Level 23 mmol/L (21-32) 27 mmol/L (21-32) Anion Gap 12 (6-14) 7 (6-14) Blood Urea Nitrogen 20 mg/dL (7-20) 18 mg/dL (7-20) Creatinine 0.7 mg/dL (0.6-1.0) 0.7 mg/dL (0.6-1.0) Estimated GFR (Cockcroft-Gault) 79.3 79.3 BUN/Creatinine Ratio 29 (6-20) 26 (6-20) Glucose Level 147 mg/dL (70-99) 127 mg/dL (70-99) Calcium Level 9.6 mg/dL (8.5-10.1) 9.9 mg/dL (8.5-10.1) Total Bilirubin 0.4 mg/dL (0.2-1.0) 0.4 mg/dL (0.2-1.0) Aspartate Amino Transf (AST/SGOT) 44 U/L (15-37) 59 U/L (15-37) Alanine Aminotransferase (ALT/SGPT) 36 U/L (14-59) 53 U/L (14-59) Alkaline Phosphatase 32 U/L (46-116) 34 U/L (46-116) Total Protein 6.0 g/dL (6.4-8.2) 6.3 g/dL (6.4-8.2) Albumin 2.9 g/dL (3.4-5.0) 2.8 g/dL (3.4-5.0) Albumin/Globulin Ratio 0.9 (1.0-1.7) 0.8 (1.0-1.7) O2 Saturation 92 % (92-99) Arterial Blood pH 7.38 (7.35-7.45) Arterial Blood pCO2 at Patient Temp 46 mmHg (35-46) Arterial Blood pO2 at Patient Temp 64 mmHg (65-108) Arterial Blood HCO3 26 mmol/L (21-28) Arterial Blood Base Excess 1 mmol/L (-3-3) FiO2 100.0 Troponin I Quantitative 0.121 ng/mL (0.000-0.055) Laboratory Tests Test 12/27/17 04:09 12/27/17 06:30 O2 Saturation 92 % (92-99) Arterial Blood pH 7.38 (7.35-7.45) Arterial Blood pCO2 at Patient Temp 46 mmHg (35-46) Arterial Blood pO2 at Patient Temp 64 mmHg (65-108) Arterial Blood HCO3 26 mmol/L (21-28) Arterial Blood Base Excess 1 mmol/L (-3-3) FiO2 100.0 White Blood Count 8.8 x10^3/uL (4.0-11.0) Red Blood Count 3.51 x10^6/uL (3.50-5.40) Hemoglobin 11.3 g/dL (12.0-15.5) Hematocrit 33.2 % (36.0-47.0) Mean Corpuscular Volume 95 fL (79-100) Mean Corpuscular Hemoglobin 32 pg (25-35) Mean Corpuscular Hemoglobin Concent 34 g/dL (31-37) Red Cell Distribution Width 13.9 % (11.5-14.5) Platelet Count 133 x10^3/uL (140-400) Neutrophils (%) (Auto) 78 % (31-73) Lymphocytes (%) (Auto) 12 % (24-48) Monocytes (%) (Auto) 8 % (0-9) Eosinophils (%) (Auto) 2 % (0-3) Basophils (%) (Auto) 0 % (0-3) Neutrophils # (Auto) 6.9 x10^3uL (1.8-7.7) Lymphocytes # (Auto) 1.0 x10^3/uL (1.0-4.8) Monocytes # (Auto) 0.7 x10^3/uL (0.0-1.1) Eosinophils # (Auto) 0.2 x10^3/uL (0.0-0.7) Basophils # (Auto) 0.0 x10^3/uL (0.0-0.2) Sodium Level 137 mmol/L (136-145) Potassium Level 4.1 mmol/L (3.5-5.1) Chloride Level 103 mmol/L (98-107) Carbon Dioxide Level 27 mmol/L (21-32) Anion Gap 7 (6-14) Blood Urea Nitrogen 18 mg/dL (7-20) Creatinine 0.7 mg/dL (0.6-1.0) Estimated GFR (Cockcroft-Gault) 79.3 BUN/Creatinine Ratio 26 (6-20) Glucose Level 127 mg/dL (70-99) Calcium Level 9.9 mg/dL (8.5-10.1) Total Bilirubin 0.4 mg/dL (0.2-1.0) Aspartate Amino Transf (AST/SGOT) 59 U/L (15-37) Alanine Aminotransferase (ALT/SGPT) 53 U/L (14-59) Alkaline Phosphatase 34 U/L (46-116) Troponin I Quantitative 0.121 ng/mL (0.000-0.055) Total Protein 6.3 g/dL (6.4-8.2) Albumin 2.8 g/dL (3.4-5.0) Albumin/Globulin Ratio 0.8 (1.0-1.7) Medications Current Medications Fentanyl Citrate (Fentanyl 2ml Vial) 25 mcg 1X ONCE IV Last administered on 12/24/17at 14:03; Start 12/24/17 at 13:45; Stop 12/24/17 at 13:46; Status DC Fentanyl Citrate (Fentanyl 2ml Vial) 25 mcg 1X ONCE IV Last administered on 12/24/17at 15:26; Start 12/24/17 at 15:00; Stop 12/24/17 at 15:01; Status DC Ondansetron HCl (Zofran) 4 mg PRN Q8HRS PRN IV NAUSEA/VOMITING Last administered on 12/24/17 17:17; Start 12/24/17 at 15:00; Stop 12/25/17 at 14:59; Status DC Fentanyl Citrate (Fentanyl 2ml Vial) 25 mcg PRN Q3HRS PRN IV PAIN Last administered on 12/25/17at 06:14; Start 12/24/17 at 15:00; Stop 12/25/17 at 14:59; Status DC Albuterol Sulfate (Ventolin Neb Soln) 2.5 mg PRN Q4HRS PRN NEB SHORTNESS OF BREATH Last administered on 12/26/17at 16:33; Start 12/24/17 at 18:15 Acetaminophen (Tylenol) 325 mg PRN Q4HRS PO ; Start 12/24/17 at 20:00; Stop 12/25 at 22:04; Status DC Amlodipine Besylate (Norvasc) 5 mg DAILY PO Last administered on 12/27/17 10:15 ; Start 12/25/17 at 09:00; Stop 12/27/17 at 10:23; Status DC Aspirin (Children'S Aspirin) 81 mg DAILY07 PO Last administered on 12/26/17at 10: 33; Start 12/25/17 at 07:00 Carvedilol (Coreg) 3.125 mg BID PO Last administered on 12/26/17 10:17; Start 12/24/17 at 21:00; Stop 12/26/17 at 15:15; Status DC Acetaminophen/ Hydrocodone Bitart (Lortab 5/325) 1 tab PRN Q4HRS PRN PO PAIN Last administered on 12/24/17at 23:32; Start 12/24/17 at 20:00; Stop 12/25/17 at 15: 39; Status DC Levothyroxine Sodium (Synthroid) 100 mcg DAILY PO Last administered on at 10:15; Start 12/25/17 at 09:00 Pantoprazole Sodium (Protonix) 40 mg DAILY PO ; Start 12/25/17 at 09:00; Stop 12/25/17 at 09:00; Status DC Atorvastatin Calcium (Lipitor) 80 mg QHS PO Last administered on 12/26/17at 21:14 ; Start 12/24/17 at 21:00 Non-Formulary Medication (Cholecalciferol (Vitamin D3) (Vitamin D)) 5 cap WEEKLY PO ; Start 12/31/17 at 09:00; Status UNV Vitamin D (Vitamin D3) 2,000 unit HS PO Last administered on 12/26/17 21:14; Start 12/24/17 at 21:00 Fish Oil (Fish Oil) 1,000 mg DAILY PO Last administered on 12/27/17 10:14; Start 12/25/17 at 09:00 Paroxetine HCl (Paxil) 45 mg DAILY PO ; Start 12/25/17 at 09:00; Stop 12/25/17 at 09:00; Status DC Calcium Carbonate/ Glycine (Oscal) 500 mg TIDAFTMEAL PO Last administered on 10:15; Start 12/25/17 at 09:00 Sennosides (Senna) 8.6 mg PRN BID PRN PO CONSTIPATION; Start 12/24/17 at 20:00 Enoxaparin Sodium (Lovenox 40mg Syringe) 40 mg Q24H SQ Last administered on 12/26at 21:14; Start 12/24/17 at 20:15 Pantoprazole Sodium (Protonix) 40 mg DAILYAC PO Last administered on 12/27/17 10:14; Start 12/25/17 at 07:30 Fentanyl Citrate (Fentanyl 2ml Vial) 50 mcg PRN Q2HR PRN IV SEVERE PAIN Last administered on 12/26/17 02:15; Start 12/25/17 at 07:00 Non-Formulary Medication (Paroxetine Hcl (Paxil)) 45 mg QHS PO ; Start 12/25/17 at 21:00; Status UNV Paroxetine HCl (Paxil) 45 mg QHS PO Last administered on 12/26/17 21:16; Start 12/25/17 at 21:00 Vitamin D (Vitamin D3) 5,000 unit DAILY PO Last administered on 12/27/17 10:17 ; Start 12/25/17 at 09:00 Cefazolin Sodium 50 ml @ 100 mls/hr 1X ONCE IV Last administered on 12/25/17at 15:45; Start 12/25/17 at 10:15; Stop 12/25/17 at 10:44; Status DC Propofol 20 ml @ As Directed STK-MED ONCE IV ; Start 12/25/17 at 14:16; Stop 12/25 at 14:17; Status DC Fentanyl Citrate (Fentanyl 2ml Vial) 100 mcg STK-MED ONCE .ROUTE ; Start at 14:16; Stop 12/25/17 at 14:17; Status DC Ondansetron HCl (Zofran) 4 mg PRN Q6HRS PRN IV NAUSEA/VOMITING; Start 12/25/17 at 15:00; Stop 12/26/17 at 14:59; Status DC Fentanyl Citrate (Fentanyl 2ml Vial) 25 mcg PRN Q5MIN PRN IV MILD PAIN; Start 12/25/17 at 15:00; Stop 12/25/17 at 20:00; Status DC Fentanyl Citrate (Fentanyl 2ml Vial) 50 mcg PRN Q5MIN PRN IV MODERATE TO SEVERE PAIN; Start 12/25/17 at 15:00; Stop 12/25/17 at 20:00; Status DC Morphine Sulfate (Morphine Sulfate) 1 mg PRN Q10MIN PRN IV SEVERE PAIN; Start 12/25/17 at 15:00; Stop 12/25/17 at 20:00; Status DC Ringer's Solution 1,000 ml @ 30 mls/hr Q24H IV Last administered on 12/25/17at 15:01; Start 12/25/17 at 14:56; Stop 12/26/17 at 02:55; Status DC Lidocaine HCl (Xylocaine-Mpf 1% 2ml Vial) 2 ml 1X PRN PRN ID IV START; Start at 15:00; Stop 12/25/17 at 20:00; Status DC Hydromorphone HCl (Dilaudid) 0.5 mg PRN Q10MIN PRN IV SEV PAIN, Second choice; Start 12/25/17 at 15:00; Stop 12/25/17 at 20:00; Status DC Prochlorperazine Edisylate (Compazine) 5 mg PACU PRN PRN IV NAUSEA, MRX1; Start 12/25/17 at 15:00; Stop 12/25/17 at 20:00; Status DC Dexamethasone Sodium Phosphate (Decadron) 20 mg STK-MED ONCE .ROUTE ; Start 12/25 at 14:58; Stop 12/25/17 at 14:59; Status DC Famotidine (Pepcid Vial) 20 mg STK-MED ONCE .ROUTE ; Start 12/25/17 at 14:58; Stop 12/25/17 at 14:59; Status DC Lidocaine HCl (Xylocaine-Mpf 1% 5ml Vial) 5 ml STK-MED ONCE .ROUTE ; Start at 14:58; Stop 12/25/17 at 14:59; Status DC Rocuronium [place] (Zemuron) 50 mg STK-MED ONCE .ROUTE ; Start 12/25/17 at 14:58 ; Stop 12/25/17 at 14:59; Status DC Lidocaine HCl (Xylocaine 1% Pf 30ml Vial) 30 ml STK-MED ONCE .ROUTE Last administered on 12/25/17at 15:58; Start 12/25/17 at 14:15; Stop 12/25/17 at 15:16; Status DC Bupivacaine HCl (Marcaine 0.5%) 50 ml STK-MED ONCE .ROUTE Last administered on 12/25/17at 15:58; Start 12/25/17 at 14:16; Stop 12/25/17 at 15:16; Status DC Cefazolin Sodium 1 gm/Dextrose 50 ml @ 100 mls/hr Q6H IV ; Start 12/25/17 at 15: 45; Stop 12/26/17 at 04:14; Status UNV Acetaminophen/ Hydrocodone Bitart (Lortab 5/325) 1 tab PRN Q4HRS PRN PO MODERATE PAIN Last administered on 12/26/17at 21:14; Start 12/25/17 at 15:30 Ephedrine Sulfate (ePHEDrine PF IN SALINE SYRINGE) 50 mg STK-MED ONCE IV ; Start 12/25/17 at 15:43; Stop 12/25/17 at 15:44; Status DC Glycopyrrolate (Robinul) 1 mg STK-MED ONCE .ROUTE ; Start 12/25/17 at 15:45; Stop 12/25/17 at 15:46; Status DC Cefazolin Sodium (Ancef) 1 gm Q6H IVP Last administered on 12/26/17at 11:45; Start 12/25/17 at 23:00; Stop 12/26/17 at 14:00; Status DC Neostigmine Methylsulfate (Neostigmine Methylsulfate) 5 mg STK-MED ONCE .ROUTE ; Start 12/25/17 at 17:34; Stop 12/25/17 at 17:35; Status DC Desflurane (Suprane) 90 ml STK-MED ONCE IH ; Start 12/25/17 at 17:34; Stop at 17:35; Status DC Acetaminophen (Tylenol) 325 mg PRN Q4HRS PRN PO MILD PAIN / TEMP Last administered on 12/25/17at 22:13; Start 12/25/17 at 22:15 Lorazepam (Ativan) 0.5 mg PRN Q4HRS PRN PO ANXIETY / AGITATION Last administered on 12/26/17at 21:14; Start 12/25/17 at 23:45 Enoxaparin Sodium (Lovenox Per Pharmacy Prophylaxis Dosing) 1 each PRN DAILY PRN MC SEE COMMENTS; Start 12/26/17 at 12:45; Status UNV Carvedilol (Coreg) 3.125 mg BIDWMEALS PO Last administered on 12/26/17at 16:14; Start 12/26/17 at 17:00 Albuterol/ Ipratropium (Duoneb) 3 ml 1X ONCE NEB Last administered on at 04:00; Start 12/27/17 at 04:00; Stop 12/27/17 at 04:01; Status DC Amlodipine Besylate (Norvasc) 10 mg DAILY PO ; Start 12/27/17 at 11:00 Enalaprilat (Vasotec Inj) 1.25 mg PRN Q6HRS PRN IVP HYPERTENSION, SEE COMMENTS ; Start 12/27/17 at 10:30 Albuterol/ Ipratropium (Duoneb) 3 ml RTQID NEB Last administered on 12/27/17at 11 :53; Start 12/27/17 at 12:00 Budesonide (Pulmicort) 0.5 mg RTBID NEB ; Start 12/27/17 at 12:00 Active Scripts Active Reported Paxil (Paroxetine Hcl) 40 Mg Tablet 45 Mg PO QHS Targretin (Bexarotene) 60 Gm Gel..gram. 60 Gm TP Fish Oil 1,200 Mg Fish Oil (Fish Oil/Dha/Epa) 1 Each Capsule 1 Each PO Tylenol (Acetaminophen) 325 Mg Tablet 1 Tab PO PRN Q4HRS Senna Laxative (Sennosides) 8.6 Mg Tablet 8.6 Mg PO Amlodipine Besylate 5 Mg Tablet 5 Mg PO DAILY Percocet 5-325 Mg Tablet (Oxycodone/Acetaminophen) 1 Each Tablet 1 Tab PO PRN Q8HRS PRN Calcium (Calcium Carbonate) 600 Mg Tablet 1,200 Mg PO Protonix (Pantoprazole Sodium) 40 Mg Tablet.dr 1 Tab PO DAILY Carvedilol 3.125 Mg Tablet 1 Tab PO BID Children's Aspirin (Aspirin) 81 Mg Tab.chew 81 Mg PO One Daily (Multivitamin) 1 Each Tablet 1 Each PO Vitamin D (Cholecalciferol (Vitamin D3)) 2,000 Unit Capsule 1 Cap PO HS Fish Oil (Ensign-3 Fatty Acids) 300 Mg Capsule 1,200 Mg PO DAILY Hydrocodone-Apap 5-325 (Hydrocodone Bit/Acetaminophen) 1 Each Tablet 1-2 Tab PO Q4-6HRS Levothyroxine Sodium 100 Mcg Tablet 1 Tab PO DAILY Vitamin D (Cholecalciferol (Vitamin D3)) 1,000 Unit Capsule 5 Cap PO DAILY Atorvastatin Calcium 80 Mg Tablet 1 Tab PO DAILY Vitals/I & O Vital Sign - Last 24 Hours 12/26/17 12/26/17 12/26/17 12/26/17 15:00 16:13 16:14 16:35 Temp 99.5 99.5 Pulse 58 58 Resp 22 B/P (MAP) 160/62 (94) 160/62 Pulse Ox 89 90 O2 Delivery Nasal Cannula Nasal Cannula Nasal Cannula O2 Flow Rate 4.0 4.0 3.0 12/26/17 12/26/17 12/26/17 12/26/17 17:13 19:00 19:24 20:00 Temp 99.7 99.7 Pulse 51 Resp 18 B/P (MAP) 152/51 (84) Pulse Ox 96 94 O2 Delivery Nasal Cannula Nasal Cannula Nasal Cannula O2 Flow Rate 4.0 4.0 4.0 12/26/17 12/27/17 12/27/17 12/27/17 23:00 03:00 04:00 05:00 Temp 98.5 98.0 98.5 98.0 Pulse 61 64 Resp 18 18 B/P (MAP) 176/66 (102) 159/77 (104) Pulse Ox 90 85 90 O2 Delivery Nasal Cannula Nasal Cannula NonRebreather Mask Bi-pap O2 Flow Rate 4.0 4.0 15.0 12/27/17 12/27/17 12/27/17 12/27/17 05:00 05:10 06:00 07:00 Temp 97.8 97.8 Pulse 65 54 54 Resp 22 27 32 B/P (MAP) 200/85 (123) 170/77 (108) 187/86 (119) Pulse Ox 92 94 96 93 O2 Delivery BiPAP/CPAP BiPAP/CPAP BiPAP/CPAP BiPAP/CPAP 12/27/17 12/27/17 12/27/17 12/27/17 07:28 08:00 08:00 08:15 Pulse 50 49 Resp 28 B/P (MAP) 172/80 (110) 135/64 Pulse Ox 92 94 O2 Delivery BiPAP/CPAP BiPAP/CPAP Bi-pap O2 Flow Rate 15.0 12/27/17 12/27/17 12/27/17 12/27/17 09:00 09:59 10:00 10:15 Temp 97.2 97.2 Pulse 56 50 50 Resp 27 16 B/P (MAP) 180/77 (111) 135/64 (87) 135/64 Pulse Ox 94 98 96 O2 Delivery BiPAP/CPAP BiPAP/CPAP BiPAP/CPAP 12/27/17 12/27/17 12/27/17 11:00 11:00 11:53 Pulse 52 58 Resp 23 B/P (MAP) 135/52 185/84 (117) Pulse Ox 96 93 O2 Delivery BiPAP/CPAP BiPAP/CPAP Intake and Output 12/26/17 12/26/17 12/27/17 15:00 23:00 07:00 Intake Total 540 ml 800 ml Output Total 250 ml 350 ml Balance 540 ml 550 ml -350 ml ASHLY SERVIN MD Dec 27, 2017 13:19
[2017-12-27] MEDS: AMINO AC 3%/ELECTROLYTE/GLYCER 1,000 ML IV SCH (14:09)
[2017-12-27] MEDS: fentaNYL PF VIAL 100 MCG/2 ML VIAL IV PRN ×2 (14:09→17:14)
--- NOTE | 2017-12-27 15:43 | PDOC ---
ORTHO PROGRESS NOTES Subjective ICU for resp status, doing better today Vitals Vital Signs Date Time Temp Pulse Resp B/P (MAP) Pulse Ox O2 Delivery O2 Flow Rate FiO2 12/27/17 14:38 93 Venturi Mask 15.0 12/27/17 14:00 64 28 182/73 (109) 12/27/17 10:00 97.2 97.2 Labs Laboratory Tests Test 12/26/17 04:20 12/27/17 04:09 12/27/17 06:30 White Blood Count 10.0 x10^3/uL (4.0-11.0) 8.8 x10^3/uL (4.0-11.0) Red Blood Count 3.56 x10^6/uL (3.50-5.40) 3.51 x10^6/uL (3.50-5.40) Hemoglobin 11.6 g/dL (12.0-15.5) 11.3 g/dL (12.0-15.5) Hematocrit 34.5 % (36.0-47.0) 33.2 % (36.0-47.0) Mean Corpuscular Volume 97 fL (79-100) 95 fL (79-100) Mean Corpuscular Hemoglobin 33 pg (25-35) 32 pg (25-35) Mean Corpuscular Hemoglobin Concent 34 g/dL (31-37) 34 g/dL (31-37) Red Cell Distribution Width 14.0 % (11.5-14.5) 13.9 % (11.5-14.5) Platelet Count 128 x10^3/uL (140-400) 133 x10^3/uL (140-400) Neutrophils (%) (Auto) 85 % (31-73) 78 % (31-73) Lymphocytes (%) (Auto) 9 % (24-48) 12 % (24-48) Monocytes (%) (Auto) 6 % (0-9) 8 % (0-9) Eosinophils (%) (Auto) 0 % (0-3) 2 % (0-3) Basophils (%) (Auto) 0 % (0-3) 0 % (0-3) Neutrophils # (Auto) 8.6 x10^3uL (1.8-7.7) 6.9 x10^3uL (1.8-7.7) Lymphocytes # (Auto) 0.9 x10^3/uL (1.0-4.8) 1.0 x10^3/uL (1.0-4.8) Monocytes # (Auto) 0.6 x10^3/uL (0.0-1.1) 0.7 x10^3/uL (0.0-1.1) Eosinophils # (Auto) 0.0 x10^3/uL (0.0-0.7) 0.2 x10^3/uL (0.0-0.7) Basophils # (Auto) 0.0 x10^3/uL (0.0-0.2) 0.0 x10^3/uL (0.0-0.2) Segmented Neutrophils % 83 % (35-66) Band Neutrophils % 4 % (0-9) Lymphocytes % 7 % (24-48) Monocytes % 6 % (0-10) Platelet Estimate Adequate (ADEQUATE) Sodium Level 142 mmol/L (136-145) 137 mmol/L (136-145) Potassium Level 4.4 mmol/L (3.5-5.1) 4.1 mmol/L (3.5-5.1) Chloride Level 107 mmol/L (98-107) 103 mmol/L (98-107) Carbon Dioxide Level 23 mmol/L (21-32) 27 mmol/L (21-32) Anion Gap 12 (6-14) 7 (6-14) Blood Urea Nitrogen 20 mg/dL (7-20) 18 mg/dL (7-20) Creatinine 0.7 mg/dL (0.6-1.0) 0.7 mg/dL (0.6-1.0) Estimated GFR (Cockcroft-Gault) 79.3 79.3 BUN/Creatinine Ratio 29 (6-20) 26 (6-20) Glucose Level 147 mg/dL (70-99) 127 mg/dL (70-99) Calcium Level 9.6 mg/dL (8.5-10.1) 9.9 mg/dL (8.5-10.1) Total Bilirubin 0.4 mg/dL (0.2-1.0) 0.4 mg/dL (0.2-1.0) Aspartate Amino Transf (AST/SGOT) 44 U/L (15-37) 59 U/L (15-37) Alanine Aminotransferase (ALT/SGPT) 36 U/L (14-59) 53 U/L (14-59) Alkaline Phosphatase 32 U/L (46-116) 34 U/L (46-116) Total Protein 6.0 g/dL (6.4-8.2) 6.3 g/dL (6.4-8.2) Albumin 2.9 g/dL (3.4-5.0) 2.8 g/dL (3.4-5.0) Albumin/Globulin Ratio 0.9 (1.0-1.7) 0.8 (1.0-1.7) O2 Saturation 92 % (92-99) Arterial Blood pH 7.38 (7.35-7.45) Arterial Blood pCO2 at Patient Temp 46 mmHg (35-46) Arterial Blood pO2 at Patient Temp 64 mmHg (65-108) Arterial Blood HCO3 26 mmol/L (21-28) Arterial Blood Base Excess 1 mmol/L (-3-3) FiO2 100.0 Troponin I Quantitative 0.121 ng/mL (0.000-0.055) Laboratory Tests Test 12/27/17 04:09 12/27/17 06:30 O2 Saturation 92 % (92-99) Arterial Blood pH 7.38 (7.35-7.45) Arterial Blood pCO2 at Patient Temp 46 mmHg (35-46) Arterial Blood pO2 at Patient Temp 64 mmHg (65-108) Arterial Blood HCO3 26 mmol/L (21-28) Arterial Blood Base Excess 1 mmol/L (-3-3) FiO2 100.0 White Blood Count 8.8 x10^3/uL (4.0-11.0) Red Blood Count 3.51 x10^6/uL (3.50-5.40) Hemoglobin 11.3 g/dL (12.0-15.5) Hematocrit 33.2 % (36.0-47.0) Mean Corpuscular Volume 95 fL (79-100) Mean Corpuscular Hemoglobin 32 pg (25-35) Mean Corpuscular Hemoglobin Concent 34 g/dL (31-37) Red Cell Distribution Width 13.9 % (11.5-14.5) Platelet Count 133 x10^3/uL (140-400) Neutrophils (%) (Auto) 78 % (31-73) Lymphocytes (%) (Auto) 12 % (24-48) Monocytes (%) (Auto) 8 % (0-9) Eosinophils (%) (Auto) 2 % (0-3) Basophils (%) (Auto) 0 % (0-3) Neutrophils # (Auto) 6.9 x10^3uL (1.8-7.7) Lymphocytes # (Auto) 1.0 x10^3/uL (1.0-4.8) Monocytes # (Auto) 0.7 x10^3/uL (0.0-1.1) Eosinophils # (Auto) 0.2 x10^3/uL (0.0-0.7) Basophils # (Auto) 0.0 x10^3/uL (0.0-0.2) Sodium Level 137 mmol/L (136-145) Potassium Level 4.1 mmol/L (3.5-5.1) Chloride Level 103 mmol/L (98-107) Carbon Dioxide Level 27 mmol/L (21-32) Anion Gap 7 (6-14) Blood Urea Nitrogen 18 mg/dL (7-20) Creatinine 0.7 mg/dL (0.6-1.0) Estimated GFR (Cockcroft-Gault) 79.3 BUN/Creatinine Ratio 26 (6-20) Glucose Level 127 mg/dL (70-99) Calcium Level 9.9 mg/dL (8.5-10.1) Total Bilirubin 0.4 mg/dL (0.2-1.0) Aspartate Amino Transf (AST/SGOT) 59 U/L (15-37) Alanine Aminotransferase (ALT/SGPT) 53 U/L (14-59) Alkaline Phosphatase 34 U/L (46-116) Troponin I Quantitative 0.121 ng/mL (0.000-0.055) Total Protein 6.3 g/dL (6.4-8.2) Albumin 2.8 g/dL (3.4-5.0) Albumin/Globulin Ratio 0.8 (1.0-1.7) Notes Resting RUE in splint fingers warm Assessment and Plan [facility] RUE mgmt per ICU/hosp NIHARIKA CORREIA II, MD Dec 27, 2017 15:43
[2017-12-27] MEDS: ATORVASTATIN CALCIUM 40 MG TABLET. PO SCH (21:35)
[2017-12-27] MEDS: CHOLECALCIFEROL (VITAMIN D3) 1,000 UNIT TABLET PO SCH (21:35)
[2017-12-27] MEDS: HYDROcodone/APAP 5/325MG 1 TAB TABLET PO PRN (21:35)
[2017-12-27] MEDS: PARoxetine 10 MG TABLET PO SCH (21:36)
[2017-12-27] MEDS: ENOXAPARIN 40 MG/0.4 ML SYRINGE. SQ SCH (21:36)
[2017-12-28] VITALS (15 sets, daily range): BP systolic 108–167; BP diastolic 51–78
[2017-12-28] MEDS: AMINO AC 3%/ELECTROLYTE/GLYCER 1,000 ML IV SCH (02:56)
[2017-12-28 03:46] LABS: BASO % 1 % (0-3); EOS # 0.3 x10^3/uL (0.0-0.7); EOS % 4 % (0-3); HEMATOCRIT 32.3 % (36.0-47.0); HEMOGLOBIN 11.1 g/dL (12.0-15.5); LYMPH # 1.4 x10^3/uL (1.0-4.8); LYMPH % 21 % (24-48); MEAN CORPUSCULAR HEMOGLOBIN 33 pg (25-35); MEAN CORPUSCULAR HGB CONC 35 g/dL (31-37); MEAN CORPUSCULAR VOLUME 95 fL (79-100); MONO # 0.7 x10^3/uL (0.0-1.1); MONO % 9 % (0-9); NEUT # 4.6 x10^3uL (1.8-7.7); NEUT % 66 % (31-73); PLATELET COUNT 156 x10^3/uL (140-400); RED BLOOD COUNT 3.41 x10^6/uL (3.50-5.40); RED CELL DISTRIBUTION WIDTH 13.6 % (11.5-14.5); WHITE BLOOD COUNT 6.9 x10^3/uL (4.0-11.0)
[2017-12-28] MEDS: HYDROcodone/APAP 5/325MG 1 TAB TABLET PO PRN ×4 (03:50→20:58)
[2017-12-28 05:20] LABS: ALBUMIN 2.3 g/dL (3.4-5.0); ALBUMIN/GLOBULIN RATIO 0.7 (1.0-1.7); CALCIUM 10.3 mg/dL (8.5-10.1); CREATININE 0.6 mg/dL (0.6-1.0); GFR 94.8; POTASSIUM 4.2 mmol/L (3.5-5.1); TOTAL BILIRUBIN 0.5 mg/dL (0.2-1.0); TOTAL PROTEIN 5.7 g/dL (6.4-8.2)
[2017-12-28 05:21] LABS: CHOLESTEROL/HDL RATIO 2.7
[2017-12-28] MEDS: PANTOPRAZOLE 40 MG TABLET.DR. PO SCH (07:30)
[2017-12-28] MEDS: OMEGA-3 FATTY ACIDS/FISH OIL 1,000 MG CAPSULE. PO SCH (07:46)
[2017-12-28] MEDS: IPRATRPIUM/ALBUTEROL 0.5/2.5MG 3 ML NEBU. NEB SCH ×4 (07:49→20:03)
[2017-12-28] MEDS: BUDESONIDE 0.5 MG/2 ML NEBU. NEB SCH ×2 (07:49→20:03)
[2017-12-28] MEDS: CALCIUM CARBONATE 500 MG TABLET PO SCH ×3 (08:02→17:42)
[2017-12-28] MEDS: CARVEDILOL 3.125 MG TABLET. PO SCH ×2 (08:02→16:58)
[2017-12-28] MEDS: amLODIPine BESYLATE 10 MG TABLET PO SCH (08:03)
[2017-12-28] MEDS: SENNOSIDES 8.6 MG TABLET PO PRN (08:03)
[2017-12-28] MEDS: LEVOTHYROXINE 100 MCG TABLET PO SCH (08:03)
[2017-12-28] MEDS: ASPIRIN CHEWABLE 81 MG TABLET. PO SCH (08:03)
[2017-12-28] MEDS: CHOLECALCIFEROL (VITAMIN D3) 5,000 UNIT CAPSULE PO SCH (08:06)
--- NOTE | 2017-12-28 08:30 | PDOC ---
PULMONARY PROGRESS NOTES Subjective OFF BIPAP NOT MORE SOA DOES NOT WEAR 02 AT HOME Vitals Vital Signs Date Time Temp Pulse Resp B/P (MAP) Pulse Ox O2 Delivery O2 Flow Rate FiO2 12/28/17 08:03 55 167/72 12/28/17 07:52 95 Venturi Mask 9.0 12/28/17 06:00 24 12/28/17 03:00 98.4 98.4 ROS: No Nausea, No Chest Pain, No Abdominal Pain, No Increase Cough General: Alert, No acute distress Lungs: Clear Cardiovascular: S1, S2 Abdomen: Soft Extremities: No Edema Labs Laboratory Tests Test 12/27/17 04:09 12/27/17 06:30 12/28/17 03:25 O2 Saturation 92 % (92-99) Arterial Blood pH 7.38 (7.35-7.45) Arterial Blood pCO2 at Patient Temp 46 mmHg (35-46) Arterial Blood pO2 at Patient Temp 64 mmHg (65-108) Arterial Blood HCO3 26 mmol/L (21-28) Arterial Blood Base Excess 1 mmol/L (-3-3) FiO2 100.0 White Blood Count 8.8 x10^3/uL (4.0-11.0) 6.9 x10^3/uL (4.0-11.0) Red Blood Count 3.51 x10^6/uL (3.50-5.40) 3.41 x10^6/uL (3.50-5.40) Hemoglobin 11.3 g/dL (12.0-15.5) 11.1 g/dL (12.0-15.5) Hematocrit 33.2 % (36.0-47.0) 32.3 % (36.0-47.0) Mean Corpuscular Volume 95 fL (79-100) 95 fL (79-100) Mean Corpuscular Hemoglobin 32 pg (25-35) 33 pg (25-35) Mean Corpuscular Hemoglobin Concent 34 g/dL (31-37) 35 g/dL (31-37) Red Cell Distribution Width 13.9 % (11.5-14.5) 13.6 % (11.5-14.5) Platelet Count 133 x10^3/uL (140-400) 156 x10^3/uL (140-400) Neutrophils (%) (Auto) 78 % (31-73) 66 % (31-73) Lymphocytes (%) (Auto) 12 % (24-48) 21 % (24-48) Monocytes (%) (Auto) 8 % (0-9) 9 % (0-9) Eosinophils (%) (Auto) 2 % (0-3) 4 % (0-3) Basophils (%) (Auto) 0 % (0-3) 1 % (0-3) Neutrophils # (Auto) 6.9 x10^3uL (1.8-7.7) 4.6 x10^3uL (1.8-7.7) Lymphocytes # (Auto) 1.0 x10^3/uL (1.0-4.8) 1.4 x10^3/uL (1.0-4.8) Monocytes # (Auto) 0.7 x10^3/uL (0.0-1.1) 0.7 x10^3/uL (0.0-1.1) Eosinophils # (Auto) 0.2 x10^3/uL (0.0-0.7) 0.3 x10^3/uL (0.0-0.7) Basophils # (Auto) 0.0 x10^3/uL (0.0-0.2) 0.0 x10^3/uL (0.0-0.2) Sodium Level 137 mmol/L (136-145) 139 mmol/L (136-145) Potassium Level 4.1 mmol/L (3.5-5.1) 4.2 mmol/L (3.5-5.1) Chloride Level 103 mmol/L (98-107) 104 mmol/L (98-107) Carbon Dioxide Level 27 mmol/L (21-32) 28 mmol/L (21-32) Anion Gap 7 (6-14) 7 (6-14) Blood Urea Nitrogen 18 mg/dL (7-20) 23 mg/dL (7-20) Creatinine 0.7 mg/dL (0.6-1.0) 0.6 mg/dL (0.6-1.0) Estimated GFR (Cockcroft-Gault) 79.3 94.8 BUN/Creatinine Ratio 26 (6-20) 38 (6-20) Glucose Level 127 mg/dL (70-99) 108 mg/dL (70-99) Calcium Level 9.9 mg/dL (8.5-10.1) 10.3 mg/dL (8.5-10.1) Total Bilirubin 0.4 mg/dL (0.2-1.0) 0.5 mg/dL (0.2-1.0) Aspartate Amino Transf (AST/SGOT) 59 U/L (15-37) 36 U/L (15-37) Alanine Aminotransferase (ALT/SGPT) 53 U/L (14-59) 40 U/L (14-59) Alkaline Phosphatase 34 U/L (46-116) 28 U/L (46-116) Troponin I Quantitative 0.121 ng/mL (0.000-0.055) Total Protein 6.3 g/dL (6.4-8.2) 5.7 g/dL (6.4-8.2) Albumin 2.8 g/dL (3.4-5.0) 2.3 g/dL (3.4-5.0) Albumin/Globulin Ratio 0.8 (1.0-1.7) 0.7 (1.0-1.7) Triglycerides Level 160 mg/dL (0-150) Cholesterol Level 131 mg/dL (0-200) LDL Cholesterol, Calculated 51 mg/dL (0-100) VLDL Cholesterol, Calculated 32 mg/dL (0-40) Non-HDL Cholesterol Calculated 83 mg/dL (0-129) HDL Cholesterol 48 mg/dL (40-60) Cholesterol/HDL Ratio 2.7 Laboratory Tests Test 12/28/17 03:25 White Blood Count 6.9 x10^3/uL (4.0-11.0) Red Blood Count 3.41 x10^6/uL (3.50-5.40) Hemoglobin 11.1 g/dL (12.0-15.5) Hematocrit 32.3 % (36.0-47.0) Mean Corpuscular Volume 95 fL (79-100) Mean Corpuscular Hemoglobin 33 pg (25-35) Mean Corpuscular Hemoglobin Concent 35 g/dL (31-37) Red Cell Distribution Width 13.6 % (11.5-14.5) Platelet Count 156 x10^3/uL (140-400) Neutrophils (%) (Auto) 66 % (31-73) Lymphocytes (%) (Auto) 21 % (24-48) Monocytes (%) (Auto) 9 % (0-9) Eosinophils (%) (Auto) 4 % (0-3) Basophils (%) (Auto) 1 % (0-3) Neutrophils # (Auto) 4.6 x10^3uL (1.8-7.7) Lymphocytes # (Auto) 1.4 x10^3/uL (1.0-4.8) Monocytes # (Auto) 0.7 x10^3/uL (0.0-1.1) Eosinophils # (Auto) 0.3 x10^3/uL (0.0-0.7) Basophils # (Auto) 0.0 x10^3/uL (0.0-0.2) Sodium Level 139 mmol/L (136-145) Potassium Level 4.2 mmol/L (3.5-5.1) Chloride Level 104 mmol/L (98-107) Carbon Dioxide Level 28 mmol/L (21-32) Anion Gap 7 (6-14) Blood Urea Nitrogen 23 mg/dL (7-20) Creatinine 0.6 mg/dL (0.6-1.0) Estimated GFR (Cockcroft-Gault) 94.8 BUN/Creatinine Ratio 38 (6-20) Glucose Level 108 mg/dL (70-99) Calcium Level 10.3 mg/dL (8.5-10.1) Total Bilirubin 0.5 mg/dL (0.2-1.0) Aspartate Amino Transf (AST/SGOT) 36 U/L (15-37) Alanine Aminotransferase (ALT/SGPT) 40 U/L (14-59) Alkaline Phosphatase 28 U/L (46-116) Total Protein 5.7 g/dL (6.4-8.2) Albumin 2.3 g/dL (3.4-5.0) Albumin/Globulin Ratio 0.7 (1.0-1.7) Triglycerides Level 160 mg/dL (0-150) Cholesterol Level 131 mg/dL (0-200) LDL Cholesterol, Calculated 51 mg/dL (0-100) VLDL Cholesterol, Calculated 32 mg/dL (0-40) Non-HDL Cholesterol Calculated 83 mg/dL (0-129) HDL Cholesterol 48 mg/dL (40-60) Cholesterol/HDL Ratio 2.7 Medications Active Scripts Medications Dose Route/Sig Max Daily Dose Days Date Category Paxil (Paroxetine Hcl) 40 Mg Tablet 45 Mg PO QHS 12/25/17 Reported Targretin (Bexarotene) 60 Gm Gel..gram. 60 Gm TP 12/24/17 Reported Fish Oil 1,200 Mg Fish Oil (Fish Oil/Dha/Epa) 1 Each Capsule 1 Each PO 12/24/17 Reported Tylenol (Acetaminophen) 325 Mg Tablet 1 Tab PO PRN Q4HRS 12/24/17 Reported Senna Laxative (Sennosides) 8.6 Mg Tablet 8.6 Mg PO 12/24/17 Reported Amlodipine Besylate 5 Mg Tablet 5 Mg PO DAILY 12/24/17 Reported Percocet 5-325 Mg Tablet (Oxycodone/Acetaminophen) 1 Each Tablet 1 Tab PO PRN Q8HRS PRN 12/24/17 Reported Calcium (Calcium Carbonate) 600 Mg Tablet 1,200 Mg PO 01/16/17 Reported Protonix (Pantoprazole Sodium) 40 Mg Tablet.dr 1 Tab PO DAILY 01/16/17 Reported Carvedilol 3.125 Mg Tablet 1 Tab PO BID 01/16/17 Reported Children's Aspirin (Aspirin) 81 Mg Tab.chew 81 Mg PO 12/09/14 Reported One Daily (Multivitamin) 1 Each Tablet 1 Each PO 12/09/14 Reported Vitamin D (Cholecalciferol (Vitamin D3)) 2,000 Unit Capsule 1 Cap PO HS 12/09/14 Reported Fish Oil ([place]-3 Fatty Acids) 300 Mg Capsule 1,200 Mg PO DAILY 12/09/14 Reported Hydrocodone-Apap 5-325 (Hydrocodone Bit/Acetaminophen) 1 Each Tablet 1-2 Tab PO Q4-6HRS 12/09/14 Reported Levothyroxine Sodium 100 Mcg Tablet 1 Tab PO DAILY 12/09/14 Reported Vitamin D (Cholecalciferol (Vitamin D3)) 1,000 Unit Capsule 5 Cap PO DAILY 12/09/14 Reported Atorvastatin Calcium 80 Mg Tablet 1 Tab PO DAILY 12/09/14 Reported Impression . IMPRESSION: 1. Acute hypoxemic respiratory failure, could be secondary to atelectasis, pain medication, ileus 2. ILEUS 3. Status post left spiral humeral shaft fracture, open reduction and internal fixation. 4. Chronic obstructive pulmonary disease. 5. GERD 6. Hypothyroidism. 7. Hypertension. Plan . PRN BIPAP O2 FOLLOW GI INPUT : 1. Continue BiPAP PRN 2. NG 3. Elevate head of bed. 4. Start bronchodilator. 5. Start inhaled corticosteroid, Pulmicort b.i.d. 6. Monitor respiratory status very closely. 7. DVT AND GI PROPH 8. Protonix for stress ulcer prophylaxis. ANNABELLE HOLLOWAY MD Dec 28, 2017 08:30
--- NOTE | 2017-12-28 08:33 | RAD ---
Chest radiograph 12/28/2017 6:47 AM INDICATION: Infiltrates COMPARISON: December 27, 2017 TECHNIQUE: Portable frontal semi-upright view of the chest is provided. FINDINGS: The cardiomediastinal silhouette is within normal limits. Nasogastric tube is identified coursing below the diaphragm but distal tip projecting over the left upper quadrant in the expected region of the stomach. Lateral plate and screw fixation of a mid humeral fracture is noted. There are no pleural effusions. There is no pulmonary vascular congestion. There is no pneumothorax. The lungs are clear. IMPRESSION: No acute cardiopulmonary process. Electronically signed by: Erin Coleman MD (12/28/2017 8:29 AM) [id number]
--- NOTE | 2017-12-28 10:23 | PDOC ---
ORTHO PROGRESS NOTES Subjective Patient more responsive and respiratory status improved. Post-op Day: 4 Procedure ORIF Left Humerus fx Vitals Vital Signs Date Time Temp Pulse Resp B/P (MAP) Pulse Ox O2 Delivery O2 Flow Rate FiO2 12/28/17 10:18 20 35 Venturi Mask 12/28/17 09:00 51 142/63 (89) 12/28/17 08:00 99.0 99.0 12/28/17 07:52 9.0 Labs Laboratory Tests Test 12/27/17 04:09 12/27/17 06:30 12/28/17 03:25 O2 Saturation 92 % (92-99) Arterial Blood pH 7.38 (7.35-7.45) Arterial Blood pCO2 at Patient Temp 46 mmHg (35-46) Arterial Blood pO2 at Patient Temp 64 mmHg (65-108) Arterial Blood HCO3 26 mmol/L (21-28) Arterial Blood Base Excess 1 mmol/L (-3-3) FiO2 100.0 White Blood Count 8.8 x10^3/uL (4.0-11.0) 6.9 x10^3/uL (4.0-11.0) Red Blood Count 3.51 x10^6/uL (3.50-5.40) 3.41 x10^6/uL (3.50-5.40) Hemoglobin 11.3 g/dL (12.0-15.5) 11.1 g/dL (12.0-15.5) Hematocrit 33.2 % (36.0-47.0) 32.3 % (36.0-47.0) Mean Corpuscular Volume 95 fL (79-100) 95 fL (79-100) Mean Corpuscular Hemoglobin 32 pg (25-35) 33 pg (25-35) Mean Corpuscular Hemoglobin Concent 34 g/dL (31-37) 35 g/dL (31-37) Red Cell Distribution Width 13.9 % (11.5-14.5) 13.6 % (11.5-14.5) Platelet Count 133 x10^3/uL (140-400) 156 x10^3/uL (140-400) Neutrophils (%) (Auto) 78 % (31-73) 66 % (31-73) Lymphocytes (%) (Auto) 12 % (24-48) 21 % (24-48) Monocytes (%) (Auto) 8 % (0-9) 9 % (0-9) Eosinophils (%) (Auto) 2 % (0-3) 4 % (0-3) Basophils (%) (Auto) 0 % (0-3) 1 % (0-3) Neutrophils # (Auto) 6.9 x10^3uL (1.8-7.7) 4.6 x10^3uL (1.8-7.7) Lymphocytes # (Auto) 1.0 x10^3/uL (1.0-4.8) 1.4 x10^3/uL (1.0-4.8) Monocytes # (Auto) 0.7 x10^3/uL (0.0-1.1) 0.7 x10^3/uL (0.0-1.1) Eosinophils # (Auto) 0.2 x10^3/uL (0.0-0.7) 0.3 x10^3/uL (0.0-0.7) Basophils # (Auto) 0.0 x10^3/uL (0.0-0.2) 0.0 x10^3/uL (0.0-0.2) Sodium Level 137 mmol/L (136-145) 139 mmol/L (136-145) Potassium Level 4.1 mmol/L (3.5-5.1) 4.2 mmol/L (3.5-5.1) Chloride Level 103 mmol/L (98-107) 104 mmol/L (98-107) Carbon Dioxide Level 27 mmol/L (21-32) 28 mmol/L (21-32) Anion Gap 7 (6-14) 7 (6-14) Blood Urea Nitrogen 18 mg/dL (7-20) 23 mg/dL (7-20) Creatinine 0.7 mg/dL (0.6-1.0) 0.6 mg/dL (0.6-1.0) Estimated GFR (Cockcroft-Gault) 79.3 94.8 BUN/Creatinine Ratio 26 (6-20) 38 (6-20) Glucose Level 127 mg/dL (70-99) 108 mg/dL (70-99) Calcium Level 9.9 mg/dL (8.5-10.1) 10.3 mg/dL (8.5-10.1) Total Bilirubin 0.4 mg/dL (0.2-1.0) 0.5 mg/dL (0.2-1.0) Aspartate Amino Transf (AST/SGOT) 59 U/L (15-37) 36 U/L (15-37) Alanine Aminotransferase (ALT/SGPT) 53 U/L (14-59) 40 U/L (14-59) Alkaline Phosphatase 34 U/L (46-116) 28 U/L (46-116) Troponin I Quantitative 0.121 ng/mL (0.000-0.055) Total Protein 6.3 g/dL (6.4-8.2) 5.7 g/dL (6.4-8.2) Albumin 2.8 g/dL (3.4-5.0) 2.3 g/dL (3.4-5.0) Albumin/Globulin Ratio 0.8 (1.0-1.7) 0.7 (1.0-1.7) Triglycerides Level 160 mg/dL (0-150) Cholesterol Level 131 mg/dL (0-200) LDL Cholesterol, Calculated 51 mg/dL (0-100) VLDL Cholesterol, Calculated 32 mg/dL (0-40) Non-HDL Cholesterol Calculated 83 mg/dL (0-129) HDL Cholesterol 48 mg/dL (40-60) Cholesterol/HDL Ratio 2.7 Laboratory Tests Test 12/28/17 03:25 White Blood Count 6.9 x10^3/uL (4.0-11.0) Red Blood Count 3.41 x10^6/uL (3.50-5.40) Hemoglobin 11.1 g/dL (12.0-15.5) Hematocrit 32.3 % (36.0-47.0) Mean Corpuscular Volume 95 fL (79-100) Mean Corpuscular Hemoglobin 33 pg (25-35) Mean Corpuscular Hemoglobin Concent 35 g/dL (31-37) Red Cell Distribution Width 13.6 % (11.5-14.5) Platelet Count 156 x10^3/uL (140-400) Neutrophils (%) (Auto) 66 % (31-73) Lymphocytes (%) (Auto) 21 % (24-48) Monocytes (%) (Auto) 9 % (0-9) Eosinophils (%) (Auto) 4 % (0-3) Basophils (%) (Auto) 1 % (0-3) Neutrophils # (Auto) 4.6 x10^3uL (1.8-7.7) Lymphocytes # (Auto) 1.4 x10^3/uL (1.0-4.8) Monocytes # (Auto) 0.7 x10^3/uL (0.0-1.1) Eosinophils # (Auto) 0.3 x10^3/uL (0.0-0.7) Basophils # (Auto) 0.0 x10^3/uL (0.0-0.2) Sodium Level 139 mmol/L (136-145) Potassium Level 4.2 mmol/L (3.5-5.1) Chloride Level 104 mmol/L (98-107) Carbon Dioxide Level 28 mmol/L (21-32) Anion Gap 7 (6-14) Blood Urea Nitrogen 23 mg/dL (7-20) Creatinine 0.6 mg/dL (0.6-1.0) Estimated GFR (Cockcroft-Gault) 94.8 BUN/Creatinine Ratio 38 (6-20) Glucose Level 108 mg/dL (70-99) Calcium Level 10.3 mg/dL (8.5-10.1) Total Bilirubin 0.5 mg/dL (0.2-1.0) Aspartate Amino Transf (AST/SGOT) 36 U/L (15-37) Alanine Aminotransferase (ALT/SGPT) 40 U/L (14-59) Alkaline Phosphatase 28 U/L (46-116) Total Protein 5.7 g/dL (6.4-8.2) Albumin 2.3 g/dL (3.4-5.0) Albumin/Globulin Ratio 0.7 (1.0-1.7) Triglycerides Level 160 mg/dL (0-150) Cholesterol Level 131 mg/dL (0-200) LDL Cholesterol, Calculated 51 mg/dL (0-100) VLDL Cholesterol, Calculated 32 mg/dL (0-40) Non-HDL Cholesterol Calculated 83 mg/dL (0-129) HDL Cholesterol 48 mg/dL (40-60) Cholesterol/HDL Ratio 2.7 Assessment and Plan NWB left UE Splint to remain in place transferring from ICU resp improved JOEL PHOENIX MAINSPRING [employer]QUE TESTER Dec 28, 2017 10:23
--- NOTE | 2017-12-28 11:41 | PDOC ---
PROGRESS NOTES Chief Complaint Chief Complaint s/p ORIF L humerus PO day 4 Acute hypoxic respiratory failure HTN GERD Osteoporosis Hypothyroid state on replacement History of Present Illness History of Present Illness Pt seen and examined in ICU Dw RN O2 via nasal cannula NG tube in place L arm sling Diane catheter Pt complains constipation No BM since Vitals Vitals Vital Signs Date Time Temp Pulse Resp B/P (MAP) Pulse Ox O2 Delivery O2 Flow Rate FiO2 12/28/17 11:00 58 20 144/61 (88) 93 Nasal Cannula 4.0 12/28/17 08:00 99.0 99.0 Physical Exam General: Alert, Oriented X3, No acute distress Heart: Regular rate, No murmurs, Other (regular rate and rhythm, radial pulse 2 +) Lungs: Clear Abdomen: Soft, No tenderness Extremities: No clubbing, No edema Skin: No rashes, Other (L arm with CDI dressings, in sling) Labs LABS Laboratory Tests Test 12/28/17 03:25 White Blood Count 6.9 x10^3/uL (4.0-11.0) Red Blood Count 3.41 x10^6/uL (3.50-5.40) Hemoglobin 11.1 g/dL (12.0-15.5) Hematocrit 32.3 % (36.0-47.0) Mean Corpuscular Volume 95 fL (79-100) Mean Corpuscular Hemoglobin 33 pg (25-35) Mean Corpuscular Hemoglobin Concent 35 g/dL (31-37) Red Cell Distribution Width 13.6 % (11.5-14.5) Platelet Count 156 x10^3/uL (140-400) Neutrophils (%) (Auto) 66 % (31-73) Lymphocytes (%) (Auto) 21 % (24-48) Monocytes (%) (Auto) 9 % (0-9) Eosinophils (%) (Auto) 4 % (0-3) Basophils (%) (Auto) 1 % (0-3) Neutrophils # (Auto) 4.6 x10^3uL (1.8-7.7) Lymphocytes # (Auto) 1.4 x10^3/uL (1.0-4.8) Monocytes # (Auto) 0.7 x10^3/uL (0.0-1.1) Eosinophils # (Auto) 0.3 x10^3/uL (0.0-0.7) Basophils # (Auto) 0.0 x10^3/uL (0.0-0.2) Sodium Level 139 mmol/L (136-145) Potassium Level 4.2 mmol/L (3.5-5.1) Chloride Level 104 mmol/L (98-107) Carbon Dioxide Level 28 mmol/L (21-32) Anion Gap 7 (6-14) Blood Urea Nitrogen 23 mg/dL (7-20) Creatinine 0.6 mg/dL (0.6-1.0) Estimated GFR (Cockcroft-Gault) 94.8 BUN/Creatinine Ratio 38 (6-20) Glucose Level 108 mg/dL (70-99) Calcium Level 10.3 mg/dL (8.5-10.1) Total Bilirubin 0.5 mg/dL (0.2-1.0) Aspartate Amino Transf (AST/SGOT) 36 U/L (15-37) Alanine Aminotransferase (ALT/SGPT) 40 U/L (14-59) Alkaline Phosphatase 28 U/L (46-116) Total Protein 5.7 g/dL (6.4-8.2) Albumin 2.3 g/dL (3.4-5.0) Albumin/Globulin Ratio 0.7 (1.0-1.7) Triglycerides Level 160 mg/dL (0-150) Cholesterol Level 131 mg/dL (0-200) LDL Cholesterol, Calculated 51 mg/dL (0-100) VLDL Cholesterol, Calculated 32 mg/dL (0-40) Non-HDL Cholesterol Calculated 83 mg/dL (0-129) HDL Cholesterol 48 mg/dL (40-60) Cholesterol/HDL Ratio 2.7 Review of Systems Review of Systems CO constipation CO bloating Assessment and Plan Assessmemt and Plan Problems Medical Problems: (1) Fall Status: Acute (2) Rib pain on right side Status: Acute s/p ORIF L humerus PO day 4 Acute hypoxic respiratory failure HTN GERD Osteoporosis Hypothyroid state on replacement Plan: ICU monitoring PRN narcotics Diane catheter NG tube L arm sling Miralax Colace Possible transfer to floor today Comment Review of Relevant I have reviewed the following items harvey (where applicable) has been applied. Labs Laboratory Tests Test 12/27/17 04:09 12/27/17 06:30 12/28/17 03:25 O2 Saturation 92 % (92-99) Arterial Blood pH 7.38 (7.35-7.45) Arterial Blood pCO2 at Patient Temp 46 mmHg (35-46) Arterial Blood pO2 at Patient Temp 64 mmHg (65-108) Arterial Blood HCO3 26 mmol/L (21-28) Arterial Blood Base Excess 1 mmol/L (-3-3) FiO2 100.0 White Blood Count 8.8 x10^3/uL (4.0-11.0) 6.9 x10^3/uL (4.0-11.0) Red Blood Count 3.51 x10^6/uL (3.50-5.40) 3.41 x10^6/uL (3.50-5.40) Hemoglobin 11.3 g/dL (12.0-15.5) 11.1 g/dL (12.0-15.5) Hematocrit 33.2 % (36.0-47.0) 32.3 % (36.0-47.0) Mean Corpuscular Volume 95 fL (79-100) 95 fL (79-100) Mean Corpuscular Hemoglobin 32 pg (25-35) 33 pg (25-35) Mean Corpuscular Hemoglobin Concent 34 g/dL (31-37) 35 g/dL (31-37) Red Cell Distribution Width 13.9 % (11.5-14.5) 13.6 % (11.5-14.5) Platelet Count 133 x10^3/uL (140-400) 156 x10^3/uL (140-400) Neutrophils (%) (Auto) 78 % (31-73) 66 % (31-73) Lymphocytes (%) (Auto) 12 % (24-48) 21 % (24-48) Monocytes (%) (Auto) 8 % (0-9) 9 % (0-9) Eosinophils (%) (Auto) 2 % (0-3) 4 % (0-3) Basophils (%) (Auto) 0 % (0-3) 1 % (0-3) Neutrophils # (Auto) 6.9 x10^3uL (1.8-7.7) 4.6 x10^3uL (1.8-7.7) Lymphocytes # (Auto) 1.0 x10^3/uL (1.0-4.8) 1.4 x10^3/uL (1.0-4.8) Monocytes # (Auto) 0.7 x10^3/uL (0.0-1.1) 0.7 x10^3/uL (0.0-1.1) Eosinophils # (Auto) 0.2 x10^3/uL (0.0-0.7) 0.3 x10^3/uL (0.0-0.7) Basophils # (Auto) 0.0 x10^3/uL (0.0-0.2) 0.0 x10^3/uL (0.0-0.2) Sodium Level 137 mmol/L (136-145) 139 mmol/L (136-145) Potassium Level 4.1 mmol/L (3.5-5.1) 4.2 mmol/L (3.5-5.1) Chloride Level 103 mmol/L (98-107) 104 mmol/L (98-107) Carbon Dioxide Level 27 mmol/L (21-32) 28 mmol/L (21-32) Anion Gap 7 (6-14) 7 (6-14) Blood Urea Nitrogen 18 mg/dL (7-20) 23 mg/dL (7-20) Creatinine 0.7 mg/dL (0.6-1.0) 0.6 mg/dL (0.6-1.0) Estimated GFR (Cockcroft-Gault) 79.3 94.8 BUN/Creatinine Ratio 26 (6-20) 38 (6-20) Glucose Level 127 mg/dL (70-99) 108 mg/dL (70-99) Calcium Level 9.9 mg/dL (8.5-10.1) 10.3 mg/dL (8.5-10.1) Total Bilirubin 0.4 mg/dL (0.2-1.0) 0.5 mg/dL (0.2-1.0) Aspartate Amino Transf (AST/SGOT) 59 U/L (15-37) 36 U/L (15-37) Alanine Aminotransferase (ALT/SGPT) 53 U/L (14-59) 40 U/L (14-59) Alkaline Phosphatase 34 U/L (46-116) 28 U/L (46-116) Troponin I Quantitative 0.121 ng/mL (0.000-0.055) Total Protein 6.3 g/dL (6.4-8.2) 5.7 g/dL (6.4-8.2) Albumin 2.8 g/dL (3.4-5.0) 2.3 g/dL (3.4-5.0) Albumin/Globulin Ratio 0.8 (1.0-1.7) 0.7 (1.0-1.7) Triglycerides Level 160 mg/dL (0-150) Cholesterol Level 131 mg/dL (0-200) LDL Cholesterol, Calculated 51 mg/dL (0-100) VLDL Cholesterol, Calculated 32 mg/dL (0-40) Non-HDL Cholesterol Calculated 83 mg/dL (0-129) HDL Cholesterol 48 mg/dL (40-60) Cholesterol/HDL Ratio 2.7 Laboratory Tests Test 12/28/17 03:25 White Blood Count 6.9 x10^3/uL (4.0-11.0) Red Blood Count 3.41 x10^6/uL (3.50-5.40) Hemoglobin 11.1 g/dL (12.0-15.5) Hematocrit 32.3 % (36.0-47.0) Mean Corpuscular Volume 95 fL (79-100) Mean Corpuscular Hemoglobin 33 pg (25-35) Mean Corpuscular Hemoglobin Concent 35 g/dL (31-37) Red Cell Distribution Width 13.6 % (11.5-14.5) Platelet Count 156 x10^3/uL (140-400) Neutrophils (%) (Auto) 66 % (31-73) Lymphocytes (%) (Auto) 21 % (24-48) Monocytes (%) (Auto) 9 % (0-9) Eosinophils (%) (Auto) 4 % (0-3) Basophils (%) (Auto) 1 % (0-3) Neutrophils # (Auto) 4.6 x10^3uL (1.8-7.7) Lymphocytes # (Auto) 1.4 x10^3/uL (1.0-4.8) Monocytes # (Auto) 0.7 x10^3/uL (0.0-1.1) Eosinophils # (Auto) 0.3 x10^3/uL (0.0-0.7) Basophils # (Auto) 0.0 x10^3/uL (0.0-0.2) Sodium Level 139 mmol/L (136-145) Potassium Level 4.2 mmol/L (3.5-5.1) Chloride Level 104 mmol/L (98-107) Carbon Dioxide Level 28 mmol/L (21-32) Anion Gap 7 (6-14) Blood Urea Nitrogen 23 mg/dL (7-20) Creatinine 0.6 mg/dL (0.6-1.0) Estimated GFR (Cockcroft-Gault) 94.8 BUN/Creatinine Ratio 38 (6-20) Glucose Level 108 mg/dL (70-99) Calcium Level 10.3 mg/dL (8.5-10.1) Total Bilirubin 0.5 mg/dL (0.2-1.0) Aspartate Amino Transf (AST/SGOT) 36 U/L (15-37) Alanine Aminotransferase (ALT/SGPT) 40 U/L (14-59) Alkaline Phosphatase 28 U/L (46-116) Total Protein 5.7 g/dL (6.4-8.2) Albumin 2.3 g/dL (3.4-5.0) Albumin/Globulin Ratio 0.7 (1.0-1.7) Triglycerides Level 160 mg/dL (0-150) Cholesterol Level 131 mg/dL (0-200) LDL Cholesterol, Calculated 51 mg/dL (0-100) VLDL Cholesterol, Calculated 32 mg/dL (0-40) Non-HDL Cholesterol Calculated 83 mg/dL (0-129) HDL Cholesterol 48 mg/dL (40-60) Cholesterol/HDL Ratio 2.7 Medications Current Medications Fentanyl Citrate (Fentanyl 2ml Vial) 25 mcg 1X ONCE IV Last administered on 12/24/17at 14:03; Start 12/24/17 at 13:45; Stop 12/24/17 at 13:46; Status DC Fentanyl Citrate (Fentanyl 2ml Vial) 25 mcg 1X ONCE IV Last administered on 12/24/17at 15:26; Start 12/24/17 at 15:00; Stop 12/24/17 at 15:01; Status DC Ondansetron HCl (Zofran) 4 mg PRN Q8HRS PRN IV NAUSEA/VOMITING Last administered on 12/24/17at 17:17; Start 12/24/17 at 15:00; Stop 12/25/17 at 14:59; Status DC Fentanyl Citrate (Fentanyl 2ml Vial) 25 mcg PRN Q3HRS PRN IV PAIN Last administered on 12/25/17at 06:14; Start 12/24/17 at 15:00; Stop 12/25/17 at 14:59; Status DC Albuterol Sulfate (Ventolin Neb Soln) 2.5 mg PRN Q4HRS PRN NEB SHORTNESS OF BREATH Last administered on 12/26/17at 16:33; Start 12/24/17 at 18:15 Acetaminophen (Tylenol) 325 mg PRN Q4HRS PO ; Start 12/24/17 at 20:00; Stop 12/25 at 22:04; Status DC Amlodipine Besylate (Norvasc) 5 mg DAILY PO Last administered on 12/27/17at 10:15 ; Start 12/25/17 at 09:00; Stop 12/27/17 at 10:23; Status DC Aspirin (Children'S Aspirin) 81 mg DAILY07 PO Last administered on 12/28/17at 08 :03; Start 12/25/17 at 07:00 Carvedilol (Coreg) 3.125 mg BID PO Last administered on 12/26/17at 10:17; Start 12/24/17 at 21:00; Stop 12/26/17 at 15:15; Status DC Acetaminophen/ Hydrocodone Bitart (Lortab 5/325) 1 tab PRN Q4HRS PRN PO PAIN Last administered on 12/24/17at 23:32; Start 12/24/17 at 20:00; Stop 12/25/17 at 15: 39; Status DC Levothyroxine Sodium (Synthroid) 100 mcg DAILY PO Last administered on at 08:03; Start 12/25/17 at 09:00 Pantoprazole Sodium (Protonix) 40 mg DAILY PO ; Start 12/25/17 at 09:00; Stop 12/25/17 at 09:00; Status DC Atorvastatin Calcium (Lipitor) 80 mg QHS PO Last administered on 12/27/17at 21:35 ; Start 12/24/17 at 21:00 Non-Formulary Medication (Cholecalciferol (Vitamin D3) (Vitamin D)) 5 cap WEEKLY PO ; Start 12/31/17 at 09:00; Status UNV Vitamin D (Vitamin D3) 2,000 unit HS PO Last administered on 12/27/17 21:35; Start 12/24/17 at 21:00 Fish Oil (Fish Oil) 1,000 mg DAILY PO Last administered on 12/27/17 10:14; Start 12/25/17 at 09:00 Paroxetine HCl (Paxil) 45 mg DAILY PO ; Start 12/25/17 at 09:00; Stop 12/25/17 at 09:00; Status DC Calcium Carbonate/ Glycine (Oscal) 500 mg TIDAFTMEAL PO Last administered on 08:02; Start 12/25/17 at 09:00 Sennosides (Senna) 8.6 mg PRN BID PRN PO CONSTIPATION Last administered on 12/28 08:03; Start 12/24/17 at 20:00 Enoxaparin Sodium (Lovenox 40mg Syringe) 40 mg Q24H SQ Last administered on 12/27 21:36; Start 12/24/17 at 20:15 Pantoprazole Sodium (Protonix) 40 mg DAILYAC PO Last administered on 12/27/17 10:14; Start 12/25/17 at 07:30 Fentanyl Citrate (Fentanyl 2ml Vial) 50 mcg PRN Q2HR PRN IV SEVERE PAIN Last administered on 12/27/17 17:14; Start 12/25/17 at 07:00 Non-Formulary Medication (Paroxetine Hcl (Paxil)) 45 mg QHS PO ; Start 12/25/17 at 21:00; Status UNV Paroxetine HCl (Paxil) 45 mg QHS PO Last administered on 12/27/17 21:36; Start 12/25/17 at 21:00 Vitamin D (Vitamin D3) 5,000 unit DAILY PO Last administered on 12/28/17 08:06 ; Start 12/25/17 at 09:00 Cefazolin Sodium 50 ml @ 100 mls/hr 1X ONCE IV Last administered on 12/25/17at 15:45; Start 12/25/17 at 10:15; Stop 12/25/17 at 10:44; Status DC Propofol 20 ml @ As Directed STK-MED ONCE IV ; Start 12/25/17 at 14:16; Stop 12/25 at 14:17; Status DC Fentanyl Citrate (Fentanyl 2ml Vial) 100 mcg STK-MED ONCE .ROUTE ; Start at 14:16; Stop 12/25/17 at 14:17; Status DC Ondansetron HCl (Zofran) 4 mg PRN Q6HRS PRN IV NAUSEA/VOMITING; Start 12/25/17 at 15:00; Stop 12/26/17 at 14:59; Status DC Fentanyl Citrate (Fentanyl 2ml Vial) 25 mcg PRN Q5MIN PRN IV MILD PAIN; Start 12/25/17 at 15:00; Stop 12/25/17 at 20:00; Status DC Fentanyl Citrate (Fentanyl 2ml Vial) 50 mcg PRN Q5MIN PRN IV MODERATE TO SEVERE PAIN; Start 12/25/17 at 15:00; Stop 12/25/17 at 20:00; Status DC Morphine Sulfate (Morphine Sulfate) 1 mg PRN Q10MIN PRN IV SEVERE PAIN; Start 12/25/17 at 15:00; Stop 12/25/17 at 20:00; Status DC Ringer's Solution 1,000 ml @ 30 mls/hr Q24H IV Last administered on 12/25/17at 15:01; Start 12/25/17 at 14:56; Stop 12/26/17 at 02:55; Status DC Lidocaine HCl (Xylocaine-Mpf 1% 2ml Vial) 2 ml 1X PRN PRN ID IV START; Start at 15:00; Stop 12/25/17 at 20:00; Status DC Hydromorphone HCl (Dilaudid) 0.5 mg PRN Q10MIN PRN IV SEV PAIN, Second choice; Start 12/25/17 at 15:00; Stop 12/25/17 at 20:00; Status DC Prochlorperazine Edisylate (Compazine) 5 mg PACU PRN PRN IV NAUSEA, MRX1; Start 12/25/17 at 15:00; Stop 12/25/17 at 20:00; Status DC Dexamethasone Sodium Phosphate (Decadron) 20 mg STK-MED ONCE .ROUTE ; Start 12/25 at 14:58; Stop 12/25/17 at 14:59; Status DC Famotidine (Pepcid Vial) 20 mg STK-MED ONCE .ROUTE ; Start 12/25/17 at 14:58; Stop 12/25/17 at 14:59; Status DC Lidocaine HCl (Xylocaine-Mpf 1% 5ml Vial) 5 ml STK-MED ONCE .ROUTE ; Start at 14:58; Stop 12/25/17 at 14:59; Status DC Rocuronium Sterling (Zemuron) 50 mg STK-MED ONCE .ROUTE ; Start 12/25/17 at 14:58 ; Stop 12/25/17 at 14:59; Status DC Lidocaine HCl (Xylocaine 1% Pf 30ml Vial) 30 ml STK-MED ONCE .ROUTE Last administered on 12/25/17at 15:58; Start 12/25/17 at 14:15; Stop 12/25/17 at 15:16; Status DC Bupivacaine HCl (Marcaine 0.5%) 50 ml STK-MED ONCE .ROUTE Last administered on 12/25/17at 15:58; Start 12/25/17 at 14:16; Stop 12/25/17 at 15:16; Status DC Cefazolin Sodium 1 gm/Dextrose 50 ml @ 100 mls/hr Q6H IV ; Start 12/25/17 at 15: 45; Stop 12/26/17 at 04:14; Status UNV Acetaminophen/ Hydrocodone Bitart (Lortab 5/325) 1 tab PRN Q4HRS PRN PO MODERATE PAIN Last administered on 12/28/17at 10:18; Start 12/25/17 at 15:30 Ephedrine Sulfate (ePHEDrine PF IN SALINE SYRINGE) 50 mg STK-MED ONCE IV ; Start 12/25/17 at 15:43; Stop 12/25/17 at 15:44; Status DC Glycopyrrolate (Robinul) 1 mg STK-MED ONCE .ROUTE ; Start 12/25/17 at 15:45; Stop 12/25/17 at 15:46; Status DC Cefazolin Sodium (Ancef) 1 gm Q6H IVP Last administered on 12/26/17at 11:45; Start 12/25/17 at 23:00; Stop 12/26/17 at 14:00; Status DC Neostigmine Methylsulfate (Neostigmine Methylsulfate) 5 mg STK-MED ONCE .ROUTE ; Start 12/25/17 at 17:34; Stop 12/25/17 at 17:35; Status DC Desflurane (Suprane) 90 ml STK-MED ONCE IH ; Start 12/25/17 at 17:34; Stop at 17:35; Status DC Acetaminophen (Tylenol) 325 mg PRN Q4HRS PRN PO MILD PAIN / TEMP Last administered on 12/25/17at 22:13; Start 12/25/17 at 22:15 Lorazepam (Ativan) 0.5 mg PRN Q4HRS PRN PO ANXIETY / AGITATION Last administered on 12/26/17at 21:14; Start 12/25/17 at 23:45 Enoxaparin Sodium (Lovenox Per Pharmacy Prophylaxis Dosing) 1 each PRN DAILY PRN MC SEE COMMENTS; Start 12/26/17 at 12:45; Status UNV Carvedilol (Coreg) 3.125 mg BIDWMEALS PO Last administered on 12/28/17at 08:02; Start 12/26/17 at 17:00 Albuterol/ Ipratropium (Duoneb) 3 ml 1X ONCE NEB Last administered on at 04:00; Start 12/27/17 at 04:00; Stop 12/27/17 at 04:01; Status DC Amlodipine Besylate (Norvasc) 10 mg DAILY PO Last administered on 12/28/17at 08: 03; Start 12/27/17 at 11:00 Enalaprilat (Vasotec Inj) 1.25 mg PRN Q6HRS PRN IVP HYPERTENSION, SEE COMMENTS ; Start 12/27/17 at 10:30 Albuterol/ Ipratropium (Duoneb) 3 ml RTQID NEB Last administered on 12/28/17at 11:33; Start 12/27/17 at 12:00 Budesonide (Pulmicort) 0.5 mg RTBID NEB Last administered on 12/28/17at 07:49; Start 12/27/17 at 12:00 Amino Acids/ Glycerin/ Electrolytes 1,000 ml @ 80 mls/hr [id number] IV Last administered on 12/28/17at 02:56; Start 12/27/17 at 14:00 Polyethylene Glycol (miraLAX PACKET) 17 gm DAILY PO ; Start 12/28/17 at 12:00 Docusate Sodium (Colace) 100 mg PRN DAILY PRN PO CONSTIPATION; Start 12/28/17 at 11:30; Status UNV Active Scripts Active Reported Paxil (Paroxetine Hcl) 40 Mg Tablet 45 Mg PO QHS Targretin (Bexarotene) 60 Gm Gel..gram. 60 Gm TP Fish Oil 1,200 Mg Fish Oil (Fish Oil/Dha/Epa) 1 Each Capsule 1 Each PO Tylenol (Acetaminophen) 325 Mg Tablet 1 Tab PO PRN Q4HRS Senna Laxative (Sennosides) 8.6 Mg Tablet 8.6 Mg PO Amlodipine Besylate 5 Mg Tablet 5 Mg PO DAILY Percocet 5-325 Mg Tablet (Oxycodone/Acetaminophen) 1 Each Tablet 1 Tab PO PRN Q8HRS PRN Calcium (Calcium Carbonate) 600 Mg Tablet 1,200 Mg PO Protonix (Pantoprazole Sodium) 40 Mg Tablet.dr 1 Tab PO DAILY Carvedilol 3.125 Mg Tablet 1 Tab PO BID Children's Aspirin (Aspirin) 81 Mg Tab.chew 81 Mg PO One Daily (Multivitamin) 1 Each Tablet 1 Each PO Vitamin D (Cholecalciferol (Vitamin D3)) 2,000 Unit Capsule 1 Cap PO HS Fish Oil ([place]-3 Fatty Acids) 300 Mg Capsule 1,200 Mg PO DAILY Hydrocodone-Apap 5-325 (Hydrocodone Bit/Acetaminophen) 1 Each Tablet 1-2 Tab PO Q4-6HRS Levothyroxine Sodium 100 Mcg Tablet 1 Tab PO DAILY Vitamin D (Cholecalciferol (Vitamin D3)) 1,000 Unit Capsule 5 Cap PO DAILY Atorvastatin Calcium 80 Mg Tablet 1 Tab PO DAILY Vitals/I & O Vital Sign - Last 24 Hours 12/27/17 12/27/17 12/27/17 12/27/17 11:53 12:00 13:00 14:00 Pulse 62 48 64 Resp 19 20 28 B/P (MAP) 160/65 (96) 161/68 (99) 182/73 (109) Pulse Ox 93 93 93 92 O2 Delivery BiPAP/CPAP BiPAP/CPAP BiPAP/CPAP Venturi Mask O2 Flow Rate 9.0 12/27/17 12/27/17 12/27/17 12/27/17 14:09 16:05 16:32 17:00 Pulse 75 76 Resp 22 B/P (MAP) 177/71 177/79 (111) Pulse Ox 93 90 89 O2 Delivery BiPAP/CPAP Venturi Mask BiPAP/CPAP O2 Flow Rate 15.0 12/27/17 12/27/17 12/27/17 12/27/17 17:14 17:14 17:24 17:44 Pulse Resp 20 18 B/P (MAP) () Pulse Ox 90 92 92 O2 Delivery Venturi Mask BiPAP/CPAP BiPAP/CPAP O2 Flow Rate 9.0 12/27/17 12/27/17 12/27/17 12/27/17 17:52 19:30 19:33 19:35 Temp 98.4 98.4 Pulse 56 55 Resp 28 20 B/P (MAP) 117/52 (73) 152/72 (98) Pulse Ox 93 95 92 92 O2 Delivery BiPAP/CPAP BiPAP/CPAP BiPAP/CPAP BiPAP/CPAP 12/27/17 12/27/17 12/27/17 12/27/17 19:45 20:00 21:00 21:35 Pulse 57 50 Resp 20 24 20 B/P (MAP) 151/60 (90) 116/50 (72) Pulse Ox 94 95 94 O2 Delivery Bi-pap BiPAP/CPAP BiPAP/CPAP BiPAP/CPAP 12/27/17 12/27/17 12/27/17 12/27/17 22:00 22:35 23:00 23:51 Temp 98.4 98.4 Pulse 51 56 Resp 22 16 20 B/P (MAP) 137/57 (83) 135/57 (83) Pulse Ox 95 95 96 O2 Delivery BiPAP/CPAP BiPAP/CPAP BiPAP/CPAP O2 Flow Rate 9.0 12/27/17 12/28/17 12/28/17 12/28/17 23:53 00:00 01:00 02:00 Pulse 56 55 50 Resp 21 20 20 B/P (MAP) 118/54 (75) 118/59 (78) 115/59 (77) Pulse Ox 95 93 94 O2 Delivery Bi-pap BiPAP/CPAP BiPAP/CPAP BiPAP/CPAP 12/28/17 12/28/17 12/28/17 12/28/17 02:21 03:00 03:36 03:50 Temp 98.4 98.4 Pulse 54 Resp 20 20 B/P (MAP) 141/62 (88) Pulse Ox 93 94 94 O2 Delivery BiPAP/CPAP BiPAP/CPAP Bi-pap BiPAP/CPAP O2 Flow Rate 9.0 12/28/17 12/28/17 12/28/17 12/28/17 04:00 04:22 05:00 05:34 Pulse 54 55 Resp 20 20 B/P (MAP) 143/67 (92) 143/64 (90) Pulse Ox 94 92 94 94 O2 Delivery BiPAP/CPAP BiPAP/CPAP BiPAP/CPAP BiPAP/CPAP 12/28/17 12/28/17 12/28/17 12/28/17 06:00 07:00 07:25 07:52 Pulse 54 54 Resp 24 12 B/P (MAP) 160/71 (100) 155/78 (103) Pulse Ox 94 94 94 95 O2 Delivery Venturi Mask Venturi Mask Venturi Mask Venturi Mask O2 Flow Rate 9.0 9.0 12/28/17 12/28/17 12/28/17 12/28/17 08:00 08:00 08:02 08:03 Temp 99.0 99.0 Pulse 56 55 55 Resp 12 B/P (MAP) 167/72 (103) 167/72 167/72 Pulse Ox 95 O2 Delivery Venturi Mask Venturi Mask 12/28/17 12/28/17 12/28/17 12/28/17 09:00 10:00 10:18 11:00 Pulse 51 54 58 Resp 16 21 20 20 B/P (MAP) 142/63 (89) 148/68 (94) 144/61 (88) Pulse Ox 93 92 35 93 O2 Delivery Venturi Mask Venturi Mask Venturi Mask Nasal Cannula O2 Flow Rate 4.0 Intake and Output 12/27/17 12/27/17 12/28/17 15:00 23:00 07:00 Intake Total 258 ml 1100 ml Output Total 200 ml 900 ml 380 ml Balance -200 ml -642 ml 720 ml RON PAINTER III DO Dec 28, 2017 11:41
[2017-12-28] MEDS: DOCUSATE SODIUM 100 MG CAPSULE. PO PRN (12:25)
[2017-12-28] MEDS: POLYETHYLENE GLYCOL 3350 17 GM PACKET. PO SCH (12:25)
--- NOTE | 2017-12-28 15:04 | PDOC ---
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 TECHNICIAN 12/28/17 1504: CARDIO Progress Notes Date and Time Date of Service 12/28/2017 Time of Evaluation 1500 Subjective Subjective: No Chest Pain, No shortness of breath, No Palpitations, No Dizziness Vitals Vitals Vital Signs Date Time Temp Pulse Resp B/P (MAP) Pulse Ox O2 Delivery O2 Flow Rate FiO2 12/28/17 14:36 Nasal Cannula 3.0 12/28/17 12:00 98.3 65 21 142/64 (90) 93 98.3 Weight Weight [ ] Input and Output Intake and Output Intake and Output 12/28/17 07:00 Intake Total 1358 ml Output Total 1480 ml Balance -122 ml IV Total 1298 ml Other 60 ml Output Urine Total 1480 ml Laboratory Labs Laboratory Tests Test 12/28/17 03:25 White Blood Count 6.9 x10^3/uL (4.0-11.0) Red Blood Count 3.41 x10^6/uL (3.50-5.40) Hemoglobin 11.1 g/dL (12.0-15.5) Hematocrit 32.3 % (36.0-47.0) Mean Corpuscular Volume 95 fL (79-100) Mean Corpuscular Hemoglobin 33 pg (25-35) Mean Corpuscular Hemoglobin Concent 35 g/dL (31-37) Red Cell Distribution Width 13.6 % (11.5-14.5) Platelet Count 156 x10^3/uL (140-400) Neutrophils (%) (Auto) 66 % (31-73) Lymphocytes (%) (Auto) 21 % (24-48) Monocytes (%) (Auto) 9 % (0-9) Eosinophils (%) (Auto) 4 % (0-3) Basophils (%) (Auto) 1 % (0-3) Neutrophils # (Auto) 4.6 x10^3uL (1.8-7.7) Lymphocytes # (Auto) 1.4 x10^3/uL (1.0-4.8) Monocytes # (Auto) 0.7 x10^3/uL (0.0-1.1) Eosinophils # (Auto) 0.3 x10^3/uL (0.0-0.7) Basophils # (Auto) 0.0 x10^3/uL (0.0-0.2) Sodium Level 139 mmol/L (136-145) Potassium Level 4.2 mmol/L (3.5-5.1) Chloride Level 104 mmol/L (98-107) Carbon Dioxide Level 28 mmol/L (21-32) Anion Gap 7 (6-14) Blood Urea Nitrogen 23 mg/dL (7-20) Creatinine 0.6 mg/dL (0.6-1.0) Estimated GFR (Cockcroft-Gault) 94.8 BUN/Creatinine Ratio 38 (6-20) Glucose Level 108 mg/dL (70-99) Calcium Level 10.3 mg/dL (8.5-10.1) Total Bilirubin 0.5 mg/dL (0.2-1.0) Aspartate Amino Transf (AST/SGOT) 36 U/L (15-37) Alanine Aminotransferase (ALT/SGPT) 40 U/L (14-59) Alkaline Phosphatase 28 U/L (46-116) Total Protein 5.7 g/dL (6.4-8.2) Albumin 2.3 g/dL (3.4-5.0) Albumin/Globulin Ratio 0.7 (1.0-1.7) Triglycerides Level 160 mg/dL (0-150) Cholesterol Level 131 mg/dL (0-200) LDL Cholesterol, Calculated 51 mg/dL (0-100) VLDL Cholesterol, Calculated 32 mg/dL (0-40) Non-HDL Cholesterol Calculated 83 mg/dL (0-129) HDL Cholesterol 48 mg/dL (40-60) Cholesterol/HDL Ratio 2.7 Physical Exam HEENT: Neck Supple W Full Motion Chest: Symmetric LUNGS: Clear to Auscultation Heart: S1S2, RRR, other (tele: SR/SB) Abdomen: Soft N/T Extremities: No Edema Neurology: alert, oriented, follow commands Assessment Assessment 1. Acute hypoxic resp failure now on nasal cannula O2 2. HTN --controlled 3. NSTEMI --troponin level 0.121 --will repeat to determine trend --TTE to evaluate LVEF and assess for WMA ISAEL JOHNSON MD 12/28/17 [id number]: CARDIO Progress Notes Plan Plan Patient seen and examined. Agree with above nurse practitioner note. No acute events overnight. Now transitioned to nasal cannula. Supportive care from a cardiac standpoint. Consider ischemic evaluation on an outpt basis. Follow up in our office in 4 weeks. RAUL URIBE APRN Dec 28, 2017 15:04 ISAEL JOHNSON MD Dec 28, 2017 17:04
[2017-12-28] MEDS: PARoxetine 10 MG TABLET PO SCH (20:58)
[2017-12-28] MEDS: ENOXAPARIN 40 MG/0.4 ML SYRINGE. SQ SCH (20:59)
[2017-12-28] MEDS: CHOLECALCIFEROL (VITAMIN D3) 1,000 UNIT TABLET PO SCH (20:59)
[2017-12-28] MEDS: ATORVASTATIN CALCIUM 40 MG TABLET. PO SCH (20:59)
[2017-12-29] VITALS: BP 149/59
[2017-12-29] MEDS: HYDROcodone/APAP 5/325MG 1 TAB TABLET PO PRN ×2 (02:01→10:27)
[2017-12-29] MEDS: ASPIRIN CHEWABLE 81 MG TABLET. PO SCH (07:30)
[2017-12-29] MEDS: DOCUSATE SODIUM 100 MG CAPSULE. PO PRN (07:31)
[2017-12-29] MEDS: SENNOSIDES 8.6 MG TABLET PO PRN (07:31)
[2017-12-29] MEDS: LEVOTHYROXINE 100 MCG TABLET PO SCH (07:31)
[2017-12-29] MEDS: PANTOPRAZOLE 40 MG TABLET.DR. PO SCH (07:31)
[2017-12-29 08:00] VITALS: BP 156/69
[2017-12-29] MEDS: IPRATRPIUM/ALBUTEROL 0.5/2.5MG 3 ML NEBU. NEB SCH ×4 (08:07→20:04)
[2017-12-29] MEDS: BUDESONIDE 0.5 MG/2 ML NEBU. NEB SCH ×2 (08:07→20:04)
[2017-12-29] MEDS: POLYETHYLENE GLYCOL 3350 17 GM PACKET. PO SCH (08:42)
[2017-12-29] MEDS: CHOLECALCIFEROL (VITAMIN D3) 5,000 UNIT CAPSULE PO SCH (08:42)
[2017-12-29] MEDS: CALCIUM CARBONATE 500 MG TABLET PO SCH ×3 (08:42→17:47)
[2017-12-29] MEDS: OMEGA-3 FATTY ACIDS/FISH OIL 1,000 MG CAPSULE. PO SCH (08:42)
[2017-12-29] MEDS: amLODIPine BESYLATE 10 MG TABLET PO SCH (08:43)
[2017-12-29] MEDS: CARVEDILOL 3.125 MG TABLET. PO SCH ×2 (08:43→17:51)
[2017-12-29 09:34] LABS: BASO % 1 % (0-3); EOS # 0.3 x10^3/uL (0.0-0.7); EOS % 6 % (0-3); HEMATOCRIT 34.7 % (36.0-47.0); HEMOGLOBIN 11.8 g/dL (12.0-15.5); LYMPH # 1.4 x10^3/uL (1.0-4.8); LYMPH % 24 % (24-48); MEAN CORPUSCULAR HEMOGLOBIN 32 pg (25-35); MEAN CORPUSCULAR HGB CONC 34 g/dL (31-37); MEAN CORPUSCULAR VOLUME 95 fL (79-100); MONO # 0.5 x10^3/uL (0.0-1.1); MONO % 10 % (0-9); NEUT # 3.5 x10^3uL (1.8-7.7); NEUT % 61 % (31-73); PLATELET COUNT 185 x10^3/uL (140-400); RED BLOOD COUNT 3.66 x10^6/uL (3.50-5.40); RED CELL DISTRIBUTION WIDTH 13.3 % (11.5-14.5); WHITE BLOOD COUNT 5.7 x10^3/uL (4.0-11.0)
[2017-12-29 10:14] LABS: CALCIUM 9.5 mg/dL (8.5-10.1); CREATININE 0.8 mg/dL (0.6-1.0); POTASSIUM 3.9 mmol/L (3.5-5.1)
--- NOTE | 2017-12-29 10:51 | PDOC ---
PULMONARY PROGRESS NOTES Subjective OFF BIPAP NOT MORE SOA DOES NOT WEAR 02 AT HOME OFF 02 Vitals Vital Signs Date Time Temp Pulse Resp B/P (MAP) Pulse Ox O2 Delivery O2 Flow Rate FiO2 12/29/17 10:27 Nasal Cannula 3.0 12/29/17 08:43 58 156/69 12/29/17 08:07 89 12/29/17 08:00 98.2 17 98.2 ROS: No Nausea, No Chest Pain, No Abdominal Pain, No Increase Cough General: Alert, No acute distress Lungs: Clear Cardiovascular: S1, S2 Abdomen: Soft Extremities: No Edema Labs Laboratory Tests Test 12/28/17 03:25 12/29/17 09:10 White Blood Count 6.9 x10^3/uL (4.0-11.0) 5.7 x10^3/uL (4.0-11.0) Red Blood Count 3.41 x10^6/uL (3.50-5.40) 3.66 x10^6/uL (3.50-5.40) Hemoglobin 11.1 g/dL (12.0-15.5) 11.8 g/dL (12.0-15.5) Hematocrit 32.3 % (36.0-47.0) 34.7 % (36.0-47.0) Mean Corpuscular Volume 95 fL (79-100) 95 fL (79-100) Mean Corpuscular Hemoglobin 33 pg (25-35) 32 pg (25-35) Mean Corpuscular Hemoglobin Concent 35 g/dL (31-37) 34 g/dL (31-37) Red Cell Distribution Width 13.6 % (11.5-14.5) 13.3 % (11.5-14.5) Platelet Count 156 x10^3/uL (140-400) 185 x10^3/uL (140-400) Neutrophils (%) (Auto) 66 % (31-73) 61 % (31-73) Lymphocytes (%) (Auto) 21 % (24-48) 24 % (24-48) Monocytes (%) (Auto) 9 % (0-9) 10 % (0-9) Eosinophils (%) (Auto) 4 % (0-3) 6 % (0-3) Basophils (%) (Auto) 1 % (0-3) 1 % (0-3) Neutrophils # (Auto) 4.6 x10^3uL (1.8-7.7) 3.5 x10^3uL (1.8-7.7) Lymphocytes # (Auto) 1.4 x10^3/uL (1.0-4.8) 1.4 x10^3/uL (1.0-4.8) Monocytes # (Auto) 0.7 x10^3/uL (0.0-1.1) 0.5 x10^3/uL (0.0-1.1) Eosinophils # (Auto) 0.3 x10^3/uL (0.0-0.7) 0.3 x10^3/uL (0.0-0.7) Basophils # (Auto) 0.0 x10^3/uL (0.0-0.2) 0.0 x10^3/uL (0.0-0.2) Sodium Level 139 mmol/L (136-145) 138 mmol/L (136-145) Potassium Level 4.2 mmol/L (3.5-5.1) 3.9 mmol/L (3.5-5.1) Chloride Level 104 mmol/L (98-107) 104 mmol/L (98-107) Carbon Dioxide Level 28 mmol/L (21-32) 28 mmol/L (21-32) Anion Gap 7 (6-14) 6 (6-14) Blood Urea Nitrogen 23 mg/dL (7-20) 23 mg/dL (7-20) Creatinine 0.6 mg/dL (0.6-1.0) 0.8 mg/dL (0.6-1.0) Estimated GFR (Cockcroft-Gault) 94.8 68.0 BUN/Creatinine Ratio 38 (6-20) Glucose Level 108 mg/dL (70-99) 122 mg/dL (70-99) Calcium Level 10.3 mg/dL (8.5-10.1) 9.5 mg/dL (8.5-10.1) Total Bilirubin 0.5 mg/dL (0.2-1.0) Aspartate Amino Transf (AST/SGOT) 36 U/L (15-37) Alanine Aminotransferase (ALT/SGPT) 40 U/L (14-59) Alkaline Phosphatase 28 U/L (46-116) Troponin I Quantitative 0.044 ng/mL (0.000-0.055) Total Protein 5.7 g/dL (6.4-8.2) Albumin 2.3 g/dL (3.4-5.0) Albumin/Globulin Ratio 0.7 (1.0-1.7) Triglycerides Level 160 mg/dL (0-150) Cholesterol Level 131 mg/dL (0-200) LDL Cholesterol, Calculated 51 mg/dL (0-100) VLDL Cholesterol, Calculated 32 mg/dL (0-40) Non-HDL Cholesterol Calculated 83 mg/dL (0-129) HDL Cholesterol 48 mg/dL (40-60) Cholesterol/HDL Ratio 2.7 Laboratory Tests Test 12/29/17 09:10 White Blood Count 5.7 x10^3/uL (4.0-11.0) Red Blood Count 3.66 x10^6/uL (3.50-5.40) Hemoglobin 11.8 g/dL (12.0-15.5) Hematocrit 34.7 % (36.0-47.0) Mean Corpuscular Volume 95 fL (79-100) Mean Corpuscular Hemoglobin 32 pg (25-35) Mean Corpuscular Hemoglobin Concent 34 g/dL (31-37) Red Cell Distribution Width 13.3 % (11.5-14.5) Platelet Count 185 x10^3/uL (140-400) Neutrophils (%) (Auto) 61 % (31-73) Lymphocytes (%) (Auto) 24 % (24-48) Monocytes (%) (Auto) 10 % (0-9) Eosinophils (%) (Auto) 6 % (0-3) Basophils (%) (Auto) 1 % (0-3) Neutrophils # (Auto) 3.5 x10^3uL (1.8-7.7) Lymphocytes # (Auto) 1.4 x10^3/uL (1.0-4.8) Monocytes # (Auto) 0.5 x10^3/uL (0.0-1.1) Eosinophils # (Auto) 0.3 x10^3/uL (0.0-0.7) Basophils # (Auto) 0.0 x10^3/uL (0.0-0.2) Sodium Level 138 mmol/L (136-145) Potassium Level 3.9 mmol/L (3.5-5.1) Chloride Level 104 mmol/L (98-107) Carbon Dioxide Level 28 mmol/L (21-32) Anion Gap 6 (6-14) Blood Urea Nitrogen 23 mg/dL (7-20) Creatinine 0.8 mg/dL (0.6-1.0) Estimated GFR (Cockcroft-Gault) 68.0 Glucose Level 122 mg/dL (70-99) Calcium Level 9.5 mg/dL (8.5-10.1) Medications Active Scripts Medications Dose Route/Sig Max Daily Dose Days Date Category Paxil (Paroxetine Hcl) 40 Mg Tablet 45 Mg PO QHS 12/25/17 Reported Targretin (Bexarotene) 60 Gm Gel..gram. 60 Gm TP 12/24/17 Reported Fish Oil 1,200 Mg Fish Oil (Fish Oil/Dha/Epa) 1 Each Capsule 1 Each PO 12/24/17 Reported Tylenol (Acetaminophen) 325 Mg Tablet 1 Tab PO PRN Q4HRS 12/24/17 Reported Senna Laxative (Sennosides) 8.6 Mg Tablet 8.6 Mg PO 12/24/17 Reported Amlodipine Besylate 5 Mg Tablet 5 Mg PO DAILY 12/24/17 Reported Percocet 5-325 Mg Tablet (Oxycodone/Acetaminophen) 1 Each Tablet 1 Tab PO PRN Q8HRS PRN 12/24/17 Reported Calcium (Calcium Carbonate) 600 Mg Tablet 1,200 Mg PO 01/16/17 Reported Protonix (Pantoprazole Sodium) 40 Mg Tablet.dr 1 Tab PO DAILY 01/16/17 Reported Carvedilol 3.125 Mg Tablet 1 Tab PO BID 01/16/17 Reported Children's Aspirin (Aspirin) 81 Mg Tab.chew 81 Mg PO 12/09/14 Reported One Daily (Multivitamin) 1 Each Tablet 1 Each PO 12/09/14 Reported Vitamin D (Cholecalciferol (Vitamin D3)) 2,000 Unit Capsule 1 Cap PO HS 12/09/14 Reported Fish Oil (Benson-3 Fatty Acids) 300 Mg Capsule 1,200 Mg PO DAILY 12/09/14 Reported Hydrocodone-Apap 5-325 (Hydrocodone Bit/Acetaminophen) 1 Each Tablet 1-2 Tab PO Q4-6HRS 12/09/14 Reported Levothyroxine Sodium 100 Mcg Tablet 1 Tab PO DAILY 12/09/14 Reported Vitamin D (Cholecalciferol (Vitamin D3)) 1,000 Unit Capsule 5 Cap PO DAILY 12/09/14 Reported Atorvastatin Calcium 80 Mg Tablet 1 Tab PO DAILY 12/09/14 Reported Impression . IMPRESSION: 1. Acute hypoxemic respiratory failure, could be secondary to atelectasis, pain medication, ileus 2. ILEUS 3. Status post left spiral humeral shaft fracture, open reduction and internal fixation. 4. Chronic obstructive pulmonary disease. 5. GERD 6. Hypothyroidism. 7. Hypertension. Plan . PRN BIPAP O2 FOLLOW GI INPUT NG IS OUT OK TO TRANSFER DVT GI PROPH ANNABELLE HOLLOWAY MD Dec 29, 2017 10:50
[2017-12-29 12:00] VITALS: BP 153/70
--- NOTE | 2017-12-29 12:50 | PDOC ---
PROGRESS NOTES Chief Complaint Chief Complaint s/p ORIF L humerus PO day 5 Acute hypoxic respiratory failure HTN GERD Osteoporosis Hypothyroid state on replacement History of Present Illness History of Present Illness Pt seen and examined Dw RN Awaiting transfer to floor Pt CO constipation Vitals Vitals Vital Signs Date Time Temp Pulse Resp B/P (MAP) Pulse Ox O2 Delivery O2 Flow Rate FiO2 12/29/17 11:37 90 Nasal Cannula 5.0 12/29/17 08:43 58 156/69 12/29/17 08:00 98.2 17 98.2 Physical Exam General: Alert, Oriented X3, No acute distress Heart: Regular rate, No murmurs Lungs: Clear Abdomen: Soft, No tenderness Extremities: No clubbing, No edema, Other (L arm with CDI dressings, in sling, L radial pulse 2+) Skin: No rashes, No breakdown Labs LABS Laboratory Tests Test 12/29/17 09:10 White Blood Count 5.7 x10^3/uL (4.0-11.0) Red Blood Count 3.66 x10^6/uL (3.50-5.40) Hemoglobin 11.8 g/dL (12.0-15.5) Hematocrit 34.7 % (36.0-47.0) Mean Corpuscular Volume 95 fL (79-100) Mean Corpuscular Hemoglobin 32 pg (25-35) Mean Corpuscular Hemoglobin Concent 34 g/dL (31-37) Red Cell Distribution Width 13.3 % (11.5-14.5) Platelet Count 185 x10^3/uL (140-400) Neutrophils (%) (Auto) 61 % (31-73) Lymphocytes (%) (Auto) 24 % (24-48) Monocytes (%) (Auto) 10 % (0-9) Eosinophils (%) (Auto) 6 % (0-3) Basophils (%) (Auto) 1 % (0-3) Neutrophils # (Auto) 3.5 x10^3uL (1.8-7.7) Lymphocytes # (Auto) 1.4 x10^3/uL (1.0-4.8) Monocytes # (Auto) 0.5 x10^3/uL (0.0-1.1) Eosinophils # (Auto) 0.3 x10^3/uL (0.0-0.7) Basophils # (Auto) 0.0 x10^3/uL (0.0-0.2) Sodium Level 138 mmol/L (136-145) Potassium Level 3.9 mmol/L (3.5-5.1) Chloride Level 104 mmol/L (98-107) Carbon Dioxide Level 28 mmol/L (21-32) Anion Gap 6 (6-14) Blood Urea Nitrogen 23 mg/dL (7-20) Creatinine 0.8 mg/dL (0.6-1.0) Estimated GFR (Cockcroft-Gault) 68.0 Glucose Level 122 mg/dL (70-99) Calcium Level 9.5 mg/dL (8.5-10.1) Review of Systems Review of Systems CO constipation CO fatigue Assessment and Plan Assessmemt and Plan Problems Medical Problems: (1) Fall Status: Acute (2) Rib pain on right side Status: Acute s/p ORIF L humerus PO day 5 Acute hypoxic respiratory failure HTN GERD Osteoporosis Hypothyroid state on replacement Plan: Awaiting transfer to floor Diane catheter to bedside drainage Dulcolax Wound care PT/OT Home meds Labs Comment Review of Relevant I have reviewed the following items harvey (where applicable) has been applied. Labs Laboratory Tests Test 12/28/17 03:25 12/29/17 09:10 White Blood Count 6.9 x10^3/uL (4.0-11.0) 5.7 x10^3/uL (4.0-11.0) Red Blood Count 3.41 x10^6/uL (3.50-5.40) 3.66 x10^6/uL (3.50-5.40) Hemoglobin 11.1 g/dL (12.0-15.5) 11.8 g/dL (12.0-15.5) Hematocrit 32.3 % (36.0-47.0) 34.7 % (36.0-47.0) Mean Corpuscular Volume 95 fL (79-100) 95 fL (79-100) Mean Corpuscular Hemoglobin 33 pg (25-35) 32 pg (25-35) Mean Corpuscular Hemoglobin Concent 35 g/dL (31-37) 34 g/dL (31-37) Red Cell Distribution Width 13.6 % (11.5-14.5) 13.3 % (11.5-14.5) Platelet Count 156 x10^3/uL (140-400) 185 x10^3/uL (140-400) Neutrophils (%) (Auto) 66 % (31-73) 61 % (31-73) Lymphocytes (%) (Auto) 21 % (24-48) 24 % (24-48) Monocytes (%) (Auto) 9 % (0-9) 10 % (0-9) Eosinophils (%) (Auto) 4 % (0-3) 6 % (0-3) Basophils (%) (Auto) 1 % (0-3) 1 % (0-3) Neutrophils # (Auto) 4.6 x10^3uL (1.8-7.7) 3.5 x10^3uL (1.8-7.7) Lymphocytes # (Auto) 1.4 x10^3/uL (1.0-4.8) 1.4 x10^3/uL (1.0-4.8) Monocytes # (Auto) 0.7 x10^3/uL (0.0-1.1) 0.5 x10^3/uL (0.0-1.1) Eosinophils # (Auto) 0.3 x10^3/uL (0.0-0.7) 0.3 x10^3/uL (0.0-0.7) Basophils # (Auto) 0.0 x10^3/uL (0.0-0.2) 0.0 x10^3/uL (0.0-0.2) Sodium Level 139 mmol/L (136-145) 138 mmol/L (136-145) Potassium Level 4.2 mmol/L (3.5-5.1) 3.9 mmol/L (3.5-5.1) Chloride Level 104 mmol/L (98-107) 104 mmol/L (98-107) Carbon Dioxide Level 28 mmol/L (21-32) 28 mmol/L (21-32) Anion Gap 7 (6-14) 6 (6-14) Blood Urea Nitrogen 23 mg/dL (7-20) 23 mg/dL (7-20) Creatinine 0.6 mg/dL (0.6-1.0) 0.8 mg/dL (0.6-1.0) Estimated GFR (Cockcroft-Gault) 94.8 68.0 BUN/Creatinine Ratio 38 (6-20) Glucose Level 108 mg/dL (70-99) 122 mg/dL (70-99) Calcium Level 10.3 mg/dL (8.5-10.1) 9.5 mg/dL (8.5-10.1) Total Bilirubin 0.5 mg/dL (0.2-1.0) Aspartate Amino Transf (AST/SGOT) 36 U/L (15-37) Alanine Aminotransferase (ALT/SGPT) 40 U/L (14-59) Alkaline Phosphatase 28 U/L (46-116) Troponin I Quantitative 0.044 ng/mL (0.000-0.055) Total Protein 5.7 g/dL (6.4-8.2) Albumin 2.3 g/dL (3.4-5.0) Albumin/Globulin Ratio 0.7 (1.0-1.7) Triglycerides Level 160 mg/dL (0-150) Cholesterol Level 131 mg/dL (0-200) LDL Cholesterol, Calculated 51 mg/dL (0-100) VLDL Cholesterol, Calculated 32 mg/dL (0-40) Non-HDL Cholesterol Calculated 83 mg/dL (0-129) HDL Cholesterol 48 mg/dL (40-60) Cholesterol/HDL Ratio 2.7 Laboratory Tests Test 12/29/17 09:10 White Blood Count 5.7 x10^3/uL (4.0-11.0) Red Blood Count 3.66 x10^6/uL (3.50-5.40) Hemoglobin 11.8 g/dL (12.0-15.5) Hematocrit 34.7 % (36.0-47.0) Mean Corpuscular Volume 95 fL (79-100) Mean Corpuscular Hemoglobin 32 pg (25-35) Mean Corpuscular Hemoglobin Concent 34 g/dL (31-37) Red Cell Distribution Width 13.3 % (11.5-14.5) Platelet Count 185 x10^3/uL (140-400) Neutrophils (%) (Auto) 61 % (31-73) Lymphocytes (%) (Auto) 24 % (24-48) Monocytes (%) (Auto) 10 % (0-9) Eosinophils (%) (Auto) 6 % (0-3) Basophils (%) (Auto) 1 % (0-3) Neutrophils # (Auto) 3.5 x10^3uL (1.8-7.7) Lymphocytes # (Auto) 1.4 x10^3/uL (1.0-4.8) Monocytes # (Auto) 0.5 x10^3/uL (0.0-1.1) Eosinophils # (Auto) 0.3 x10^3/uL (0.0-0.7) Basophils # (Auto) 0.0 x10^3/uL (0.0-0.2) Sodium Level 138 mmol/L (136-145) Potassium Level 3.9 mmol/L (3.5-5.1) Chloride Level 104 mmol/L (98-107) Carbon Dioxide Level 28 mmol/L (21-32) Anion Gap 6 (6-14) Blood Urea Nitrogen 23 mg/dL (7-20) Creatinine 0.8 mg/dL (0.6-1.0) Estimated GFR (Cockcroft-Gault) 68.0 Glucose Level 122 mg/dL (70-99) Calcium Level 9.5 mg/dL (8.5-10.1) Medications Current Medications Fentanyl Citrate (Fentanyl 2ml Vial) 25 mcg 1X ONCE IV Last administered on 12/24/17at 14:03; Start 12/24/17 at 13:45; Stop 12/24/17 at 13:46; Status DC Fentanyl Citrate (Fentanyl 2ml Vial) 25 mcg 1X ONCE IV Last administered on 12/24/17at 15:26; Start 12/24/17 at 15:00; Stop 12/24/17 at 15:01; Status DC Ondansetron HCl (Zofran) 4 mg PRN Q8HRS PRN IV NAUSEA/VOMITING Last administered on 12/24/17at 17:17; Start 12/24/17 at 15:00; Stop 12/25/17 at 14:59; Status DC Fentanyl Citrate (Fentanyl 2ml Vial) 25 mcg PRN Q3HRS PRN IV PAIN Last administered on 12/25/17at 06:14; Start 12/24/17 at 15:00; Stop 12/25/17 at 14:59; Status DC Albuterol Sulfate (Ventolin Neb Soln) 2.5 mg PRN Q4HRS PRN NEB SHORTNESS OF BREATH Last administered on 12/26/17at 16:33; Start 12/24/17 at 18:15 Acetaminophen (Tylenol) 325 mg PRN Q4HRS PO ; Start 12/24/17 at 20:00; Stop 12/25 at 22:04; Status DC Amlodipine Besylate (Norvasc) 5 mg DAILY PO Last administered on 12/27/17at 10:15 ; Start 12/25/17 at 09:00; Stop 12/27/17 at 10:23; Status DC Aspirin (Children'S Aspirin) 81 mg DAILY07 PO Last administered on 12/29/17at 07 :30; Start 12/25/17 at 07:00 Carvedilol (Coreg) 3.125 mg BID PO Last administered on 12/26/17 10:17; Start 12/24/17 at 21:00; Stop 12/26/17 at 15:15; Status DC Acetaminophen/ Hydrocodone Bitart (Lortab 5/325) 1 tab PRN Q4HRS PRN PO PAIN Last administered on 12/24/17at 23:32; Start 12/24/17 at 20:00; Stop 12/25/17 at 15: 39; Status DC Levothyroxine Sodium (Synthroid) 100 mcg DAILY PO Last administered on at 08:03; Start 12/25/17 at 09:00; Stop 12/29/17 at 07:17; Status DC Pantoprazole Sodium (Protonix) 40 mg DAILY PO ; Start 12/25/17 at 09:00; Stop 12/25/17 at 09:00; Status DC Atorvastatin Calcium (Lipitor) 80 mg QHS PO Last administered on 12/28/17at 20: 59; Start 12/24/17 at 21:00 Non-Formulary Medication (Cholecalciferol (Vitamin D3) (Vitamin D)) 5 cap WEEKLY PO ; Start 12/31/17 at 09:00; Status UNV Vitamin D (Vitamin D3) 2,000 unit HS PO Last administered on 12/28/17at 20:59; Start 12/24/17 at 21:00 Fish Oil (Fish Oil) 1,000 mg DAILY PO Last administered on 12/29/17at 08:42; Start 12/25/17 at 09:00 Paroxetine HCl (Paxil) 45 mg DAILY PO ; Start 12/25/17 at 09:00; Stop 12/25/17 at 09:00; Status DC Calcium Carbonate/ Glycine (Oscal) 500 mg TIDAFTMEAL PO Last administered on 03/07at 08:42; Start 12/25/17 at 09:00 Sennosides (Senna) 8.6 mg PRN BID PRN PO CONSTIPATION Last administered on 12/29at 07:31; Start 12/24/17 at 20:00 Enoxaparin Sodium (Lovenox 40mg Syringe) 40 mg Q24H SQ Last administered on 02/04at 20:59; Start 12/24/17 at 20:15 Pantoprazole Sodium (Protonix) 40 mg DAILYAC PO Last administered on 12/29/17 07:31; Start 12/25/17 at 07:30 Fentanyl Citrate (Fentanyl 2ml Vial) 50 mcg PRN Q2HR PRN IV SEVERE PAIN Last administered on 12/27/17at 17:14; Start 12/25/17 at 07:00 Non-Formulary Medication (Paroxetine Hcl (Paxil)) 45 mg QHS PO ; Start 12/25/17 at 21:00; Status UNV Paroxetine HCl (Paxil) 45 mg QHS PO Last administered on 12/28/17at 20:58; Start 12/25/17 at 21:00 Vitamin D (Vitamin D3) 5,000 unit DAILY PO Last administered on 12/29/17at 08:42 ; Start 12/25/17 at 09:00 Cefazolin Sodium 50 ml @ 100 mls/hr 1X ONCE IV Last administered on 12/25/17at 15:45; Start 12/25/17 at 10:15; Stop 12/25/17 at 10:44; Status DC Propofol 20 ml @ As Directed STK-MED ONCE IV ; Start 12/25/17 at 14:16; Stop 12/25 at 14:17; Status DC Fentanyl Citrate (Fentanyl 2ml Vial) 100 mcg STK-MED ONCE .ROUTE ; Start at 14:16; Stop 12/25/17 at 14:17; Status DC Ondansetron HCl (Zofran) 4 mg PRN Q6HRS PRN IV NAUSEA/VOMITING; Start 12/25/17 at 15:00; Stop 12/26/17 at 14:59; Status DC Fentanyl Citrate (Fentanyl 2ml Vial) 25 mcg PRN Q5MIN PRN IV MILD PAIN; Start 12/25/17 at 15:00; Stop 12/25/17 at 20:00; Status DC Fentanyl Citrate (Fentanyl 2ml Vial) 50 mcg PRN Q5MIN PRN IV MODERATE TO SEVERE PAIN; Start 12/25/17 at 15:00; Stop 12/25/17 at 20:00; Status DC Morphine Sulfate (Morphine Sulfate) 1 mg PRN Q10MIN PRN IV SEVERE PAIN; Start 12/25/17 at 15:00; Stop 12/25/17 at 20:00; Status DC Ringer's Solution 1,000 ml @ 30 mls/hr Q24H IV Last administered on 12/25/17at 15:01; Start 12/25/17 at 14:56; Stop 12/26/17 at 02:55; Status DC Lidocaine HCl (Xylocaine-Mpf 1% 2ml Vial) 2 ml 1X PRN PRN ID IV START; Start at 15:00; Stop 12/25/17 at 20:00; Status DC Hydromorphone HCl (Dilaudid) 0.5 mg PRN Q10MIN PRN IV SEV PAIN, Second choice; Start 12/25/17 at 15:00; Stop 12/25/17 at 20:00; Status DC Prochlorperazine Edisylate (Compazine) 5 mg PACU PRN PRN IV NAUSEA, MRX1; Start 12/25/17 at 15:00; Stop 12/25/17 at 20:00; Status DC Dexamethasone Sodium Phosphate (Decadron) 20 mg STK-MED ONCE .ROUTE ; Start 12/25 at 14:58; Stop 12/25/17 at 14:59; Status DC Famotidine (Pepcid Vial) 20 mg STK-MED ONCE .ROUTE ; Start 12/25/17 at 14:58; Stop 12/25/17 at 14:59; Status DC Lidocaine HCl (Xylocaine-Mpf 1% 5ml Vial) 5 ml STK-MED ONCE .ROUTE ; Start at 14:58; Stop 12/25/17 at 14:59; Status DC Rocuronium [place] (Zemuron) 50 mg STK-MED ONCE .ROUTE ; Start 12/25/17 at 14:58 ; Stop 12/25/17 at 14:59; Status DC Lidocaine HCl (Xylocaine 1% Pf 30ml Vial) 30 ml STK-MED ONCE .ROUTE Last administered on 12/25/17at 15:58; Start 12/25/17 at 14:15; Stop 12/25/17 at 15:16; Status DC Bupivacaine HCl (Marcaine 0.5%) 50 ml STK-MED ONCE .ROUTE Last administered on 12/25/17at 15:58; Start 12/25/17 at 14:16; Stop 12/25/17 at 15:16; Status DC Cefazolin Sodium 1 gm/Dextrose 50 ml @ 100 mls/hr Q6H IV ; Start 12/25/17 at 15: 45; Stop 12/26/17 at 04:14; Status UNV Acetaminophen/ Hydrocodone Bitart (Lortab 5/325) 1 tab PRN Q4HRS PRN PO MODERATE PAIN Last administered on 12/29/17at 10:27; Start 12/25/17 at 15:30 Ephedrine Sulfate (ePHEDrine PF IN SALINE SYRINGE) 50 mg STK-MED ONCE IV ; Start 12/25/17 at 15:43; Stop 12/25/17 at 15:44; Status DC Glycopyrrolate (Robinul) 1 mg STK-MED ONCE .ROUTE ; Start 12/25/17 at 15:45; Stop 12/25/17 at 15:46; Status DC Cefazolin Sodium (Ancef) 1 gm Q6H IVP Last administered on 12/26/17at 11:45; Start 12/25/17 at 23:00; Stop 12/26/17 at 14:00; Status DC Neostigmine Methylsulfate (Neostigmine Methylsulfate) 5 mg STK-MED ONCE .ROUTE ; Start 12/25/17 at 17:34; Stop 12/25/17 at 17:35; Status DC Desflurane (Suprane) 90 ml STK-MED ONCE IH ; Start 12/25/17 at 17:34; Stop at 17:35; Status DC Acetaminophen (Tylenol) 325 mg PRN Q4HRS PRN PO MILD PAIN / TEMP Last administered on 12/25/17 22:13; Start 12/25/17 at 22:15 Lorazepam (Ativan) 0.5 mg PRN Q4HRS PRN PO ANXIETY / AGITATION Last administered on 12/26/17at 21:14; Start 12/25/17 at 23:45 Enoxaparin Sodium (Lovenox Per Pharmacy Prophylaxis Dosing) 1 each PRN DAILY PRN MC SEE COMMENTS; Start 12/26/17 at 12:45; Status UNV Carvedilol (Coreg) 3.125 mg BIDWMEALS PO Last administered on 12/29/17 08:43; Start 12/26/17 at 17:00 Albuterol/ Ipratropium (Duoneb) 3 ml 1X ONCE NEB Last administered on 04:00; Start 12/27/17 at 04:00; Stop 12/27/17 at 04:01; Status DC Amlodipine Besylate (Norvasc) 10 mg DAILY PO Last administered on 12/29/17at 08: 43; Start 12/27/17 at 11:00 Enalaprilat (Vasotec Inj) 1.25 mg PRN Q6HRS PRN IVP HYPERTENSION, SEE COMMENTS ; Start 12/27/17 at 10:30 Albuterol/ Ipratropium (Duoneb) 3 ml RTQID NEB Last administered on 12/29/17at 11:36; Start 12/27/17 at 12:00 Budesonide (Pulmicort) 0.5 mg RTBID NEB Last administered on 12/29/17at 08:07; Start 12/27/17 at 12:00 Amino Acids/ Glycerin/ Electrolytes 1,000 ml @ 80 mls/hr [id number] IV Last administered on 12/28/17at 02:56; Start 12/27/17 at 14:00; Stop 12/28/17 at 12:48 ; Status DC Polyethylene Glycol (miraLAX PACKET) 17 gm DAILY PO Last administered on at 08:42; Start 12/28/17 at 12:00 Docusate Sodium (Colace) 100 mg PRN DAILY PRN PO HARD STOOLS Last administered on 12/29/17at 07:31; Start 12/28/17 at 11:30 Levothyroxine Sodium (Synthroid) 100 mcg DAILY07 PO Last administered on at 07:31; Start 12/29/17 at 07:30 Active Scripts Active Reported Paxil (Paroxetine Hcl) 40 Mg Tablet 45 Mg PO QHS Targretin (Bexarotene) 60 Gm Gel..gram. 60 Gm TP Fish Oil 1,200 Mg Fish Oil (Fish Oil/Dha/Epa) 1 Each Capsule 1 Each PO Tylenol (Acetaminophen) 325 Mg Tablet 1 Tab PO PRN Q4HRS Senna Laxative (Sennosides) 8.6 Mg Tablet 8.6 Mg PO Amlodipine Besylate 5 Mg Tablet 5 Mg PO DAILY Percocet 5-325 Mg Tablet (Oxycodone/Acetaminophen) 1 Each Tablet 1 Tab PO PRN Q8HRS PRN Calcium (Calcium Carbonate) 600 Mg Tablet 1,200 Mg PO Protonix (Pantoprazole Sodium) 40 Mg Tablet.dr 1 Tab PO DAILY Carvedilol 3.125 Mg Tablet 1 Tab PO BID Children's Aspirin (Aspirin) 81 Mg Tab.chew 81 Mg PO One Daily (Multivitamin) 1 Each Tablet 1 Each PO Vitamin D (Cholecalciferol (Vitamin D3)) 2,000 Unit Capsule 1 Cap PO HS Fish Oil ([place]-3 Fatty Acids) 300 Mg Capsule 1,200 Mg PO DAILY Hydrocodone-Apap 5-325 (Hydrocodone Bit/Acetaminophen) 1 Each Tablet 1-2 Tab PO Q4-6HRS Levothyroxine Sodium 100 Mcg Tablet 1 Tab PO DAILY Vitamin D (Cholecalciferol (Vitamin D3)) 1,000 Unit Capsule 5 Cap PO DAILY Atorvastatin Calcium 80 Mg Tablet 1 Tab PO DAILY Vitals/I & O Vital Sign - Last 24 Hours 12/28/17 12/28/17 12/28/17 12/28/17 14:36 16:00 16:29 16:58 Temp 100.0 100.0 Pulse 65 65 Resp 22 B/P (MAP) 108/51 (70) 108/51 Pulse Ox 94 95 O2 Delivery Nasal Cannula Nasal Cannula Nasal Cannula O2 Flow Rate 3.0 3.0 3.0 12/28/17 12/28/17 12/28/17 12/28/17 20:00 20:00 20:04 20:58 Temp 98.6 98.6 Pulse 59 Resp 16 24 B/P (MAP) 110/52 (71) Pulse Ox 93 95 93 O2 Delivery Nasal Cannula Nasal Cannula Nasal Cannula Nasal Cannula O2 Flow Rate 3.0 3.0 3.0 3.0 12/29/17 12/29/17 12/29/17 12/29/17 00:00 02:01 03:01 04:00 Temp 99.1 99.1 Pulse 63 56 Resp 14 26 20 27 B/P (MAP) 149/59 (89) Pulse Ox 91 91 92 94 O2 Delivery Nasal Cannula Nasal Cannula Nasal Cannula O2 Flow Rate 3.0 3.0 3.0 12/29/17 12/29/17 12/29/17 12/29/17 08:00 08:00 08:07 08:43 Temp 98.2 98.2 Pulse 52 52 Resp 17 B/P (MAP) 156/69 (98) 156/69 Pulse Ox 91 89 O2 Delivery Nasal Cannula Nasal Cannula Nasal Cannula O2 Flow Rate 3.0 3.0 4.0 12/29/17 12/29/17 12/29/17 12/29/17 08:43 10:27 11:36 11:37 Pulse 58 B/P (MAP) 156/69 Pulse Ox 90 O2 Delivery Nasal Cannula Nasal Cannula Nasal Cannula O2 Flow Rate 3.0 3.0 5.0 Intake and Output 12/28/17 12/28/17 12/29/17 15:00 23:00 07:00 Intake Total 525.71 ml 540 ml 360 ml Output Total 680 ml 275 ml 425 ml Balance -154.29 ml 265 ml -65 ml ROGELIO PAINTERL K III DO Dec 29, 2017 12:50
[2017-12-29] MEDS: BISACODYL 5 MG TABLET.DR. PO PRN (13:15)
[2017-12-29 16:00] VITALS: BP 183/72
[2017-12-29] MEDS: CHOLECALCIFEROL (VITAMIN D3) 1,000 UNIT TABLET PO SCH (20:59)
[2017-12-29] MEDS: ATORVASTATIN CALCIUM 40 MG TABLET. PO SCH (21:00)
[2017-12-29] MEDS: ENOXAPARIN 40 MG/0.4 ML SYRINGE. SQ SCH (21:01)
[2017-12-29] MEDS: fentaNYL PF VIAL 100 MCG/2 ML VIAL IV PRN (21:02)
[2017-12-29] MEDS: LORazepam 0.5 MG TABLET PO PRN (21:24)
[2017-12-29] MEDS: PARoxetine 10 MG TABLET PO SCH (21:24)
[2017-12-29 23:25] VITALS: BP 135/66
[2017-12-30 03:38] VITALS: BP 128/62
[2017-12-30 05:48] LABS: BASO % 1 % (0-3); EOS # 0.4 x10^3/uL (0.0-0.7); EOS % 7 % (0-3); HEMATOCRIT 32.8 % (36.0-47.0); HEMOGLOBIN 11.3 g/dL (12.0-15.5); LYMPH # 1.5 x10^3/uL (1.0-4.8); LYMPH % 24 % (24-48); MEAN CORPUSCULAR HEMOGLOBIN 32 pg (25-35); MEAN CORPUSCULAR HGB CONC 34 g/dL (31-37); MEAN CORPUSCULAR VOLUME 94 fL (79-100); MONO # 0.6 x10^3/uL (0.0-1.1); MONO % 10 % (0-9); NEUT # 3.8 x10^3uL (1.8-7.7); NEUT % 59 % (31-73); PLATELET COUNT 208 x10^3/uL (140-400); RED BLOOD COUNT 3.49 x10^6/uL (3.50-5.40); RED CELL DISTRIBUTION WIDTH 13.8 % (11.5-14.5); WHITE BLOOD COUNT 6.5 x10^3/uL (4.0-11.0)
[2017-12-30 05:55] LABS: CALCIUM 10.4 mg/dL (8.5-10.1); CREATININE 0.7 mg/dL (0.6-1.0); GFR 79.3; POTASSIUM 3.9 mmol/L (3.5-5.1)
[2017-12-30] MEDS: ASPIRIN CHEWABLE 81 MG TABLET. PO SCH (06:07)
[2017-12-30] MEDS: LEVOTHYROXINE 100 MCG TABLET PO SCH (06:07)
[2017-12-30] MEDS: HYDROcodone/APAP 5/325MG 1 TAB TABLET PO PRN (06:08)
[2017-12-30 07:00] VITALS: BP 119/71
[2017-12-30] MEDS: IPRATRPIUM/ALBUTEROL 0.5/2.5MG 3 ML NEBU. NEB SCH ×4 (07:10→20:00)
[2017-12-30] MEDS: BUDESONIDE 0.5 MG/2 ML NEBU. NEB SCH ×2 (07:10→20:00)
--- NOTE | 2017-12-30 08:40 | PDOC ---
PULMONARY PROGRESS NOTES Subjective OFF BIPAP NOT MORE SOA DOES NOT WEAR 02 AT HOME OFF 02 Vitals Vital Signs Date Time Temp Pulse Resp B/P (MAP) Pulse Ox O2 Delivery O2 Flow Rate FiO2 12/30/17 07:12 87 Room Air 12/30/17 07:10 20 3.0 12/30/17 07:00 98.5 87 119/71 (87) 98.5 ROS: No Nausea, No Chest Pain, No Abdominal Pain, No Increase Cough General: Alert, No acute distress Lungs: Clear Cardiovascular: S1, S2 Abdomen: Soft Extremities: No Edema Labs Laboratory Tests Test 12/29/17 09:10 12/30/17 04:50 White Blood Count 5.7 x10^3/uL (4.0-11.0) 6.5 x10^3/uL (4.0-11.0) Red Blood Count 3.66 x10^6/uL (3.50-5.40) 3.49 x10^6/uL (3.50-5.40) Hemoglobin 11.8 g/dL (12.0-15.5) 11.3 g/dL (12.0-15.5) Hematocrit 34.7 % (36.0-47.0) 32.8 % (36.0-47.0) Mean Corpuscular Volume 95 fL (79-100) 94 fL (79-100) Mean Corpuscular Hemoglobin 32 pg (25-35) 32 pg (25-35) Mean Corpuscular Hemoglobin Concent 34 g/dL (31-37) 34 g/dL (31-37) Red Cell Distribution Width 13.3 % (11.5-14.5) 13.8 % (11.5-14.5) Platelet Count 185 x10^3/uL (140-400) 208 x10^3/uL (140-400) Neutrophils (%) (Auto) 61 % (31-73) 59 % (31-73) Lymphocytes (%) (Auto) 24 % (24-48) 24 % (24-48) Monocytes (%) (Auto) 10 % (0-9) 10 % (0-9) Eosinophils (%) (Auto) 6 % (0-3) 7 % (0-3) Basophils (%) (Auto) 1 % (0-3) 1 % (0-3) Neutrophils # (Auto) 3.5 x10^3uL (1.8-7.7) 3.8 x10^3uL (1.8-7.7) Lymphocytes # (Auto) 1.4 x10^3/uL (1.0-4.8) 1.5 x10^3/uL (1.0-4.8) Monocytes # (Auto) 0.5 x10^3/uL (0.0-1.1) 0.6 x10^3/uL (0.0-1.1) Eosinophils # (Auto) 0.3 x10^3/uL (0.0-0.7) 0.4 x10^3/uL (0.0-0.7) Basophils # (Auto) 0.0 x10^3/uL (0.0-0.2) 0.0 x10^3/uL (0.0-0.2) Sodium Level 138 mmol/L (136-145) 142 mmol/L (136-145) Potassium Level 3.9 mmol/L (3.5-5.1) 3.9 mmol/L (3.5-5.1) Chloride Level 104 mmol/L (98-107) 105 mmol/L (98-107) Carbon Dioxide Level 28 mmol/L (21-32) 30 mmol/L (21-32) Anion Gap 6 (6-14) 7 (6-14) Blood Urea Nitrogen 23 mg/dL (7-20) 17 mg/dL (7-20) Creatinine 0.8 mg/dL (0.6-1.0) 0.7 mg/dL (0.6-1.0) Estimated GFR (Cockcroft-Gault) 68.0 79.3 Glucose Level 122 mg/dL (70-99) 106 mg/dL (70-99) Calcium Level 9.5 mg/dL (8.5-10.1) 10.4 mg/dL (8.5-10.1) Laboratory Tests Test 12/29/17 09:10 12/30/17 04:50 White Blood Count 5.7 x10^3/uL (4.0-11.0) 6.5 x10^3/uL (4.0-11.0) Red Blood Count 3.66 x10^6/uL (3.50-5.40) 3.49 x10^6/uL (3.50-5.40) Hemoglobin 11.8 g/dL (12.0-15.5) 11.3 g/dL (12.0-15.5) Hematocrit 34.7 % (36.0-47.0) 32.8 % (36.0-47.0) Mean Corpuscular Volume 95 fL (79-100) 94 fL (79-100) Mean Corpuscular Hemoglobin 32 pg (25-35) 32 pg (25-35) Mean Corpuscular Hemoglobin Concent 34 g/dL (31-37) 34 g/dL (31-37) Red Cell Distribution Width 13.3 % (11.5-14.5) 13.8 % (11.5-14.5) Platelet Count 185 x10^3/uL (140-400) 208 x10^3/uL (140-400) Neutrophils (%) (Auto) 61 % (31-73) 59 % (31-73) Lymphocytes (%) (Auto) 24 % (24-48) 24 % (24-48) Monocytes (%) (Auto) 10 % (0-9) 10 % (0-9) Eosinophils (%) (Auto) 6 % (0-3) 7 % (0-3) Basophils (%) (Auto) 1 % (0-3) 1 % (0-3) Neutrophils # (Auto) 3.5 x10^3uL (1.8-7.7) 3.8 x10^3uL (1.8-7.7) Lymphocytes # (Auto) 1.4 x10^3/uL (1.0-4.8) 1.5 x10^3/uL (1.0-4.8) Monocytes # (Auto) 0.5 x10^3/uL (0.0-1.1) 0.6 x10^3/uL (0.0-1.1) Eosinophils # (Auto) 0.3 x10^3/uL (0.0-0.7) 0.4 x10^3/uL (0.0-0.7) Basophils # (Auto) 0.0 x10^3/uL (0.0-0.2) 0.0 x10^3/uL (0.0-0.2) Sodium Level 138 mmol/L (136-145) 142 mmol/L (136-145) Potassium Level 3.9 mmol/L (3.5-5.1) 3.9 mmol/L (3.5-5.1) Chloride Level 104 mmol/L (98-107) 105 mmol/L (98-107) Carbon Dioxide Level 28 mmol/L (21-32) 30 mmol/L (21-32) Anion Gap 6 (6-14) 7 (6-14) Blood Urea Nitrogen 23 mg/dL (7-20) 17 mg/dL (7-20) Creatinine 0.8 mg/dL (0.6-1.0) 0.7 mg/dL (0.6-1.0) Estimated GFR (Cockcroft-Gault) 68.0 79.3 Glucose Level 122 mg/dL (70-99) 106 mg/dL (70-99) Calcium Level 9.5 mg/dL (8.5-10.1) 10.4 mg/dL (8.5-10.1) Medications Active Scripts Medications Dose Route/Sig Max Daily Dose Days Date Category Paxil (Paroxetine Hcl) 40 Mg Tablet 45 Mg PO QHS 12/25/17 Reported Targretin (Bexarotene) 60 Gm Gel..gram. 60 Gm TP 12/24/17 Reported Fish Oil 1,200 Mg Fish Oil (Fish Oil/Dha/Epa) 1 Each Capsule 1 Each PO 12/24/17 Reported Tylenol (Acetaminophen) 325 Mg Tablet 1 Tab PO PRN Q4HRS 12/24/17 Reported Senna Laxative (Sennosides) 8.6 Mg Tablet 8.6 Mg PO 12/24/17 Reported Amlodipine Besylate 5 Mg Tablet 5 Mg PO DAILY 12/24/17 Reported Percocet 5-325 Mg Tablet (Oxycodone/Acetaminophen) 1 Each Tablet 1 Tab PO PRN Q8HRS PRN 12/24/17 Reported Calcium (Calcium Carbonate) 600 Mg Tablet 1,200 Mg PO 01/16/17 Reported Protonix (Pantoprazole Sodium) 40 Mg Tablet.dr 1 Tab PO DAILY 01/16/17 Reported Carvedilol 3.125 Mg Tablet 1 Tab PO BID 01/16/17 Reported Children's Aspirin (Aspirin) 81 Mg Tab.chew 81 Mg PO 12/09/14 Reported One Daily (Multivitamin) 1 Each Tablet 1 Each PO 12/09/14 Reported Vitamin D (Cholecalciferol (Vitamin D3)) 2,000 Unit Capsule 1 Cap PO HS 12/09/14 Reported Fish Oil ([place]-3 Fatty Acids) 300 Mg Capsule 1,200 Mg PO DAILY 12/09/14 Reported Hydrocodone-Apap 5-325 (Hydrocodone Bit/Acetaminophen) 1 Each Tablet 1-2 Tab PO Q4-6HRS 12/09/14 Reported Levothyroxine Sodium 100 Mcg Tablet 1 Tab PO DAILY 12/09/14 Reported Vitamin D (Cholecalciferol (Vitamin D3)) 1,000 Unit Capsule 5 Cap PO DAILY 12/09/14 Reported Atorvastatin Calcium 80 Mg Tablet 1 Tab PO DAILY 12/09/14 Reported Impression . IMPRESSION: 1. Acute hypoxemic respiratory failure, could be secondary to atelectasis, pain medication, ileus 2. ILEUS 3. Status post left spiral humeral shaft fracture, open reduction and internal fixation. 4. Chronic obstructive pulmonary disease. 5. GERD 6. Hypothyroidism. 7. Hypertension. Plan . NEES PT /OT PT SEEN YESTERDAY EMR DOWN NOTE COMPLETED TODAY O2 FOLLOW GI INPUT NG IS OUT DVT GI PROPH ANNABELLE HOLLOWAY MD Dec 30, 2017 08:40
[2017-12-30] MEDS: PANTOPRAZOLE 40 MG TABLET.DR. PO SCH (08:51)
[2017-12-30] MEDS: CALCIUM CARBONATE 500 MG TABLET PO SCH ×3 (08:52→19:46)
[2017-12-30] MEDS: OMEGA-3 FATTY ACIDS/FISH OIL 1,000 MG CAPSULE. PO SCH (08:52)
[2017-12-30] MEDS: CHOLECALCIFEROL (VITAMIN D3) 5,000 UNIT CAPSULE PO SCH (08:52)
[2017-12-30] MEDS: amLODIPine BESYLATE 10 MG TABLET PO SCH (08:53)
[2017-12-30] MEDS: CARVEDILOL 3.125 MG TABLET. PO SCH ×2 (08:54→19:43)
[2017-12-30] MEDS: POLYETHYLENE GLYCOL 3350 17 GM PACKET. PO SCH (08:54)
--- NOTE | 2017-12-30 10:59 | CARD ---
MR#: [id number] Date of Study: 12/30/2017 Ordering Physician: RAUL URIBE, Referring Physician: CHI SUN, Tech: JULIO Gibbons APPROVED REPORT EXAM: Two-dimensional and M-mode echocardiogram with Doppler and color Doppler. Other Information Quality : AverageHR: 58bpm Technically limited study due to body habitus and immobile left arm. INDICATION Non STEMI 2D DIMENSIONS Left Atrium(2D)2.5 (1.6-4.0cm)IVSd1.1 (0.7-1.1cm) Aortic Root(2D)3.7 (2.0-3.7cm)LVDd4.2 (3.9-5.9cm) LVOT Diameter2.1 (1.8-2.4cm)PWd1.2 (0.7-1.1cm) LVDs2.2 (2.5-4.0cm)FS (%) 47.9 % SV63.5 mlLVEF(%)79.6 (>50%) Aortic Valve AoV Peak Ac.175.9cm/sAoV VTI37.5cm AO Peak GR.12.4mmHgLVOT VTI 25.70cm AO Mean GR.7mmHg Mitral Valve MV E Qyxjzbqv33.7cm/sMV DECEL [id number] MV A Nqxyzmyj07.4cm/sE/A Ratio0.6 TDI Lateral E' P. V8.37cm/sMedial E' P. V9.14cm/s E/Lateral E'6.5E/Medial E'6.0 Tricuspid Valve TR P. [id number]/sRAP [id number] TR Peak Gr.54glYhFMIO21iiPi LEFT VENTRICLE The left ventricle is normal size. There is mild concentric left ventricular hypertrophy. The left ve ntricular systolic function is normal and the ejection fraction is within normal range. EF 65% There is grossly normal LV segmental wall motion. Transmitral Doppler flow pattern is Grade I-abnormal rela xation pattern. RIGHT VENTRICLE The right ventricle is normal size. The right ventricular systolic function is normal. ATRIA The left atrium size is normal. The right atrium size is normal. Atrial septum not well visualized. AORTIC VALVE The aortic valve is mildly calcified. Doppler and Color Flow revealed trace aortic regurgitation. The re is no significant aortic valvular stenosis. There is no aortic valvular vegetation. MITRAL VALVE The mitral valve is thickened but opens well. There is no evidence of mitral valve prolapse. There is no mitral valve stenosis. Doppler and Color Flow revealed no mitral valve regurgitation noted. TRICUSPID VALVE The tricuspid valve leaflets are thickened , but open well. Doppler and Color Flow revealed mild tric uspid regurgitation. There is no pulmonary hypertension. The PA pressure was estimated at 17 mmHg. Th ere is no tricuspid valve prolapse or vegetation. There is no tricuspid valve stenosis. PULMONIC VALVE The pulmonic valve is not well visualized. Doppler and Color Flow revealed no pulmonic valvular regur gitation. There is no pulmonic valvular stenosis. GREAT VESSELS The aortic root is normal size. The aortic root displays mild sclerocalcific changes of the aortic an nulus. The IVC is normal in size and collapses >50% with inspiration. PERICARDIAL EFFUSION There is no pleural effusion. There is a trace circumferential pericardial effusion. Critical Notification Critical Value: No <Conclusion> There is grossly normal LV segmental wall motion. Transmitral Doppler flow pattern is Grade I-abnormal relaxation pattern. Signed by : Pan Tomlinson, Electronically Approved : 12/30/2017 10:58:21
[2017-12-30 11:00] VITALS: BP 123/63
--- NOTE | 2017-12-30 14:22 | PDOC ---
PROGRESS NOTES Chief Complaint Chief Complaint s/p ORIF L humerus PO day 6 Acute hypoxic respiratory failure HTN GERD Osteoporosis Hypothyroid state on replacement OBSTIPATION History of Present Illness History of Present Illness Pt seen and examined Dw RN Awaiting transfer to floor Pt CO constipation Vitals Vitals Vital Signs Date Time Temp Pulse Resp B/P (MAP) Pulse Ox O2 Delivery O2 Flow Rate FiO2 12/30/17 11:09 87 Room Air 12/30/17 11:00 95.1 59 18 123/63 (83) 5.0 95.1 Physical Exam General: Alert, Oriented X3, Cooperative, No acute distress Heart: Regular rate, Normal S1, No murmurs Lungs: Clear Abdomen: Soft, No tenderness Extremities: No clubbing, No cyanosis, No edema, Other (L arm with CDI dressings, in sling, L radial pulse 2+) Skin: No rashes, No breakdown Labs LABS Laboratory Tests Test 12/30/17 04:50 White Blood Count 6.5 x10^3/uL (4.0-11.0) Red Blood Count 3.49 x10^6/uL (3.50-5.40) Hemoglobin 11.3 g/dL (12.0-15.5) Hematocrit 32.8 % (36.0-47.0) Mean Corpuscular Volume 94 fL (79-100) Mean Corpuscular Hemoglobin 32 pg (25-35) Mean Corpuscular Hemoglobin Concent 34 g/dL (31-37) Red Cell Distribution Width 13.8 % (11.5-14.5) Platelet Count 208 x10^3/uL (140-400) Neutrophils (%) (Auto) 59 % (31-73) Lymphocytes (%) (Auto) 24 % (24-48) Monocytes (%) (Auto) 10 % (0-9) Eosinophils (%) (Auto) 7 % (0-3) Basophils (%) (Auto) 1 % (0-3) Neutrophils # (Auto) 3.8 x10^3uL (1.8-7.7) Lymphocytes # (Auto) 1.5 x10^3/uL (1.0-4.8) Monocytes # (Auto) 0.6 x10^3/uL (0.0-1.1) Eosinophils # (Auto) 0.4 x10^3/uL (0.0-0.7) Basophils # (Auto) 0.0 x10^3/uL (0.0-0.2) Sodium Level 142 mmol/L (136-145) Potassium Level 3.9 mmol/L (3.5-5.1) Chloride Level 105 mmol/L (98-107) Carbon Dioxide Level 30 mmol/L (21-32) Anion Gap 7 (6-14) Blood Urea Nitrogen 17 mg/dL (7-20) Creatinine 0.7 mg/dL (0.6-1.0) Estimated GFR (Cockcroft-Gault) 79.3 Glucose Level 106 mg/dL (70-99) Calcium Level 10.4 mg/dL (8.5-10.1) Assessment and Plan Assessmemt and Plan Problems Medical Problems: (1) Fall Status: Acute (2) Rib pain on right side Status: Acute Comment Review of Relevant I have reviewed the following items harvey (where applicable) has been applied. Labs Laboratory Tests Test 12/29/17 09:10 12/30/17 04:50 White Blood Count 5.7 x10^3/uL (4.0-11.0) 6.5 x10^3/uL (4.0-11.0) Red Blood Count 3.66 x10^6/uL (3.50-5.40) 3.49 x10^6/uL (3.50-5.40) Hemoglobin 11.8 g/dL (12.0-15.5) 11.3 g/dL (12.0-15.5) Hematocrit 34.7 % (36.0-47.0) 32.8 % (36.0-47.0) Mean Corpuscular Volume 95 fL (79-100) 94 fL (79-100) Mean Corpuscular Hemoglobin 32 pg (25-35) 32 pg (25-35) Mean Corpuscular Hemoglobin Concent 34 g/dL (31-37) 34 g/dL (31-37) Red Cell Distribution Width 13.3 % (11.5-14.5) 13.8 % (11.5-14.5) Platelet Count 185 x10^3/uL (140-400) 208 x10^3/uL (140-400) Neutrophils (%) (Auto) 61 % (31-73) 59 % (31-73) Lymphocytes (%) (Auto) 24 % (24-48) 24 % (24-48) Monocytes (%) (Auto) 10 % (0-9) 10 % (0-9) Eosinophils (%) (Auto) 6 % (0-3) 7 % (0-3) Basophils (%) (Auto) 1 % (0-3) 1 % (0-3) Neutrophils # (Auto) 3.5 x10^3uL (1.8-7.7) 3.8 x10^3uL (1.8-7.7) Lymphocytes # (Auto) 1.4 x10^3/uL (1.0-4.8) 1.5 x10^3/uL (1.0-4.8) Monocytes # (Auto) 0.5 x10^3/uL (0.0-1.1) 0.6 x10^3/uL (0.0-1.1) Eosinophils # (Auto) 0.3 x10^3/uL (0.0-0.7) 0.4 x10^3/uL (0.0-0.7) Basophils # (Auto) 0.0 x10^3/uL (0.0-0.2) 0.0 x10^3/uL (0.0-0.2) Sodium Level 138 mmol/L (136-145) 142 mmol/L (136-145) Potassium Level 3.9 mmol/L (3.5-5.1) 3.9 mmol/L (3.5-5.1) Chloride Level 104 mmol/L (98-107) 105 mmol/L (98-107) Carbon Dioxide Level 28 mmol/L (21-32) 30 mmol/L (21-32) Anion Gap 6 (6-14) 7 (6-14) Blood Urea Nitrogen 23 mg/dL (7-20) 17 mg/dL (7-20) Creatinine 0.8 mg/dL (0.6-1.0) 0.7 mg/dL (0.6-1.0) Estimated GFR (Cockcroft-Gault) 68.0 79.3 Glucose Level 122 mg/dL (70-99) 106 mg/dL (70-99) Calcium Level 9.5 mg/dL (8.5-10.1) 10.4 mg/dL (8.5-10.1) Laboratory Tests Test 12/30/17 04:50 White Blood Count 6.5 x10^3/uL (4.0-11.0) Red Blood Count 3.49 x10^6/uL (3.50-5.40) Hemoglobin 11.3 g/dL (12.0-15.5) Hematocrit 32.8 % (36.0-47.0) Mean Corpuscular Volume 94 fL (79-100) Mean Corpuscular Hemoglobin 32 pg (25-35) Mean Corpuscular Hemoglobin Concent 34 g/dL (31-37) Red Cell Distribution Width 13.8 % (11.5-14.5) Platelet Count 208 x10^3/uL (140-400) Neutrophils (%) (Auto) 59 % (31-73) Lymphocytes (%) (Auto) 24 % (24-48) Monocytes (%) (Auto) 10 % (0-9) Eosinophils (%) (Auto) 7 % (0-3) Basophils (%) (Auto) 1 % (0-3) Neutrophils # (Auto) 3.8 x10^3uL (1.8-7.7) Lymphocytes # (Auto) 1.5 x10^3/uL (1.0-4.8) Monocytes # (Auto) 0.6 x10^3/uL (0.0-1.1) Eosinophils # (Auto) 0.4 x10^3/uL (0.0-0.7) Basophils # (Auto) 0.0 x10^3/uL (0.0-0.2) Sodium Level 142 mmol/L (136-145) Potassium Level 3.9 mmol/L (3.5-5.1) Chloride Level 105 mmol/L (98-107) Carbon Dioxide Level 30 mmol/L (21-32) Anion Gap 7 (6-14) Blood Urea Nitrogen 17 mg/dL (7-20) Creatinine 0.7 mg/dL (0.6-1.0) Estimated GFR (Cockcroft-Gault) 79.3 Glucose Level 106 mg/dL (70-99) Calcium Level 10.4 mg/dL (8.5-10.1) Medications Current Medications Fentanyl Citrate (Fentanyl 2ml Vial) 25 mcg 1X ONCE IV Last administered on 12/24/17at 14:03; Start 12/24/17 at 13:45; Stop 12/24/17 at 13:46; Status DC Fentanyl Citrate (Fentanyl 2ml Vial) 25 mcg 1X ONCE IV Last administered on 12/24/17at 15:26; Start 12/24/17 at 15:00; Stop 12/24/17 at 15:01; Status DC Ondansetron HCl (Zofran) 4 mg PRN Q8HRS PRN IV NAUSEA/VOMITING Last administered on 12/24/17at 17:17; Start 12/24/17 at 15:00; Stop 12/25/17 at 14:59; Status DC Fentanyl Citrate (Fentanyl 2ml Vial) 25 mcg PRN Q3HRS PRN IV PAIN Last administered on 12/25/17at 06:14; Start 12/24/17 at 15:00; Stop 12/25/17 at 14:59; Status DC Albuterol Sulfate (Ventolin Neb Soln) 2.5 mg PRN Q4HRS PRN NEB SHORTNESS OF BREATH Last administered on 12/26/17at 16:33; Start 12/24/17 at 18:15 Acetaminophen (Tylenol) 325 mg PRN Q4HRS PO ; Start 12/24/17 at 20:00; Stop 12/25 at 22:04; Status DC Amlodipine Besylate (Norvasc) 5 mg DAILY PO Last administered on 12/27/17at 10:15 ; Start 12/25/17 at 09:00; Stop 12/27/17 at 10:23; Status DC Aspirin (Children'S Aspirin) 81 mg DAILY07 PO Last administered on 12/30/17at 06 :07; Start 12/25/17 at 07:00 Carvedilol (Coreg) 3.125 mg BID PO Last administered on 12/26/17at 10:17; Start 12/24/17 at 21:00; Stop 12/26/17 at 15:15; Status DC Acetaminophen/ Hydrocodone Bitart (Lortab 5/325) 1 tab PRN Q4HRS PRN PO PAIN Last administered on 12/24/17at 23:32; Start 12/24/17 at 20:00; Stop 12/25/17 at 15: 39; Status DC Levothyroxine Sodium (Synthroid) 100 mcg DAILY PO Last administered on 08:03; Start 12/25/17 at 09:00; Stop 12/29/17 at 07:17; Status DC Pantoprazole Sodium (Protonix) 40 mg DAILY PO ; Start 12/25/17 at 09:00; Stop 12/25/17 at 09:00; Status DC Atorvastatin Calcium (Lipitor) 80 mg QHS PO Last administered on 12/29/17 21: 00; Start 12/24/17 at 21:00 Non-Formulary Medication (Cholecalciferol (Vitamin D3) (Vitamin D)) 5 cap WEEKLY PO ; Start 12/31/17 at 09:00; Status UNV Vitamin D (Vitamin D3) 2,000 unit HS PO Last administered on 12/29/17 20:59; Start 12/24/17 at 21:00 Fish Oil (Fish Oil) 1,000 mg DAILY PO Last administered on 12/30/17 08:52; Start 12/25/17 at 09:00 Paroxetine HCl (Paxil) 45 mg DAILY PO ; Start 12/25/17 at 09:00; Stop 12/25/17 at 09:00; Status DC Calcium Carbonate/ Glycine (Oscal) 500 mg TIDAFTMEAL PO Last administered on 08:52; Start 12/25/17 at 09:00 Sennosides (Senna) 8.6 mg PRN BID PRN PO CONSTIPATION Last administered on 12/29 07:31; Start 12/24/17 at 20:00 Enoxaparin Sodium (Lovenox 40mg Syringe) 40 mg Q24H SQ Last administered on 21:01; Start 12/24/17 at 20:15 Pantoprazole Sodium (Protonix) 40 mg DAILYAC PO Last administered on 12/30/17 08:51; Start 12/25/17 at 07:30 Fentanyl Citrate (Fentanyl 2ml Vial) 50 mcg PRN Q2HR PRN IV SEVERE PAIN Last administered on 12/29/17 21:02; Start 12/25/17 at 07:00 Non-Formulary Medication (Paroxetine Hcl (Paxil)) 45 mg QHS PO ; Start 12/25/17 at 21:00; Status UNV Paroxetine HCl (Paxil) 45 mg QHS PO Last administered on 12/29/17at 21:24; Start 12/25/17 at 21:00 Vitamin D (Vitamin D3) 5,000 unit DAILY PO Last administered on 12/30/17at 08:52 ; Start 12/25/17 at 09:00 Cefazolin Sodium 50 ml @ 100 mls/hr 1X ONCE IV Last administered on 12/25/17at 15:45; Start 12/25/17 at 10:15; Stop 12/25/17 at 10:44; Status DC Propofol 20 ml @ As Directed STK-MED ONCE IV ; Start 12/25/17 at 14:16; Stop 12/25 at 14:17; Status DC Fentanyl Citrate (Fentanyl 2ml Vial) 100 mcg STK-MED ONCE .ROUTE ; Start at 14:16; Stop 12/25/17 at 14:17; Status DC Ondansetron HCl (Zofran) 4 mg PRN Q6HRS PRN IV NAUSEA/VOMITING; Start 12/25/17 at 15:00; Stop 12/26/17 at 14:59; Status DC Fentanyl Citrate (Fentanyl 2ml Vial) 25 mcg PRN Q5MIN PRN IV MILD PAIN; Start 12/25/17 at 15:00; Stop 12/25/17 at 20:00; Status DC Fentanyl Citrate (Fentanyl 2ml Vial) 50 mcg PRN Q5MIN PRN IV MODERATE TO SEVERE PAIN; Start 12/25/17 at 15:00; Stop 12/25/17 at 20:00; Status DC Morphine Sulfate (Morphine Sulfate) 1 mg PRN Q10MIN PRN IV SEVERE PAIN; Start 12/25/17 at 15:00; Stop 12/25/17 at 20:00; Status DC Ringer's Solution 1,000 ml @ 30 mls/hr Q24H IV Last administered on 12/25/17at 15:01; Start 12/25/17 at 14:56; Stop 12/26/17 at 02:55; Status DC Lidocaine HCl (Xylocaine-Mpf 1% 2ml Vial) 2 ml 1X PRN PRN ID IV START; Start at 15:00; Stop 12/25/17 at 20:00; Status DC Hydromorphone HCl (Dilaudid) 0.5 mg PRN Q10MIN PRN IV SEV PAIN, Second choice; Start 12/25/17 at 15:00; Stop 12/25/17 at 20:00; Status DC Prochlorperazine Edisylate (Compazine) 5 mg PACU PRN PRN IV NAUSEA, MRX1; Start 12/25/17 at 15:00; Stop 12/25/17 at 20:00; Status DC Dexamethasone Sodium Phosphate (Decadron) 20 mg STK-MED ONCE .ROUTE ; Start 12/25 at 14:58; Stop 12/25/17 at 14:59; Status DC Famotidine (Pepcid Vial) 20 mg STK-MED ONCE .ROUTE ; Start 12/25/17 at 14:58; Stop 12/25/17 at 14:59; Status DC Lidocaine HCl (Xylocaine-Mpf 1% 5ml Vial) 5 ml STK-MED ONCE .ROUTE ; Start at 14:58; Stop 12/25/17 at 14:59; Status DC Rocuronium [place] (Zemuron) 50 mg STK-MED ONCE .ROUTE ; Start 12/25/17 at 14:58 ; Stop 12/25/17 at 14:59; Status DC Lidocaine HCl (Xylocaine 1% Pf 30ml Vial) 30 ml STK-MED ONCE .ROUTE Last administered on 12/25/17at 15:58; Start 12/25/17 at 14:15; Stop 12/25/17 at 15:16; Status DC Bupivacaine HCl (Marcaine 0.5%) 50 ml STK-MED ONCE .ROUTE Last administered on 12/25/17at 15:58; Start 12/25/17 at 14:16; Stop 12/25/17 at 15:16; Status DC Cefazolin Sodium 1 gm/Dextrose 50 ml @ 100 mls/hr Q6H IV ; Start 12/25/17 at 15: 45; Stop 12/26/17 at 04:14; Status UNV Acetaminophen/ Hydrocodone Bitart (Lortab 5/325) 1 tab PRN Q4HRS PRN PO MODERATE PAIN Last administered on 12/30/17at 06:08; Start 12/25/17 at 15:30 Ephedrine Sulfate (ePHEDrine PF IN SALINE SYRINGE) 50 mg STK-MED ONCE IV ; Start 12/25/17 at 15:43; Stop 12/25/17 at 15:44; Status DC Glycopyrrolate (Robinul) 1 mg STK-MED ONCE .ROUTE ; Start 12/25/17 at 15:45; Stop 12/25/17 at 15:46; Status DC Cefazolin Sodium (Ancef) 1 gm Q6H IVP Last administered on 12/26/17at 11:45; Start 12/25/17 at 23:00; Stop 12/26/17 at 14:00; Status DC Neostigmine Methylsulfate (Neostigmine Methylsulfate) 5 mg STK-MED ONCE .ROUTE ; Start 12/25/17 at 17:34; Stop 12/25/17 at 17:35; Status DC Desflurane (Suprane) 90 ml STK-MED ONCE IH ; Start 12/25/17 at 17:34; Stop at 17:35; Status DC Acetaminophen (Tylenol) 325 mg PRN Q4HRS PRN PO MILD PAIN / TEMP Last administered on 12/25/17at 22:13; Start 12/25/17 at 22:15 Lorazepam (Ativan) 0.5 mg PRN Q4HRS PRN PO ANXIETY / AGITATION Last administered on 12/29/17at 21:24; Start 12/25/17 at 23:45 Enoxaparin Sodium (Lovenox Per Pharmacy Prophylaxis Dosing) 1 each PRN DAILY PRN MC SEE COMMENTS; Start 12/26/17 at 12:45; Status UNV Carvedilol (Coreg) 3.125 mg BIDWMEALS PO Last administered on 12/30/17at 08:54; Start 12/26/17 at 17:00 Albuterol/ Ipratropium (Duoneb) 3 ml 1X ONCE NEB Last administered on at 04:00; Start 12/27/17 at 04:00; Stop 12/27/17 at 04:01; Status DC Amlodipine Besylate (Norvasc) 10 mg DAILY PO Last administered on 12/30/17at 08: 53; Start 12/27/17 at 11:00 Enalaprilat (Vasotec Inj) 1.25 mg PRN Q6HRS PRN IVP HYPERTENSION, SEE COMMENTS ; Start 12/27/17 at 10:30 Albuterol/ Ipratropium (Duoneb) 3 ml RTQID NEB Last administered on 12/30/17at 11:06; Start 12/27/17 at 12:00 Budesonide (Pulmicort) 0.5 mg RTBID NEB Last administered on 12/30/17at 07:10; Start 12/27/17 at 12:00 Amino Acids/ Glycerin/ Electrolytes 1,000 ml @ 80 mls/hr [id number] IV Last administered on 12/28/17at 02:56; Start 12/27/17 at 14:00; Stop 12/28/17 at 12:48 ; Status DC Polyethylene Glycol (miraLAX PACKET) 17 gm DAILY PO Last administered on at 08:54; Start 12/28/17 at 12:00 Docusate Sodium (Colace) 100 mg PRN DAILY PRN PO HARD STOOLS Last administered on 12/29/17at 07:31; Start 12/28/17 at 11:30 Levothyroxine Sodium (Synthroid) 100 mcg DAILY07 PO Last administered on at 06:07; Start 12/29/17 at 07:30 Bisacodyl (Dulcolax Tab) 5 mg PRN DAILY PRN PO CONSTIPATION Last administered on 12/29/17at 13:15; Start 12/29/17 at 12:45 Active Scripts Active Reported Paxil (Paroxetine Hcl) 40 Mg Tablet 45 Mg PO QHS Targretin (Bexarotene) 60 Gm Gel..gram. 60 Gm TP Fish Oil 1,200 Mg Fish Oil (Fish Oil/Dha/Epa) 1 Each Capsule 1 Each PO Tylenol (Acetaminophen) 325 Mg Tablet 1 Tab PO PRN Q4HRS Senna Laxative (Sennosides) 8.6 Mg Tablet 8.6 Mg PO Amlodipine Besylate 5 Mg Tablet 5 Mg PO DAILY Percocet 5-325 Mg Tablet (Oxycodone/Acetaminophen) 1 Each Tablet 1 Tab PO PRN Q8HRS PRN Calcium (Calcium Carbonate) 600 Mg Tablet 1,200 Mg PO Protonix (Pantoprazole Sodium) 40 Mg Tablet.dr 1 Tab PO DAILY Carvedilol 3.125 Mg Tablet 1 Tab PO BID Children's Aspirin (Aspirin) 81 Mg Tab.chew 81 Mg PO One Daily (Multivitamin) 1 Each Tablet 1 Each PO Vitamin D (Cholecalciferol (Vitamin D3)) 2,000 Unit Capsule 1 Cap PO HS Fish Oil (Isabella-3 Fatty Acids) 300 Mg Capsule 1,200 Mg PO DAILY Hydrocodone-Apap 5-325 (Hydrocodone Bit/Acetaminophen) 1 Each Tablet 1-2 Tab PO Q4-6HRS Levothyroxine Sodium 100 Mcg Tablet 1 Tab PO DAILY Vitamin D (Cholecalciferol (Vitamin D3)) 1,000 Unit Capsule 5 Cap PO DAILY Atorvastatin Calcium 80 Mg Tablet 1 Tab PO DAILY Vitals/I & O Vital Sign - Last 24 Hours 12/29/17 12/29/17 12/29/17 12/29/17 14:54 16:00 17:51 19:32 Temp 98.7 98.7 Pulse 52 64 Resp 20 B/P (MAP) 183/72 (109) 189/77 Pulse Ox 93 92 O2 Delivery Nasal Cannula Nasal Cannula Nasal Cannula O2 Flow Rate 5.0 3.0 5.0 12/29/17 12/29/17 12/29/17 12/29/17 20:30 21:02 21:32 23:09 Resp 20 17 O2 Delivery Nasal Cannula Nasal Cannula Nasal Cannula O2 Flow Rate 5.0 5.0 12/29/17 12/30/17 12/30/17 12/30/17 23:25 03:38 06:08 07:00 Temp 98.1 98.2 98.5 98.1 98.2 98.5 Pulse 64 62 87 Resp 20 20 18 18 B/P (MAP) 135/66 (89) 128/62 (84) 119/71 (87) Pulse Ox 90 91 93 O2 Delivery Nasal Cannula Nasal Cannula Nasal Cannula Nasal Cannula O2 Flow Rate 5.0 5.0 5.0 5.0 12/30/17 12/30/17 12/30/17 12/30/17 07:10 07:12 08:00 08:53 Pulse 87 Resp 20 B/P (MAP) 119/71 Pulse Ox 87 87 O2 Delivery Nasal Cannula Room Air Nasal Cannula O2 Flow Rate 3.0 3.0 12/30/17 12/30/17 12/30/17 08:54 11:00 11:09 Temp 95.1 95.1 Pulse 87 59 Resp 18 B/P (MAP) 119/71 123/63 (83) Pulse Ox 93 87 O2 Delivery Nasal Cannula Room Air O2 Flow Rate 5.0 Intake and Output 12/29/17 12/29/17 12/30/17 15:00 23:00 07:00 Intake Total 240 ml 360 ml 600 ml Output Total 1110 ml 310 ml 400 ml Balance -870 ml 50 ml 200 ml CHI SUN MD Dec 30, 2017 14:22
[2017-12-30] MEDS: SENNOSIDES 8.6 MG TABLET PO PRN (14:51)
[2017-12-30] MEDS: DOCUSATE SODIUM 100 MG CAPSULE. PO PRN (14:52)
[2017-12-30] MEDS: BISACODYL 5 MG TABLET.DR. PO PRN (14:52)
[2017-12-30] MEDS ORDERED: MAGNESIUM HYDROXIDE 2,400 MG/30 ML ORAL.SUSP. PO ONE (16:30)
[2017-12-30 19:00] VITALS: BP 143/65
[2017-12-30] MEDS: ENOXAPARIN 40 MG/0.4 ML SYRINGE. SQ SCH (20:30)
[2017-12-30] MEDS: CHOLECALCIFEROL (VITAMIN D3) 1,000 UNIT TABLET PO SCH (20:35)
[2017-12-30] MEDS: PARoxetine 10 MG TABLET PO SCH (20:35)
[2017-12-30] MEDS: ATORVASTATIN CALCIUM 40 MG TABLET. PO SCH (20:35)
[2017-12-30 23:00] VITALS: BP 125/62
[2017-12-30] MEDS ORDERED: TRIA80OI TP (23:50)
[2017-12-31] MEDS: HYDROcodone/APAP 5/325MG 1 TAB TABLET PO PRN (02:45)
[2017-12-31 03:00] VITALS: BP 140/69
[2017-12-31] MEDS: LEVOTHYROXINE 100 MCG TABLET PO SCH (06:29)
[2017-12-31] MEDS: ASPIRIN CHEWABLE 81 MG TABLET. PO SCH (06:29)
[2017-12-31] MEDS: PANTOPRAZOLE 40 MG TABLET.DR. PO SCH (06:30)
[2017-12-31 07:00] VITALS: BP 138/61
[2017-12-31] MEDS: IPRATRPIUM/ALBUTEROL 0.5/2.5MG 3 ML NEBU. NEB SCH ×4 (07:21→19:21)
[2017-12-31] MEDS: BUDESONIDE 0.5 MG/2 ML NEBU. NEB SCH ×2 (07:22→19:21)
[2017-12-31 07:37] LABS: CALCIUM 10.2 mg/dL (8.5-10.1); CREATININE 0.7 mg/dL (0.6-1.0); GFR 79.3
[2017-12-31 08:18] LABS: BASO % 1 % (0-3); EOS # 0.4 x10^3/uL (0.0-0.7); EOS % 7 % (0-3); HEMATOCRIT 32.2 % (36.0-47.0); HEMOGLOBIN 11.2 g/dL (12.0-15.5); LYMPH # 1.5 x10^3/uL (1.0-4.8); LYMPH % 26 % (24-48); MEAN CORPUSCULAR HEMOGLOBIN 33 pg (25-35); MEAN CORPUSCULAR HGB CONC 35 g/dL (31-37); MEAN CORPUSCULAR VOLUME 94 fL (79-100); MONO # 0.6 x10^3/uL (0.0-1.1); MONO % 10 % (0-9); NEUT # 3.3 x10^3uL (1.8-7.7); NEUT % 56 % (31-73); PLATELET COUNT 221 x10^3/uL (140-400); RED BLOOD COUNT 3.42 x10^6/uL (3.50-5.40); RED CELL DISTRIBUTION WIDTH 13.4 % (11.5-14.5); WHITE BLOOD COUNT 5.9 x10^3/uL (4.0-11.0)
[2017-12-31] MEDS ORDERED: CHOLECALCIFEROL PO SCH (09:00)
--- NOTE | 2017-12-31 09:31 | PDOC ---
PULMONARY PROGRESS NOTES Subjective PT ON 02 SOA WITH EXERTION Vitals Vital Signs Date Time Temp Pulse Resp B/P (MAP) Pulse Ox O2 Delivery O2 Flow Rate FiO2 12/31/17 07:13 90 Nasal Cannula 2.0 12/31/17 07:00 97.9 60 16 138/61 (86) 97.9 ROS: No Nausea, No Chest Pain, No Abdominal Pain, No Increase Cough General: Alert, No acute distress Lungs: Clear Cardiovascular: S1, S2 Abdomen: Soft Extremities: No Edema Labs Laboratory Tests Test 12/30/17 04:50 12/31/17 06:53 White Blood Count 6.5 x10^3/uL (4.0-11.0) 5.9 x10^3/uL (4.0-11.0) Red Blood Count 3.49 x10^6/uL (3.50-5.40) 3.42 x10^6/uL (3.50-5.40) Hemoglobin 11.3 g/dL (12.0-15.5) 11.2 g/dL (12.0-15.5) Hematocrit 32.8 % (36.0-47.0) 32.2 % (36.0-47.0) Mean Corpuscular Volume 94 fL (79-100) 94 fL (79-100) Mean Corpuscular Hemoglobin 32 pg (25-35) 33 pg (25-35) Mean Corpuscular Hemoglobin Concent 34 g/dL (31-37) 35 g/dL (31-37) Red Cell Distribution Width 13.8 % (11.5-14.5) 13.4 % (11.5-14.5) Platelet Count 208 x10^3/uL (140-400) 221 x10^3/uL (140-400) Neutrophils (%) (Auto) 59 % (31-73) 56 % (31-73) Lymphocytes (%) (Auto) 24 % (24-48) 26 % (24-48) Monocytes (%) (Auto) 10 % (0-9) 10 % (0-9) Eosinophils (%) (Auto) 7 % (0-3) 7 % (0-3) Basophils (%) (Auto) 1 % (0-3) 1 % (0-3) Neutrophils # (Auto) 3.8 x10^3uL (1.8-7.7) 3.3 x10^3uL (1.8-7.7) Lymphocytes # (Auto) 1.5 x10^3/uL (1.0-4.8) 1.5 x10^3/uL (1.0-4.8) Monocytes # (Auto) 0.6 x10^3/uL (0.0-1.1) 0.6 x10^3/uL (0.0-1.1) Eosinophils # (Auto) 0.4 x10^3/uL (0.0-0.7) 0.4 x10^3/uL (0.0-0.7) Basophils # (Auto) 0.0 x10^3/uL (0.0-0.2) 0.0 x10^3/uL (0.0-0.2) Sodium Level 142 mmol/L (136-145) 141 mmol/L (136-145) Potassium Level 3.9 mmol/L (3.5-5.1) 4.0 mmol/L (3.5-5.1) Chloride Level 105 mmol/L (98-107) 104 mmol/L (98-107) Carbon Dioxide Level 30 mmol/L (21-32) 31 mmol/L (21-32) Anion Gap 7 (6-14) 6 (6-14) Blood Urea Nitrogen 17 mg/dL (7-20) 18 mg/dL (7-20) Creatinine 0.7 mg/dL (0.6-1.0) 0.7 mg/dL (0.6-1.0) Estimated GFR (Cockcroft-Gault) 79.3 79.3 Glucose Level 106 mg/dL (70-99) 105 mg/dL (70-99) Calcium Level 10.4 mg/dL (8.5-10.1) 10.2 mg/dL (8.5-10.1) Laboratory Tests Test 12/31/17 06:53 White Blood Count 5.9 x10^3/uL (4.0-11.0) Red Blood Count 3.42 x10^6/uL (3.50-5.40) Hemoglobin 11.2 g/dL (12.0-15.5) Hematocrit 32.2 % (36.0-47.0) Mean Corpuscular Volume 94 fL (79-100) Mean Corpuscular Hemoglobin 33 pg (25-35) Mean Corpuscular Hemoglobin Concent 35 g/dL (31-37) Red Cell Distribution Width 13.4 % (11.5-14.5) Platelet Count 221 x10^3/uL (140-400) Neutrophils (%) (Auto) 56 % (31-73) Lymphocytes (%) (Auto) 26 % (24-48) Monocytes (%) (Auto) 10 % (0-9) Eosinophils (%) (Auto) 7 % (0-3) Basophils (%) (Auto) 1 % (0-3) Neutrophils # (Auto) 3.3 x10^3uL (1.8-7.7) Lymphocytes # (Auto) 1.5 x10^3/uL (1.0-4.8) Monocytes # (Auto) 0.6 x10^3/uL (0.0-1.1) Eosinophils # (Auto) 0.4 x10^3/uL (0.0-0.7) Basophils # (Auto) 0.0 x10^3/uL (0.0-0.2) Sodium Level 141 mmol/L (136-145) Potassium Level 4.0 mmol/L (3.5-5.1) Chloride Level 104 mmol/L (98-107) Carbon Dioxide Level 31 mmol/L (21-32) Anion Gap 6 (6-14) Blood Urea Nitrogen 18 mg/dL (7-20) Creatinine 0.7 mg/dL (0.6-1.0) Estimated GFR (Cockcroft-Gault) 79.3 Glucose Level 105 mg/dL (70-99) Calcium Level 10.2 mg/dL (8.5-10.1) Medications Active Scripts Medications Dose Route/Sig Max Daily Dose Days Date Category Paxil (Paroxetine Hcl) 40 Mg Tablet 45 Mg PO QHS 12/25/17 Reported Targretin (Bexarotene) 60 Gm Gel..gram. 60 Gm TP 12/24/17 Reported Fish Oil 1,200 Mg Fish Oil (Fish Oil/Dha/Epa) 1 Each Capsule 1 Each PO 12/24/17 Reported Tylenol (Acetaminophen) 325 Mg Tablet 1 Tab PO PRN Q4HRS 12/24/17 Reported Senna Laxative (Sennosides) 8.6 Mg Tablet 8.6 Mg PO 12/24/17 Reported Amlodipine Besylate 5 Mg Tablet 5 Mg PO DAILY 12/24/17 Reported Percocet 5-325 Mg Tablet (Oxycodone/Acetaminophen) 1 Each Tablet 1 Tab PO PRN Q8HRS PRN 12/24/17 Reported Calcium (Calcium Carbonate) 600 Mg Tablet 1,200 Mg PO 01/16/17 Reported Protonix (Pantoprazole Sodium) 40 Mg Tablet.dr 1 Tab PO DAILY 01/16/17 Reported Carvedilol 3.125 Mg Tablet 1 Tab PO BID 01/16/17 Reported Children's Aspirin (Aspirin) 81 Mg Tab.chew 81 Mg PO 12/09/14 Reported One Daily (Multivitamin) 1 Each Tablet 1 Each PO 12/09/14 Reported Vitamin D (Cholecalciferol (Vitamin D3)) 2,000 Unit Capsule 1 Cap PO HS 12/09/14 Reported Fish Oil ([place]-3 Fatty Acids) 300 Mg Capsule 1,200 Mg PO DAILY 12/09/14 Reported Hydrocodone-Apap 5-325 (Hydrocodone Bit/Acetaminophen) 1 Each Tablet 1-2 Tab PO Q4-6HRS 12/09/14 Reported Levothyroxine Sodium 100 Mcg Tablet 1 Tab PO DAILY 12/09/14 Reported Vitamin D (Cholecalciferol (Vitamin D3)) 1,000 Unit Capsule 5 Cap PO DAILY 12/09/14 Reported Atorvastatin Calcium 80 Mg Tablet 1 Tab PO DAILY 12/09/14 Reported Impression . IMPRESSION: 1. Acute hypoxemic respiratory failure, could be secondary to atelectasis, pain medication, ileus 2. ILEUS 3. Status post left spiral humeral shaft fracture, open reduction and internal fixation. 4. Chronic obstructive pulmonary disease. 5. GERD 6. Hypothyroidism. 7. Hypertension. 8. Weakness Plan . CM TO SET UP TRANSFER TO ACUTE REHAB PT/OT O2 ANNABELLE HOLLOWAY MD Dec 31, 2017 09:31
[2017-12-31] MEDS: POLYETHYLENE GLYCOL 3350 17 GM PACKET. PO SCH (09:54)
[2017-12-31] MEDS: CALCIUM CARBONATE 500 MG TABLET PO SCH ×3 (09:57→16:42)
[2017-12-31] MEDS: CHOLECALCIFEROL (VITAMIN D3) 5,000 UNIT CAPSULE PO SCH (09:57)
[2017-12-31] MEDS: OMEGA-3 FATTY ACIDS/FISH OIL 1,000 MG CAPSULE. PO SCH (09:57)
[2017-12-31] MEDS: amLODIPine BESYLATE 10 MG TABLET PO SCH (09:57)
[2017-12-31] MEDS: CARVEDILOL 3.125 MG TABLET. PO SCH ×2 (09:58→16:42)
[2017-12-31] MEDS ORDERED: MAGNESIUM HYDROXIDE 2,400 MG/30 ML ORAL.SUSP. PO ONE (10:00)
[2017-12-31] MEDS: ACETAMINOPHEN 325 MG TABLET. PO PRN ×2 (10:12→22:50)
[2017-12-31 11:00] VITALS: BP 125/48
--- NOTE | 2017-12-31 11:05 | PDOC ---
PROGRESS NOTES Chief Complaint Chief Complaint s/p ORIF L humerus PO day 7 Acute hypoxic respiratory failure HTN GERD Osteoporosis Hypothyroid state on replacement OBSTIPATION MOM GIVEN TODAY TO [facility] THURSDAY planned History of Present Illness History of Present Illness Pt seen and examined Dw RN Awaiting transfer to floor Pt CO constipation Vitals Vitals Vital Signs Date Time Temp Pulse Resp B/P (MAP) Pulse Ox O2 Delivery O2 Flow Rate FiO2 12/31/17 09:58 60 138/61 12/31/17 07:13 90 Nasal Cannula 2.0 12/31/17 07:00 97.9 16 97.9 Physical Exam General: Alert, Oriented X3, Cooperative, No acute distress Heart: Regular rate, Normal S1, No murmurs Lungs: Clear Abdomen: Soft, No tenderness Extremities: No clubbing, No cyanosis, No edema, Other (L arm with CDI dressings, in sling, L radial pulse 2+) Skin: No rashes, No breakdown Labs LABS Laboratory Tests Test 12/31/17 06:53 White Blood Count 5.9 x10^3/uL (4.0-11.0) Red Blood Count 3.42 x10^6/uL (3.50-5.40) Hemoglobin 11.2 g/dL (12.0-15.5) Hematocrit 32.2 % (36.0-47.0) Mean Corpuscular Volume 94 fL (79-100) Mean Corpuscular Hemoglobin 33 pg (25-35) Mean Corpuscular Hemoglobin Concent 35 g/dL (31-37) Red Cell Distribution Width 13.4 % (11.5-14.5) Platelet Count 221 x10^3/uL (140-400) Neutrophils (%) (Auto) 56 % (31-73) Lymphocytes (%) (Auto) 26 % (24-48) Monocytes (%) (Auto) 10 % (0-9) Eosinophils (%) (Auto) 7 % (0-3) Basophils (%) (Auto) 1 % (0-3) Neutrophils # (Auto) 3.3 x10^3uL (1.8-7.7) Lymphocytes # (Auto) 1.5 x10^3/uL (1.0-4.8) Monocytes # (Auto) 0.6 x10^3/uL (0.0-1.1) Eosinophils # (Auto) 0.4 x10^3/uL (0.0-0.7) Basophils # (Auto) 0.0 x10^3/uL (0.0-0.2) Sodium Level 141 mmol/L (136-145) Potassium Level 4.0 mmol/L (3.5-5.1) Chloride Level 104 mmol/L (98-107) Carbon Dioxide Level 31 mmol/L (21-32) Anion Gap 6 (6-14) Blood Urea Nitrogen 18 mg/dL (7-20) Creatinine 0.7 mg/dL (0.6-1.0) Estimated GFR (Cockcroft-Gault) 79.3 Glucose Level 105 mg/dL (70-99) Calcium Level 10.2 mg/dL (8.5-10.1) Assessment and Plan Assessmemt and Plan Problems Medical Problems: (1) Fall Status: Acute (2) Rib pain on right side Status: Acute Comment Review of Relevant I have reviewed the following items harvey (where applicable) has been applied. Labs Laboratory Tests Test 12/30/17 04:50 12/31/17 06:53 White Blood Count 6.5 x10^3/uL (4.0-11.0) 5.9 x10^3/uL (4.0-11.0) Red Blood Count 3.49 x10^6/uL (3.50-5.40) 3.42 x10^6/uL (3.50-5.40) Hemoglobin 11.3 g/dL (12.0-15.5) 11.2 g/dL (12.0-15.5) Hematocrit 32.8 % (36.0-47.0) 32.2 % (36.0-47.0) Mean Corpuscular Volume 94 fL (79-100) 94 fL (79-100) Mean Corpuscular Hemoglobin 32 pg (25-35) 33 pg (25-35) Mean Corpuscular Hemoglobin Concent 34 g/dL (31-37) 35 g/dL (31-37) Red Cell Distribution Width 13.8 % (11.5-14.5) 13.4 % (11.5-14.5) Platelet Count 208 x10^3/uL (140-400) 221 x10^3/uL (140-400) Neutrophils (%) (Auto) 59 % (31-73) 56 % (31-73) Lymphocytes (%) (Auto) 24 % (24-48) 26 % (24-48) Monocytes (%) (Auto) 10 % (0-9) 10 % (0-9) Eosinophils (%) (Auto) 7 % (0-3) 7 % (0-3) Basophils (%) (Auto) 1 % (0-3) 1 % (0-3) Neutrophils # (Auto) 3.8 x10^3uL (1.8-7.7) 3.3 x10^3uL (1.8-7.7) Lymphocytes # (Auto) 1.5 x10^3/uL (1.0-4.8) 1.5 x10^3/uL (1.0-4.8) Monocytes # (Auto) 0.6 x10^3/uL (0.0-1.1) 0.6 x10^3/uL (0.0-1.1) Eosinophils # (Auto) 0.4 x10^3/uL (0.0-0.7) 0.4 x10^3/uL (0.0-0.7) Basophils # (Auto) 0.0 x10^3/uL (0.0-0.2) 0.0 x10^3/uL (0.0-0.2) Sodium Level 142 mmol/L (136-145) 141 mmol/L (136-145) Potassium Level 3.9 mmol/L (3.5-5.1) 4.0 mmol/L (3.5-5.1) Chloride Level 105 mmol/L (98-107) 104 mmol/L (98-107) Carbon Dioxide Level 30 mmol/L (21-32) 31 mmol/L (21-32) Anion Gap 7 (6-14) 6 (6-14) Blood Urea Nitrogen 17 mg/dL (7-20) 18 mg/dL (7-20) Creatinine 0.7 mg/dL (0.6-1.0) 0.7 mg/dL (0.6-1.0) Estimated GFR (Cockcroft-Gault) 79.3 79.3 Glucose Level 106 mg/dL (70-99) 105 mg/dL (70-99) Calcium Level 10.4 mg/dL (8.5-10.1) 10.2 mg/dL (8.5-10.1) Laboratory Tests Test 12/31/17 06:53 White Blood Count 5.9 x10^3/uL (4.0-11.0) Red Blood Count 3.42 x10^6/uL (3.50-5.40) Hemoglobin 11.2 g/dL (12.0-15.5) Hematocrit 32.2 % (36.0-47.0) Mean Corpuscular Volume 94 fL (79-100) Mean Corpuscular Hemoglobin 33 pg (25-35) Mean Corpuscular Hemoglobin Concent 35 g/dL (31-37) Red Cell Distribution Width 13.4 % (11.5-14.5) Platelet Count 221 x10^3/uL (140-400) Neutrophils (%) (Auto) 56 % (31-73) Lymphocytes (%) (Auto) 26 % (24-48) Monocytes (%) (Auto) 10 % (0-9) Eosinophils (%) (Auto) 7 % (0-3) Basophils (%) (Auto) 1 % (0-3) Neutrophils # (Auto) 3.3 x10^3uL (1.8-7.7) Lymphocytes # (Auto) 1.5 x10^3/uL (1.0-4.8) Monocytes # (Auto) 0.6 x10^3/uL (0.0-1.1) Eosinophils # (Auto) 0.4 x10^3/uL (0.0-0.7) Basophils # (Auto) 0.0 x10^3/uL (0.0-0.2) Sodium Level 141 mmol/L (136-145) Potassium Level 4.0 mmol/L (3.5-5.1) Chloride Level 104 mmol/L (98-107) Carbon Dioxide Level 31 mmol/L (21-32) Anion Gap 6 (6-14) Blood Urea Nitrogen 18 mg/dL (7-20) Creatinine 0.7 mg/dL (0.6-1.0) Estimated GFR (Cockcroft-Gault) 79.3 Glucose Level 105 mg/dL (70-99) Calcium Level 10.2 mg/dL (8.5-10.1) Medications Current Medications Fentanyl Citrate (Fentanyl 2ml Vial) 25 mcg 1X ONCE IV Last administered on 12/24/17at 14:03; Start 12/24/17 at 13:45; Stop 12/24/17 at 13:46; Status DC Fentanyl Citrate (Fentanyl 2ml Vial) 25 mcg 1X ONCE IV Last administered on 12/24/17at 15:26; Start 12/24/17 at 15:00; Stop 12/24/17 at 15:01; Status DC Ondansetron HCl (Zofran) 4 mg PRN Q8HRS PRN IV NAUSEA/VOMITING Last administered on 12/24/17at 17:17; Start 12/24/17 at 15:00; Stop 12/25/17 at 14:59; Status DC Fentanyl Citrate (Fentanyl 2ml Vial) 25 mcg PRN Q3HRS PRN IV PAIN Last administered on 12/25/17at 06:14; Start 12/24/17 at 15:00; Stop 12/25/17 at 14:59; Status DC Albuterol Sulfate (Ventolin Neb Soln) 2.5 mg PRN Q4HRS PRN NEB SHORTNESS OF BREATH Last administered on 12/26/17at 16:33; Start 12/24/17 at 18:15 Acetaminophen (Tylenol) 325 mg PRN Q4HRS PO ; Start 12/24/17 at 20:00; Stop 12/25 at 22:04; Status DC Amlodipine Besylate (Norvasc) 5 mg DAILY PO Last administered on 12/27/17at 10:15 ; Start 12/25/17 at 09:00; Stop 12/27/17 at 10:23; Status DC Aspirin (Children'S Aspirin) 81 mg DAILY07 PO Last administered on 12/31/17at 06 :29; Start 12/25/17 at 07:00 Carvedilol (Coreg) 3.125 mg BID PO Last administered on 12/26/17at 10:17; Start 12/24/17 at 21:00; Stop 12/26/17 at 15:15; Status DC Acetaminophen/ Hydrocodone Bitart (Lortab 5/325) 1 tab PRN Q4HRS PRN PO PAIN Last administered on 12/24/17at 23:32; Start 12/24/17 at 20:00; Stop 12/25/17 at 15: 39; Status DC Levothyroxine Sodium (Synthroid) 100 mcg DAILY PO Last administered on 08:03; Start 12/25/17 at 09:00; Stop 12/29/17 at 07:17; Status DC Pantoprazole Sodium (Protonix) 40 mg DAILY PO ; Start 12/25/17 at 09:00; Stop 12/25/17 at 09:00; Status DC Atorvastatin Calcium (Lipitor) 80 mg QHS PO Last administered on 12/30/17 20: 35; Start 12/24/17 at 21:00 Non-Formulary Medication (Cholecalciferol (Vitamin D3) (Vitamin D)) 5 cap WEEKLY PO ; Start 12/31/17 at 09:00; Status UNV Vitamin D (Vitamin D3) 2,000 unit HS PO Last administered on 12/30/17 20:35; Start 12/24/17 at 21:00 Fish Oil (Fish Oil) 1,000 mg DAILY PO Last administered on 12/31/17 09:57; Start 12/25/17 at 09:00 Paroxetine HCl (Paxil) 45 mg DAILY PO ; Start 12/25/17 at 09:00; Stop 12/25/17 at 09:00; Status DC Calcium Carbonate/ Glycine (Oscal) 500 mg TIDAFTMEAL PO Last administered on 09:57; Start 12/25/17 at 09:00 Sennosides (Senna) 8.6 mg PRN BID PRN PO CONSTIPATION 1ST CHOICE Last administered on 12/30/17 14:51; Start 12/24/17 at 20:00 Enoxaparin Sodium (Lovenox 40mg Syringe) 40 mg Q24H SQ Last administered on 20:30; Start 12/24/17 at 20:15 Pantoprazole Sodium (Protonix) 40 mg DAILYAC PO Last administered on 12/31/17 06:30; Start 12/25/17 at 07:30 Fentanyl Citrate (Fentanyl 2ml Vial) 50 mcg PRN Q2HR PRN IV SEVERE PAIN Last administered on 12/29/17 21:02; Start 12/25/17 at 07:00 Non-Formulary Medication (Paroxetine Hcl (Paxil)) 45 mg QHS PO ; Start 12/25/17 at 21:00; Status UNV Paroxetine HCl (Paxil) 45 mg QHS PO Last administered on 12/30/17at 20:35; Start 12/25/17 at 21:00 Vitamin D (Vitamin D3) 5,000 unit DAILY PO Last administered on 12/31/17at 09:57 ; Start 12/25/17 at 09:00 Cefazolin Sodium 50 ml @ 100 mls/hr 1X ONCE IV Last administered on 12/25/17at 15:45; Start 12/25/17 at 10:15; Stop 12/25/17 at 10:44; Status DC Propofol 20 ml @ As Directed STK-MED ONCE IV ; Start 12/25/17 at 14:16; Stop 12/25 at 14:17; Status DC Fentanyl Citrate (Fentanyl 2ml Vial) 100 mcg STK-MED ONCE .ROUTE ; Start at 14:16; Stop 12/25/17 at 14:17; Status DC Ondansetron HCl (Zofran) 4 mg PRN Q6HRS PRN IV NAUSEA/VOMITING; Start 12/25/17 at 15:00; Stop 12/26/17 at 14:59; Status DC Fentanyl Citrate (Fentanyl 2ml Vial) 25 mcg PRN Q5MIN PRN IV MILD PAIN; Start 12/25/17 at 15:00; Stop 12/25/17 at 20:00; Status DC Fentanyl Citrate (Fentanyl 2ml Vial) 50 mcg PRN Q5MIN PRN IV MODERATE TO SEVERE PAIN; Start 12/25/17 at 15:00; Stop 12/25/17 at 20:00; Status DC Morphine Sulfate (Morphine Sulfate) 1 mg PRN Q10MIN PRN IV SEVERE PAIN; Start 12/25/17 at 15:00; Stop 12/25/17 at 20:00; Status DC Ringer's Solution 1,000 ml @ 30 mls/hr Q24H IV Last administered on 12/25/17at 15:01; Start 12/25/17 at 14:56; Stop 12/26/17 at 02:55; Status DC Lidocaine HCl (Xylocaine-Mpf 1% 2ml Vial) 2 ml 1X PRN PRN ID IV START; Start at 15:00; Stop 12/25/17 at 20:00; Status DC Hydromorphone HCl (Dilaudid) 0.5 mg PRN Q10MIN PRN IV SEV PAIN, Second choice; Start 12/25/17 at 15:00; Stop 12/25/17 at 20:00; Status DC Prochlorperazine Edisylate (Compazine) 5 mg PACU PRN PRN IV NAUSEA, MRX1; Start 12/25/17 at 15:00; Stop 12/25/17 at 20:00; Status DC Dexamethasone Sodium Phosphate (Decadron) 20 mg STK-MED ONCE .ROUTE ; Start 12/25 at 14:58; Stop 12/25/17 at 14:59; Status DC Famotidine (Pepcid Vial) 20 mg STK-MED ONCE .ROUTE ; Start 12/25/17 at 14:58; Stop 12/25/17 at 14:59; Status DC Lidocaine HCl (Xylocaine-Mpf 1% 5ml Vial) 5 ml STK-MED ONCE .ROUTE ; Start at 14:58; Stop 12/25/17 at 14:59; Status DC Rocuronium Thermal (Zemuron) 50 mg STK-MED ONCE .ROUTE ; Start 12/25/17 at 14:58 ; Stop 12/25/17 at 14:59; Status DC Lidocaine HCl (Xylocaine 1% Pf 30ml Vial) 30 ml STK-MED ONCE .ROUTE Last administered on 12/25/17at 15:58; Start 12/25/17 at 14:15; Stop 12/25/17 at 15:16; Status DC Bupivacaine HCl (Marcaine 0.5%) 50 ml STK-MED ONCE .ROUTE Last administered on 12/25/17at 15:58; Start 12/25/17 at 14:16; Stop 12/25/17 at 15:16; Status DC Cefazolin Sodium 1 gm/Dextrose 50 ml @ 100 mls/hr Q6H IV ; Start 12/25/17 at 15: 45; Stop 12/26/17 at 04:14; Status UNV Acetaminophen/ Hydrocodone Bitart (Lortab 5/325) 1 tab PRN Q4HRS PRN PO MODERATE PAIN Last administered on 12/31/17at 02:45; Start 12/25/17 at 15:30 Ephedrine Sulfate (ePHEDrine PF IN SALINE SYRINGE) 50 mg STK-MED ONCE IV ; Start 12/25/17 at 15:43; Stop 12/25/17 at 15:44; Status DC Glycopyrrolate (Robinul) 1 mg STK-MED ONCE .ROUTE ; Start 12/25/17 at 15:45; Stop 12/25/17 at 15:46; Status DC Cefazolin Sodium (Ancef) 1 gm Q6H IVP Last administered on 12/26/17at 11:45; Start 12/25/17 at 23:00; Stop 12/26/17 at 14:00; Status DC Neostigmine Methylsulfate (Neostigmine Methylsulfate) 5 mg STK-MED ONCE .ROUTE ; Start 12/25/17 at 17:34; Stop 12/25/17 at 17:35; Status DC Desflurane (Suprane) 90 ml STK-MED ONCE IH ; Start 12/25/17 at 17:34; Stop at 17:35; Status DC Acetaminophen (Tylenol) 325 mg PRN Q4HRS PRN PO MILD PAIN / TEMP Last administered on 12/31/17at 10:12; Start 12/25/17 at 22:15 Lorazepam (Ativan) 0.5 mg PRN Q4HRS PRN PO ANXIETY / AGITATION Last administered on 12/29/17at 21:24; Start 12/25/17 at 23:45 Enoxaparin Sodium (Lovenox Per Pharmacy Prophylaxis Dosing) 1 each PRN DAILY PRN MC SEE COMMENTS; Start 12/26/17 at 12:45; Status UNV Carvedilol (Coreg) 3.125 mg BIDWMEALS PO Last administered on 12/31/17at 09:58; Start 12/26/17 at 17:00 Albuterol/ Ipratropium (Duoneb) 3 ml 1X ONCE NEB Last administered on at 04:00; Start 12/27/17 at 04:00; Stop 12/27/17 at 04:01; Status DC Amlodipine Besylate (Norvasc) 10 mg DAILY PO Last administered on 12/31/17at 09: 57; Start 12/27/17 at 11:00 Enalaprilat (Vasotec Inj) 1.25 mg PRN Q6HRS PRN IVP HYPERTENSION, SEE COMMENTS ; Start 12/27/17 at 10:30 Albuterol/ Ipratropium (Duoneb) 3 ml RTQID NEB Last administered on 12/31/17at 10:58; Start 12/27/17 at 12:00 Budesonide (Pulmicort) 0.5 mg RTBID NEB Last administered on 12/31/17at 07:22; Start 12/27/17 at 12:00 Amino Acids/ Glycerin/ Electrolytes 1,000 ml @ 80 mls/hr [id number] IV Last administered on 12/28/17at 02:56; Start 12/27/17 at 14:00; Stop 12/28/17 at 12:48 ; Status DC Polyethylene Glycol (miraLAX PACKET) 17 gm DAILY PO Last administered on at 09:54; Start 12/28/17 at 12:00 Docusate Sodium (Colace) 100 mg PRN DAILY PRN PO HARD STOOLS Last administered on 12/30/17at 14:52; Start 12/28/17 at 11:30 Levothyroxine Sodium (Synthroid) 100 mcg DAILY07 PO Last administered on at 06:29; Start 12/29/17 at 07:30 Bisacodyl (Dulcolax Tab) 5 mg PRN DAILY PRN PO CONSTIPATION 2ND CHOICE Last administered on 12/30/17at 14:52; Start 12/29/17 at 12:45 Magnesium Hydroxide (Milk Of Magnesia) 2,400 mg 1X ONCE PO ; Start 12/30/17 at 16:30; Stop 12/30/17 at 16:31; Status Cancel Magnesium Hydroxide (Milk Of Magnesia) 2,400 mg 1X ONCE PO Last administered on 12/31/17at 10:12; Start 12/31/17 at 10:00; Stop 12/31/17 at 10:01; Status DC Active Scripts Active Reported Triamcinolone Acetonide 80 Gm Oint...g. 1 Katarina TP BID Paxil (Paroxetine Hcl) 40 Mg Tablet 45 Mg PO QHS Targretin (Bexarotene) 60 Gm Gel..gram. 60 Gm TP Fish Oil 1,200 Mg Fish Oil (Fish Oil/Dha/Epa) 1 Each Capsule 1 Each PO Tylenol (Acetaminophen) 325 Mg Tablet 1 Tab PO PRN Q4HRS Senna Laxative (Sennosides) 8.6 Mg Tablet 8.6 Mg PO Amlodipine Besylate 5 Mg Tablet 5 Mg PO DAILY Percocet 5-325 Mg Tablet (Oxycodone/Acetaminophen) 1 Each Tablet 1 Tab PO PRN Q8HRS PRN Calcium (Calcium Carbonate) 600 Mg Tablet 1,200 Mg PO Protonix (Pantoprazole Sodium) 40 Mg Tablet.dr 1 Tab PO DAILY Carvedilol 3.125 Mg Tablet 1 Tab PO BID Children's Aspirin (Aspirin) 81 Mg Tab.chew 81 Mg PO One Daily (Multivitamin) 1 Each Tablet 1 Each PO Vitamin D (Cholecalciferol (Vitamin D3)) 2,000 Unit Capsule 1 Cap PO HS Fish Oil ([place]-3 Fatty Acids) 300 Mg Capsule 1,200 Mg PO DAILY Hydrocodone-Apap 5-325 (Hydrocodone Bit/Acetaminophen) 1 Each Tablet 1-2 Tab PO Q4-6HRS Levothyroxine Sodium 100 Mcg Tablet 1 Tab PO DAILY Vitamin D (Cholecalciferol (Vitamin D3)) 1,000 Unit Capsule 5 Cap PO DAILY Atorvastatin Calcium 80 Mg Tablet 1 Tab PO DAILY Vitals/I & O Vital Sign - Last 24 Hours 12/30/17 12/30/17 12/30/17 12/30/17 11:09 16:01 19:00 19:55 Temp 98.1 98.1 Pulse 85 Resp 18 B/P (MAP) 143/65 (91) Pulse Ox 87 91 96 92 O2 Delivery Room Air Room Air Nasal Cannula Nasal Cannula O2 Flow Rate 5.0 3.0 12/30/17 12/30/17 12/31/17 12/31/17 20:00 23:00 02:45 03:00 Temp 98.2 98.7 98.2 98.7 Pulse 64 60 Resp 18 16 18 B/P (MAP) 125/62 (83) 140/69 (92) Pulse Ox 91 91 O2 Delivery Nasal Cannula Nasal Cannula Room Air Nasal Cannula O2 Flow Rate 3.0 5.0 5.0 12/31/17 12/31/17 12/31/17 12/31/17 04:00 07:00 07:13 09:57 Temp 97.9 97.9 Pulse 60 60 Resp 18 16 B/P (MAP) 138/61 (86) 138/61 Pulse Ox 91 90 O2 Delivery Room Air Nasal Cannula Nasal Cannula O2 Flow Rate 2.0 2.0 12/31/17 09:58 Pulse 60 B/P (MAP) 138/61 Intake and Output 12/30/17 12/30/17 12/31/17 15:00 23:00 07:00 Intake Total 370 ml Output Total 900 ml 400 ml Balance -530 ml -400 ml CHI SUN MD Dec 31, 2017 11:05
[2017-12-31 15:00] VITALS: BP 125/48
[2017-12-31 19:25] VITALS: BP 115/62
[2017-12-31] MEDS: ENOXAPARIN 40 MG/0.4 ML SYRINGE. SQ SCH (20:45)
[2017-12-31] MEDS: CHOLECALCIFEROL (VITAMIN D3) 1,000 UNIT TABLET PO SCH (20:45)
[2017-12-31] MEDS: PARoxetine 10 MG TABLET PO SCH (20:45)
[2017-12-31] MEDS: ATORVASTATIN CALCIUM 40 MG TABLET. PO SCH (20:45)
[2017-12-31] MEDS: SENNOSIDES 8.6 MG TABLET PO PRN (20:48)
[2017-12-31] MEDS: BISACODYL 5 MG TABLET.DR. PO PRN (20:49)
[2017-12-31] MEDS: TRIAMCINOLONE ACETONIDE 0.1% TOPICAL CREAM 15GM TUBE. TP SCH (20:49)
[2017-12-31] MEDS: DOCUSATE SODIUM 100 MG CAPSULE. PO PRN (20:49)
[2017-12-31 23:07] VITALS: BP 119/53
[2018-01-01 03:17] VITALS: BP 120/57
[2018-01-01 05:55] LABS: BASO # 0.1 x10^3/uL (0.0-0.2); BASO % 1 % (0-3); EOS # 0.5 x10^3/uL (0.0-0.7); EOS % 8 % (0-3); HEMOGLOBIN 10.8 g/dL (12.0-15.5); LYMPH # 1.6 x10^3/uL (1.0-4.8); LYMPH % 24 % (24-48); MEAN CORPUSCULAR HEMOGLOBIN 32 pg (25-35); MEAN CORPUSCULAR HGB CONC 34 g/dL (31-37); MEAN CORPUSCULAR VOLUME 94 fL (79-100); MONO # 0.7 x10^3/uL (0.0-1.1); MONO % 11 % (0-9); NEUT # 3.8 x10^3uL (1.8-7.7); NEUT % 57 % (31-73); PLATELET COUNT 248 x10^3/uL (140-400); RED CELL DISTRIBUTION WIDTH 13.6 % (11.5-14.5); WHITE BLOOD COUNT 6.7 x10^3/uL (4.0-11.0)
[2018-01-01 06:27] LABS: CALCIUM 9.6 mg/dL (8.5-10.1); CREATININE 0.9 mg/dL (0.6-1.0); GFR 59.4; POTASSIUM 3.9 mmol/L (3.5-5.1)
[2018-01-01] MEDS: IPRATRPIUM/ALBUTEROL 0.5/2.5MG 3 ML NEBU. NEB SCH ×2 (06:53→12:32)
[2018-01-01] MEDS: BUDESONIDE 0.5 MG/2 ML NEBU. NEB SCH (06:53)
[2018-01-01 07:00] VITALS: BP 151/66
[2018-01-01] MEDS: HYDROcodone/APAP 5/325MG 1 TAB TABLET PO PRN ×2 (07:52→13:05)
[2018-01-01] MEDS: PANTOPRAZOLE 40 MG TABLET.DR. PO SCH (07:53)
[2018-01-01] MEDS: amLODIPine BESYLATE 10 MG TABLET PO SCH (07:53)
[2018-01-01] MEDS: CALCIUM CARBONATE 500 MG TABLET PO SCH ×2 (07:54→13:00)
[2018-01-01] MEDS: ASPIRIN CHEWABLE 81 MG TABLET. PO SCH (07:54)
[2018-01-01] MEDS: LEVOTHYROXINE 100 MCG TABLET PO SCH (07:54)
[2018-01-01] MEDS: OMEGA-3 FATTY ACIDS/FISH OIL 1,000 MG CAPSULE. PO SCH (07:54)
[2018-01-01] MEDS: POLYETHYLENE GLYCOL 3350 17 GM PACKET. PO SCH (07:54)
[2018-01-01 07:59] VITALS: BP 120/57
[2018-01-01] MEDS: CHOLECALCIFEROL (VITAMIN D3) 5,000 UNIT CAPSULE PO SCH (07:59)
[2018-01-01] MEDS: CARVEDILOL 3.125 MG TABLET. PO SCH (07:59)
[2018-01-01] MEDS: TRIAMCINOLONE ACETONIDE 0.1% TOPICAL CREAM 15GM TUBE. TP SCH (08:02)
--- NOTE | 2018-01-01 08:44 | PDOC ---
PULMONARY PROGRESS NOTES Subjective PT ON 02 SOA WITH EXERTION Vitals Vital Signs Date Time Temp Pulse Resp B/P (MAP) Pulse Ox O2 Delivery O2 Flow Rate FiO2 01/01/18 08:06 Nasal Cannula 2.0 01/01/18 07:59 53 120/57 01/01/18 07:52 89 01/01/18 07:00 98.3 18 98.3 ROS: No Nausea, No Chest Pain, No Abdominal Pain, No Increase Cough General: Alert, No acute distress Lungs: Clear Cardiovascular: S1, S2 Abdomen: Soft Extremities: No Edema Labs Laboratory Tests Test 12/31/17 06:53 01/01/18 04:40 White Blood Count 5.9 x10^3/uL (4.0-11.0) 6.7 x10^3/uL (4.0-11.0) Red Blood Count 3.42 x10^6/uL (3.50-5.40) 3.40 x10^6/uL (3.50-5.40) Hemoglobin 11.2 g/dL (12.0-15.5) 10.8 g/dL (12.0-15.5) Hematocrit 32.2 % (36.0-47.0) 32.0 % (36.0-47.0) Mean Corpuscular Volume 94 fL (79-100) 94 fL (79-100) Mean Corpuscular Hemoglobin 33 pg (25-35) 32 pg (25-35) Mean Corpuscular Hemoglobin Concent 35 g/dL (31-37) 34 g/dL (31-37) Red Cell Distribution Width 13.4 % (11.5-14.5) 13.6 % (11.5-14.5) Platelet Count 221 x10^3/uL (140-400) 248 x10^3/uL (140-400) Neutrophils (%) (Auto) 56 % (31-73) 57 % (31-73) Lymphocytes (%) (Auto) 26 % (24-48) 24 % (24-48) Monocytes (%) (Auto) 10 % (0-9) 11 % (0-9) Eosinophils (%) (Auto) 7 % (0-3) 8 % (0-3) Basophils (%) (Auto) 1 % (0-3) 1 % (0-3) Neutrophils # (Auto) 3.3 x10^3uL (1.8-7.7) 3.8 x10^3uL (1.8-7.7) Lymphocytes # (Auto) 1.5 x10^3/uL (1.0-4.8) 1.6 x10^3/uL (1.0-4.8) Monocytes # (Auto) 0.6 x10^3/uL (0.0-1.1) 0.7 x10^3/uL (0.0-1.1) Eosinophils # (Auto) 0.4 x10^3/uL (0.0-0.7) 0.5 x10^3/uL (0.0-0.7) Basophils # (Auto) 0.0 x10^3/uL (0.0-0.2) 0.1 x10^3/uL (0.0-0.2) Sodium Level 141 mmol/L (136-145) 141 mmol/L (136-145) Potassium Level 4.0 mmol/L (3.5-5.1) 3.9 mmol/L (3.5-5.1) Chloride Level 104 mmol/L (98-107) 105 mmol/L (98-107) Carbon Dioxide Level 31 mmol/L (21-32) 29 mmol/L (21-32) Anion Gap 6 (6-14) 7 (6-14) Blood Urea Nitrogen 18 mg/dL (7-20) 23 mg/dL (7-20) Creatinine 0.7 mg/dL (0.6-1.0) 0.9 mg/dL (0.6-1.0) Estimated GFR (Cockcroft-Gault) 79.3 59.4 Glucose Level 105 mg/dL (70-99) 89 mg/dL (70-99) Calcium Level 10.2 mg/dL (8.5-10.1) 9.6 mg/dL (8.5-10.1) Laboratory Tests Test 01/01/18 04:40 White Blood Count 6.7 x10^3/uL (4.0-11.0) Red Blood Count 3.40 x10^6/uL (3.50-5.40) Hemoglobin 10.8 g/dL (12.0-15.5) Hematocrit 32.0 % (36.0-47.0) Mean Corpuscular Volume 94 fL (79-100) Mean Corpuscular Hemoglobin 32 pg (25-35) Mean Corpuscular Hemoglobin Concent 34 g/dL (31-37) Red Cell Distribution Width 13.6 % (11.5-14.5) Platelet Count 248 x10^3/uL (140-400) Neutrophils (%) (Auto) 57 % (31-73) Lymphocytes (%) (Auto) 24 % (24-48) Monocytes (%) (Auto) 11 % (0-9) Eosinophils (%) (Auto) 8 % (0-3) Basophils (%) (Auto) 1 % (0-3) Neutrophils # (Auto) 3.8 x10^3uL (1.8-7.7) Lymphocytes # (Auto) 1.6 x10^3/uL (1.0-4.8) Monocytes # (Auto) 0.7 x10^3/uL (0.0-1.1) Eosinophils # (Auto) 0.5 x10^3/uL (0.0-0.7) Basophils # (Auto) 0.1 x10^3/uL (0.0-0.2) Sodium Level 141 mmol/L (136-145) Potassium Level 3.9 mmol/L (3.5-5.1) Chloride Level 105 mmol/L (98-107) Carbon Dioxide Level 29 mmol/L (21-32) Anion Gap 7 (6-14) Blood Urea Nitrogen 23 mg/dL (7-20) Creatinine 0.9 mg/dL (0.6-1.0) Estimated GFR (Cockcroft-Gault) 59.4 Glucose Level 89 mg/dL (70-99) Calcium Level 9.6 mg/dL (8.5-10.1) Medications Active Scripts Medications Dose Route/Sig Max Daily Dose Days Date Category Paxil (Paroxetine Hcl) 40 Mg Tablet 45 Mg PO QHS 12/25/17 Reported Targretin (Bexarotene) 60 Gm Gel..gram. 60 Gm TP 12/24/17 Reported Fish Oil 1,200 Mg Fish Oil (Fish Oil/Dha/Epa) 1 Each Capsule 1 Each PO 12/24/17 Reported Tylenol (Acetaminophen) 325 Mg Tablet 1 Tab PO PRN Q4HRS 12/24/17 Reported Senna Laxative (Sennosides) 8.6 Mg Tablet 8.6 Mg PO 12/24/17 Reported Amlodipine Besylate 5 Mg Tablet 5 Mg PO DAILY 12/24/17 Reported Percocet 5-325 Mg Tablet (Oxycodone/Acetaminophen) 1 Each Tablet 1 Tab PO PRN Q8HRS PRN 12/24/17 Reported Calcium (Calcium Carbonate) 600 Mg Tablet 1,200 Mg PO 01/16/17 Reported Protonix (Pantoprazole Sodium) 40 Mg Tablet.dr 1 Tab PO DAILY 01/16/17 Reported Carvedilol 3.125 Mg Tablet 1 Tab PO BID 01/16/17 Reported Children's Aspirin (Aspirin) 81 Mg Tab.chew 81 Mg PO 12/09/14 Reported One Daily (Multivitamin) 1 Each Tablet 1 Each PO 12/09/14 Reported Vitamin D (Cholecalciferol (Vitamin D3)) 2,000 Unit Capsule 1 Cap PO HS 12/09/14 Reported Fish Oil ([place]-3 Fatty Acids) 300 Mg Capsule 1,200 Mg PO DAILY 12/09/14 Reported Hydrocodone-Apap 5-325 (Hydrocodone Bit/Acetaminophen) 1 Each Tablet 1-2 Tab PO Q4-6HRS 12/09/14 Reported Levothyroxine Sodium 100 Mcg Tablet 1 Tab PO DAILY 12/09/14 Reported Vitamin D (Cholecalciferol (Vitamin D3)) 1,000 Unit Capsule 5 Cap PO DAILY 12/09/14 Reported Atorvastatin Calcium 80 Mg Tablet 1 Tab PO DAILY 12/09/14 Reported Impression . IMPRESSION: 1. Acute hypoxemic respiratory failure, could be secondary to atelectasis, pain medication, ileus 2. ILEUS 3. Status post left spiral humeral shaft fracture, open reduction and internal fixation. 4. Chronic obstructive pulmonary disease. 5. GERD 6. Hypothyroidism. 7. Hypertension. 8. Weakness Plan . OK TO TRANSFER RESP STATUS IS COMPENSATED PT/OT O2 ANNABELLE HOLLOWAY MD Jan 01, 2018 08:44
[2018-01-01] MEDS ORDERED: FLUT1DIS3 IH (10:43)
[2018-01-01] MEDS ORDERED: POLY17PO29 PO (10:45)
--- NOTE | 2018-01-01 10:49 | PDOC3 ---
Discharge Summary IPC Final Diagnosis Problems Medical Problems: (1) Fall Status: Acute (2) Rib pain on right side Status: Acute Brief Hospital Course Ms. Lee is a 87 old white female who presented s/p left humerus fracture operation with respiratory failure. She was admitted and placed on O2. Pt reported sore ribs, back and leg pain with difficulty and pain on deep inspiration possibly contributing to some lower lobe atelectasis and respiratory sxs. Pt reports PMH of only a heart murmur but denies and current or previous Heart or lung conditions. Pt is stable and denies CP/SOB/ palpitations/N/V/D/fever/neuro sxs Patient History: Family history: Cardiovascular disease (situation) 33 FATHER 32 MOTHER Family history: Hypertension (situation) 32 MOTHER Family history: neoplasm of skin (situation) 33 FATHER Scheduled Acetaminophen (Tylenol), 1 TAB PO PRN Q4HRS, (Reported) Amlodipine Besylate (Amlodipine Besylate), 5 MG PO DAILY, (Reported) Atorvastatin Calcium (Atorvastatin Calcium), 1 TAB PO DAILY, (Reported) Carvedilol (Carvedilol), 1 TAB PO BID, (Reported) Cholecalciferol (Vitamin D3) (Vitamin D), 5 CAP PO DAILY, (Reported) Cholecalciferol (Vitamin D3) (Vitamin D), 1 CAP PO HS, (Reported) Fluticasone/Salmeterol (Advair 250-50 Diskus), 1 PUFF IH BID Hydrocodone Bit/Acetaminophen (Hydrocodone-Apap 5-325 ), 1-2 TAB PO Q4-6HRS, (Reported) Levothyroxine Sodium (Levothyroxine Sodium), 1 TAB PO DAILY, (Reported) [place]-3 Fatty Acids (Fish Oil), 1,200 MG PO DAILY, (Reported) Pantoprazole Sodium (Protonix), 1 TAB PO DAILY, (Reported) Paroxetine Hcl (Paxil), 45 MG PO QHS, (Reported) Polyethylene Glycol 3350 (Miralax), 1 PACKET PO DAILY Triamcinolone Acetonide (Triamcinolone Acetonide), 1 LEO TP BID, (Reported) Scheduled PRN Oxycodone/Apap 5-325 (Percocet 5-325 Mg Tablet), 1 TAB PO PRN Q8HRS PRN for PAIN , (Reported) Miscellaneous Medications Aspirin (Children's Aspirin), 81 MG PO, (Reported) Bexarotene (Targretin), 60 GM TP, (Reported) Calcium Carbonate (Calcium), 1,200 MG PO, (Reported) Fish Oil/Dha/Epa (Fish Oil 1,200 Mg Fish Oil), 1 EACH PO, (Reported) Multivitamin (One Daily), 1 EACH PO, (Reported) Sennosides (Senna Laxative), 8.6 MG PO, (Reported) NALDO CAROLINA MD Jan 01, 2018 10:49
--- NOTE | 2018-01-01 12:01 | DISCH ---
DISCHARGE DISCHARGE INFORMATION: FINAL DIAGNOSIS Problems Medical Problems: (1) Fall Status: Acute (2) Rib pain on right side Status: Acute CONDITION ON DISCHARGE: Stable CODE STATUS: Code Status: Full MCC: SNF STAY <30 DAYS: Yes HOSPICE: HOSPICE: No HOSPICE EVAL & TREAT: No LTAC: ADMIT TO LTAC: No POST DISCHARGE ORDERS: ACTIVITY ORDERS: Activity as tolerated WEIGHT BEARING STATUS: No restrictions DIET AFTER DISCHARGE: Regular CHECKS AFTER DISCHARGE: CHECKS AFTER DISCHARGE: Check blood press - daily TREATMENT/EQUIPMENT ORDERS: ADAPTIVE EQUIPMENT NEEDED: [facility] Physical Therapy For: Evalulation/Treatment Occupational Therapy For: Evaluation/Treatment DISCHARGE MEDICATIONS: Home Meds Active Scripts Polyethylene Glycol 3350 (MIRALAX) 17 Gm Powd.pack, 1 PACKET PO DAILY, #2 PACKET 1 Refill Prov:NALDO CAROLINA MD 01/01/18 Fluticasone/Salmeterol (ADVAIR 250-50 DISKUS) 1 Each Disk.w.dev, 1 PUFF IH BID, #1 INHALER 5 Refills Prov:NALDO CAROLINA MD 01/01/18 Reported Medications Triamcinolone Acetonide (TRIAMCINOLONE ACETONIDE) 80 Gm Oint...g., 1 LEO TP BID , #30 GM 1 Refill 12/30/17 Paroxetine Hcl (PAXIL) 40 Mg Tablet, 45 MG PO QHS, TAB 12/25/17 Bexarotene (TARGRETIN) 60 Gm Gel..gram., 60 GM TP, EACH 12/24/17 Fish Oil/Dha/Epa (FISH OIL 1,200 MG FISH OIL) 1 Each Capsule, 1 EACH PO, CAP 12/24/17 Acetaminophen (TYLENOL) 325 Mg Tablet, 1 TAB PO PRN Q4HRS, #30 TAB 12/24/17 Sennosides (SENNA LAXATIVE) 8.6 Mg Tablet, 8.6 MG PO, TAB 12/24/17 Amlodipine Besylate (AMLODIPINE BESYLATE) 5 Mg Tablet, 5 MG PO DAILY, TAB 12/24/17 Oxycodone/Apap 5-325 (PERCOCET 5-325 MG TABLET) 1 Each Tablet, 1 TAB PO PRN Q8HRS PRN for PAIN, TAB 0 Refills 12/24/17 Calcium Carbonate (CALCIUM) 600 Mg Tablet, 1200 MG PO, TAB 01/16/17 Pantoprazole Sodium (PROTONIX) 40 Mg Tablet.dr, 1 TAB PO DAILY, #30 TAB 5 Refills 01/16/17 Carvedilol (CARVEDILOL) 3.125 Mg Tablet, 1 TAB PO BID, #60 TAB 3 Refills 01/16/17 Aspirin (Children's Aspirin) 81 Mg Tab.chew, 81 MG PO, TAB.CHEW 12/09/14 Multivitamin (ONE DAILY) 1 Each Tablet, 1 EACH PO 12/09/14 Cholecalciferol (Vitamin D3) (VITAMIN D) 2,000 Unit Capsule, 1 CAP PO HS, #30 CAP 3 Refills 12/09/14 [place]-3 Fatty Acids (FISH OIL) 300 Mg Capsule, 1200 MG PO DAILY 12/09/14 Hydrocodone Bit/Acetaminophen (HYDROCODONE-APAP 5-325 ) 1 Each Tablet, 1-2 TAB PO Q4-6HRS, #30 TAB 12/09/14 Levothyroxine Sodium (LEVOTHYROXINE SODIUM) 100 Mcg Tablet, 1 TAB PO DAILY, #30 TAB 5 Refills 12/09/14 Cholecalciferol (Vitamin D3) (VITAMIN D) 1,000 Unit Capsule, 5 CAP PO DAILY, # 90 CAP 3 Refills 12/09/14 Atorvastatin Calcium (ATORVASTATIN CALCIUM) 80 Mg Tablet, 1 TAB PO DAILY, #30 TAB 5 Refills 12/09/14 KELVIN HANSEN MD Jan 01, 2018 12:00
--- NOTE | 2018-01-01 12:23 | PDOC3 ---
Discharge Summary [facility] Date of Admission: Dec 21, 2017 Discharge Date: Jan 01, 2018 Admitting Diagnosis L humerous fracture Final Diagnosis Problems Medical Problems: (1) Fall Status: Acute (2) Rib pain on right side Status: Acute Brief Hospital Course Ms. Lee is a 87 old [sex] who presented with hx of a fall with left humerous fracture that was fixed orif and the patient had some post op hyopxia for which it was thought that ileus and possible atelectasis were playing a role. the patient eventually was able to be weaned to 2 L and the aptientis stable for dc to rehab NAD A&ox3 mmm she has a shoulder imobilizer in place neck w/o nodes s1 s2 rrr no murmurs ctab soft nttp +bs no c/c/e greater than 30 min spent on discharge Patient History: Family history: Cardiovascular disease (situation) 33 FATHER 32 MOTHER Family history: Hypertension (situation) 32 MOTHER Family history: neoplasm of skin (situation) 33 FATHER Scheduled Acetaminophen (Tylenol), 1 TAB PO PRN Q4HRS, (Reported) Amlodipine Besylate (Amlodipine Besylate), 5 MG PO DAILY, (Reported) Atorvastatin Calcium (Atorvastatin Calcium), 1 TAB PO DAILY, (Reported) Carvedilol (Carvedilol), 1 TAB PO BID, (Reported) Cholecalciferol (Vitamin D3) (Vitamin D), 5 CAP PO DAILY, (Reported) Cholecalciferol (Vitamin D3) (Vitamin D), 1 CAP PO HS, (Reported) Fluticasone/Salmeterol (Advair 250-50 Diskus), 1 PUFF IH BID Hydrocodone Bit/Acetaminophen (Hydrocodone-Apap 5-325 ), 1-2 TAB PO Q4-6HRS, (Reported) Levothyroxine Sodium (Levothyroxine Sodium), 1 TAB PO DAILY, (Reported) [place]-3 Fatty Acids (Fish Oil), 1,200 MG PO DAILY, (Reported) Pantoprazole Sodium (Protonix), 1 TAB PO DAILY, (Reported) Paroxetine Hcl (Paxil), 45 MG PO QHS, (Reported) Polyethylene Glycol 3350 (Miralax), 1 PACKET PO DAILY Triamcinolone Acetonide (Triamcinolone Acetonide), 1 LEO TP BID, (Reported) Scheduled PRN Oxycodone/Apap 5-325 (Percocet 5-325 Mg Tablet), 1 TAB PO PRN Q8HRS PRN for PAIN , (Reported) Miscellaneous Medications Aspirin (Children's Aspirin), 81 MG PO, (Reported) Bexarotene (Targretin), 60 GM TP, (Reported) Calcium Carbonate (Calcium), 1,200 MG PO, (Reported) Fish Oil/Dha/Epa (Fish Oil 1,200 Mg Fish Oil), 1 EACH PO, (Reported) Multivitamin (One Daily), 1 EACH PO, (Reported) Sennosides (Senna Laxative), 8.6 MG PO, (Reported) NALDO CAROLINA MD Jan 01, 2018 12:23
== END 2018-01-01 13:00 | DRG 492 ==
LOC: ER 13:06 → ED HOLD 14:37 → 4 NORTH 16:10 → 1 WEST ICU 12-27 04:55 → 4 NORTH 12-29 19:20
PROVIDERS: ADMIT Family Medicine; ATTEND Family Medicine
PROC: 5A09357 Assistance with Respiratory Ventilation, Less than 24 Consecutive Hours, Continuous Positive Airway Pressure (ICD-10-PCS; 2017-12-25)
PROC: 0PSG04Z Reposition Left Humeral Shaft with Internal Fixation Device, Open Approach (ICD-10-PCS; principal; 2017-12-25 14:45)
PROC: 5A09457 Assistance with Respiratory Ventilation, 24-96 Consecutive Hours, Continuous Positive Airway Pressure (ICD-10-PCS; 2017-12-27)
DX: S42.302A Unspecified fracture of shaft of humerus, left arm, initial encounter for closed fracture (principal); G93.40 Encephalopathy, unspecified; J96.01 Acute respiratory failure with hypoxia; I21.4 Non-ST elevation (NSTEMI) myocardial infarction; F05 Delirium due to known physiological condition; J98.11 Atelectasis; K56.7 Ileus, unspecified; I50.9 Heart failure, unspecified; I11.0 Hypertensive heart disease with heart failure; E78.5 Hyperlipidemia, unspecified; K21.9 Gastro-esophageal reflux disease without esophagitis; J44.9 Chronic obstructive pulmonary disease, unspecified; M19.90 Unspecified osteoarthritis, unspecified site; Z96.659 Presence of unspecified artificial knee joint; Z96.649 Presence of unspecified artificial hip joint; Z82.49 Family history of ischemic heart disease and other diseases of the circulatory system; I70.0 Atherosclerosis of aorta; E03.9 Hypothyroidism, unspecified; E78.00 Pure hypercholesterolemia, unspecified; M54.9 Dorsalgia, unspecified; G89.29 Other chronic pain; M81.0 Age-related osteoporosis without current pathological fracture; W01.0XXA Fall on same level from slipping, tripping and stumbling without subsequent striking against object, initial encounter; Y93.89 Activity, other specified; Y92.512 Supermarket, store or market as the place of occurrence of the external cause; Y99.8 Other external cause status; Z87.891 Personal history of nicotine dependence
CPT/HCPCS: 29105; 36415; 36600; 71045; 73060; 73070; 74018; 74021; 76000; 80048; 80053; 80061; 82805; 84484; 85007; 85025; 93005; 93306; 94640; 94660; 94760; 96374; A7015; C1713; J0690; J1100; J1650; J2405; J2704; J2710; J3010; J3490; J7120; J7613; J7620; J7626; S0028; 92610; 97110; 97116; 97530; 97535; 99285-25

== ENCOUNTER 2018-02-09 16:57 | Inpatient (IN) | payer MEDICARE ==
[~2018-02-09] VITALS: Ht 160 cm; Wt 67.2 kg
[2018-02-09 15:45] VITALS: BP 141/77
[~2018-02-09 16:57] MED LIST changes: +ACET325T9 PO; +FISH1CAP PO; +FLUT1DIS3 IH; +OXYC-323 PO; +PARO40TA61 PO; +SENN8.6T11 PO; +TRIA80OI TP; +[UNRECOGNIZED DRUG - CODE] TP
--- NOTE | 2018-02-09 17:26 | PDOC1 ---
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 Past Medical History Cardiovascular: HTN, Hyperlipidemia, Valve insufficiency Pulmonary: COPD GI: GERD Heme/Onc: No pertinent hx, Other Hepatobiliary: No pertinent hx Psych: No pertinent hx Musculoskeletal: Osteoarthritis Infectious disease: No pertinent hx Renal/: No pertinent hx Endocrine: No pertinent hx Past Surgical History Past Surgical History: Total hip replacement, Total knee replacement, Tonsillectomy, Other Family History Family History: Coronary Artery Disease, Hypertension Family History: Other Social History Smoke: No ALCOHOL: none Drugs: None Current Medications Current Medications Active Scripts Active Miralax (Polyethylene Glycol 3350) 17 Gm Powd.pack 1 Packet PO DAILY Advair 250-50 Diskus (Fluticasone/Salmeterol) 1 Each Disk.w.dev 1 Puff IH BID Reported Triamcinolone Acetonide 80 Gm Oint...g. 1 [place] TP BID Paxil (Paroxetine Hcl) 40 Mg Tablet 45 Mg PO QHS Targretin (Bexarotene) 60 Gm Gel..gram. 60 Gm TP Fish Oil 1,200 Mg Fish Oil (Fish Oil/Dha/Epa) 1 Each Capsule 1 Each PO Tylenol (Acetaminophen) 325 Mg Tablet 1 Tab PO PRN Q4HRS Senna Laxative (Sennosides) 8.6 Mg Tablet 8.6 Mg PO Amlodipine Besylate 5 Mg Tablet 5 Mg PO DAILY Percocet 5-325 Mg Tablet (Oxycodone/Acetaminophen) 1 Each Tablet 1 Tab PO PRN Q8HRS PRN Calcium (Calcium Carbonate) 600 Mg Tablet 1,200 Mg PO Protonix (Pantoprazole Sodium) 40 Mg Tablet.dr 1 Tab PO DAILY Carvedilol 3.125 Mg Tablet 1 Tab PO BID Children's Aspirin (Aspirin) 81 Mg Tab.chew 81 Mg PO One Daily (Multivitamin) 1 Each Tablet 1 Each PO Vitamin D (Cholecalciferol (Vitamin D3)) 2,000 Unit Capsule 1 Cap PO HS Fish Oil ([place]-3 Fatty Acids) 300 Mg Capsule 1,200 Mg PO DAILY Hydrocodone-Apap 5-325 (Hydrocodone Bit/Acetaminophen) 1 Each Tablet 1-2 Tab PO Q4-6HRS Levothyroxine Sodium 100 Mcg Tablet 1 Tab PO DAILY Vitamin D (Cholecalciferol (Vitamin D3)) 1,000 Unit Capsule 5 Cap PO DAILY Atorvastatin Calcium 80 Mg Tablet 1 Tab PO DAILY Allergies Allergies: Coded Allergies: No Known Drug Allergies (Unverified , 01/15/17) ROS Review of System Review of Systems Review of Systems Constitutional: Reports general fatigue Eyes: Denies change in visual acuity. [] HENT: Denies nasal congestion or sore throat. [] Respiratory: Denies cough Cardiovascular: Denies chest pain or edema. [] GI: Denies abdominal pain, nausea, vomiting, bloody stools or diarrhea. [] : Denies dysuria. [] Musculoskeletal: Denies back pain or joint pain. [] Integument: Denies rash. [] Neurologic: Denies headache, had arm weakness, in sling ,no sensory changes. 14 pt ros otherwise neg[] PSYCHOLOGICAL ROS: No: Anxiety, Behavioral Disorder, Concentration difficultie , Decreased libido, Depression, Disorientation, Hallucinations, Hostility, Irritablity, Memory difficulties, Mood Swings, Obsessive thoughts, Physical abuse, Sexual abuse, Sleep disturbances, Suicidal ideation, Other Neurological: Yes Gait Disturbance Skin: Yes Dry Skin Physical Exam Physical Exam Physical Exam Physical Exam Constitutional: Pale, Well developed, well nourished, no acute distress, non- toxic appearance. [] HENT: Normocephalic, atraumatic, bilateral external ears normal, oropharynx widely dry, no oral exudates, nose normal. [] Eyes: PERRLA, EOMI, conjunctiva normal, no discharge. [] Neck: Normal range of motion, no tenderness, supple, no stridor. [] Cardiovascular:Heart rate regular with regular rhythm, systolic murmur [] Lungs & Thorax: Bilateral breath sounds clear to auscultation, no wheeze or crackles Abdomen: Bowel sounds normal, soft, no tenderness, no masses, no pulsatile masses. [] Skin: Warm, dry, no erythema, no rash. [] Back: No tenderness, no CVA tenderness. [] Extremities: No tenderness, no cyanosis, no clubbing, ROM intact, no edema. [] Neurologic: Alert and oriented X 3, normal sensory function, no focal deficits noted. [] General: Alert, Oriented X3, Cooperative Breasts: Not examined Rectal Exam: not examined Extremities: No cyanosis Neuro: Normal speech, Cranial nerves 3-12 NL Psych/Mental Status: Mental status NL, Mood NL VTE Prophylaxis Ordered VTE Prophylaxis Devices: Yes VTE Pharmacological Prophylaxi: No Assessment/Plan Assessment/Plan impression Left humeral fracture recent Scalp Hematoma, improved HTN COPD GERD debility high fall risk gait instability History of Present Illness pt seen and examine, was able to accurately report about her healthcare Seen today, unable to manage home self care, weak, fall risk dw/ CHI PARKER MD Feb 09, 2018 17:25
[2018-02-09 17:45] VITALS: BP 141/77
[2018-02-09] MEDS ORDERED: ONDANSETRON PF 4 MG/2 ML VIAL. IV PRN (18:00)
[2018-02-09] MEDS ORDERED: guaiFENesin ORAL 200 MG/10 ML LIQUID. PO PRN (18:00)
[2018-02-09] MEDS ORDERED: ACETAMINOPHEN 650 MG/20.3 ML SOLUTION. GT PRN (18:00)
[2018-02-09] MEDS ORDERED: SODIUM PHOSPHATES 19/7GM 133 ML ENEMA. PR PRN (18:00)
[2018-02-09] MEDS ORDERED: ZOLPIDEM 5 MG TABLET. PO PRN (18:00)
[2018-02-09] MEDS ORDERED: IPRATRPIUM/ALBUTEROL 0.5/2.5MG 3 ML NEBU. NEB SCH (18:00)
[2018-02-09] MEDS ORDERED: cloNIDine HCL 0.1 MG TABLET PO PRN (18:00)
[2018-02-09] MEDS ORDERED: MAG HYDROX/ALUMINUM HYD/SIMETH 30 ML ORAL.SUSP PO PRN (18:00)
[2018-02-09] MEDS ORDERED: DOCUSATE SODIUM 100 MG CAPSULE. PO PRN (18:00)
[2018-02-09] MEDS ORDERED: LORazepam 0.5 MG TABLET PO PRN (18:00)
[2018-02-09 19:11] LABS: BASO # 0.1 x10^3/uL (0.0-0.2); BASO % 1 % (0-3); EOS # 0.5 x10^3/uL (0.0-0.7); EOS % 6 % (0-3); HEMOGLOBIN 12.9 g/dL (12.0-15.5); LYMPH # 1.6 x10^3/uL (1.0-4.8); LYMPH % 17 % (24-48); MEAN CORPUSCULAR HEMOGLOBIN 32 pg (25-35); MEAN CORPUSCULAR HGB CONC 34 g/dL (31-37); MEAN CORPUSCULAR VOLUME 94 fL (79-100); MONO # 0.6 x10^3/uL (0.0-1.1); MONO % 6 % (0-9); NEUT # 6.5 x10^3uL (1.8-7.7); NEUT % 71 % (31-73); PLATELET COUNT 228 x10^3/uL (140-400); RED BLOOD COUNT 4.06 x10^6/uL (3.50-5.40); RED CELL DISTRIBUTION WIDTH 14.4 % (11.5-14.5); WHITE BLOOD COUNT 9.2 x10^3/uL (4.0-11.0)
[2018-02-09 19:27] LABS: ALBUMIN 3.4 g/dL (3.4-5.0); ALBUMIN/GLOBULIN RATIO 0.9 (1.0-1.7); CALCIUM 10.5 mg/dL (8.5-10.1); GFR 52.6; POTASSIUM 3.8 mmol/L (3.5-5.1); TOTAL BILIRUBIN 0.3 mg/dL (0.2-1.0); TOTAL PROTEIN 7.2 g/dL (6.4-8.2)
[2018-02-09 19:39] VITALS: BP 133/66
[2018-02-09] MEDS ORDERED: ALBUTEROL SULFATE 2.5 MG/3 ML NEBU. NEB PRN (22:15)
[2018-02-09] MEDS ORDERED: oxyCODONE/APAP 5/325 1 TAB TABLET PO PRN (23:00)
[2018-02-09] MEDS ORDERED: HYDROcodone/APAP 5/325MG 1 TAB TABLET PO PRN (23:00)
[2018-02-09 23:09] VITALS: BP 194/92
[2018-02-09] MEDS ORDERED: POLYETHYLENE GLYCOL 3350 17 GM PACKET. PO ONE (23:15)
[2018-02-09] MEDS: LEVOTHYROXINE 100 MCG TABLET PO SCH (23:26)
[2018-02-09] MEDS ORDERED: ENALAPRILAT 2.5 MG/2 ML VIAL. IVP PRN (23:30)
[2018-02-10 03:51] VITALS: BP 150/77
[2018-02-10] MEDS ORDERED: HYDROmorphone 2 MG/ML VIAL IVP PRN (06:00)
[2018-02-10 07:00] VITALS: BP 143/71
[2018-02-10] MEDS: ALBUTEROL SULFATE 2.5 MG/3 ML NEBU. NEB SCH ×4 (08:00→20:00)
[2018-02-10] MEDS: BUDESONIDE 0.5 MG/2 ML NEBU. NEB SCH ×3 (08:00→20:56)
[2018-02-10] MEDS ORDERED: LEVOTHYROXINE 100 MCG TABLET PO SCH (09:00)
[2018-02-10] MEDS ORDERED: NON FORMULARY ITEM (Fluticasone/Salmeterol (Advair 250-50 Diskus) 1 PUFF) IH SCH (09:00)
[2018-02-10] MEDS: ASPIRIN CHEWABLE 81 MG TABLET. PO SCH (09:15)
[2018-02-10] MEDS: OMEGA-3 FATTY ACIDS/FISH OIL 1,000 MG CAPSULE. PO SCH (09:15)
[2018-02-10] MEDS: PANTOPRAZOLE 40 MG TABLET.DR. PO SCH (09:15)
[2018-02-10] MEDS: ATORVASTATIN CALCIUM 40 MG TABLET. PO SCH (09:15)
[2018-02-10] MEDS: CHOLECALCIFEROL (VITAMIN D3) 5,000 UNIT CAPSULE PO SCH (09:15)
[2018-02-10] MEDS: CARVEDILOL 3.125 MG TABLET. PO SCH ×2 (09:16→18:41)
[2018-02-10] MEDS: ENOXAPARIN 40 MG/0.4 ML SYRINGE. SQ SCH (09:16)
[2018-02-10] MEDS: POLYETHYLENE GLYCOL 3350 17 GM PACKET. PO SCH (09:16)
[2018-02-10] MEDS: amLODIPine BESYLATE 5 MG TABLET PO SCH (09:16)
[2018-02-10] MEDS: TRIAMCINOLONE ACETONIDE 0.1% TOPICAL OINTMENT 15GM TUBE. TP SCH ×2 (09:17→21:48)
--- NOTE | 2018-02-10 09:55 | PDOC2 ---
CONSULT Date of Consult Date of Consult DATE: 02/10/18 TIME: 09:52 Reason for Consult Reason for Consult: Left humerus fracture Referring Physician Referring Physician: Setvenson Identification/Chief Complaint Chief Complaint Left arm pain Source Source: Patient History of Present Illness Reason for Visit: Patient underwent ORIF left humeral shaft fracture with myself several weeks ago. She had a subsequent fall and fractured proximal to the original fracture line. This fracture has remained nondisplaced essentially. I been followed clinically. I'd seen in clinic, her and her friend tells me she is not able to provide sufficient self-care to feel safe at home. She was admitted for placement. She tells me her arm pain is unchanged. She feels that throughout her whole arm. Her shoulder is stiff. She can move her hand fine. No other complaints or concerns. Past Medical History Cardiovascular: HTN, Hyperlipidemia, Valve insufficiency Pulmonary: COPD GI: GERD Heme/Onc: No pertinent hx, Other Hepatobiliary: No pertinent hx Psych: No pertinent hx Musculoskeletal: Osteoarthritis Infectious disease: No pertinent hx Renal/: No pertinent hx Endocrine: No pertinent hx Past Surgical History Past Surgical History: Total hip replacement, Total knee replacement, Tonsillectomy, Other (ORIF left humerus) Family History Family History: Coronary Artery Disease, Hypertension Social History Social History: Other No ALCOHOL: none Drugs: None Lives: Alone Current Medications Current Medications Current Medications Ondansetron HCl (Zofran) 4 mg PRN Q4HRS PRN IV NAUSEA/VOMITING Last administered on 02/10/18at 05:48; Start 02/09/18 at 18:00 Zolpidem Tartrate (Ambien) 5 mg PRN QHS PRN PO INSOMNIA; Start 02/09/18 at 18: 00 Acetaminophen (Tylenol) 650 mg PRN Q4HRS PRN GT TEMP OVER 100.4F OR MILD PAIN; Start 02/09/18 at 18:00 Al Hydroxide/Mg Hydroxide (Mylanta Plus Xs) 30 ml PRN DAILY PRN PO HEARTBURN / GAS; Start 02/09/18 at 18:00 Clonidine HCl (Catapres) 0.1 mg PRN Q6HRS PRN PO SBP>160 OR DBP>90; Start at 18:00 Sodium Monofluorophosphate (Fleet Adult) 133 ml PRN DAILY PRN [place] CONSTIPATION; Start 02/09/18 at 18:00 Docusate Sodium (Colace) 100 mg PRN BID PRN PO CONSTIPATION; Start 02/09/18 at 18:00 Albuterol/ Ipratropium (Duoneb) 3 ml Q4H NEB ; Start 02/09/18 at 18:00; Stop 02/09/18 at 22:15; Status DC Guaifenesin (Robitussin) 200 mg PRN Q4HRS PRN PO COUGH; Start 02/09/18 at 18: 00 Lorazepam (Ativan) 0.5 mg PRN Q4HRS PRN PO ANXIETY / AGITATION; Start at 18:00 Enoxaparin Sodium (Lovenox 40mg Syringe) 40 mg DAILY SQ Last administered on at 09:16; Start 02/10/18 at 09:00 Albuterol Sulfate (Ventolin Neb Soln) 2.5 mg PRN Q4HRS PRN NEB WHEEZING; Start 02/09/18 at 22:15 Acetaminophen (Tylenol) 325 mg PRN Q4HRS PRN PO MILD PAIN / TEMP; Start at 23:00 Amlodipine Besylate (Norvasc) 5 mg DAILY PO Last administered on 02/10/18at 09: 16; Start 02/10/18 at 09:00 Aspirin (Children'S Aspirin) 81 mg DAILY PO Last administered on 02/10/18at 09: 15; Start 02/10/18 at 09:00 Carvedilol (Coreg) 3.125 mg BIDWMEALS PO Last administered on 02/10/18at 09:16 ; Start 02/10/18 at 08:00 Acetaminophen/ Hydrocodone Bitart (Lortab 5/325) for pain PRN Q6HRS PRN PO PAIN ; Start 02/09/18 at 23:00 Levothyroxine Sodium (Synthroid) 100 mcg DAILY PO ; Start 02/10/18 at 09:00; Stop 02/10/18 at 09:00; Status DC Oxycodone/ Acetaminophen (Percocet 5/325) 1 tab PRN Q8HRS PRN PO PAIN Last administered on 02/09/18at 23:26; Start 02/09/18 at 23:00 Pantoprazole Sodium (Protonix) 40 mg DAILYAC PO Last administered on at 09:15; Start 02/10/18 at 07:30 Atorvastatin Calcium (Lipitor) 80 mg DAILY PO Last administered on 02/10/18at 09:15; Start 02/10/18 at 09:00 Vitamin D (Vitamin D3) 5,000 unit DAILY PO Last administered on 02/10/18at 09: 15; Start 02/10/18 at 09:00 Vitamin D (Vitamin D3) 2,000 unit HS PO ; Start 02/10/18 at 21:00 Non-Formulary Medication (Fluticasone/ Salmeterol (Advair 250-50 Diskus)) 1 puff BID IH ; Start 02/10/18 at 09:00; Status UNV Fish Oil (Fish Oil) 1,000 mg DAILY PO Last administered on 02/10/18at 09:15; Start 02/10/18 at 09:00 Paroxetine HCl (Paxil) 45 mg QHS PO ; Start 02/10/18 at 21:00 Polyethylene Glycol (miraLAX PACKET) 17 gm DAILY PO Last administered on at 09:16; Start 02/10/18 at 09:00 Triamcinolone Acetonide (Kenalog) 1 katarina BID TP Last administered on 02/10/18at 09:17; Start 02/10/18 at 09:00 Levothyroxine Sodium (Synthroid) 100 mcg HS PO Last administered on 02/09/18at 23:26; Start 02/09/18 at 23:15 Polyethylene Glycol (miraLAX PACKET) 17 gm 1X ONCE PO Last administered on at 23:26; Start 02/09/18 at 23:15; Stop 02/09/18 at 23:16; Status DC Enalaprilat (Vasotec Inj) 2.5 mg PRN Q6HRS PRN IVP HYPERTENSION, SEE COMMENTS Last administered on 02/09/18at 23:37; Start 02/09/18 at 23:30 Budesonide (Pulmicort) 0.5 mg RTBID NEB ; Start 02/10/18 at 08:00 Albuterol Sulfate (Ventolin Neb Soln) 2.5 mg RTQID NEB ; Start 02/10/18 at 08: 00 Lorazepam (Ativan) 0.5 mg PRN Q6HRS PRN IV ANXIETY / AGITATION Last administered on 02/10/18at 06:16; Start 02/10/18 at 06:00 Hydromorphone HCl (Dilaudid) 0.2 mg PRN Q4HRS PRN IVP PAIN Last administered on 02/10/18at 06:17; Start 02/10/18 at 06:00 Active Scripts Active Miralax (Polyethylene Glycol 3350) 17 Gm Powd.pack 1 Packet PO DAILY Advair 250-50 Diskus (Fluticasone/Salmeterol) 1 Each Disk.w.dev 1 Puff IH BID Reported Triamcinolone Acetonide 80 Gm Oint...g. 1 Katarina TP BID Paxil (Paroxetine Hcl) 40 Mg Tablet 45 Mg PO QHS Targretin (Bexarotene) 60 Gm Gel..gram. 60 Gm TP Fish Oil 1,200 Mg Fish Oil (Fish Oil/Dha/Epa) 1 Each Capsule 1 Each PO Tylenol (Acetaminophen) 325 Mg Tablet 1 Tab PO PRN Q4HRS Senna Laxative (Sennosides) 8.6 Mg Tablet 8.6 Mg PO Amlodipine Besylate 5 Mg Tablet 5 Mg PO DAILY Percocet 5-325 Mg Tablet (Oxycodone/Acetaminophen) 1 Each Tablet 1 Tab PO PRN Q8HRS PRN Calcium (Calcium Carbonate) 600 Mg Tablet 1,200 Mg PO Protonix (Pantoprazole Sodium) 40 Mg Tablet.dr 1 Tab PO DAILY Carvedilol 3.125 Mg Tablet 1 Tab PO BID Children's Aspirin (Aspirin) 81 Mg Tab.chew 81 Mg PO One Daily (Multivitamin) 1 Each Tablet 1 Each PO Vitamin D (Cholecalciferol (Vitamin D3)) 2,000 Unit Capsule 1 Cap PO HS Fish Oil ([place]-3 Fatty Acids) 300 Mg Capsule 1,200 Mg PO DAILY Hydrocodone-Apap 5-325 (Hydrocodone Bit/Acetaminophen) 1 Each Tablet 1-2 Tab PO Q4-6HRS Levothyroxine Sodium 100 Mcg Tablet 1 Tab PO DAILY Vitamin D (Cholecalciferol (Vitamin D3)) 1,000 Unit Capsule 5 Cap PO DAILY Atorvastatin Calcium 80 Mg Tablet 1 Tab PO DAILY Allergies Allergies: Coded Allergies: No Known Drug Allergies (Unverified , 01/15/17) ROS General: No: Chills, Night Sweats, Fatigue, Malaise, Appetite, Other PSYCHOLOGICAL ROS: No: Anxiety, Behavioral Disorder, Concentration difficultie , Decreased libido, Depression, Disorientation, Hallucinations, Hostility, Irritablity, Memory difficulties, Mood Swings, Obsessive thoughts, Physical abuse, Sexual abuse, Sleep disturbances, Suicidal ideation, Other Eyes: No Blurry vision, No Decreased vision, No Double vision, No Dry eyes, No Excessive tearing, No Eye Pain, No Itchy Eyes, No Loss of vision, No Photophobia , No Scotomata, No Uses contacts, No Uses glasses, No Other HEENT: No: Heacaches, Visual Changes, Hearing change, Nasal congestion, Nasal discharge, Oral lesions, Sinus pain, Sore Throat, Epistaxis, Sneezing, Snoring, Tinnitus, Vertigo, Vocal changes, Other ALLERGY AND IMMUNOLOGY: No: Hives, Insect Bite Sensitivity, Itchy/Watery Eyes, Nasal Congestion, Post Nasal Drip, Seasonal Allergies, Other Hematological and Lymphatic: No: Bleeding Problems, Blood Clots, Blood Transfusions, Brusing, Night Sweats, Pallor, Swollen Lymph Nodes, Other Respiratory: No: Cough, Hemoptysis, Orthopnea, Pleuritic Pain, Shortness of breath, SOB with excertion, Sputum Changes, Stridor, Tachypnea, Wheezing, Other Cardiovascular: No Chest Pain, No Palpitations, No Orthopnea, No Paroxysmal Noc. Dyspnea, No Edema, No Lt Headedness, No Other Gastrointestinal: No Nausea, No Vomiting, No Abdominal Pain, No Diarrhea, No Constipation, No Melena, No Hematochezia, No Other Genitourinary: No Dysuria, No Frequency, No Incontinence, No Hematuria, No Retention, No Discharge, No Urgency, No Pain, No Flank Pain, No Other, No , No , No , No , No , No , No Musculoskeletal: Yes Joint Pain, Yes Muscle Pain Neurological: No Behavorial Changes, No Bowel/Bladder ControlChng, No Confusion , No Dizziness, No Gait Disturbance, No Headaches, No Impaired Coord/balance, No Memory Loss, No Numbness/Tingling, No Seizures, No Speech Problems, No Tremors, No Visual Changes, No Weakness, No Other Physical Exam General: Alert, No acute distress HEENT: Atraumatic, EOMI Lungs: Other (respirations aren't labored with symmetric chest rise) Heart: Other (no edema lower extremity, left radial pulse 2+.) Abdomen: Soft, No tenderness Extremities: No edema, Normal pulses Neuro: Normal speech, Strength at 5/5 X4 ext, Sensation intact Psych/Mental Status: Mental status NL, Mood NL MUSCULOSKELETAL: Other (well healed posterior incision left humerus. Left upper extremity has a fracture brace and sling.) Vitals VITALS Vital Signs Date Time Temp Pulse Resp B/P (MAP) Pulse Ox O2 Delivery O2 Flow Rate FiO2 02/10/18 09:16 74 143/71 02/10/18 07:00 97.7 18 96 Room Air 97.7 Labs Labs Laboratory Tests Test 02/09/18 19:00 White Blood Count 9.2 x10^3/uL (4.0-11.0) Red Blood Count 4.06 x10^6/uL (3.50-5.40) Hemoglobin 12.9 g/dL (12.0-15.5) Hematocrit 38.0 % (36.0-47.0) Mean Corpuscular Volume 94 fL (79-100) Mean Corpuscular Hemoglobin 32 pg (25-35) Mean Corpuscular Hemoglobin Concent 34 g/dL (31-37) Red Cell Distribution Width 14.4 % (11.5-14.5) Platelet Count 228 x10^3/uL (140-400) Neutrophils (%) (Auto) 71 % (31-73) Lymphocytes (%) (Auto) 17 % (24-48) Monocytes (%) (Auto) 6 % (0-9) Eosinophils (%) (Auto) 6 % (0-3) Basophils (%) (Auto) 1 % (0-3) Neutrophils # (Auto) 6.5 x10^3uL (1.8-7.7) Lymphocytes # (Auto) 1.6 x10^3/uL (1.0-4.8) Monocytes # (Auto) 0.6 x10^3/uL (0.0-1.1) Eosinophils # (Auto) 0.5 x10^3/uL (0.0-0.7) Basophils # (Auto) 0.1 x10^3/uL (0.0-0.2) Sodium Level 141 mmol/L (136-145) Potassium Level 3.8 mmol/L (3.5-5.1) Chloride Level 105 mmol/L (98-107) Carbon Dioxide Level 29 mmol/L (21-32) Anion Gap 7 (6-14) Blood Urea Nitrogen 33 mg/dL (7-20) Creatinine 1.0 mg/dL (0.6-1.0) Estimated GFR (Cockcroft-Gault) 52.6 BUN/Creatinine Ratio 33 (6-20) Glucose Level 119 mg/dL (70-99) Calcium Level 10.5 mg/dL (8.5-10.1) Total Bilirubin 0.3 mg/dL (0.2-1.0) Aspartate Amino Transf (AST/SGOT) 19 U/L (15-37) Alanine Aminotransferase (ALT/SGPT) 27 U/L (14-59) Alkaline Phosphatase 74 U/L (46-116) Total Protein 7.2 g/dL (6.4-8.2) Albumin 3.4 g/dL (3.4-5.0) Albumin/Globulin Ratio 0.9 (1.0-1.7) Laboratory Tests Test 02/09/18 19:00 White Blood Count 9.2 x10^3/uL (4.0-11.0) Red Blood Count 4.06 x10^6/uL (3.50-5.40) Hemoglobin 12.9 g/dL (12.0-15.5) Hematocrit 38.0 % (36.0-47.0) Mean Corpuscular Volume 94 fL (79-100) Mean Corpuscular Hemoglobin 32 pg (25-35) Mean Corpuscular Hemoglobin Concent 34 g/dL (31-37) Red Cell Distribution Width 14.4 % (11.5-14.5) Platelet Count 228 x10^3/uL (140-400) Neutrophils (%) (Auto) 71 % (31-73) Lymphocytes (%) (Auto) 17 % (24-48) Monocytes (%) (Auto) 6 % (0-9) Eosinophils (%) (Auto) 6 % (0-3) Basophils (%) (Auto) 1 % (0-3) Neutrophils # (Auto) 6.5 x10^3uL (1.8-7.7) Lymphocytes # (Auto) 1.6 x10^3/uL (1.0-4.8) Monocytes # (Auto) 0.6 x10^3/uL (0.0-1.1) Eosinophils # (Auto) 0.5 x10^3/uL (0.0-0.7) Basophils # (Auto) 0.1 x10^3/uL (0.0-0.2) Sodium Level 141 mmol/L (136-145) Potassium Level 3.8 mmol/L (3.5-5.1) Chloride Level 105 mmol/L (98-107) Carbon Dioxide Level 29 mmol/L (21-32) Anion Gap 7 (6-14) Blood Urea Nitrogen 33 mg/dL (7-20) Creatinine 1.0 mg/dL (0.6-1.0) Estimated GFR (Cockcroft-Gault) 52.6 BUN/Creatinine Ratio 33 (6-20) Glucose Level 119 mg/dL (70-99) Calcium Level 10.5 mg/dL (8.5-10.1) Total Bilirubin 0.3 mg/dL (0.2-1.0) Aspartate Amino Transf (AST/SGOT) 19 U/L (15-37) Alanine Aminotransferase (ALT/SGPT) 27 U/L (14-59) Alkaline Phosphatase 74 U/L (46-116) Total Protein 7.2 g/dL (6.4-8.2) Albumin 3.4 g/dL (3.4-5.0) Albumin/Globulin Ratio 0.9 (1.0-1.7) Images Images Recent x-rays from 02/08/2018 were reviewed. I reviewed her prior x-rays. No change in fracture alignment. Stable hardware. Assessment/Plan Assessment/Plan #1 inability to provide self-care #2 left humerus fracture 2 past several weeks. We can start physical therapy, gentle active assisted range of motion. She'll need placement. She'll be nonweightbearing for 4 more weeks. We'll see her back in my clinic here in 2-3 weeks. NIHARIKA CORREIA II, MD Feb 10, 2018 09:55
--- NOTE | 2018-02-10 10:16 | PDOC ---
PROGRESS NOTES History of Present Illness History of Present Illness Assessment/Plan Assessment/Plan impression intractable pain Left humeral fracture recent Scalp Hematoma, improved HTN, uncontrolled COPD GERD debility high fall risk gait instability plan non-weight bearing status x 4 weeks iv pain control bp stabilization PT/OT SNF BED Case mgt referral dvt prophylaxis Vitals Vitals Vital Signs Date Time Temp Pulse Resp B/P (MAP) Pulse Ox O2 Delivery O2 Flow Rate FiO2 02/10/18 09:16 74 143/71 02/10/18 07:00 97.7 18 96 Room Air 97.7 Physical Exam Physical Exam mod distress overnight with pain HENT: Normocephalic, atraumatic, bilateral external ears normal, oropharynx dry , no oral exudates, nose normal. [] Eyes: PERRLA, EOMI, conjunctiva normal, no discharge. [] Neck: Normal range of motion, no tenderness, supple, no stridor. [] Cardiovascular:Heart rate regular with regular rhythm, systolic murmur [] Lungs & Thorax: Bilateral breath sounds clear to auscultation, no wheeze or crackles Abdomen: Bowel sounds normal, soft, no tenderness, no masses, no pulsatile masses. [] Skin: Warm, dry, no erythema, no rash. [] Back: No tenderness, no CVA tenderness. [] Extremities: tenderness, no cyanosis, no clubbing, ROM intact,except left arm no edema. [] Neurologic: Alert and oriented X 3, normal sensory function, no focal deficits noted. [] General: Alert, Oriented X3, Cooperative Breasts: Not examined Rectal Exam: not examined Extremities: No cyanosis Neuro: Normal speech, Cranial nerves 3-12 NL Psych/Mental Status: Mental status NL, Mood NL General: Alert, Oriented X3, Cooperative, No acute distress, mild distress, Other (somnolent due to pain meds, not oriented to place, calm) Heart: Regular rate, Normal S1, No murmurs, Other (no edema lower extremity, left radial pulse 2+.) Lungs: Clear Abdomen: Normal bowel sounds, Soft, No tenderness Extremities: No cyanosis, No edema, Normal pulses Skin: No significant lesion Labs LABS Laboratory Tests Test 02/09/18 19:00 White Blood Count 9.2 x10^3/uL (4.0-11.0) Red Blood Count 4.06 x10^6/uL (3.50-5.40) Hemoglobin 12.9 g/dL (12.0-15.5) Hematocrit 38.0 % (36.0-47.0) Mean Corpuscular Volume 94 fL (79-100) Mean Corpuscular Hemoglobin 32 pg (25-35) Mean Corpuscular Hemoglobin Concent 34 g/dL (31-37) Red Cell Distribution Width 14.4 % (11.5-14.5) Platelet Count 228 x10^3/uL (140-400) Neutrophils (%) (Auto) 71 % (31-73) Lymphocytes (%) (Auto) 17 % (24-48) Monocytes (%) (Auto) 6 % (0-9) Eosinophils (%) (Auto) 6 % (0-3) Basophils (%) (Auto) 1 % (0-3) Neutrophils # (Auto) 6.5 x10^3uL (1.8-7.7) Lymphocytes # (Auto) 1.6 x10^3/uL (1.0-4.8) Monocytes # (Auto) 0.6 x10^3/uL (0.0-1.1) Eosinophils # (Auto) 0.5 x10^3/uL (0.0-0.7) Basophils # (Auto) 0.1 x10^3/uL (0.0-0.2) Sodium Level 141 mmol/L (136-145) Potassium Level 3.8 mmol/L (3.5-5.1) Chloride Level 105 mmol/L (98-107) Carbon Dioxide Level 29 mmol/L (21-32) Anion Gap 7 (6-14) Blood Urea Nitrogen 33 mg/dL (7-20) Creatinine 1.0 mg/dL (0.6-1.0) Estimated GFR (Cockcroft-Gault) 52.6 BUN/Creatinine Ratio 33 (6-20) Glucose Level 119 mg/dL (70-99) Calcium Level 10.5 mg/dL (8.5-10.1) Total Bilirubin 0.3 mg/dL (0.2-1.0) Aspartate Amino Transf (AST/SGOT) 19 U/L (15-37) Alanine Aminotransferase (ALT/SGPT) 27 U/L (14-59) Alkaline Phosphatase 74 U/L (46-116) Total Protein 7.2 g/dL (6.4-8.2) Albumin 3.4 g/dL (3.4-5.0) Albumin/Globulin Ratio 0.9 (1.0-1.7) Comment Review of Relevant I have reviewed the following items harvey (where applicable) has been applied. Labs Laboratory Tests Test 02/09/18 19:00 White Blood Count 9.2 x10^3/uL (4.0-11.0) Red Blood Count 4.06 x10^6/uL (3.50-5.40) Hemoglobin 12.9 g/dL (12.0-15.5) Hematocrit 38.0 % (36.0-47.0) Mean Corpuscular Volume 94 fL (79-100) Mean Corpuscular Hemoglobin 32 pg (25-35) Mean Corpuscular Hemoglobin Concent 34 g/dL (31-37) Red Cell Distribution Width 14.4 % (11.5-14.5) Platelet Count 228 x10^3/uL (140-400) Neutrophils (%) (Auto) 71 % (31-73) Lymphocytes (%) (Auto) 17 % (24-48) Monocytes (%) (Auto) 6 % (0-9) Eosinophils (%) (Auto) 6 % (0-3) Basophils (%) (Auto) 1 % (0-3) Neutrophils # (Auto) 6.5 x10^3uL (1.8-7.7) Lymphocytes # (Auto) 1.6 x10^3/uL (1.0-4.8) Monocytes # (Auto) 0.6 x10^3/uL (0.0-1.1) Eosinophils # (Auto) 0.5 x10^3/uL (0.0-0.7) Basophils # (Auto) 0.1 x10^3/uL (0.0-0.2) Sodium Level 141 mmol/L (136-145) Potassium Level 3.8 mmol/L (3.5-5.1) Chloride Level 105 mmol/L (98-107) Carbon Dioxide Level 29 mmol/L (21-32) Anion Gap 7 (6-14) Blood Urea Nitrogen 33 mg/dL (7-20) Creatinine 1.0 mg/dL (0.6-1.0) Estimated GFR (Cockcroft-Gault) 52.6 BUN/Creatinine Ratio 33 (6-20) Glucose Level 119 mg/dL (70-99) Calcium Level 10.5 mg/dL (8.5-10.1) Total Bilirubin 0.3 mg/dL (0.2-1.0) Aspartate Amino Transf (AST/SGOT) 19 U/L (15-37) Alanine Aminotransferase (ALT/SGPT) 27 U/L (14-59) Alkaline Phosphatase 74 U/L (46-116) Total Protein 7.2 g/dL (6.4-8.2) Albumin 3.4 g/dL (3.4-5.0) Albumin/Globulin Ratio 0.9 (1.0-1.7) Laboratory Tests Test 02/09/18 19:00 White Blood Count 9.2 x10^3/uL (4.0-11.0) Red Blood Count 4.06 x10^6/uL (3.50-5.40) Hemoglobin 12.9 g/dL (12.0-15.5) Hematocrit 38.0 % (36.0-47.0) Mean Corpuscular Volume 94 fL (79-100) Mean Corpuscular Hemoglobin 32 pg (25-35) Mean Corpuscular Hemoglobin Concent 34 g/dL (31-37) Red Cell Distribution Width 14.4 % (11.5-14.5) Platelet Count 228 x10^3/uL (140-400) Neutrophils (%) (Auto) 71 % (31-73) Lymphocytes (%) (Auto) 17 % (24-48) Monocytes (%) (Auto) 6 % (0-9) Eosinophils (%) (Auto) 6 % (0-3) Basophils (%) (Auto) 1 % (0-3) Neutrophils # (Auto) 6.5 x10^3uL (1.8-7.7) Lymphocytes # (Auto) 1.6 x10^3/uL (1.0-4.8) Monocytes # (Auto) 0.6 x10^3/uL (0.0-1.1) Eosinophils # (Auto) 0.5 x10^3/uL (0.0-0.7) Basophils # (Auto) 0.1 x10^3/uL (0.0-0.2) Sodium Level 141 mmol/L (136-145) Potassium Level 3.8 mmol/L (3.5-5.1) Chloride Level 105 mmol/L (98-107) Carbon Dioxide Level 29 mmol/L (21-32) Anion Gap 7 (6-14) Blood Urea Nitrogen 33 mg/dL (7-20) Creatinine 1.0 mg/dL (0.6-1.0) Estimated GFR (Cockcroft-Gault) 52.6 BUN/Creatinine Ratio 33 (6-20) Glucose Level 119 mg/dL (70-99) Calcium Level 10.5 mg/dL (8.5-10.1) Total Bilirubin 0.3 mg/dL (0.2-1.0) Aspartate Amino Transf (AST/SGOT) 19 U/L (15-37) Alanine Aminotransferase (ALT/SGPT) 27 U/L (14-59) Alkaline Phosphatase 74 U/L (46-116) Total Protein 7.2 g/dL (6.4-8.2) Albumin 3.4 g/dL (3.4-5.0) Albumin/Globulin Ratio 0.9 (1.0-1.7) Medications Current Medications Ondansetron HCl (Zofran) 4 mg PRN Q4HRS PRN IV NAUSEA/VOMITING Last administered on 02/10/18at 05:48; Start 02/09/18 at 18:00 Zolpidem Tartrate (Ambien) 5 mg PRN QHS PRN PO INSOMNIA; Start 02/09/18 at 18: 00 Acetaminophen (Tylenol) 650 mg PRN Q4HRS PRN GT TEMP OVER 100.4F OR MILD PAIN; Start 02/09/18 at 18:00 Al Hydroxide/Mg Hydroxide (Mylanta Plus Xs) 30 ml PRN DAILY PRN PO HEARTBURN / GAS; Start 02/09/18 at 18:00 Clonidine HCl (Catapres) 0.1 mg PRN Q6HRS PRN PO SBP>160 OR DBP>90; Start at 18:00 Sodium Monofluorophosphate (Fleet Adult) 133 ml PRN DAILY PRN [place] CONSTIPATION; Start 02/09/18 at 18:00 Docusate Sodium (Colace) 100 mg PRN BID PRN PO CONSTIPATION; Start 02/09/18 at 18:00 Albuterol/ Ipratropium (Duoneb) 3 ml Q4H NEB ; Start 02/09/18 at 18:00; Stop 02/09/18 at 22:15; Status DC Guaifenesin (Robitussin) 200 mg PRN Q4HRS PRN PO COUGH; Start 02/09/18 at 18: 00 Lorazepam (Ativan) 0.5 mg PRN Q4HRS PRN PO ANXIETY / AGITATION; Start at 18:00 Enoxaparin Sodium (Lovenox 40mg Syringe) 40 mg DAILY SQ Last administered on at 09:16; Start 02/10/18 at 09:00 Albuterol Sulfate (Ventolin Neb Soln) 2.5 mg PRN Q4HRS PRN NEB WHEEZING; Start 02/09/18 at 22:15 Acetaminophen (Tylenol) 325 mg PRN Q4HRS PRN PO MILD PAIN / TEMP; Start at 23:00 Amlodipine Besylate (Norvasc) 5 mg DAILY PO Last administered on 02/10/18at 09: 16; Start 02/10/18 at 09:00 Aspirin (Children'S Aspirin) 81 mg DAILY PO Last administered on 02/10/18at 09: 15; Start 02/10/18 at 09:00 Carvedilol (Coreg) 3.125 mg BIDWMEALS PO Last administered on 02/10/18at 09:16 ; Start 02/10/18 at 08:00 Acetaminophen/ Hydrocodone Bitart (Lortab 5/325) for pain PRN Q6HRS PRN PO PAIN ; Start 02/09/18 at 23:00 Levothyroxine Sodium (Synthroid) 100 mcg DAILY PO ; Start 02/10/18 at 09:00; Stop 02/10/18 at 09:00; Status DC Oxycodone/ Acetaminophen (Percocet 5/325) 1 tab PRN Q8HRS PRN PO PAIN Last administered on 02/09/18at 23:26; Start 02/09/18 at 23:00 Pantoprazole Sodium (Protonix) 40 mg DAILYAC PO Last administered on at 09:15; Start 02/10/18 at 07:30 Atorvastatin Calcium (Lipitor) 80 mg DAILY PO Last administered on 02/10/18at 09:15; Start 02/10/18 at 09:00 Vitamin D (Vitamin D3) 5,000 unit DAILY PO Last administered on 02/10/18at 09: 15; Start 02/10/18 at 09:00 Vitamin D (Vitamin D3) 2,000 unit HS PO ; Start 02/10/18 at 21:00 Non-Formulary Medication (Fluticasone/ Salmeterol (Advair 250-50 Diskus)) 1 puff BID IH ; Start 02/10/18 at 09:00; Status UNV Fish Oil (Fish Oil) 1,000 mg DAILY PO Last administered on 02/10/18at 09:15; Start 02/10/18 at 09:00 Paroxetine HCl (Paxil) 45 mg QHS PO ; Start 02/10/18 at 21:00 Polyethylene Glycol (miraLAX PACKET) 17 gm DAILY PO Last administered on at 09:16; Start 02/10/18 at 09:00 Triamcinolone Acetonide (Kenalog) 1 katarina BID TP Last administered on 02/10/18at 09:17; Start 02/10/18 at 09:00 Levothyroxine Sodium (Synthroid) 100 mcg HS PO Last administered on 02/09/18at 23:26; Start 02/09/18 at 23:15 Polyethylene Glycol (miraLAX PACKET) 17 gm 1X ONCE PO Last administered on at 23:26; Start 02/09/18 at 23:15; Stop 02/09/18 at 23:16; Status DC Enalaprilat (Vasotec Inj) 2.5 mg PRN Q6HRS PRN IVP HYPERTENSION, SEE COMMENTS Last administered on 02/09/18at 23:37; Start 02/09/18 at 23:30 Budesonide (Pulmicort) 0.5 mg RTBID NEB ; Start 02/10/18 at 08:00 Albuterol Sulfate (Ventolin Neb Soln) 2.5 mg RTQID NEB ; Start 02/10/18 at 08: 00 Lorazepam (Ativan) 0.5 mg PRN Q6HRS PRN IV ANXIETY / AGITATION Last administered on 02/10/18at 06:16; Start 02/10/18 at 06:00 Hydromorphone HCl (Dilaudid) 0.2 mg PRN Q4HRS PRN IVP PAIN Last administered on 02/10/18at 06:17; Start 02/10/18 at 06:00 Active Scripts Active Miralax (Polyethylene Glycol 3350) 17 Gm Powd.pack 1 Packet PO DAILY Advair 250-50 Diskus (Fluticasone/Salmeterol) 1 Each Disk.w.dev 1 Puff IH BID Reported Triamcinolone Acetonide 80 Gm Oint...g. 1 Katarina TP BID Paxil (Paroxetine Hcl) 40 Mg Tablet 45 Mg PO QHS Targretin (Bexarotene) 60 Gm Gel..gram. 60 Gm TP Fish Oil 1,200 Mg Fish Oil (Fish Oil/Dha/Epa) 1 Each Capsule 1 Each PO Tylenol (Acetaminophen) 325 Mg Tablet 1 Tab PO PRN Q4HRS Senna Laxative (Sennosides) 8.6 Mg Tablet 8.6 Mg PO Amlodipine Besylate 5 Mg Tablet 5 Mg PO DAILY Percocet 5-325 Mg Tablet (Oxycodone/Acetaminophen) 1 Each Tablet 1 Tab PO PRN Q8HRS PRN Calcium (Calcium Carbonate) 600 Mg Tablet 1,200 Mg PO Protonix (Pantoprazole Sodium) 40 Mg Tablet.dr 1 Tab PO DAILY Carvedilol 3.125 Mg Tablet 1 Tab PO BID Children's Aspirin (Aspirin) 81 Mg Tab.chew 81 Mg PO One Daily (Multivitamin) 1 Each Tablet 1 Each PO Vitamin D (Cholecalciferol (Vitamin D3)) 2,000 Unit Capsule 1 Cap PO HS Fish Oil ([place]-3 Fatty Acids) 300 Mg Capsule 1,200 Mg PO DAILY Hydrocodone-Apap 5-325 (Hydrocodone Bit/Acetaminophen) 1 Each Tablet 1-2 Tab PO Q4-6HRS Levothyroxine Sodium 100 Mcg Tablet 1 Tab PO DAILY Vitamin D (Cholecalciferol (Vitamin D3)) 1,000 Unit Capsule 5 Cap PO DAILY Atorvastatin Calcium 80 Mg Tablet 1 Tab PO DAILY Vitals/I & O Vital Sign - Last 24 Hours 02/09/18 02/09/18 02/09/18 02/09/18 17:45 19:39 19:50 20:00 Temp 98.9 97.9 98.9 97.9 Pulse 59 59 Resp 16 16 B/P (MAP) 141/77 (98) 133/66 (88) Pulse Ox 92 96 O2 Delivery Room Air Room Air Room Air 02/09/18 02/09/18 02/09/18 02/10/18 23:09 23:26 23:37 00:26 Temp 97.7 97.7 Pulse 73 73 Resp 20 16 16 B/P (MAP) 194/92 (126) 194/92 Pulse Ox 92 92 92 O2 Delivery Room Air Room Air 02/10/18 02/10/18 02/10/18 02/10/18 03:51 06:17 06:47 07:00 Temp 99.1 97.7 99.1 97.7 Pulse 67 74 Resp 18 16 16 18 B/P (MAP) 150/77 (101) 143/71 (95) Pulse Ox 92 92 92 96 O2 Delivery Room Air Room Air Room Air Room Air 02/10/18 02/10/18 09:16 09:16 Pulse 74 74 B/P (MAP) 143/71 143/71 CHI SUN MD Feb 10, 2018 10:16
[2018-02-10 11:00] VITALS: BP 138/52
[2018-02-10] MEDS ORDERED: ACETAMINOPHEN 650 MG SUPP.RECT. PR PRN (11:00)
--- NOTE | 2018-02-10 12:51 | RAD ---
CT of the head without contrast, 02/10/2018: HISTORY: Confusion Comparison is made to a study from 01/24/2018. There is mild cerebral atrophy. There are mild patchy lucencies in the deep white matter bilaterally compatible with chronic ischemic change. The ventricles are within normal limits in size. The patient's head is rotated. There is no definite shift of the midline structures. There is no evidence of acute intracranial hemorrhage or mass effect. There is calcific plaquing of the distal internal carotid and vertebral arteries. IMPRESSION: 1. Chronic findings as described above. 2. No new intracranial abnormality is detected. PQRS Compliance Statement: One or more of the following individualized dose reduction techniques were utilized for this examination: 1. Automated exposure control 2. Adjustment of the mA and/or kV according to patient size 3. Use of iterative reconstruction technique Electronically signed by: Gabriel Chavira MD (02/10/2018 12:48 PM) [facility]
--- NOTE | 2018-02-10 14:48 | PDOC2 ---
NEUROLOGY CONSULT Date of Admission Date of Admission DATE: 02/10/18 TIME: 14:34 Reason for Consult Reason for Consult: IMPRESSION: Metabolic encephalopathy. Confusion. Generalized weakness. Fall. HTN. HLD. COPD. GERD. Recent left humeral fracture. Advanced degenerative spine and joint diseases. RECOMMENDATIONS/PLAN: Treat medical diseases. EEG. Lab: see OT/PT. HISTORY OF THE PRESENT ILLNESS: 87-y-old female patient with above medical diseases had a fall recently with left humeral fracture. She was hospitalized at that time in 01/05 followed by Rehab and was discharged home about 1 week after Rehab. She was brought reportedly by her neighbor to [facility] on 02/09/18 due to her MS changes. Past Medical History Cardiovascular: HTN, Hyperlipidemia, Valve insufficiency Pulmonary: COPD GI: GERD Heme/Onc: No pertinent hx, Other Hepatobiliary: No pertinent hx Psych: No pertinent hx Infectious disease: No pertinent hx Renal/: No pertinent hx Endocrine: No pertinent hx Past Surgical History Total hip replacement, Total knee replacement, Tonsillectomy Family History Coronary Artery Disease, Hypertension ALLERGY: NKDA MEDICATIONS: Refer to [facility] SOCIAL HISTORY: Lives at home.lone. Denies smoking, drinking, and illicit drug use. REVIEW OF SYSTEMS: Constitutional: No malnutrition, weight loss, cachexia. Head: Scalp hematoma in 12/2017. Skin: No edema, or rash. Ear: No infection. Eyes: No vision loss or color blindness. Nose: No bleeding or purulent discharges. Hearing: No hearing decrease. Neck: No injury. Breast: No history of cancer, masses,or discharges. Cardiac: HTN, HLD. Pulmonary: COPD. GI: GERD. Urinary/genital: UTI. Endocrinologic: thyroid disease, over weight. Skeletomuscular: Generalized weakness. Neurological: see HP. Psychiatric: Denies drug use/abuse. Otherwise, not [id number] review of systems. PHYSICAL EXAMINATION: General appearance is in subacute distress. HEENT: Normocephalic and nontraumatic. Eyes, nose, ears, and throat are unremarkable. Neck is supple. No lymphadenopathy. No crepitus. Cardiovascular: S1, S2, regular rate and rhythm. SM 3/6. Pulmonary: Relative clear to auscultation bilaterally. Abdomen: Bowel sounds are positive. Extremities: No rash, lesions, or edema. No restriction of range of motion except left UE. NEUROLOGICAL EXAMINATION: Sleepiness but arousable. Not oriented to time, place and person. PERRL. EOMI. CN: no acute focal findings. Muscle tone: within normal. Muscle strength: 4 DTR: 1-2 Plantar reflex: Neutral response bilaterally Gait: not examined in bed. Sensory exam: no abnormal findings. No cerebellar signs elicited. F-T-N test not very accurate. Current Medications Current Medications Current Medications Ondansetron HCl (Zofran) 4 mg PRN Q4HRS PRN IV NAUSEA/VOMITING Last administered on 02/10/18at 05:48; Start 02/09/18 at 18:00 Zolpidem Tartrate (Ambien) 5 mg PRN QHS PRN PO INSOMNIA; Start 02/09/18 at 18: 00 Acetaminophen (Tylenol) 650 mg PRN Q4HRS PRN GT TEMP OVER 100.4F OR MILD PAIN; Start 02/09/18 at 18:00 Al Hydroxide/Mg Hydroxide (Mylanta Plus Xs) 30 ml PRN DAILY PRN PO HEARTBURN / GAS; Start 02/09/18 at 18:00 Clonidine HCl (Catapres) 0.1 mg PRN Q6HRS PRN PO SBP>160 OR DBP>90; Start at 18:00 Sodium Monofluorophosphate (Fleet Adult) 133 ml PRN DAILY PRN [place] CONSTIPATION; Start 02/09/18 at 18:00 Docusate Sodium (Colace) 100 mg PRN BID PRN PO CONSTIPATION; Start 02/09/18 at 18:00 Albuterol/ Ipratropium (Duoneb) 3 ml Q4H NEB ; Start 02/09/18 at 18:00; Stop 02/09/18 at 22:15; Status DC Guaifenesin (Robitussin) 200 mg PRN Q4HRS PRN PO COUGH; Start 02/09/18 at 18: 00 Lorazepam (Ativan) 0.5 mg PRN Q4HRS PRN PO ANXIETY / AGITATION; Start at 18:00 Enoxaparin Sodium (Lovenox 40mg Syringe) 40 mg DAILY SQ Last administered on at 09:16; Start 02/10/18 at 09:00 Albuterol Sulfate (Ventolin Neb Soln) 2.5 mg PRN Q4HRS PRN NEB WHEEZING; Start 02/09/18 at 22:15 Acetaminophen (Tylenol) 325 mg PRN Q4HRS PRN PO MILD PAIN / TEMP; Start at 23:00 Amlodipine Besylate (Norvasc) 5 mg DAILY PO Last administered on 02/10/18at 09: 16; Start 02/10/18 at 09:00 Aspirin (Children'S Aspirin) 81 mg DAILY PO Last administered on 02/10/18at 09: 15; Start 02/10/18 at 09:00 Carvedilol (Coreg) 3.125 mg BIDWMEALS PO Last administered on 02/10/18at 09:16 ; Start 02/10/18 at 08:00 Acetaminophen/ Hydrocodone Bitart (Lortab 5/325) for pain PRN Q6HRS PRN PO PAIN ; Start 02/09/18 at 23:00 Levothyroxine Sodium (Synthroid) 100 mcg DAILY PO ; Start 02/10/18 at 09:00; Stop 02/10/18 at 09:00; Status DC Oxycodone/ Acetaminophen (Percocet 5/325) 1 tab PRN Q8HRS PRN PO PAIN Last administered on 02/09/18at 23:26; Start 02/09/18 at 23:00 Pantoprazole Sodium (Protonix) 40 mg DAILYAC PO Last administered on at 09:15; Start 02/10/18 at 07:30 Atorvastatin Calcium (Lipitor) 80 mg DAILY PO Last administered on 02/10/18at 09:15; Start 02/10/18 at 09:00 Vitamin D (Vitamin D3) 5,000 unit DAILY PO Last administered on 02/10/18at 09: 15; Start 02/10/18 at 09:00 Vitamin D (Vitamin D3) 2,000 unit HS PO ; Start 02/10/18 at 21:00 Non-Formulary Medication (Fluticasone/ Salmeterol (Advair 250-50 Diskus)) 1 puff BID IH ; Start 02/10/18 at 09:00; Status UNV Fish Oil (Fish Oil) 1,000 mg DAILY PO Last administered on 02/10/18at 09:15; Start 02/10/18 at 09:00 Paroxetine HCl (Paxil) 45 mg QHS PO ; Start 02/10/18 at 21:00 Polyethylene Glycol (miraLAX PACKET) 17 gm DAILY PO Last administered on at 09:16; Start 02/10/18 at 09:00 Triamcinolone Acetonide (Kenalog) 1 katarina BID TP Last administered on 02/10/18at 09:17; Start 02/10/18 at 09:00 Levothyroxine Sodium (Synthroid) 100 mcg HS PO Last administered on 02/09/18at 23:26; Start 02/09/18 at 23:15 Polyethylene Glycol (miraLAX PACKET) 17 gm 1X ONCE PO Last administered on at 23:26; Start 02/09/18 at 23:15; Stop 02/09/18 at 23:16; Status DC Enalaprilat (Vasotec Inj) 2.5 mg PRN Q6HRS PRN IVP HYPERTENSION, SEE COMMENTS Last administered on 02/09/18at 23:37; Start 02/09/18 at 23:30 Budesonide (Pulmicort) 0.5 mg RTBID NEB ; Start 02/10/18 at 08:00 Albuterol Sulfate (Ventolin Neb Soln) 2.5 mg RTQID NEB ; Start 02/10/18 at 08: 00 Lorazepam (Ativan) 0.5 mg PRN Q6HRS PRN IV ANXIETY / AGITATION Last administered on 02/10/18at 06:16; Start 02/10/18 at 06:00 Hydromorphone HCl (Dilaudid) 0.2 mg PRN Q4HRS PRN IVP PAIN Last administered on 02/10/18at 06:17; Start 02/10/18 at 06:00 Acetaminophen (Tylenol Supp) 650 mg PRN Q6HRS PRN [place] MILD PAIN / TEMP; Start 02/10/18 at 11:00 Active Scripts Active Miralax (Polyethylene Glycol 3350) 17 Gm Powd.pack 1 Packet PO DAILY Advair 250-50 Diskus (Fluticasone/Salmeterol) 1 Each Disk.w.dev 1 Puff IH BID Reported Triamcinolone Acetonide 80 Gm Oint...g. 1 Katarina TP BID Paxil (Paroxetine Hcl) 40 Mg Tablet 45 Mg PO QHS Targretin (Bexarotene) 60 Gm Gel..gram. 60 Gm TP Fish Oil 1,200 Mg Fish Oil (Fish Oil/Dha/Epa) 1 Each Capsule 1 Each PO Tylenol (Acetaminophen) 325 Mg Tablet 1 Tab PO PRN Q4HRS Senna Laxative (Sennosides) 8.6 Mg Tablet 8.6 Mg PO Amlodipine Besylate 5 Mg Tablet 5 Mg PO DAILY Percocet 5-325 Mg Tablet (Oxycodone/Acetaminophen) 1 Each Tablet 1 Tab PO PRN Q8HRS PRN Calcium (Calcium Carbonate) 600 Mg Tablet 1,200 Mg PO Protonix (Pantoprazole Sodium) 40 Mg Tablet.dr 1 Tab PO DAILY Carvedilol 3.125 Mg Tablet 1 Tab PO BID Children's Aspirin (Aspirin) 81 Mg Tab.chew 81 Mg PO One Daily (Multivitamin) 1 Each Tablet 1 Each PO Vitamin D (Cholecalciferol (Vitamin D3)) 2,000 Unit Capsule 1 Cap PO HS Fish Oil (Harmony-3 Fatty Acids) 300 Mg Capsule 1,200 Mg PO DAILY Hydrocodone-Apap 5-325 (Hydrocodone Bit/Acetaminophen) 1 Each Tablet 1-2 Tab PO Q4-6HRS Levothyroxine Sodium 100 Mcg Tablet 1 Tab PO DAILY Vitamin D (Cholecalciferol (Vitamin D3)) 1,000 Unit Capsule 5 Cap PO DAILY Atorvastatin Calcium 80 Mg Tablet 1 Tab PO DAILY Allergies Allergies: Allergies Coded Allergies Type Severity Reaction Last Updated Verified No Known Drug Allergies 01/15/17 No ROS Review of System The patient denies any associated fevers, chills, headache, ear pain, rhinorrhea , sore throat, stiff neck, productive cough, chest pain, shortness of breath, back or flank pain, abdominal pain, nausea, vomiting, diarrhea, constipation, dysuria, rash, numbness, weakness, tingling, incontinence, difficulty ambulating, or diaphoresis. Physical Exam Physical Exam General: Well developed, well nourished, no acute distress, well appearing HEENT: Pupils equally round and reactive to light, EOMI, no discharge, normal conjunctiva Neck: Supple, no nuchal rigidity, no JVD, trachea midline, no tenderness Cardiac: RRR, no murmurs, no gallops, no rubs Chest/Lungs: CTAB, no wheeze, no rhonchi, no crackles Abdomen: soft, non-distended, no guarding, no peritoneal signs, non-tender Back: No tenderness Extremities: no edema, pulses intact, non-tender,capillary refill <3 sec bilateral upper and lower extremities, Neuro: Alert and oriented x 4, no focal deficits, normal speech Vitals Vitals: Vital Signs Date Time Temp Pulse Resp B/P (MAP) Pulse Ox O2 Delivery O2 Flow Rate FiO2 02/10/18 11:00 99.4 69 18 138/52 (80) 91 Room Air 99.4 Labs Labs Laboratory Tests Test 02/09/18 19:00 White Blood Count 9.2 x10^3/uL (4.0-11.0) Red Blood Count 4.06 x10^6/uL (3.50-5.40) Hemoglobin 12.9 g/dL (12.0-15.5) Hematocrit 38.0 % (36.0-47.0) Mean Corpuscular Volume 94 fL (79-100) Mean Corpuscular Hemoglobin 32 pg (25-35) Mean Corpuscular Hemoglobin Concent 34 g/dL (31-37) Red Cell Distribution Width 14.4 % (11.5-14.5) Platelet Count 228 x10^3/uL (140-400) Neutrophils (%) (Auto) 71 % (31-73) Lymphocytes (%) (Auto) 17 % (24-48) Monocytes (%) (Auto) 6 % (0-9) Eosinophils (%) (Auto) 6 % (0-3) Basophils (%) (Auto) 1 % (0-3) Neutrophils # (Auto) 6.5 x10^3uL (1.8-7.7) Lymphocytes # (Auto) 1.6 x10^3/uL (1.0-4.8) Monocytes # (Auto) 0.6 x10^3/uL (0.0-1.1) Eosinophils # (Auto) 0.5 x10^3/uL (0.0-0.7) Basophils # (Auto) 0.1 x10^3/uL (0.0-0.2) Sodium Level 141 mmol/L (136-145) Potassium Level 3.8 mmol/L (3.5-5.1) Chloride Level 105 mmol/L (98-107) Carbon Dioxide Level 29 mmol/L (21-32) Anion Gap 7 (6-14) Blood Urea Nitrogen 33 mg/dL (7-20) Creatinine 1.0 mg/dL (0.6-1.0) Estimated GFR (Cockcroft-Gault) 52.6 BUN/Creatinine Ratio 33 (6-20) Glucose Level 119 mg/dL (70-99) Calcium Level 10.5 mg/dL (8.5-10.1) Total Bilirubin 0.3 mg/dL (0.2-1.0) Aspartate Amino Transf (AST/SGOT) 19 U/L (15-37) Alanine Aminotransferase (ALT/SGPT) 27 U/L (14-59) Alkaline Phosphatase 74 U/L (46-116) Total Protein 7.2 g/dL (6.4-8.2) Albumin 3.4 g/dL (3.4-5.0) Albumin/Globulin Ratio 0.9 (1.0-1.7) Laboratory Tests Test 02/09/18 19:00 White Blood Count 9.2 x10^3/uL (4.0-11.0) Red Blood Count 4.06 x10^6/uL (3.50-5.40) Hemoglobin 12.9 g/dL (12.0-15.5) Hematocrit 38.0 % (36.0-47.0) Mean Corpuscular Volume 94 fL (79-100) Mean Corpuscular Hemoglobin 32 pg (25-35) Mean Corpuscular Hemoglobin Concent 34 g/dL (31-37) Red Cell Distribution Width 14.4 % (11.5-14.5) Platelet Count 228 x10^3/uL (140-400) Neutrophils (%) (Auto) 71 % (31-73) Lymphocytes (%) (Auto) 17 % (24-48) Monocytes (%) (Auto) 6 % (0-9) Eosinophils (%) (Auto) 6 % (0-3) Basophils (%) (Auto) 1 % (0-3) Neutrophils # (Auto) 6.5 x10^3uL (1.8-7.7) Lymphocytes # (Auto) 1.6 x10^3/uL (1.0-4.8) Monocytes # (Auto) 0.6 x10^3/uL (0.0-1.1) Eosinophils # (Auto) 0.5 x10^3/uL (0.0-0.7) Basophils # (Auto) 0.1 x10^3/uL (0.0-0.2) Sodium Level 141 mmol/L (136-145) Potassium Level 3.8 mmol/L (3.5-5.1) Chloride Level 105 mmol/L (98-107) Carbon Dioxide Level 29 mmol/L (21-32) Anion Gap 7 (6-14) Blood Urea Nitrogen 33 mg/dL (7-20) Creatinine 1.0 mg/dL (0.6-1.0) Estimated GFR (Cockcroft-Gault) 52.6 BUN/Creatinine Ratio 33 (6-20) Glucose Level 119 mg/dL (70-99) Calcium Level 10.5 mg/dL (8.5-10.1) Total Bilirubin 0.3 mg/dL (0.2-1.0) Aspartate Amino Transf (AST/SGOT) 19 U/L (15-37) Alanine Aminotransferase (ALT/SGPT) 27 U/L (14-59) Alkaline Phosphatase 74 U/L (46-116) Total Protein 7.2 g/dL (6.4-8.2) Albumin 3.4 g/dL (3.4-5.0) Albumin/Globulin Ratio 0.9 (1.0-1.7) VANESSA GONZALEZ MD Feb 10, 2018 14:48
[2018-02-10 15:00] VITALS: BP 175/73
[2018-02-10 19:00] VITALS: BP 145/95
[2018-02-10] MEDS ORDERED: ONDANSETRON ODT 4 MG TAB.RAPDIS. PO PRN (19:30)
[2018-02-10] MEDS ORDERED: PROCHLORPERAZINE 10 MG/2 ML VIAL. IV PRN (19:30)
[2018-02-10] MEDS ORDERED: MORPHINE SULFATE 2 MG/ML VIAL. IV PRN (19:30)
[2018-02-10] MEDS: ONDANSETRON PF 4 MG/2 ML VIAL. IV PRN (19:34)
[2018-02-10] MEDS: PARoxetine 10 MG TABLET PO SCH (20:57)
[2018-02-10] MEDS: LEVOTHYROXINE 100 MCG TABLET PO SCH (20:57)
[2018-02-10] MEDS: CHOLECALCIFEROL (VITAMIN D3) 1,000 UNIT TABLET PO SCH (20:57)
[2018-02-10] MEDS: IV 1/2 NORMAL SALINE 1,000 ML IV SCH (21:47)
[2018-02-10 23:00] VITALS: BP 140/81
[2018-02-11 03:00] VITALS: BP 148/87
[2018-02-11 06:13] LABS: BASO # 0.1 x10^3/uL (0.0-0.2); BASO % 0 % (0-3); EOS % 0 % (0-3); HEMATOCRIT 37.6 % (36.0-47.0); HEMOGLOBIN 12.5 g/dL (12.0-15.5); LYMPH # 1.4 x10^3/uL (1.0-4.8); LYMPH % 9 % (24-48); MEAN CORPUSCULAR HEMOGLOBIN 31 pg (25-35); MEAN CORPUSCULAR HGB CONC 33 g/dL (31-37); MEAN CORPUSCULAR VOLUME 94 fL (79-100); MONO # 1.4 x10^3/uL (0.0-1.1); MONO % 8 % (0-9); NEUT # 13.6 x10^3uL (1.8-7.7); NEUT % 83 % (31-73); PLATELET COUNT 218 x10^3/uL (140-400); RED CELL DISTRIBUTION WIDTH 14.2 % (11.5-14.5); WHITE BLOOD COUNT 16.4 x10^3/uL (4.0-11.0)
[2018-02-11 06:39] LABS: ALBUMIN 2.9 g/dL (3.4-5.0); ALBUMIN/GLOBULIN RATIO 0.7 (1.0-1.7); CALCIUM 10.4 mg/dL (8.5-10.1); CREATININE 0.7 mg/dL (0.6-1.0); GFR 79.3; POTASSIUM 3.7 mmol/L (3.5-5.1); TOTAL BILIRUBIN 0.6 mg/dL (0.2-1.0); TOTAL PROTEIN 6.9 g/dL (6.4-8.2)
[2018-02-11] MEDS: PANTOPRAZOLE 40 MG TABLET.DR. PO SCH (06:50)
[2018-02-11 07:00] VITALS: BP 123/77
[2018-02-11] MEDS: ALBUTEROL SULFATE 2.5 MG/3 ML NEBU. NEB SCH ×4 (08:00→20:11)
[2018-02-11 08:11] LABS: % BANDS 2 % (0-9); % EOS 1 % (0-5); % LYMPHS 9 % (24-48); % MONOS 9 % (0-10); % SEGS 79 % (35-66)
[2018-02-11 08:12] LABS: PLT ESTIMATE ADEQUATE (ADEQUATE)
[2018-02-11] MEDS: POLYETHYLENE GLYCOL 3350 17 GM PACKET. PO SCH (09:00)
[2018-02-11] MEDS: ONDANSETRON PF 4 MG/2 ML VIAL. IV PRN ×2 (09:38→12:26)
[2018-02-11] MEDS: ENOXAPARIN 40 MG/0.4 ML SYRINGE. SQ SCH (09:38)
[2018-02-11] MEDS: OMEGA-3 FATTY ACIDS/FISH OIL 1,000 MG CAPSULE. PO SCH (09:39)
[2018-02-11] MEDS: CARVEDILOL 3.125 MG TABLET. PO SCH ×2 (09:39→18:03)
[2018-02-11] MEDS: ASPIRIN CHEWABLE 81 MG TABLET. PO SCH (09:40)
[2018-02-11] MEDS: amLODIPine BESYLATE 5 MG TABLET PO SCH (09:41)
[2018-02-11] MEDS: CHOLECALCIFEROL (VITAMIN D3) 1,000 UNIT TABLET PO SCH (09:43)
[2018-02-11] MEDS: ATORVASTATIN CALCIUM 40 MG TABLET. PO SCH (09:44)
[2018-02-11] MEDS: IV 1/2 NORMAL SALINE 1,000 ML IV SCH (09:47)
[2018-02-11] MEDS: CHOLECALCIFEROL (VITAMIN D3) 5,000 UNIT CAPSULE PO SCH (09:53)
[2018-02-11] MEDS: TRIAMCINOLONE ACETONIDE 0.1% TOPICAL OINTMENT 15GM TUBE. TP SCH (09:58)
[2018-02-11 11:00] VITALS: BP 117/61
--- NOTE | 2018-02-11 11:05 | PDOC ---
PROGRESS NOTES History of Present Illness History of Present Illness Assessment/Plan Assessment/Plan impression intractable pain Left humeral fracture recent Scalp Hematoma, improved HTN, uncontrolled COPD GERD debility high fall risk gait instability metabolic encephalopathy plan eeg non-weight bearing status x 4 weeks iv pain control bp stabilization PT/OT SNF BED Case mgt referral dvt prophylaxis neurology consulted Vitals Vitals Vital Signs Date Time Temp Pulse Resp B/P (MAP) Pulse Ox O2 Delivery O2 Flow Rate FiO2 02/11/18 09:41 78 148/87 02/11/18 07:00 98.3 16 94 Nasal Cannula 2.0 98.3 Physical Exam Physical Exam mod distress overnight with pain HENT: Normocephalic, atraumatic, bilateral external ears normal, oropharynx dry , no oral exudates, nose normal. [] Eyes: PERRLA, EOMI, conjunctiva normal, no discharge. [] Neck: Normal range of motion, no tenderness, supple, no stridor. [] Cardiovascular:Heart rate regular with regular rhythm, systolic murmur [] Lungs & Thorax: Bilateral breath sounds clear to auscultation, no wheeze or crackles Abdomen: Bowel sounds normal, soft, no tenderness, no masses, no pulsatile masses. [] Skin: Warm, dry, no erythema, no rash. [] Back: No tenderness, no CVA tenderness. [] Extremities: tenderness, no cyanosis, no clubbing, ROM intact,except left arm no edema. [] Neurologic: Alert and oriented X 3, normal sensory function, no focal deficits noted. [] General: Alert, Oriented X3, Cooperative Breasts: Not examined Rectal Exam: not examined Extremities: No cyanosis Neuro: Normal speech, Cranial nerves 3-12 NL Psych/Mental Status: Mental status NL, Mood NL General: Alert, Oriented X3, Cooperative, No acute distress, mild distress, Other (somnolent due to pain meds, not oriented to place, calm) Heart: Regular rate, Normal S1, No murmurs, Other (no edema lower extremity, left radial pulse 2+.) Lungs: Clear Abdomen: Normal bowel sounds, Soft, No tenderness Extremities: No cyanosis, No edema, Normal pulses Skin: No significant lesion Labs LABS CT of the head without contrast, 02/10/2018: HISTORY: Confusion Comparison is made to a study from 01/24/2018. There is mild cerebral atrophy. There are mild patchy lucencies in the deep white matter bilaterally compatible with chronic ischemic change. The ventricles are within normal limits in size. The patient's head is rotated. There is no definite shift of the midline structures. There is no evidence of acute intracranial hemorrhage or mass effect. There is calcific plaquing of the distal internal carotid and vertebral arteries. IMPRESSION: 1. Chronic findings as described above. 2. No new intracranial abnormality is detected. Laboratory Tests Test 02/10/18 14:35 02/11/18 05:19 Creatine Kinase 55 U/L (26-192) Vitamin B12 Level 514 pg/mL (247-911) Thyroid Stimulating Hormone (TSH) 1.589 uIU/mL (0.358-3.74) White Blood Count 16.4 x10^3/uL (4.0-11.0) Red Blood Count 4.00 x10^6/uL (3.50-5.40) Hemoglobin 12.5 g/dL (12.0-15.5) Hematocrit 37.6 % (36.0-47.0) Mean Corpuscular Volume 94 fL (79-100) Mean Corpuscular Hemoglobin 31 pg (25-35) Mean Corpuscular Hemoglobin Concent 33 g/dL (31-37) Red Cell Distribution Width 14.2 % (11.5-14.5) Platelet Count 218 x10^3/uL (140-400) Neutrophils (%) (Auto) 83 % (31-73) Lymphocytes (%) (Auto) 9 % (24-48) Monocytes (%) (Auto) 8 % (0-9) Eosinophils (%) (Auto) 0 % (0-3) Basophils (%) (Auto) 0 % (0-3) Neutrophils # (Auto) 13.6 x10^3uL (1.8-7.7) Lymphocytes # (Auto) 1.4 x10^3/uL (1.0-4.8) Monocytes # (Auto) 1.4 x10^3/uL (0.0-1.1) Eosinophils # (Auto) 0.0 x10^3/uL (0.0-0.7) Basophils # (Auto) 0.1 x10^3/uL (0.0-0.2) Segmented Neutrophils % 79 % (35-66) Band Neutrophils % 2 % (0-9) Lymphocytes % 9 % (24-48) Monocytes % 9 % (0-10) Eosinophils % 1 % (0-5) Platelet Estimate Adequate (ADEQUATE) Sodium Level 141 mmol/L (136-145) Potassium Level 3.7 mmol/L (3.5-5.1) Chloride Level 107 mmol/L (98-107) Carbon Dioxide Level 25 mmol/L (21-32) Anion Gap 9 (6-14) Blood Urea Nitrogen 22 mg/dL (7-20) Creatinine 0.7 mg/dL (0.6-1.0) Estimated GFR (Cockcroft-Gault) 79.3 BUN/Creatinine Ratio 31 (6-20) Glucose Level 127 mg/dL (70-99) Calcium Level 10.4 mg/dL (8.5-10.1) Total Bilirubin 0.6 mg/dL (0.2-1.0) Aspartate Amino Transf (AST/SGOT) 20 U/L (15-37) Alanine Aminotransferase (ALT/SGPT) 24 U/L (14-59) Alkaline Phosphatase 63 U/L (46-116) Total Protein 6.9 g/dL (6.4-8.2) Albumin 2.9 g/dL (3.4-5.0) Albumin/Globulin Ratio 0.7 (1.0-1.7) Comment Review of Relevant I have reviewed the following items harvey (where applicable) has been applied. Labs Laboratory Tests Test 02/09/18 19:00 02/10/18 14:35 02/11/18 05:19 White Blood Count 9.2 x10^3/uL (4.0-11.0) 16.4 x10^3/uL (4.0-11.0) Red Blood Count 4.06 x10^6/uL (3.50-5.40) 4.00 x10^6/uL (3.50-5.40) Hemoglobin 12.9 g/dL (12.0-15.5) 12.5 g/dL (12.0-15.5) Hematocrit 38.0 % (36.0-47.0) 37.6 % (36.0-47.0) Mean Corpuscular Volume 94 fL (79-100) 94 fL (79-100) Mean Corpuscular Hemoglobin 32 pg (25-35) 31 pg (25-35) Mean Corpuscular Hemoglobin Concent 34 g/dL (31-37) 33 g/dL (31-37) Red Cell Distribution Width 14.4 % (11.5-14.5) 14.2 % (11.5-14.5) Platelet Count 228 x10^3/uL (140-400) 218 x10^3/uL (140-400) Neutrophils (%) (Auto) 71 % (31-73) 83 % (31-73) Lymphocytes (%) (Auto) 17 % (24-48) 9 % (24-48) Monocytes (%) (Auto) 6 % (0-9) 8 % (0-9) Eosinophils (%) (Auto) 6 % (0-3) 0 % (0-3) Basophils (%) (Auto) 1 % (0-3) 0 % (0-3) Neutrophils # (Auto) 6.5 x10^3uL (1.8-7.7) 13.6 x10^3uL (1.8-7.7) Lymphocytes # (Auto) 1.6 x10^3/uL (1.0-4.8) 1.4 x10^3/uL (1.0-4.8) Monocytes # (Auto) 0.6 x10^3/uL (0.0-1.1) 1.4 x10^3/uL (0.0-1.1) Eosinophils # (Auto) 0.5 x10^3/uL (0.0-0.7) 0.0 x10^3/uL (0.0-0.7) Basophils # (Auto) 0.1 x10^3/uL (0.0-0.2) 0.1 x10^3/uL (0.0-0.2) Sodium Level 141 mmol/L (136-145) 141 mmol/L (136-145) Potassium Level 3.8 mmol/L (3.5-5.1) 3.7 mmol/L (3.5-5.1) Chloride Level 105 mmol/L (98-107) 107 mmol/L (98-107) Carbon Dioxide Level 29 mmol/L (21-32) 25 mmol/L (21-32) Anion Gap 7 (6-14) 9 (6-14) Blood Urea Nitrogen 33 mg/dL (7-20) 22 mg/dL (7-20) Creatinine 1.0 mg/dL (0.6-1.0) 0.7 mg/dL (0.6-1.0) Estimated GFR (Cockcroft-Gault) 52.6 79.3 BUN/Creatinine Ratio 33 (6-20) 31 (6-20) Glucose Level 119 mg/dL (70-99) 127 mg/dL (70-99) Calcium Level 10.5 mg/dL (8.5-10.1) 10.4 mg/dL (8.5-10.1) Total Bilirubin 0.3 mg/dL (0.2-1.0) 0.6 mg/dL (0.2-1.0) Aspartate Amino Transf (AST/SGOT) 19 U/L (15-37) 20 U/L (15-37) Alanine Aminotransferase (ALT/SGPT) 27 U/L (14-59) 24 U/L (14-59) Alkaline Phosphatase 74 U/L (46-116) 63 U/L (46-116) Total Protein 7.2 g/dL (6.4-8.2) 6.9 g/dL (6.4-8.2) Albumin 3.4 g/dL (3.4-5.0) 2.9 g/dL (3.4-5.0) Albumin/Globulin Ratio 0.9 (1.0-1.7) 0.7 (1.0-1.7) Creatine Kinase 55 U/L (26-192) Vitamin B12 Level 514 pg/mL (247-911) Thyroid Stimulating Hormone (TSH) 1.589 uIU/mL (0.358-3.74) Segmented Neutrophils % 79 % (35-66) Band Neutrophils % 2 % (0-9) Lymphocytes % 9 % (24-48) Monocytes % 9 % (0-10) Eosinophils % 1 % (0-5) Platelet Estimate Adequate (ADEQUATE) Laboratory Tests Test 02/10/18 14:35 02/11/18 05:19 Creatine Kinase 55 U/L (26-192) Vitamin B12 Level 514 pg/mL (247-911) Thyroid Stimulating Hormone (TSH) 1.589 uIU/mL (0.358-3.74) White Blood Count 16.4 x10^3/uL (4.0-11.0) Red Blood Count 4.00 x10^6/uL (3.50-5.40) Hemoglobin 12.5 g/dL (12.0-15.5) Hematocrit 37.6 % (36.0-47.0) Mean Corpuscular Volume 94 fL (79-100) Mean Corpuscular Hemoglobin 31 pg (25-35) Mean Corpuscular Hemoglobin Concent 33 g/dL (31-37) Red Cell Distribution Width 14.2 % (11.5-14.5) Platelet Count 218 x10^3/uL (140-400) Neutrophils (%) (Auto) 83 % (31-73) Lymphocytes (%) (Auto) 9 % (24-48) Monocytes (%) (Auto) 8 % (0-9) Eosinophils (%) (Auto) 0 % (0-3) Basophils (%) (Auto) 0 % (0-3) Neutrophils # (Auto) 13.6 x10^3uL (1.8-7.7) Lymphocytes # (Auto) 1.4 x10^3/uL (1.0-4.8) Monocytes # (Auto) 1.4 x10^3/uL (0.0-1.1) Eosinophils # (Auto) 0.0 x10^3/uL (0.0-0.7) Basophils # (Auto) 0.1 x10^3/uL (0.0-0.2) Segmented Neutrophils % 79 % (35-66) Band Neutrophils % 2 % (0-9) Lymphocytes % 9 % (24-48) Monocytes % 9 % (0-10) Eosinophils % 1 % (0-5) Platelet Estimate Adequate (ADEQUATE) Sodium Level 141 mmol/L (136-145) Potassium Level 3.7 mmol/L (3.5-5.1) Chloride Level 107 mmol/L (98-107) Carbon Dioxide Level 25 mmol/L (21-32) Anion Gap 9 (6-14) Blood Urea Nitrogen 22 mg/dL (7-20) Creatinine 0.7 mg/dL (0.6-1.0) Estimated GFR (Cockcroft-Gault) 79.3 BUN/Creatinine Ratio 31 (6-20) Glucose Level 127 mg/dL (70-99) Calcium Level 10.4 mg/dL (8.5-10.1) Total Bilirubin 0.6 mg/dL (0.2-1.0) Aspartate Amino Transf (AST/SGOT) 20 U/L (15-37) Alanine Aminotransferase (ALT/SGPT) 24 U/L (14-59) Alkaline Phosphatase 63 U/L (46-116) Total Protein 6.9 g/dL (6.4-8.2) Albumin 2.9 g/dL (3.4-5.0) Albumin/Globulin Ratio 0.7 (1.0-1.7) Medications Current Medications Ondansetron HCl (Zofran) 4 mg PRN Q4HRS PRN IV NAUSEA/VOMITING Last administered on 02/10/18at 05:48; Start 02/09/18 at 18:00; Stop 02/10/18 at 19 :31; Status DC Zolpidem Tartrate (Ambien) 5 mg PRN QHS PRN PO INSOMNIA; Start 02/09/18 at 18: 00 Acetaminophen (Tylenol) 650 mg PRN Q4HRS PRN GT TEMP OVER 100.4F OR MILD PAIN; Start 02/09/18 at 18:00 Al Hydroxide/Mg Hydroxide (Mylanta Plus Xs) 30 ml PRN DAILY PRN PO HEARTBURN / GAS; Start 02/09/18 at 18:00 Clonidine HCl (Catapres) 0.1 mg PRN Q6HRS PRN PO SBP>160 OR DBP>90; Start at 18:00 Sodium Monofluorophosphate (Fleet Adult) 133 ml PRN DAILY PRN [place] CONSTIPATION; Start 02/09/18 at 18:00 Docusate Sodium (Colace) 100 mg PRN BID PRN PO CONSTIPATION; Start 02/09/18 at 18:00 Albuterol/ Ipratropium (Duoneb) 3 ml Q4H NEB ; Start 02/09/18 at 18:00; Stop 02/09/18 at 22:15; Status DC Guaifenesin (Robitussin) 200 mg PRN Q4HRS PRN PO COUGH; Start 02/09/18 at 18: 00 Lorazepam (Ativan) 0.5 mg PRN Q4HRS PRN PO ANXIETY / AGITATION; Start at 18:00 Enoxaparin Sodium (Lovenox 40mg Syringe) 40 mg DAILY SQ Last administered on at 09:38; Start 02/10/18 at 09:00 Albuterol Sulfate (Ventolin Neb Soln) 2.5 mg PRN Q4HRS PRN NEB WHEEZING; Start 02/09/18 at 22:15 Acetaminophen (Tylenol) 325 mg PRN Q4HRS PRN PO MILD PAIN / TEMP; Start at 23:00 Amlodipine Besylate (Norvasc) 5 mg DAILY PO Last administered on 02/11/18 09: 41; Start 02/10/18 at 09:00 Aspirin (Children'S Aspirin) 81 mg DAILY PO Last administered on 02/11/18 09: 40; Start 02/10/18 at 09:00 Carvedilol (Coreg) 3.125 mg BIDWMEALS PO Last administered on 02/11/18at 09:39 ; Start 02/10/18 at 08:00 Acetaminophen/ Hydrocodone Bitart (Lortab 5/325) for pain PRN Q6HRS PRN PO PAIN Last administered on 02/11/18 05:42; Start 02/09/18 at 23:00 Levothyroxine Sodium (Synthroid) 100 mcg DAILY PO ; Start 02/10/18 at 09:00; Stop 02/10/18 at 09:00; Status DC Oxycodone/ Acetaminophen (Percocet 5/325) 1 tab PRN Q8HRS PRN PO PAIN Last administered on 02/09/18at 23:26; Start 02/09/18 at 23:00 Pantoprazole Sodium (Protonix) 40 mg DAILYAC PO Last administered on at 09:15; Start 02/10/18 at 07:30 Atorvastatin Calcium (Lipitor) 80 mg DAILY PO Last administered on 02/11/18at 09:44; Start 02/10/18 at 09:00 Vitamin D (Vitamin D3) 5,000 unit DAILY PO Last administered on 02/11/18at 09: 53; Start 02/10/18 at 09:00 Vitamin D (Vitamin D3) 2,000 unit HS PO Last administered on 02/11/18at 09:43; Start 02/10/18 at 21:00 Non-Formulary Medication (Fluticasone/ Salmeterol (Advair 250-50 Diskus)) 1 puff BID IH ; Start 02/10/18 at 09:00; Status UNV Fish Oil (Fish Oil) 1,000 mg DAILY PO Last administered on 02/11/18at 09:39; Start 02/10/18 at 09:00 Paroxetine HCl (Paxil) 45 mg QHS PO ; Start 02/10/18 at 21:00 Polyethylene Glycol (miraLAX PACKET) 17 gm DAILY PO Last administered on at 09:16; Start 02/10/18 at 09:00 Triamcinolone Acetonide (Kenalog) 1 katarina BID TP Last administered on 02/11/18at 09:58; Start 02/10/18 at 09:00 Levothyroxine Sodium (Synthroid) 100 mcg HS PO Last administered on 02/09/18at 23:26; Start 02/09/18 at 23:15 Polyethylene Glycol (miraLAX PACKET) 17 gm 1X ONCE PO Last administered on at 23:26; Start 02/09/18 at 23:15; Stop 02/09/18 at 23:16; Status DC Enalaprilat (Vasotec Inj) 2.5 mg PRN Q6HRS PRN IVP HYPERTENSION, SEE COMMENTS Last administered on 02/09/18at 23:37; Start 02/09/18 at 23:30 Budesonide (Pulmicort) 0.5 mg RTBID NEB ; Start 02/10/18 at 08:00 Albuterol Sulfate (Ventolin Neb Soln) 2.5 mg RTQID NEB ; Start 02/10/18 at 08: 00 Lorazepam (Ativan) 0.5 mg PRN Q6HRS PRN IV ANXIETY / AGITATION Last administered on 02/10/18at 21:48; Start 02/10/18 at 06:00 Hydromorphone HCl (Dilaudid) 0.2 mg PRN Q4HRS PRN IVP PAIN Last administered on 02/10/18at 06:17; Start 02/10/18 at 06:00; Stop 02/10/18 at 19:32; Status DC Acetaminophen (Tylenol Supp) 650 mg PRN Q6HRS PRN [place] MILD PAIN / TEMP; Start 02/10/18 at 11:00 Ondansetron HCl (Zofran) 4 mg PRN Q6HRS PRN IV NAUSEA/VOMITING Last administered on 02/11/18at 09:38; Start 02/10/18 at 19:30 Ondansetron HCl (Zofran Odt) 4 mg PRN Q6HRS PRN PO NAUSEA/VOMITING; Start at 19:30 Prochlorperazine Edisylate (Compazine) 10 mg PRN Q6HRS PRN IV NAUSEA/VOMITING 1ST CHOICE; Start 02/10/18 at 19:30 Sodium Chloride 1,000 ml @ 75 mls/hr [id number] IV Last administered on at 09:47; Start 02/10/18 at 19:30 Morphine Sulfate (Morphine Sulfate) 1 mg PRN Q2HR PRN IV PAIN; Start 02/10/18 at 19:30 Active Scripts Active Miralax (Polyethylene Glycol 3350) 17 Gm Powd.pack 1 Packet PO DAILY Advair 250-50 Diskus (Fluticasone/Salmeterol) 1 Each Disk.w.dev 1 Puff IH BID Reported Triamcinolone Acetonide 80 Gm Oint...g. 1 Katarina TP BID Paxil (Paroxetine Hcl) 40 Mg Tablet 45 Mg PO QHS Targretin (Bexarotene) 60 Gm Gel..gram. 60 Gm TP Fish Oil 1,200 Mg Fish Oil (Fish Oil/Dha/Epa) 1 Each Capsule 1 Each PO Tylenol (Acetaminophen) 325 Mg Tablet 1 Tab PO PRN Q4HRS Senna Laxative (Sennosides) 8.6 Mg Tablet 8.6 Mg PO Amlodipine Besylate 5 Mg Tablet 5 Mg PO DAILY Percocet 5-325 Mg Tablet (Oxycodone/Acetaminophen) 1 Each Tablet 1 Tab PO PRN Q8HRS PRN Calcium (Calcium Carbonate) 600 Mg Tablet 1,200 Mg PO Protonix (Pantoprazole Sodium) 40 Mg Tablet.dr 1 Tab PO DAILY Carvedilol 3.125 Mg Tablet 1 Tab PO BID Children's Aspirin (Aspirin) 81 Mg Tab.chew 81 Mg PO One Daily (Multivitamin) 1 Each Tablet 1 Each PO Vitamin D (Cholecalciferol (Vitamin D3)) 2,000 Unit Capsule 1 Cap PO HS Fish Oil (Bronson-3 Fatty Acids) 300 Mg Capsule 1,200 Mg PO DAILY Hydrocodone-Apap 5-325 (Hydrocodone Bit/Acetaminophen) 1 Each Tablet 1-2 Tab PO Q4-6HRS Levothyroxine Sodium 100 Mcg Tablet 1 Tab PO DAILY Vitamin D (Cholecalciferol (Vitamin D3)) 1,000 Unit Capsule 5 Cap PO DAILY Atorvastatin Calcium 80 Mg Tablet 1 Tab PO DAILY Vitals/I & O Vital Sign - Last 24 Hours 02/10/18 02/10/18 02/10/18 02/10/18 15:00 18:41 19:00 20:00 Temp 99.6 97.9 99.6 97.9 Pulse 74 74 89 Resp 18 18 B/P (MAP) 175/73 (107) 175/73 145/95 (112) Pulse Ox 86 97 O2 Delivery Room Air Room Air Room Air 02/10/18 02/11/18 02/11/18 02/11/18 23:00 03:00 05:42 06:42 Temp 97.9 97.7 97.9 97.7 Pulse 86 78 Resp 18 18 B/P (MAP) 140/81 (100) 148/87 (107) Pulse Ox 97 97 O2 Delivery Room Air Room Air Room Air Room Air 02/11/18 02/11/18 02/11/18 07:00 09:39 09:41 Temp 98.3 98.3 Pulse 56 78 78 Resp 16 B/P (MAP) 123/77 (92) 148/87 148/87 Pulse Ox 94 O2 Delivery Nasal Cannula O2 Flow Rate 2.0 Intake and Output 02/10/18 02/10/18 02/11/18 15:00 23:00 07:00 Intake Total 0 ml Output Total 250 ml Balance -250 ml CHI SUN MD Feb 11, 2018 11:05
[2018-02-11] MEDS: PIPERACILLIN/TAZOBACTAM 2.25 GM in IV NORMAL SALINE 50ML 50 ML IV SCH ×2 (12:20→18:03)
[2018-02-11 15:00] VITALS: BP 126/73
--- NOTE | 2018-02-11 15:08 | PDOC ---
PROGRESS NOTES Assessment Assessment Metabolic encephalopathy. Confusion. Generalized weakness. Fall. HTN. HLD. COPD. GERD. Recent left humeral fracture. Advanced degenerative spine and joint diseases. RECOMMENDATIONS/PLAN: Treat medical diseases. EEG. OT/PT. HISTORY OF THE PRESENT ILLNESS: 87-y-old female patient with above medical diseases had a fall recently with left humeral fracture. She was hospitalized at that time in 01/05 followed by Rehab and was discharged home about 1 week after Rehab. She was brought reportedly by her neighbor to [facility] on 02/09/18 due to her MS changes. Her mental status improved on 02/11/18. Past Medical History Cardiovascular: HTN, Hyperlipidemia, Valve insufficiency Pulmonary: COPD GI: GERD Heme/Onc: No pertinent hx, Other Hepatobiliary: No pertinent hx Psych: No pertinent hx Infectious disease: No pertinent hx Renal/: No pertinent hx Endocrine: No pertinent hx Past Surgical History Total hip replacement, Total knee replacement, Tonsillectomy Family History Coronary Artery Disease, Hypertension ALLERGY: NKDA MEDICATIONS: Refer to [facility] SOCIAL HISTORY: Lives at home.lone. Denies smoking, drinking, and illicit drug use. REVIEW OF SYSTEMS: Constitutional: No malnutrition, weight loss, cachexia. Head: Scalp hematoma in 12/2017. Skin: No edema, or rash. Ear: No infection. Eyes: No vision loss or color blindness. Nose: No bleeding or purulent discharges. Hearing: No hearing decrease. Neck: No injury. Breast: No history of cancer, masses,or discharges. Cardiac: HTN, HLD. Pulmonary: COPD. GI: GERD. Urinary/genital: UTI. Endocrinologic: thyroid disease, over weight. Skeletomuscular: Generalized weakness. Neurological: see HP. Psychiatric: Denies drug use/abuse. Otherwise, not [id number] review of systems. PHYSICAL EXAMINATION: General appearance is in subacute distress. HEENT: Normocephalic and nontraumatic. Eyes, nose, ears, and throat are unremarkable. Neck is supple. No lymphadenopathy. No crepitus. Cardiovascular: S1, S2, regular rate and rhythm. SM 3/6. Pulmonary: Relative clear to auscultation bilaterally. Abdomen: Bowel sounds are positive. Extremities: No rash, lesions, or edema. No restriction of range of motion except left UE. NEUROLOGICAL EXAMINATION: Awake. Able to understand some questions. Not oriented to time, place and person. PERRL. EOMI. CN: no acute focal findings. Muscle tone: within normal. Muscle strength: 4+ DTR: 2- Plantar reflex: Neutral response bilaterally Gait: not examined in bed. Sensory exam: no abnormal findings. No cerebellar signs elicited. F-T-N test not very accurate in right side, but unable to perform on left side. Objective Objective Vital Signs Date Time Temp Pulse Resp B/P (MAP) Pulse Ox O2 Delivery O2 Flow Rate FiO2 02/11/18 09:41 78 148/87 02/11/18 07:50 Nasal Cannula 2.0 02/11/18 07:00 98.3 16 94 98.3 Intake and Output 02/11/18 07:00 Intake Total 0 ml Output Total 250 ml Balance -250 ml Intake Oral 0 ml Output Emesis 250 ml # Voids 3 # Bowel Movements 6 Vitals Signs Vitals VS - Last 72 Hours, by Label Date Time Temp Pulse Resp B/P (MAP) Pulse Ox O2 Delivery O2 Flow Rate FiO2 02/11/18 09:41 78 148/87 02/11/18 09:39 78 148/87 02/11/18 07:50 Nasal Cannula 2.0 02/11/18 07:00 98.3 56 16 123/77 (92) 94 Nasal Cannula 2.0 98.3 02/11/18 06:42 Room Air 02/11/18 05:42 Room Air 02/11/18 03:00 97.7 78 18 148/87 (107) 97 Room Air 97.7 02/10/18 23:00 97.9 86 18 140/81 (100) 97 Room Air 97.9 02/10/18 20:00 Room Air 02/10/18 19:00 97.9 89 18 145/95 (112) 97 Room Air 97.9 02/10/18 18:41 74 175/73 02/10/18 15:00 99.6 74 18 175/73 (107) 86 Room Air 99.6 02/10/18 11:00 99.4 69 18 138/52 (80) 91 Room Air 99.4 02/10/18 09:16 74 143/71 02/10/18 09:16 74 143/71 02/10/18 08:30 Room Air 02/10/18 07:00 97.7 74 18 143/71 (95) 96 Room Air 97.7 Laboratory Laboratory Laboratory Tests Test 02/11/18 05:19 White Blood Count 16.4 x10^3/uL (4.0-11.0) Red Blood Count 4.00 x10^6/uL (3.50-5.40) Hemoglobin 12.5 g/dL (12.0-15.5) Hematocrit 37.6 % (36.0-47.0) Mean Corpuscular Volume 94 fL (79-100) Mean Corpuscular Hemoglobin 31 pg (25-35) Mean Corpuscular Hemoglobin Concent 33 g/dL (31-37) Red Cell Distribution Width 14.2 % (11.5-14.5) Platelet Count 218 x10^3/uL (140-400) Neutrophils (%) (Auto) 83 % (31-73) Lymphocytes (%) (Auto) 9 % (24-48) Monocytes (%) (Auto) 8 % (0-9) Eosinophils (%) (Auto) 0 % (0-3) Basophils (%) (Auto) 0 % (0-3) Neutrophils # (Auto) 13.6 x10^3uL (1.8-7.7) Lymphocytes # (Auto) 1.4 x10^3/uL (1.0-4.8) Monocytes # (Auto) 1.4 x10^3/uL (0.0-1.1) Eosinophils # (Auto) 0.0 x10^3/uL (0.0-0.7) Basophils # (Auto) 0.1 x10^3/uL (0.0-0.2) Segmented Neutrophils % 79 % (35-66) Band Neutrophils % 2 % (0-9) Lymphocytes % 9 % (24-48) Monocytes % 9 % (0-10) Eosinophils % 1 % (0-5) Platelet Estimate Adequate (ADEQUATE) Sodium Level 141 mmol/L (136-145) Potassium Level 3.7 mmol/L (3.5-5.1) Chloride Level 107 mmol/L (98-107) Carbon Dioxide Level 25 mmol/L (21-32) Anion Gap 9 (6-14) Blood Urea Nitrogen 22 mg/dL (7-20) Creatinine 0.7 mg/dL (0.6-1.0) Estimated GFR (Cockcroft-Gault) 79.3 BUN/Creatinine Ratio 31 (6-20) Glucose Level 127 mg/dL (70-99) Calcium Level 10.4 mg/dL (8.5-10.1) Total Bilirubin 0.6 mg/dL (0.2-1.0) Aspartate Amino Transf (AST/SGOT) 20 U/L (15-37) Alanine Aminotransferase (ALT/SGPT) 24 U/L (14-59) Alkaline Phosphatase 63 U/L (46-116) Total Protein 6.9 g/dL (6.4-8.2) Albumin 2.9 g/dL (3.4-5.0) Albumin/Globulin Ratio 0.7 (1.0-1.7) Medication Medications Current Medications Levofloxacin/ Dextrose 50 ml @ 50 mls/hr Q24H IV Last administered on at 12:22; Start 02/11/18 at 12:00 Morphine Sulfate (Morphine Sulfate) 1 mg PRN Q2HR PRN IV PAIN; Start 02/10/18 at 19:30 Ondansetron HCl (Zofran Odt) 4 mg PRN Q6HRS PRN PO NAUSEA/VOMITING; Start at 19:30 Ondansetron HCl (Zofran) 4 mg PRN Q6HRS PRN IV NAUSEA/VOMITING Last administered on 02/11/18at 12:26; Start 02/10/18 at 19:30 Paroxetine HCl (Paxil) 45 mg QHS PO ; Start 02/10/18 at 21:00 Piperacillin Sod/ Tazobactam Sod 2.25 gm/Sodium Chloride 50 ml @ 100 mls/hr Q6HRS IV Last administered on 02/11/18at 12:20; Start 02/11/18 at 12:00 Prochlorperazine Edisylate (Compazine) 10 mg PRN Q6HRS PRN IV NAUSEA/VOMITING 1ST CHOICE; Start 02/10/18 at 19:30 Sodium Chloride 1,000 ml @ 75 mls/hr [id number] IV Last administered on at 09:47; Start 02/10/18 at 19:30 Vitamin D (Vitamin D3) 2,000 unit HS PO Last administered on 02/11/18at 09:43; Start 02/10/18 at 21:00 Comment Review of Relevant I have reviewed the following items harvey (where applicable) has been applied. VANESSA GONZALEZ MD Feb 11, 2018 15:08
--- NOTE | 2018-02-11 17:12 | RAD ---
Portable chest, 02/11/2018: HISTORY: Leukocytosis Comparison is made to a study from 12/28/2017. The left ventricle is mildly prominent. There is calcific plaquing of the aorta. The pulmonary vascularity is normal. The right hemidiaphragm remains mildly elevated. There is mild streaky atelectasis medially in the lung bases. No pleural fluid is evident. IMPRESSION: Mild bibasilar atelectasis. Electronically signed by: Gabriel Chavira MD (02/11/2018 5:10 PM) [facility]
--- NOTE | 2018-02-11 17:29 | EEG ---
DATE OF SERVICE: 02/10/2018 ELECTROENCEPHALOGRAM NUMBER: [id number]. PURPOSE: This is an 87-year-old female patient who has mental status changes in confusional state. EEG was requested to evaluate cerebral activity and help rule out seizure. METHODS: Twenty electrodes were applied according to the international 10-20 electrode placement system. EKG monitoring, hyperventilation, intermittent photic stimulation, monopolar and bipolar montages are routinely utilized. The record was obtained on a digital system with video monitoring. FINDINGS: 1. Background: The patient was recorded in the awake, drowsy, and sleep states. The overall background amplitude is variable. No posterior dominant rhythm is observed. The overall background rhythm is with diffuse slowing in the theta and delta frequencies throughout the entire recording. 2. Abnormalities: No specific epileptiform discharge or electrographic seizure is seen. Diffuse slowing in the theta and delta frequencies throughout the entire recording. 3. Activation: Hyperventilation was not performed because the patient was unable to follow the commands. Intermittent photic stimulation was performed with photic driving. IMPRESSION: This electroencephalogram is an abnormal study for the awake, drowsy, and sleep states. No posterior dominant rhythm is observed. The overall background rhythm is with diffuse slowing in the theta and delta frequencies throughout the entire recording. No focal, lateralizing, specific epileptiform discharge, or electrographic seizure is seen. This pattern of electroencephalogram is suggestive of diffuse encephalopathy. On the single channel EKG monitoring, premature ventricular contractions noted. VANESSA GONZALEZ MD DR: GERALD/monalisa JOB#: [id number] / [id number]
[2018-02-11 19:58] VITALS: BP 98/54
[2018-02-11] MEDS: LEVOTHYROXINE 100 MCG TABLET PO SCH (21:21)
[2018-02-11] MEDS: PARoxetine 10 MG TABLET PO SCH (21:21)
[2018-02-11 23:18] VITALS: BP 96/59
[2018-02-12] MEDS: PIPERACILLIN/TAZOBACTAM 2.25 GM in IV NORMAL SALINE 50ML 50 ML IV SCH ×4 (01:18→18:43)
[2018-02-12 03:11] VITALS: BP 164/63
[2018-02-12] MEDS: TRIAMCINOLONE ACETONIDE 0.1% TOPICAL OINTMENT 15GM TUBE. TP SCH ×3 (03:14→21:00)
[2018-02-12 04:35] LABS: BILIRUBIN,URINE NEGATIVE (NEG); CLARITY,URINE CLEAR; COLOR,URINE YELLOW; NITRITE,URINE NEGATIVE (NEG); PROTEIN,URINE NEGATIVE (NEG-TRACE); UROBILINOGEN,URINE 0.2 mg/dL (0.2 mg/dL)
[2018-02-12 04:40] LABS: AMORPHOUS SEDIMENT,UR PRESENT /HPF; BACTERIA,URINE 0 /HPF (0-FEW); HYALINE CASTS, URINE MODERATE /HPF; SQUAMOUS EPITHELIAL CELL,UR OCC /LPF; WBC,URINE OCC /HPF (0-4)
[2018-02-12] MEDS: IV 1/2 NORMAL SALINE 1,000 ML IV SCH (06:06)
[2018-02-12 07:00] VITALS: BP 130/59
[2018-02-12] MEDS: BUDESONIDE 0.5 MG/2 ML NEBU. NEB SCH ×2 (07:31→20:07)
[2018-02-12] MEDS: ALBUTEROL SULFATE 2.5 MG/3 ML NEBU. NEB SCH ×4 (07:31→20:07)
--- NOTE | 2018-02-12 08:14 | PDOC ---
Infectious Disease Note Vital Sign Vital Signs Vital Signs Date Time Temp Pulse Resp B/P (MAP) Pulse Ox O2 Delivery O2 Flow Rate FiO2 02/12/18 07:34 99 Simple Mask 6.0 02/12/18 03:11 97.8 57 16 164/63 (96) 97.8 Labs Lab Laboratory Tests Test 02/12/18 02:55 Urine Collection Type Unknown Urine Color Yellow Urine Clarity Clear Urine pH 6.0 Urine Specific [place] 1.020 Urine Protein Negative mg/dL (NEG-TRACE) Urine Glucose (UA) Negative mg/dL (NEG) Urine Ketones (Stick) Negative mg/dL (NEG) Urine Blood Negative (NEG) Urine Nitrite Negative (NEG) Urine Bilirubin Negative (NEG) Urine Urobilinogen Dipstick 0.2 mg/dL (0.2 mg/dL) Urine Leukocyte Esterase Negative (NEG) Urine RBC 1-2 /HPF (0-2) Urine WBC Occ /HPF (0-4) Urine Squamous Epithelial Cells Occ /LPF Urine Amorphous Sediment Present /HPF Urine Bacteria 0 /HPF (0-FEW) Urine Hyaline Casts Moderate /HPF Urine Mucus Mod /LPF Objective Assessment Hypoxia Aspiration likely Leukocytosis Left humerus fracture s/p ORIF, re fracture Self care problem Plan Plan of Care d/c levaquin cont zosyn CT chest supportive care pt/ot AKOSUA LEE MD Feb 12, 2018 08:14
--- NOTE | 2018-02-12 09:20 | PDOC2 ---
BELGICA TRIANA [employer] 02/12/18 0919: CARDIAC CONSULT DATE OF CONSULT Date of Consult DATE: 02/12/18 TIME: 09:16 REASON FOR CONSULT Reason for Consult: Arrhythmia REFERRING PHYSICIAN Referring Physician: [place] SOURCE Source: Chart review HISTORY OF PRESENT ILLNESS HISTORY OF PRESENT ILLNESS This is a pleasant 87 yo female admitted for weakness and inability to care for self. She had a recent fall and S/P ORIF of her left humerus. She was living by herself and unable to care for herself. She is a poor historian but was noted by her neighbor to have alteration in her mentation prompting admission. She had an EEG and was noted with frequent PVCs at that time prompting cardiology consult. She does not have any chest pain, SOA and no recollection of her passing out. PAST MEDICAL HISTORY Past Medical History Cardiovascular: HTN, Hyperlipidemia, Valve insufficiency Pulmonary: COPD GI: GERD Heme/Onc: No pertinent hx, Other Hepatobiliary: No pertinent hx Psych: No pertinent hx Musculoskeletal: Osteoarthritis Infectious disease: No pertinent hx Renal/: No pertinent hx Endocrine: No pertinent hx PAST SURGICAL HISTORY Past Surgical History Total hip replacement, Total knee replacement, Tonsillectomy, Other (left humerus) FAMILY HISTORY Family History Coronary Artery Disease, Hypertension SOCIAL HISTORY Smoke: No ALCOHOL: none Drugs: None Lives: Alone CURRENT MEDICATIONS CURRENT MEDICATIONS Current Medications Medications (Trade) Dose Ordered Sig/Lukasz Route PRN Reason Start Time Stop Time Status Last Admin Dose Admin Piperacillin Sod/ Tazobactam Sod 2.25 gm/Sodium Chloride 50 ml @ 100 mls/hr Q6HRS IV 02/11/18 12:00 02/12/18 06:03 Levofloxacin/ Dextrose 50 ml @ 50 mls/hr Q24H IV 02/11/18 12:00 02/12/18 08:14 DC 02/11/18 12:22 ALLERGIES ALLERGIES: Coded Allergies: No Known Drug Allergies (Unverified , 01/15/17) ROS Review of System limited, see HPI PHYSICAL EXAM General: Alert, Oriented X3, Cooperative, No acute distress HEENT: Atraumatic, Mucous membr. moist/pink Heart: Regular rate (SR), Normal S1, Normal S2, Other (2/6 systolic murmur to LLS border) Abdomen: Soft, No tenderness Extremities: No cyanosis, No edema, Other (Left arm on sling) Skin: No rashes Neuro: Normal speech, Sensation intact Psych/Mental Status: Mental status NL, Mood NL MUSCULOSKELETAL: Osteoarthritic changes both hands VITALS VITALS Vital Signs Date Time Temp Pulse Resp B/P (MAP) Pulse Ox O2 Delivery O2 Flow Rate FiO2 02/12/18 07:34 99 Simple Mask 6.0 02/12/18 03:11 97.8 57 16 164/63 (96) 97.8 LABS Lab: Laboratory Tests Test 02/12/18 02:55 Urine Collection Type Unknown Urine Color Yellow Urine Clarity Clear Urine pH 6.0 Urine Specific [place] 1.020 Urine Protein Negative mg/dL (NEG-TRACE) Urine Glucose (UA) Negative mg/dL (NEG) Urine Ketones (Stick) Negative mg/dL (NEG) Urine Blood Negative (NEG) Urine Nitrite Negative (NEG) Urine Bilirubin Negative (NEG) Urine Urobilinogen Dipstick 0.2 mg/dL (0.2 mg/dL) Urine Leukocyte Esterase Negative (NEG) Urine RBC 1-2 /HPF (0-2) Urine WBC Occ /HPF (0-4) Urine Squamous Epithelial Cells Occ /LPF Urine Amorphous Sediment Present /HPF Urine Bacteria 0 /HPF (0-FEW) Urine Hyaline Casts Moderate /HPF Urine Mucus Mod /LPF ECHOCARDIOGRAM ECHOCARDIOGRAM <Conclusion> There is grossly normal LV segmental wall motion. Transmitral Doppler flow pattern is Grade I-abnormal relaxation pattern. DATE: 12/30/17 1058 ASSESSMENT/PLAN ASSESSMENT/PLAN 1. Encephalopathy/weakness: neurology following 2. Arrhythmia: PVCs noted in EEG but her rhythm has been stable and no recorded significant ectopies. 3. Multiple mechanical falls with recnet left humeral fracture with ORIF with good tolerance. 4. HTN: controlled 5. HLP Recommendations 1. Recent TTE without no significant changes. EF and WM nml. 2. EKG, BMP. Mg. Replace K and Mg if low. 3. Continue with current regimen. 4. Anticipate SNU placement ISAEL JOHNSON MD 02/15/18 1707: CARDIAC CONSULT ASSESSMENT/PLAN ASSESSMENT/PLAN Late entry for 02/12/2018 Patient seen and examined. Agree with above nurse practitioner note. Supportive care. BELGICA TRIANA APRN Feb 12, 2018 09:19 ISAEL JOHNSON MD Feb 15, 2018 17:07
[2018-02-12 09:56] LABS: BASO % 0 % (0-3); EOS # 0.3 x10^3/uL (0.0-0.7); EOS % 2 % (0-3); HEMATOCRIT 33.1 % (36.0-47.0); HEMOGLOBIN 11.1 g/dL (12.0-15.5); LYMPH # 1.5 x10^3/uL (1.0-4.8); LYMPH % 12 % (24-48); MEAN CORPUSCULAR HEMOGLOBIN 31 pg (25-35); MEAN CORPUSCULAR HGB CONC 33 g/dL (31-37); MEAN CORPUSCULAR VOLUME 93 fL (79-100); MONO # 0.9 x10^3/uL (0.0-1.1); MONO % 7 % (0-9); NEUT # 9.4 x10^3uL (1.8-7.7); NEUT % 78 % (31-73); PLATELET COUNT 191 x10^3/uL (140-400); RED BLOOD COUNT 3.55 x10^6/uL (3.50-5.40); RED CELL DISTRIBUTION WIDTH 14.3 % (11.5-14.5); WHITE BLOOD COUNT 12.2 x10^3/uL (4.0-11.0)
[2018-02-12] MEDS: ATORVASTATIN CALCIUM 40 MG TABLET. PO SCH (10:09)
[2018-02-12] MEDS: ASPIRIN CHEWABLE 81 MG TABLET. PO SCH (10:10)
[2018-02-12] MEDS: PANTOPRAZOLE 40 MG TABLET.DR. PO SCH (10:10)
[2018-02-12] MEDS: CARVEDILOL 3.125 MG TABLET. PO SCH ×2 (10:10→18:43)
[2018-02-12] MEDS: POLYETHYLENE GLYCOL 3350 17 GM PACKET. PO SCH (10:11)
[2018-02-12] MEDS: amLODIPine BESYLATE 5 MG TABLET PO SCH (10:11)
[2018-02-12] MEDS: OMEGA-3 FATTY ACIDS/FISH OIL 1,000 MG CAPSULE. PO SCH (10:11)
[2018-02-12] MEDS: ENOXAPARIN 40 MG/0.4 ML SYRINGE. SQ SCH (10:12)
[2018-02-12] MEDS: CHOLECALCIFEROL (VITAMIN D3) 5,000 UNIT CAPSULE PO SCH (10:14)
[2018-02-12 10:24] LABS: ALBUMIN 2.4 g/dL (3.4-5.0); ALBUMIN/GLOBULIN RATIO 0.7 (1.0-1.7); CREATININE 0.8 mg/dL (0.6-1.0); POTASSIUM 3.5 mmol/L (3.5-5.1); TOTAL BILIRUBIN 0.4 mg/dL (0.2-1.0)
--- NOTE | 2018-02-12 10:24 | EKG ---
[facility] [address] [place] [address] Test Date: 2018-02-12 Test Time: 10:17:07 Pat Name: RADHA LUNA Department: Room: 267 1 Gender: F Aircraft Pilot: AT : 1930 Requested By: BELGICA TRIANA Order Number: [id number] Reading MD: Pan Tomlinson MD Measurements Intervals [place] Rate: 59 P: 20 MS: 206 QRS: -17 QRSD: 94 T: 3 QT: 396 QTc: 396 Interpretive Statements SINUS RHYTHM PRIOR INFERIOR INFARCT Electronically Signed On 02-12-2018 12:42:30 CDT by Pan Tomlinson MD
--- NOTE | 2018-02-12 10:37 | PDOC ---
PROGRESS NOTES Chief Complaint Chief Complaint 1. Sepsis with HYPOTENSION 2. SELF neglect 3. GEN weakness - SNU candidate 4. Dysphagia 5. Hypoxic respi failure, likely sec to aspiration 6. left humerus fx s/p ORIF 7. FAll with injuries History of Present Illness History of Present Illness Transferred out of ICU 02/11/18-was in ICU because of hypotension but responsive to fluids I'm unsure if she needed pressors at one point Lives alone at home, was found to have a humeral fracture and underwent ORIF Has a left sling Patient has no complaints Agreeable to SNU/P Place Over the weekend Hypoxia/possible aspiration-seems to be better controlled now Tolerating liquid diet Plan: [facility] evaluation for the aspiration risk - dw RN Continue PT OT Discussed with social work, possibly [facility] over the weekend High fall risk For echocardiogram today Maybe current IVF to consume Vitals Vitals Vital Signs Date Time Temp Pulse Resp B/P (MAP) Pulse Ox O2 Delivery O2 Flow Rate FiO2 02/12/18 10:11 59 130/59 02/12/18 07:34 99 Simple Mask 6.0 02/12/18 07:00 98.5 19 98.5 Physical Exam General: Alert, Oriented X3, Cooperative, No acute distress, mild distress, Other (somnolent due to pain meds, not oriented to place, calm) Heart: Regular rate, Normal S1, No murmurs, Other (no edema lower extremity, left radial pulse 2+.) Lungs: Clear Abdomen: Normal bowel sounds, Soft, No tenderness Extremities: No cyanosis, No edema, Normal pulses Skin: No significant lesion Labs LABS Laboratory Tests Test 02/12/18 02:55 02/12/18 08:54 02/12/18 08:55 Urine Collection Type Unknown Urine Color Yellow Urine Clarity Clear Urine pH 6.0 Urine Specific [place] 1.020 Urine Protein Negative mg/dL (NEG-TRACE) Urine Glucose (UA) Negative mg/dL (NEG) Urine Ketones (Stick) Negative mg/dL (NEG) Urine Blood Negative (NEG) Urine Nitrite Negative (NEG) Urine Bilirubin Negative (NEG) Urine Urobilinogen Dipstick 0.2 mg/dL (0.2 mg/dL) Urine Leukocyte Esterase Negative (NEG) Urine RBC 1-2 /HPF (0-2) Urine WBC Occ /HPF (0-4) Urine Squamous Epithelial Cells Occ /LPF Urine Amorphous Sediment Present /HPF Urine Bacteria 0 /HPF (0-FEW) Urine Hyaline Casts Moderate /HPF Urine Mucus Mod /LPF Sodium Level 142 mmol/L (136-145) Potassium Level 3.5 mmol/L (3.5-5.1) Chloride Level 107 mmol/L (98-107) Carbon Dioxide Level 26 mmol/L (21-32) Anion Gap 9 (6-14) Blood Urea Nitrogen 19 mg/dL (7-20) Creatinine 0.8 mg/dL (0.6-1.0) Estimated GFR (Cockcroft-Gault) 68.0 BUN/Creatinine Ratio 24 (6-20) Glucose Level 105 mg/dL (70-99) Calcium Level 9.0 mg/dL (8.5-10.1) Magnesium Level 1.7 mg/dL (1.8-2.4) Total Bilirubin 0.4 mg/dL (0.2-1.0) Aspartate Amino Transf (AST/SGOT) 19 U/L (15-37) Alanine Aminotransferase (ALT/SGPT) 29 U/L (14-59) Alkaline Phosphatase 58 U/L (46-116) Total Protein 6.0 g/dL (6.4-8.2) Albumin 2.4 g/dL (3.4-5.0) Albumin/Globulin Ratio 0.7 (1.0-1.7) White Blood Count 12.2 x10^3/uL (4.0-11.0) Red Blood Count 3.55 x10^6/uL (3.50-5.40) Hemoglobin 11.1 g/dL (12.0-15.5) Hematocrit 33.1 % (36.0-47.0) Mean Corpuscular Volume 93 fL (79-100) Mean Corpuscular Hemoglobin 31 pg (25-35) Mean Corpuscular Hemoglobin Concent 33 g/dL (31-37) Red Cell Distribution Width 14.3 % (11.5-14.5) Platelet Count 191 x10^3/uL (140-400) Neutrophils (%) (Auto) 78 % (31-73) Lymphocytes (%) (Auto) 12 % (24-48) Monocytes (%) (Auto) 7 % (0-9) Eosinophils (%) (Auto) 2 % (0-3) Basophils (%) (Auto) 0 % (0-3) Neutrophils # (Auto) 9.4 x10^3uL (1.8-7.7) Lymphocytes # (Auto) 1.5 x10^3/uL (1.0-4.8) Monocytes # (Auto) 0.9 x10^3/uL (0.0-1.1) Eosinophils # (Auto) 0.3 x10^3/uL (0.0-0.7) Basophils # (Auto) 0.0 x10^3/uL (0.0-0.2) Review of Systems Review of Systems A 14 point ROS was completed with the following noted as positive: Other systems reviewed and negative. \CONSTITUTIONAL: No fever or chills EYES: No recent changes SKIN: No rash or itching CARDIOVASCULAR: No chest pain, syncope, palpitations, or edema RESPIRATORY: No SOB or cough GASTROINTESTINAL: No nausea, vomiting or abdominal pain NEUROLOGICAL: No headaches or weakness ENDOCRINE: No cold or heat intolerance GENITOURINARY: No urgency or frequency of urination MUSCULOSKELETAL: No back pain or joint pain LYMPHATICS: No enlarged lymph nodes PSYCHIATRIC: No anxiety or depression Comment Review of Relevant I have reviewed the following items harvey (where applicable) has been applied. Labs Laboratory Tests Test 02/10/18 14:35 02/11/18 05:19 02/12/18 02:55 02/12/18 08:54 Creatine Kinase 55 U/L (26-192) Vitamin B12 Level 514 pg/mL (247-911) Thyroid Stimulating Hormone (TSH) 1.589 uIU/mL (0.358-3.74) White Blood Count 16.4 x10^3/uL (4.0-11.0) Red Blood Count 4.00 x10^6/uL (3.50-5.40) Hemoglobin 12.5 g/dL (12.0-15.5) Hematocrit 37.6 % (36.0-47.0) Mean Corpuscular Volume 94 fL (79-100) Mean Corpuscular Hemoglobin 31 pg (25-35) Mean Corpuscular Hemoglobin Concent 33 g/dL (31-37) Red Cell Distribution Width 14.2 % (11.5-14.5) Platelet Count 218 x10^3/uL (140-400) Neutrophils (%) (Auto) 83 % (31-73) Lymphocytes (%) (Auto) 9 % (24-48) Monocytes (%) (Auto) 8 % (0-9) Eosinophils (%) (Auto) 0 % (0-3) Basophils (%) (Auto) 0 % (0-3) Neutrophils # (Auto) 13.6 x10^3uL (1.8-7.7) Lymphocytes # (Auto) 1.4 x10^3/uL (1.0-4.8) Monocytes # (Auto) 1.4 x10^3/uL (0.0-1.1) Eosinophils # (Auto) 0.0 x10^3/uL (0.0-0.7) Basophils # (Auto) 0.1 x10^3/uL (0.0-0.2) Segmented Neutrophils % 79 % (35-66) Band Neutrophils % 2 % (0-9) Lymphocytes % 9 % (24-48) Monocytes % 9 % (0-10) Eosinophils % 1 % (0-5) Platelet Estimate Adequate (ADEQUATE) Sodium Level 141 mmol/L (136-145) 142 mmol/L (136-145) Potassium Level 3.7 mmol/L (3.5-5.1) 3.5 mmol/L (3.5-5.1) Chloride Level 107 mmol/L (98-107) 107 mmol/L (98-107) Carbon Dioxide Level 25 mmol/L (21-32) 26 mmol/L (21-32) Anion Gap 9 (6-14) 9 (6-14) Blood Urea Nitrogen 22 mg/dL (7-20) 19 mg/dL (7-20) Creatinine 0.7 mg/dL (0.6-1.0) 0.8 mg/dL (0.6-1.0) Estimated GFR (Cockcroft-Gault) 79.3 68.0 BUN/Creatinine Ratio 31 (6-20) 24 (6-20) Glucose Level 127 mg/dL (70-99) 105 mg/dL (70-99) Calcium Level 10.4 mg/dL (8.5-10.1) 9.0 mg/dL (8.5-10.1) Magnesium Level 1.8 mg/dL (1.8-2.4) 1.7 mg/dL (1.8-2.4) Total Bilirubin 0.6 mg/dL (0.2-1.0) 0.4 mg/dL (0.2-1.0) Aspartate Amino Transf (AST/SGOT) 20 U/L (15-37) 19 U/L (15-37) Alanine Aminotransferase (ALT/SGPT) 24 U/L (14-59) 29 U/L (14-59) Alkaline Phosphatase 63 U/L (46-116) 58 U/L (46-116) Total Protein 6.9 g/dL (6.4-8.2) 6.0 g/dL (6.4-8.2) Albumin 2.9 g/dL (3.4-5.0) 2.4 g/dL (3.4-5.0) Albumin/Globulin Ratio 0.7 (1.0-1.7) 0.7 (1.0-1.7) Urine Collection Type Unknown Urine Color Yellow Urine Clarity Clear Urine pH 6.0 Urine Specific [place] 1.020 Urine Protein Negative mg/dL (NEG-TRACE) Urine Glucose (UA) Negative mg/dL (NEG) Urine Ketones (Stick) Negative mg/dL (NEG) Urine Blood Negative (NEG) Urine Nitrite Negative (NEG) Urine Bilirubin Negative (NEG) Urine Urobilinogen Dipstick 0.2 mg/dL (0.2 mg/dL) Urine Leukocyte Esterase Negative (NEG) Urine RBC 1-2 /HPF (0-2) Urine WBC Occ /HPF (0-4) Urine Squamous Epithelial Cells Occ /LPF Urine Amorphous Sediment Present /HPF Urine Bacteria 0 /HPF (0-FEW) Urine Hyaline Casts Moderate /HPF Urine Mucus Mod /LPF Test 02/12/18 08:55 White Blood Count 12.2 x10^3/uL (4.0-11.0) Red Blood Count 3.55 x10^6/uL (3.50-5.40) Hemoglobin 11.1 g/dL (12.0-15.5) Hematocrit 33.1 % (36.0-47.0) Mean Corpuscular Volume 93 fL (79-100) Mean Corpuscular Hemoglobin 31 pg (25-35) Mean Corpuscular Hemoglobin Concent 33 g/dL (31-37) Red Cell Distribution Width 14.3 % (11.5-14.5) Platelet Count 191 x10^3/uL (140-400) Neutrophils (%) (Auto) 78 % (31-73) Lymphocytes (%) (Auto) 12 % (24-48) Monocytes (%) (Auto) 7 % (0-9) Eosinophils (%) (Auto) 2 % (0-3) Basophils (%) (Auto) 0 % (0-3) Neutrophils # (Auto) 9.4 x10^3uL (1.8-7.7) Lymphocytes # (Auto) 1.5 x10^3/uL (1.0-4.8) Monocytes # (Auto) 0.9 x10^3/uL (0.0-1.1) Eosinophils # (Auto) 0.3 x10^3/uL (0.0-0.7) Basophils # (Auto) 0.0 x10^3/uL (0.0-0.2) Laboratory Tests Test 02/12/18 02:55 02/12/18 08:54 02/12/18 08:55 Urine Collection Type Unknown Urine Color Yellow Urine Clarity Clear Urine pH 6.0 Urine Specific [place] 1.020 Urine Protein Negative mg/dL (NEG-TRACE) Urine Glucose (UA) Negative mg/dL (NEG) Urine Ketones (Stick) Negative mg/dL (NEG) Urine Blood Negative (NEG) Urine Nitrite Negative (NEG) Urine Bilirubin Negative (NEG) Urine Urobilinogen Dipstick 0.2 mg/dL (0.2 mg/dL) Urine Leukocyte Esterase Negative (NEG) Urine RBC 1-2 /HPF (0-2) Urine WBC Occ /HPF (0-4) Urine Squamous Epithelial Cells Occ /LPF Urine Amorphous Sediment Present /HPF Urine Bacteria 0 /HPF (0-FEW) Urine Hyaline Casts Moderate /HPF Urine Mucus Mod /LPF Sodium Level 142 mmol/L (136-145) Potassium Level 3.5 mmol/L (3.5-5.1) Chloride Level 107 mmol/L (98-107) Carbon Dioxide Level 26 mmol/L (21-32) Anion Gap 9 (6-14) Blood Urea Nitrogen 19 mg/dL (7-20) Creatinine 0.8 mg/dL (0.6-1.0) Estimated GFR (Cockcroft-Gault) 68.0 BUN/Creatinine Ratio 24 (6-20) Glucose Level 105 mg/dL (70-99) Calcium Level 9.0 mg/dL (8.5-10.1) Magnesium Level 1.7 mg/dL (1.8-2.4) Total Bilirubin 0.4 mg/dL (0.2-1.0) Aspartate Amino Transf (AST/SGOT) 19 U/L (15-37) Alanine Aminotransferase (ALT/SGPT) 29 U/L (14-59) Alkaline Phosphatase 58 U/L (46-116) Total Protein 6.0 g/dL (6.4-8.2) Albumin 2.4 g/dL (3.4-5.0) Albumin/Globulin Ratio 0.7 (1.0-1.7) White Blood Count 12.2 x10^3/uL (4.0-11.0) Red Blood Count 3.55 x10^6/uL (3.50-5.40) Hemoglobin 11.1 g/dL (12.0-15.5) Hematocrit 33.1 % (36.0-47.0) Mean Corpuscular Volume 93 fL (79-100) Mean Corpuscular Hemoglobin 31 pg (25-35) Mean Corpuscular Hemoglobin Concent 33 g/dL (31-37) Red Cell Distribution Width 14.3 % (11.5-14.5) Platelet Count 191 x10^3/uL (140-400) Neutrophils (%) (Auto) 78 % (31-73) Lymphocytes (%) (Auto) 12 % (24-48) Monocytes (%) (Auto) 7 % (0-9) Eosinophils (%) (Auto) 2 % (0-3) Basophils (%) (Auto) 0 % (0-3) Neutrophils # (Auto) 9.4 x10^3uL (1.8-7.7) Lymphocytes # (Auto) 1.5 x10^3/uL (1.0-4.8) Monocytes # (Auto) 0.9 x10^3/uL (0.0-1.1) Eosinophils # (Auto) 0.3 x10^3/uL (0.0-0.7) Basophils # (Auto) 0.0 x10^3/uL (0.0-0.2) Medications Current Medications Ondansetron HCl (Zofran) 4 mg PRN Q4HRS PRN IV NAUSEA/VOMITING Last administered on 02/10/18at 05:48; Start 02/09/18 at 18:00; Stop 02/10/18 at 19 :31; Status DC Zolpidem Tartrate (Ambien) 5 mg PRN QHS PRN PO INSOMNIA; Start 02/09/18 at 18: 00 Acetaminophen (Tylenol) 650 mg PRN Q4HRS PRN GT TEMP OVER 100.4F OR MILD PAIN; Start 02/09/18 at 18:00 Al Hydroxide/Mg Hydroxide (Mylanta Plus Xs) 30 ml PRN DAILY PRN PO HEARTBURN / GAS; Start 02/09/18 at 18:00 Clonidine HCl (Catapres) 0.1 mg PRN Q6HRS PRN PO SBP>160 OR DBP>90; Start at 18:00 Sodium Monofluorophosphate (Fleet Adult) 133 ml PRN DAILY PRN RI CONSTIPATION; Start 02/09/18 at 18:00 Docusate Sodium (Colace) 100 mg PRN BID PRN PO CONSTIPATION; Start 02/09/18 at 18:00 Albuterol/ Ipratropium (Duoneb) 3 ml Q4H NEB ; Start 02/09/18 at 18:00; Stop 02/09/18 at 22:15; Status DC Guaifenesin (Robitussin) 200 mg PRN Q4HRS PRN PO COUGH; Start 02/09/18 at 18: 00 Lorazepam (Ativan) 0.5 mg PRN Q4HRS PRN PO ANXIETY / AGITATION; Start at 18:00 Enoxaparin Sodium (Lovenox 40mg Syringe) 40 mg DAILY SQ Last administered on at 10:12; Start 02/10/18 at 09:00 Albuterol Sulfate (Ventolin Neb Soln) 2.5 mg PRN Q4HRS PRN NEB WHEEZING; Start 02/09/18 at 22:15 Acetaminophen (Tylenol) 325 mg PRN Q4HRS PRN PO MILD PAIN / TEMP; Start at 23:00 Amlodipine Besylate (Norvasc) 5 mg DAILY PO Last administered on 02/12/18at 10: 11; Start 02/10/18 at 09:00 Aspirin (Children'S Aspirin) 81 mg DAILY PO Last administered on 02/12/18at 10: 10; Start 02/10/18 at 09:00 Carvedilol (Coreg) 3.125 mg BIDWMEALS PO Last administered on 02/12/18at 10:10 ; Start 02/10/18 at 08:00 Acetaminophen/ Hydrocodone Bitart (Lortab 5/325) for pain PRN Q6HRS PRN PO PAIN Last administered on 02/11/18at 05:42; Start 02/09/18 at 23:00; Stop at 15:18; Status DC Levothyroxine Sodium (Synthroid) 100 mcg DAILY PO ; Start 02/10/18 at 09:00; Stop 02/10/18 at 09:00; Status DC Oxycodone/ Acetaminophen (Percocet 5/325) 1 tab PRN Q8HRS PRN PO PAIN Last administered on 02/09/18at 23:26; Start 02/09/18 at 23:00; Stop 02/11/18 at 15 :11; Status DC Pantoprazole Sodium (Protonix) 40 mg DAILYAC PO Last administered on at 10:10; Start 02/10/18 at 07:30 Atorvastatin Calcium (Lipitor) 80 mg DAILY PO Last administered on 02/12/18at 10:09; Start 02/10/18 at 09:00 Vitamin D (Vitamin D3) 5,000 unit DAILY PO Last administered on 02/12/18at 10: 14; Start 02/10/18 at 09:00 Vitamin D (Vitamin D3) 2,000 unit HS PO Last administered on 02/11/18at 09:43; Start 02/10/18 at 21:00 Non-Formulary Medication (Fluticasone/ Salmeterol (Advair 250-50 Diskus)) 1 puff BID IH ; Start 02/10/18 at 09:00; Status UNV Fish Oil (Fish Oil) 1,000 mg DAILY PO Last administered on 02/12/18at 10:11; Start 02/10/18 at 09:00 Paroxetine HCl (Paxil) 45 mg QHS PO Last administered on 02/11/18at 21:21; Start 02/10/18 at 21:00 Polyethylene Glycol (miraLAX PACKET) 17 gm DAILY PO Last administered on at 10:11; Start 02/10/18 at 09:00 Triamcinolone Acetonide (Kenalog) 1 katarina BID TP Last administered on 02/12/18at 03:14; Start 02/10/18 at 09:00 Levothyroxine Sodium (Synthroid) 100 mcg HS PO Last administered on 02/11/18at 21:21; Start 02/09/18 at 23:15 Polyethylene Glycol (miraLAX PACKET) 17 gm 1X ONCE PO Last administered on at 23:26; Start 02/09/18 at 23:15; Stop 02/09/18 at 23:16; Status DC Enalaprilat (Vasotec Inj) 2.5 mg PRN Q6HRS PRN IVP HYPERTENSION, SEE COMMENTS Last administered on 02/09/18at 23:37; Start 02/09/18 at 23:30 Budesonide (Pulmicort) 0.5 mg RTBID NEB Last administered on 02/12/18at 07:31; Start 02/10/18 at 08:00 Albuterol Sulfate (Ventolin Neb Soln) 2.5 mg RTQID NEB Last administered on at 07:31; Start 02/10/18 at 08:00 Lorazepam (Ativan) 0.5 mg PRN Q6HRS PRN IV ANXIETY / AGITATION Last administered on 02/11/18at 12:27; Start 02/10/18 at 06:00 Hydromorphone HCl (Dilaudid) 0.2 mg PRN Q4HRS PRN IVP PAIN Last administered on 02/10/18at 06:17; Start 02/10/18 at 06:00; Stop 02/10/18 at 19:32; Status DC Acetaminophen (Tylenol Supp) 650 mg PRN Q6HRS PRN RI MILD PAIN / TEMP; Start 02/10/18 at 11:00 Ondansetron HCl (Zofran) 4 mg PRN Q6HRS PRN IV NAUSEA/VOMITING, 1ST CHOICE Last administered on 02/11/18at 12:26; Start 02/10/18 at 19:30 Ondansetron HCl (Zofran Odt) 4 mg PRN Q6HRS PRN PO NAUSEA/VOMITING; Start at 19:30 Prochlorperazine Edisylate (Compazine) 10 mg PRN Q6HRS PRN IV NAUSEA/VOMITING 2ND CHOICE; Start 02/10/18 at 19:30 Sodium Chloride 1,000 ml @ 75 mls/hr [id number] IV Last administered on at 06:06; Start 02/10/18 at 19:30 Morphine Sulfate (Morphine Sulfate) 1 mg PRN Q2HR PRN IV PAIN; Start 02/10/18 at 19:30 Piperacillin Sod/ Tazobactam Sod 2.25 gm/Sodium Chloride 50 ml @ 100 mls/hr Q6HRS IV Last administered on 02/12/18at 06:03; Start 02/11/18 at 12:00 Levofloxacin/ Dextrose 50 ml @ 50 mls/hr Q24H IV Last administered on at 12:22; Start 02/11/18 at 12:00; Stop 02/12/18 at 08:14; Status DC Active Scripts Active Miralax (Polyethylene Glycol 3350) 17 Gm Powd.pack 1 Packet PO DAILY Advair 250-50 Diskus (Fluticasone/Salmeterol) 1 Each Disk.w.dev 1 Puff IH BID Reported Triamcinolone Acetonide 80 Gm Oint...g. 1 Katarina TP BID Paxil (Paroxetine Hcl) 40 Mg Tablet 45 Mg PO QHS Targretin (Bexarotene) 60 Gm Gel..gram. 60 Gm TP Fish Oil 1,200 Mg Fish Oil (Fish Oil/Dha/Epa) 1 Each Capsule 1 Each PO Tylenol (Acetaminophen) 325 Mg Tablet 1 Tab PO PRN Q4HRS Senna Laxative (Sennosides) 8.6 Mg Tablet 8.6 Mg PO Amlodipine Besylate 5 Mg Tablet 5 Mg PO DAILY Percocet 5-325 Mg Tablet (Oxycodone/Acetaminophen) 1 Each Tablet 1 Tab PO PRN Q8HRS PRN Calcium (Calcium Carbonate) 600 Mg Tablet 1,200 Mg PO Protonix (Pantoprazole Sodium) 40 Mg Tablet.dr 1 Tab PO DAILY Carvedilol 3.125 Mg Tablet 1 Tab PO BID Children's Aspirin (Aspirin) 81 Mg Tab.chew 81 Mg PO One Daily (Multivitamin) 1 Each Tablet 1 Each PO Vitamin D (Cholecalciferol (Vitamin D3)) 2,000 Unit Capsule 1 Cap PO HS Fish Oil ([place]-3 Fatty Acids) 300 Mg Capsule 1,200 Mg PO DAILY Hydrocodone-Apap 5-325 (Hydrocodone Bit/Acetaminophen) 1 Each Tablet 1-2 Tab PO Q4-6HRS Levothyroxine Sodium 100 Mcg Tablet 1 Tab PO DAILY Vitamin D (Cholecalciferol (Vitamin D3)) 1,000 Unit Capsule 5 Cap PO DAILY Atorvastatin Calcium 80 Mg Tablet 1 Tab PO DAILY Vitals/I & O Vital Sign - Last 24 Hours 02/11/18 02/11/18 02/11/18 02/11/18 11:00 15:00 18:03 19:58 Temp 98.2 98.2 98.0 98.2 98.2 98.0 Pulse 51 62 78 55 Resp 16 16 16 B/P (MAP) 117/61 (79) 126/73 (90) 148/87 98/54 (69) Pulse Ox 97 96 95 O2 Delivery Nasal Cannula Nasal Cannula Nasal Cannula O2 Flow Rate 2.0 2.0 2.0 02/11/18 02/11/18 02/11/18 02/12/18 20:00 20:13 23:18 03:11 Temp 98.5 97.8 98.5 97.8 Pulse 60 57 Resp 16 16 B/P (MAP) 96/59 (71) 164/63 (96) Pulse Ox 91 95 97 O2 Delivery Nasal Cannula Nasal Cannula Simple Mask Simple Mask O2 Flow Rate 2.0 2.0 2.0 2.0 02/12/18 02/12/18 02/12/18 02/12/18 07:00 07:34 10:10 10:11 Temp 98.5 98.5 Pulse 59 63 59 Resp 19 B/P (MAP) 130/59 (82) 130/59 130/59 Pulse Ox 98 99 O2 Delivery Simple Mask Simple Mask O2 Flow Rate 2.0 6.0 Intake and Output 02/11/18 02/11/18 02/12/18 15:00 23:00 07:00 Output Total 300 ml Balance -300 ml KELVIN HANSEN MD Feb 12, 2018 10:37
[2018-02-12] MEDS ORDERED: POTASSIUM CHLORIDE 20 MEQ TABLET.ER. PO ONE (10:45)
[2018-02-12] MEDS ORDERED: MAGNESIUM SULFATE 1GM 100 ML IV ONE (10:45)
[2018-02-12 11:00] VITALS: BP 122/56
[2018-02-12] MEDS: oxyCODONE IR 5 MG TABLET PO PRN ×2 (12:30→20:02)
--- NOTE | 2018-02-12 14:30 | RAD ---
CT of the chest without contrast, 02/12/2018: HISTORY: Hypoxia Noncontrast scans were obtained as requested. Comparison is made to an exam from 01/15/2017. There are mild to moderate linear opacities in both lung bases suggesting atelectasis and/or scarring. A few other scattered linear parenchymal scars are present in both lungs. There is a calcified granuloma in the left lung. No pulmonary consolidation is seen. There is no evidence of pleural fluid. There is moderate calcific plaquing of the thoracic aorta and its branches including the coronary arteries. The ascending aorta is at the upper limits of normal in size measuring 4 cm in width. The heart is mildly enlarged. No mediastinal adenopathy is seen. IMPRESSION: 1. Aortic atherosclerosis with moderate coronary artery calcifications. 2. Mild to moderate streaky atelectasis and/or scarring in the lung bases. PQRS Compliance Statement: One or more of the following individualized dose reduction techniques were utilized for this examination: 1. Automated exposure control 2. Adjustment of the mA and/or kV according to patient size 3. Use of iterative reconstruction technique Electronically signed by: Gabriel Chavira MD (02/12/2018 2:27 PM) [facility]
[2018-02-12 15:00] VITALS: BP 108/51
--- NOTE | 2018-02-12 18:38 | PDOC ---
PROGRESS NOTES Assessment Assessment Metabolic encephalopathy. Confusion. Generalized weakness. Fall. HTN. HLD. COPD. GERD. Recent left humeral fracture. Advanced degenerative spine and joint diseases. RECOMMENDATIONS/PLAN: Treat medical diseases. OT/PT. EEG on 02/11/18: Encephalopathy. PVC noted on single channel EKG. HISTORY OF THE PRESENT ILLNESS: 87-y-old female patient with above medical diseases had a fall recently with left humeral fracture. She was hospitalized at that time in 01/05 followed by Rehab and was discharged home about 1 week after Rehab. She was brought reportedly by her neighbor to [facility] on 02/09/18 due to her MS changes. Her mental status improved since 02/11/18. Past Medical History Cardiovascular: HTN, Hyperlipidemia, Valve insufficiency Pulmonary: COPD GI: GERD Heme/Onc: No pertinent hx, Other Hepatobiliary: No pertinent hx Psych: No pertinent hx Infectious disease: No pertinent hx Renal/: No pertinent hx Endocrine: No pertinent hx Past Surgical History Total hip replacement, Total knee replacement, Tonsillectomy Family History Coronary Artery Disease, Hypertension ALLERGY: NKDA MEDICATIONS: Refer to [facility] SOCIAL HISTORY: Lives at home.lone. Denies smoking, drinking, and illicit drug use. REVIEW OF SYSTEMS: Constitutional: No malnutrition, weight loss, cachexia. Head: Scalp hematoma in 12/2017. Skin: No edema, or rash. Ear: No infection. Eyes: No vision loss or color blindness. Nose: No bleeding or purulent discharges. Hearing: No hearing decrease. Neck: No injury. Breast: No history of cancer, masses,or discharges. Cardiac: HTN, HLD. Pulmonary: COPD. GI: GERD. Urinary/genital: UTI. Endocrinologic: thyroid disease, over weight. Skeletomuscular: Generalized weakness. Neurological: see HP. Psychiatric: Denies drug use/abuse. Otherwise, not [id number] review of systems. PHYSICAL EXAMINATION: General appearance is in subacute distress. HEENT: Normocephalic and nontraumatic. Eyes, nose, ears, and throat are unremarkable. Neck is supple. No lymphadenopathy. No crepitus. Cardiovascular: S1, S2, regular rate and rhythm. SM 3/6. Pulmonary: Relative clear to auscultation bilaterally. Abdomen: Bowel sounds are positive. Extremities: No rash, lesions, or edema. No restriction of range of motion except left UE. NEUROLOGICAL EXAMINATION: Awake. Able to understand some questions. Not oriented to time, but knew place and person. PERRL. EOMI. CN: no acute focal findings. Muscle tone: within normal. Muscle strength: 4+ DTR: 2- Plantar reflex: Neutral response bilaterally Gait: not examined in bed. Sensory exam: no abnormal findings. No cerebellar signs elicited. F-T-N test not very accurate in right side, but unable to perform on left side. Objective Objective Vital Signs Date Time Temp Pulse Resp B/P (MAP) Pulse Ox O2 Delivery O2 Flow Rate FiO2 02/12/18 15:41 93 Nasal Cannula 4.0 02/12/18 15:00 98.4 92 16 108/51 (70) 98.4 Intake and Output 02/12/18 07:00 Output Total 300 ml Balance -300 ml Output Urine Total 300 ml # Voids 4 # Bowel Movements 4 Vitals Signs Vitals VS - Last 72 Hours, by Label Date Time Temp Pulse Resp B/P (MAP) Pulse Ox O2 Delivery O2 Flow Rate FiO2 02/12/18 15:41 93 Nasal Cannula 4.0 02/12/18 15:00 98.4 92 16 108/51 (70) 96 98.4 02/12/18 13:30 16 Nasal Cannula 4.0 02/12/18 12:30 16 Nasal Cannula 4.0 02/12/18 11:50 95 Nasal Cannula 4.0 02/12/18 11:00 98.0 62 19 122/56 (78) 93 Simple Mask 2.0 98.0 02/12/18 10:11 59 130/59 02/12/18 10:10 63 130/59 02/12/18 08:00 Nasal Cannula 4.0 02/12/18 07:34 99 Simple Mask 6.0 02/12/18 07:00 98.5 59 19 130/59 (82) 98 Simple Mask 2.0 98.5 02/12/18 03:11 97.8 57 16 164/63 (96) 97 Simple Mask 2.0 97.8 02/11/18 23:18 98.5 60 16 96/59 (71) 95 Simple Mask 2.0 98.5 02/11/18 20:13 91 Nasal Cannula 2.0 02/11/18 20:00 Nasal Cannula 2.0 02/11/18 19:58 98.0 55 16 98/54 (69) 95 Nasal Cannula 2.0 98.0 02/11/18 18:03 78 148/87 02/11/18 15:00 98.2 62 16 126/73 (90) 96 Nasal Cannula 2.0 98.2 02/11/18 11:00 98.2 51 16 117/61 (79) 97 Nasal Cannula 2.0 98.2 02/11/18 09:41 78 148/87 02/11/18 09:39 78 148/87 02/11/18 07:50 Nasal Cannula 2.0 02/11/18 07:00 98.3 56 16 123/77 (92) 94 Nasal Cannula 2.0 98.3 Laboratory Laboratory Laboratory Tests Test 02/12/18 02:55 02/12/18 08:54 02/12/18 08:55 Urine Collection Type Unknown Urine Color Yellow Urine Clarity Clear Urine pH 6.0 Urine Specific [place] 1.020 Urine Protein Negative mg/dL (NEG-TRACE) Urine Glucose (UA) Negative mg/dL (NEG) Urine Ketones (Stick) Negative mg/dL (NEG) Urine Blood Negative (NEG) Urine Nitrite Negative (NEG) Urine Bilirubin Negative (NEG) Urine Urobilinogen Dipstick 0.2 mg/dL (0.2 mg/dL) Urine Leukocyte Esterase Negative (NEG) Urine RBC 1-2 /HPF (0-2) Urine WBC Occ /HPF (0-4) Urine Squamous Epithelial Cells Occ /LPF Urine Amorphous Sediment Present /HPF Urine Bacteria 0 /HPF (0-FEW) Urine Hyaline Casts Moderate /HPF Urine Mucus Mod /LPF Sodium Level 142 mmol/L (136-145) Potassium Level 3.5 mmol/L (3.5-5.1) Chloride Level 107 mmol/L (98-107) Carbon Dioxide Level 26 mmol/L (21-32) Anion Gap 9 (6-14) Blood Urea Nitrogen 19 mg/dL (7-20) Creatinine 0.8 mg/dL (0.6-1.0) Estimated GFR (Cockcroft-Gault) 68.0 BUN/Creatinine Ratio 24 (6-20) Glucose Level 105 mg/dL (70-99) Calcium Level 9.0 mg/dL (8.5-10.1) Magnesium Level 1.7 mg/dL (1.8-2.4) Total Bilirubin 0.4 mg/dL (0.2-1.0) Aspartate Amino Transf (AST/SGOT) 19 U/L (15-37) Alanine Aminotransferase (ALT/SGPT) 29 U/L (14-59) Alkaline Phosphatase 58 U/L (46-116) Total Protein 6.0 g/dL (6.4-8.2) Albumin 2.4 g/dL (3.4-5.0) Albumin/Globulin Ratio 0.7 (1.0-1.7) White Blood Count 12.2 x10^3/uL (4.0-11.0) Red Blood Count 3.55 x10^6/uL (3.50-5.40) Hemoglobin 11.1 g/dL (12.0-15.5) Hematocrit 33.1 % (36.0-47.0) Mean Corpuscular Volume 93 fL (79-100) Mean Corpuscular Hemoglobin 31 pg (25-35) Mean Corpuscular Hemoglobin Concent 33 g/dL (31-37) Red Cell Distribution Width 14.3 % (11.5-14.5) Platelet Count 191 x10^3/uL (140-400) Neutrophils (%) (Auto) 78 % (31-73) Lymphocytes (%) (Auto) 12 % (24-48) Monocytes (%) (Auto) 7 % (0-9) Eosinophils (%) (Auto) 2 % (0-3) Basophils (%) (Auto) 0 % (0-3) Neutrophils # (Auto) 9.4 x10^3uL (1.8-7.7) Lymphocytes # (Auto) 1.5 x10^3/uL (1.0-4.8) Monocytes # (Auto) 0.9 x10^3/uL (0.0-1.1) Eosinophils # (Auto) 0.3 x10^3/uL (0.0-0.7) Basophils # (Auto) 0.0 x10^3/uL (0.0-0.2) Medication Medications Current Medications Lactobacillus Rhamnosus (Culturelle) 1 cap BID PO ; Start 02/12/18 at 21:00 Magnesium Sulfate/ Dextrose 100 ml @ 100 mls/hr 1X ONCE IV Last administered on 02/12/18at 14:43; Start 02/12/18 at 10:45; Stop 02/12/18 at 11:44; Status DC Oxycodone HCl (Roxicodone) 5 mg PRN Q6HRS PRN PO MODERATE-SEVERE PAIN Last administered on 02/12/18at 12:30; Start 02/12/18 at 12:30 Potassium Chloride (Klor-Con) 20 meq 1X ONCE PO Last administered on at 10:49; Start 02/12/18 at 10:45; Stop 02/12/18 at 10:46; Status DC Comment Review of Relevant I have reviewed the following items harvey (where applicable) has been applied. VANESSA GONZALEZ MD Feb 12, 2018 18:38
[2018-02-12 19:00] VITALS: BP 140/72
[2018-02-12] MEDS: ACETAMINOPHEN 325 MG TABLET. PO PRN (20:01)
[2018-02-12] MEDS: CHOLECALCIFEROL (VITAMIN D3) 1,000 UNIT TABLET PO SCH (21:12)
[2018-02-12] MEDS: LACTOBACILLUS RHAMNOSUS GG 1 CAPSULE. PO SCH (21:12)
[2018-02-12] MEDS: PARoxetine 10 MG TABLET PO SCH (21:13)
[2018-02-12] MEDS: LEVOTHYROXINE 100 MCG TABLET PO SCH (21:14)
--- NOTE | 2018-02-12 22:55 | CONS ---
DATE OF CONSULTATION: 02/12/2018 REQUESTING PHYSICIAN: Dr. Kurtis Gamino. REASON FOR CONSULTATION: Possible aspiration pneumonia, leukocytosis. HISTORY OF PRESENT ILLNESS: This is an 87-year-old female who was admitted for inability to self-care, falling and not feeling comfortable at home with recent fracture of the left humerus. The patient in fact had ORIF of the left humerus fracture done and she actually fell again and sustained another fracture into the area, although it was nondisplaced, hence with the brace it was continued, but then she is not able to take care, hence she was admitted. After admission, she has been having hypoxia and white count jumped to 16,000, hence consultation. The patient was started on Levaquin and Zosyn and consult requested. The patient does have some cough and denies any shortness of breath, but she is hypoxic, requiring 5 liters of oxygen. Denies any nausea, vomiting, diarrhea. Denies any chest pain, abdominal pain, urinary symptoms or bowel symptoms. Also, denies any headache. PAST MEDICAL HISTORY: Positive for recent humerus fracture and refracture after the surgery. The patient had ORIF done after first break. Also has hypertension, hyperlipidemia, COPD, osteoarthritis, valvular insufficiency. She has had hip replacement, knee replacement done in the past. SOCIAL HISTORY: Negative for smoking, alcohol, illicit drug use. ALLERGIES: No known drug allergies. CURRENT MEDICATIONS: The patient is on Zosyn and Levaquin. REVIEW OF SYSTEMS: As per HPI, all other systems reviewed and are negative. PHYSICAL EXAMINATION: GENERAL: Alert, oriented female, not in distress. VITAL SIGNS: Stable, afebrile. The patient did have a T-max of 99.6. HEENT: NAD. NECK: Supple, no JVP, no lymphadenopathy. LUNGS: Clear. HEART: S1, S2 regular. ABDOMEN: Benign. EXTREMITIES: No edema or cyanosis. SKIN: Unremarkable. Surgery site on the left upper arm is unremarkable for any infection. LABORATORY DATA: The patient is neurologically intact. LABORATORY DATA: White count is 16.4, platelets are normal. BUN and creatinine is 22 and 0.7. Calcium is 10.4. Urinalysis unremarkable. MRSA screen is negative. Chest x-ray is showing mild basilar atelectasis. I personally reviewed the x-ray, it is not impressive to cause 5 liters of hypoxia. IMPRESSION: 1. Leukocytosis. 2. Hypoxemia, aspiration likely, although chest x-ray is not as impressive to require 5 liters of oxygen. The patient is not on home oxygen. 3. Left humerus fracture, status post open reduction and internal fixation and refracture. 4. Inability to take care of herself. 5. Chronic obstructive pulmonary disease. 6. Hypertension. 7. Hyperlipidemia. RECOMMENDATIONS: We will discontinue levofloxacin. Continue Zosyn, supportive care, PT, OT, CT chest and will continue to follow up. Thank you very much, Dr. Gamino, for giving me the opportunity to participate in this patient's care. AKOSUA LEE MD DR: URBAN/monalisa JOB#: [id number] / [id number]
[2018-02-12 23:00] VITALS: BP 121/60
[2018-02-13] MEDS: PIPERACILLIN/TAZOBACTAM 2.25 GM in IV NORMAL SALINE 50ML 50 ML IV SCH ×3 (00:07→12:01)
[2018-02-13 03:00] VITALS: BP 149/67
[2018-02-13] MEDS: oxyCODONE IR 5 MG TABLET PO PRN ×2 (03:59→14:23)
[2018-02-13 07:40] VITALS: BP 128/53
[2018-02-13] MEDS: ALBUTEROL SULFATE 2.5 MG/3 ML NEBU. NEB SCH ×3 (07:47→15:35)
[2018-02-13] MEDS: BUDESONIDE 0.5 MG/2 ML NEBU. NEB SCH (07:47)
[2018-02-13] MEDS: OMEGA-3 FATTY ACIDS/FISH OIL 1,000 MG CAPSULE. PO SCH (08:17)
[2018-02-13] MEDS: CHOLECALCIFEROL (VITAMIN D3) 5,000 UNIT CAPSULE PO SCH (08:17)
[2018-02-13] MEDS: ASPIRIN CHEWABLE 81 MG TABLET. PO SCH (08:17)
[2018-02-13] MEDS: LACTOBACILLUS RHAMNOSUS GG 1 CAPSULE. PO SCH (08:17)
[2018-02-13] MEDS: PANTOPRAZOLE 40 MG TABLET.DR. PO SCH (08:17)
[2018-02-13] MEDS: amLODIPine BESYLATE 5 MG TABLET PO SCH (08:17)
[2018-02-13] MEDS: ACETAMINOPHEN 325 MG TABLET. PO PRN (08:18)
[2018-02-13] MEDS: ATORVASTATIN CALCIUM 40 MG TABLET. PO SCH (08:18)
[2018-02-13] MEDS: CARVEDILOL 3.125 MG TABLET. PO SCH (08:18)
[2018-02-13] MEDS: ENOXAPARIN 40 MG/0.4 ML SYRINGE. SQ SCH (08:19)
[2018-02-13] MEDS: TRIAMCINOLONE ACETONIDE 0.1% TOPICAL OINTMENT 15GM TUBE. TP SCH (08:19)
[2018-02-13] MEDS: POLYETHYLENE GLYCOL 3350 17 GM PACKET. PO SCH (08:19)
--- NOTE | 2018-02-13 10:15 | PDOC ---
Infectious Disease Note Subjective Subjective c/o pain left fingers after SpO2 was checked Otherwise doing alright Less O2, now on 2 L Denies SOA/CP cough Denies F/C/S/N/V/D ROS ROS per HPI otherwise neg Vital Sign Vital Signs Vital Signs Date Time Temp Pulse Resp B/P (MAP) Pulse Ox O2 Delivery O2 Flow Rate FiO2 02/13/18 08:18 57 128/53 02/13/18 08:00 Nasal Cannula 3.0 02/13/18 07:48 97 02/13/18 07:40 98.7 16 98.7 Physical Exam PHYSICAL EXAM GENERAL: Propped up in bed, alert, NAD HEENT: Oral cavity pink NECK: Supple LUNGS: Clear. HEART: S1, S2 regular. ABDOMEN: Obese, soft, NT EXTREMITIES: No edema or cyanosis. LUE splint/sling in place. Fingers warm SKIN: without rash. PIV Labs Lab IMPRESSION: 1. Aortic atherosclerosis with moderate coronary artery calcifications. 2. Mild to moderate streaky atelectasis and/or scarring in the lung bases. Objective Assessment Leukocytosis - better Hypoxemia, aspiration likely, although chest x-ray is not as impressive, requiring supplemental Left humerus fracture, status post open reduction and internal fixation and refracture. Inability to take care of herself. Chronic obstructive pulmonary disease. Hypertension. Hyperlipidemia. Plan Plan of Care Continue Zon supportive care PT/OT MILADYS LEYVA APRN Feb 13, 2018 10:15
[2018-02-13 11:03] VITALS: BP 132/59
[2018-02-13] MEDS ORDERED: ZOLP5TAB PO (13:36)
[2018-02-13] MEDS ORDERED: OXYC-323 PO (13:36)
[2018-02-13] MEDS ORDERED: LORA0.5T96 PO (13:36)
[2018-02-13] MEDS ORDERED: ALBU2.5V5 NEB (13:36)
[2018-02-13] MEDS ORDERED: BUDE0.5A NEB (13:36)
[2018-02-13] MEDS ORDERED: CLON0.1T12 PO (13:36)
[2018-02-13] MEDS ORDERED: AMOX1TAB58 PO (13:37)
--- NOTE | 2018-02-13 13:40 | PDOC3 ---
Discharge Summary Visit Information Date of Admission: Feb 09, 2018 Date of Discharge: Feb 13, 2018 Admitting Diagnosis Comment: 1. Sepsis with HYPOTENSION 2. SELF neglect 3. GEN weakness - SNU candidate 4. Dysphagia 5. Hypoxic respi failure, likely sec to aspiration 6. left humerus fx s/p ORIF 7. FAll with injuries Brief Hospital Course Allergies Allergies Coded Allergies Type Severity Reaction Last Updated Verified No Known Drug Allergies 01/15/17 No Vital Signs Vital Signs Date Time Temp Pulse Resp B/P (MAP) Pulse Ox O2 Delivery O2 Flow Rate FiO2 02/13/18 11:40 94 Nasal Cannula 3.0 02/13/18 11:03 98.4 61 16 132/59 (83) 98.4 Lab Results Laboratory Tests Test 02/12/18 02:55 02/12/18 08:54 02/12/18 08:55 Urine Collection Type Unknown Urine Color Yellow Urine Clarity Clear Urine pH 6.0 Urine Specific [place] 1.020 Urine Protein Negative mg/dL (NEG-TRACE) Urine Glucose (UA) Negative mg/dL (NEG) Urine Ketones (Stick) Negative mg/dL (NEG) Urine Blood Negative (NEG) Urine Nitrite Negative (NEG) Urine Bilirubin Negative (NEG) Urine Urobilinogen Dipstick 0.2 mg/dL (0.2 mg/dL) Urine Leukocyte Esterase Negative (NEG) Urine RBC 1-2 /HPF (0-2) Urine WBC Occ /HPF (0-4) Urine Squamous Epithelial Cells Occ /LPF Urine Amorphous Sediment Present /HPF Urine Bacteria 0 /HPF (0-FEW) Urine Hyaline Casts Moderate /HPF Urine Mucus Mod /LPF Sodium Level 142 mmol/L (136-145) Potassium Level 3.5 mmol/L (3.5-5.1) Chloride Level 107 mmol/L (98-107) Carbon Dioxide Level 26 mmol/L (21-32) Anion Gap 9 (6-14) Blood Urea Nitrogen 19 mg/dL (7-20) Creatinine 0.8 mg/dL (0.6-1.0) Estimated GFR (Cockcroft-Gault) 68.0 BUN/Creatinine Ratio 24 (6-20) Glucose Level 105 mg/dL (70-99) Calcium Level 9.0 mg/dL (8.5-10.1) Magnesium Level 1.7 mg/dL (1.8-2.4) Total Bilirubin 0.4 mg/dL (0.2-1.0) Aspartate Amino Transf (AST/SGOT) 19 U/L (15-37) Alanine Aminotransferase (ALT/SGPT) 29 U/L (14-59) Alkaline Phosphatase 58 U/L (46-116) Total Protein 6.0 g/dL (6.4-8.2) Albumin 2.4 g/dL (3.4-5.0) Albumin/Globulin Ratio 0.7 (1.0-1.7) White Blood Count 12.2 x10^3/uL (4.0-11.0) Red Blood Count 3.55 x10^6/uL (3.50-5.40) Hemoglobin 11.1 g/dL (12.0-15.5) Hematocrit 33.1 % (36.0-47.0) Mean Corpuscular Volume 93 fL (79-100) Mean Corpuscular Hemoglobin 31 pg (25-35) Mean Corpuscular Hemoglobin Concent 33 g/dL (31-37) Red Cell Distribution Width 14.3 % (11.5-14.5) Platelet Count 191 x10^3/uL (140-400) Neutrophils (%) (Auto) 78 % (31-73) Lymphocytes (%) (Auto) 12 % (24-48) Monocytes (%) (Auto) 7 % (0-9) Eosinophils (%) (Auto) 2 % (0-3) Basophils (%) (Auto) 0 % (0-3) Neutrophils # (Auto) 9.4 x10^3uL (1.8-7.7) Lymphocytes # (Auto) 1.5 x10^3/uL (1.0-4.8) Monocytes # (Auto) 0.9 x10^3/uL (0.0-1.1) Eosinophils # (Auto) 0.3 x10^3/uL (0.0-0.7) Basophils # (Auto) 0.0 x10^3/uL (0.0-0.2) Brief Hospital Course Ms. Lee is a 87 old who came from home, female admitted for self- neglect, had a left humeral fracture underwent ORIF. Course remarkable for some dysphagia and hypoxia. NOw on dysphagia diet by [employer]. She has generalized weakness SNU candidate accepted at [facility]. Her course remarkable for hypotension from being very dry, responded to IV fluids in the ICU. I do not think she needed pressors. DispO; [facility] and have Rx'd some penicillin. She was getting Zosyn here for sepsis with hypotension. Blood cultures negative. Comanage with ID. Rx on file including Augmentin for 7 more days and some breathing treatments. And some pain medicines for her left ORIF. To follow-up with. orthopedics around 4 weeks time Discharge disposition [facility] DC time 31 minutes greater than 50% DC education counseling coordination Procedures performed ORIF of the left humerus Causes performed ID, ortho, pulmonary Discharge Information Condition at Discharge: Improved, Stable Disposition/Orders: Other (snu) Scheduled Acetaminophen (Tylenol) 325 Mg Tablet, 1 TAB PO PRN Q4HRS, #30 (Reported) Entered as Reported by: ANN HOLMAN on 12/24/171735 Last Action: Continued on 02/09/182251 by DAPHNIE GALAN Amlodipine Besylate (Amlodipine Besylate) 5 Mg Tablet, 5 MG PO DAILY, (Reported) Entered as Reported by: ANN HOLMAN on 12/24/171735 Last Action: Continued on 02/09/182251 by DAPHNIE GALAN Amoxicillin/Potassium Clav (Augmentin 500-125 Tablet) 1 Each Tablet, 1 TAB PO BID, #14 Prescribed by: KELVIN HANSEN on 02/13/18 1337 Atorvastatin Calcium (Atorvastatin Calcium) 80 Mg Tablet, 1 TAB PO DAILY, #30 Ref 5 (Reported) Entered as Reported by: JUAN CHICAS on 12/09/14 0747 Last Action: Converted on 02/09/182251 by DAPHNIE GALAN Budesonide (Budesonide) 0.5 Mg/2 Ml Ampul.neb, 0.5 MG NEB RTBID for 14 Days Prescribed by: KELVIN HANSEN on 02/13/18 1336 Carvedilol (Carvedilol) 3.125 Mg Tablet, 1 TAB PO BID, #60 Ref 3 (Reported) Entered as Reported by: THOMAS SEVILLA on 01/16/17 1235 Last Action: Continued on 02/09/182251 by DAPHNIE GALAN Cholecalciferol (Vitamin D3) (Vitamin D) 1,000 Unit Capsule, 5 CAP PO DAILY, # 90 Ref 3 (Reported) Entered as Reported by: JUAN CHICAS on 12/09/14 0747 Last Action: Converted on 02/09/182251 by DAPHNIE GALAN Cholecalciferol (Vitamin D3) (Vitamin D) 2,000 Unit Capsule, 1 CAP PO HS, #30 Ref 3 (Reported) Entered as Reported by: JUAN CHICAS on 12/09/14 0754 Last Action: Converted on 02/09/182251 by DAPHNIE GALAN Fluticasone/Salmeterol (Advair 250-50 Diskus) 1 Each Disk.w.dev, 1 PUFF IH BID, #1 Ref 5 Prescribed by: NALDO CAROLINA MD on 01/01/18 1043 Last Action: Converted on 02/09/182251 by DAPHNIE GALAN Hydrocodone Bit/Acetaminophen (Hydrocodone-Apap 5-325 ) 1 Each Tablet, 1-2 TAB PO Q4-6HRS, #30 (Reported) Entered as Reported by: JUAN CHICAS on 12/09/14749 Last Action: Continued on 02/09/182251 by DAPHNIE GALAN Levothyroxine Sodium (Levothyroxine Sodium) 100 Mcg Tablet, 1 TAB PO DAILY, #30 Ref 5 (Reported) Entered as Reported by: JUAN CHICAS on 12/09/14749 Last Action: Continued on 02/09/182251 by DAPHNIE GALAN [place]-3 Fatty Acids (Fish Oil) 300 Mg Capsule, 1,200 MG PO DAILY, (Reported) Entered as Reported by: JUAN CHICAS on 12/09/14 075 Last Action: Converted on 02/09/182251 by DAPHNIE GALAN Pantoprazole Sodium (Protonix) 40 Mg Tablet.dr, 1 TAB PO DAILY, #30 Ref 5 ( Reported) Entered as Reported by: THOMAS SEVILLA on 01/16/17 1235 Last Action: Continued on 02/09/182251 by DAPHNIE GALAN Paroxetine Hcl (Paxil) 40 Mg Tablet, 45 MG PO QHS, (Reported) Entered as Reported by: SEYMOUR BERNARD on 12/25/17 0822 Last Action: Converted on 02/09/182251 by DAPHNIE GALAN Polyethylene Glycol 3350 (Miralax) 17 Gm Powd.pack, 1 PACKET PO DAILY, #2 Ref 1 Prescribed by: NALDO CAROLINA MD on 01/01/18 1045 Last Action: Converted on 02/09/182251 by DAPHNIE GALAN Triamcinolone Acetonide (Triamcinolone Acetonide) 80 Gm Oint...g., 1 LEO TP BID , #30 Ref 1 (Reported) Entered as Reported by: DAPHNIE KAY on 12/30/17 2350 Last Action: Converted on 02/09/182251 by DAPHNIE GALAN Scheduled PRN Albuterol Sulfate (Albuterol Sulfate Neb Soln) 2.5 Mg/3 Ml Vial.neb, 2.5 MG NEB PRN Q4HRS PRN for WHEEZING for 14 Days Prescribed by: KELVIN HANSEN on 02/13/18 1336 Clonidine Hcl (Catapres) 0.1 Mg Tablet, 0.1 MG PO PRN Q6HRS PRN for SBP>160 OR DBP>90 for 30 Days Prescribed by: KELVIN HANSEN on 02/13/18 1336 Lorazepam (Ativan) 0.5 Mg Tablet, 0.5 MG PO PRN Q4HRS PRN for ANXIETY / AGITATION, #30 Prescribed by: KELVIN HANSEN on 02/13/18 1336 Oxycodone/Apap 5-325 (Percocet 5-325 Mg Tablet) 1 Each Tablet, 1 TAB PO PRN Q8HRS PRN for PAIN, #30 Ref 0 Prescribed by: KELVIN HANSEN on 02/13/18 1336 Zolpidem Tartrate (Ambien) 5 Mg Tablet, 5 MG PO PRN QHS PRN for INSOMNIA, #14 Prescribed by: KELVIN HANSEN on 02/13/18 1336 Miscellaneous Medications Aspirin (Children's Aspirin) 81 Mg Tab.chew, 81 MG PO, (Reported) Entered as Reported by: JUAN CHICAS on 12/09/14 7832 Last Action: Continued on 02/09/182251 by DAPHNIE GALAN Bexarotene (Targretin) 60 Gm Gel..gram., 60 GM TP, (Reported) Entered as Reported by: ANN HOLMAN on 12/24/171735 Calcium Carbonate (Calcium) 600 Mg Tablet, 1,200 MG PO, (Reported) Entered as Reported by: THOMAS SEVILLA on 01/16/17 1235 Fish Oil/Dha/Epa (Fish Oil 1,200 Mg Fish Oil) 1 Each Capsule, 1 EACH PO, ( Reported) Entered as Reported by: ANN HOLMAN on 12/24/171735 Multivitamin (One Daily) 1 Each Tablet, 1 EACH PO, (Reported) Entered as Reported by: JUAN CHICAS on 12/09/14 0754 Sennosides (Senna Laxative) 8.6 Mg Tablet, 8.6 MG PO, (Reported) Entered as Reported by: ANN HOLMAN on 12/24/17 173 KELVIN HANSEN MD Feb 13, 2018 13:40
[2018-02-13] MEDS ORDERED: MAGNESIUM SULFATE 1GM 100 ML IV ONE (13:45)
[2018-02-13 14:24] VITALS: BP 131/59
--- NOTE | 2018-02-13 15:20 | DISCH ---
DISCHARGE DISCHARGE INFORMATION: DISCHARGE DATE: Feb 13, 2018 CONDITION ON DISCHARGE: Stable CODE STATUS: Code Status: Full FDC: SNF STAY <30 DAYS: Yes HOSPICE: HOSPICE: No HOSPICE EVAL & TREAT: No LTAC: ADMIT TO LTAC: No POST DISCHARGE ORDERS: ACTIVITY ORDERS: Activity as tolerated WEIGHT BEARING STATUS: No restrictions DIET AFTER DISCHARGE: Regular CHECKS AFTER DISCHARGE: CHECKS AFTER DISCHARGE: Check blood press - daily FOLLOW-UP: PHYSICIAN FOLLOW-UP: ff up ortho in 3-4 weeks TREATMENT/EQUIPMENT ORDERS: ADAPTIVE EQUIPMENT NEEDED: None RESPIRATORY EQUIPMENT NEEDED: Oxygen Physical Therapy For: Evalulation/Treatment Occupational Therapy For: Evaluation/Treatment Speech Language Pathology For: Swallow Cognition DISCHARGE MEDICATIONS: Home Meds Active Scripts Amoxicillin/Potassium Clav (AUGMENTIN 500-125 TABLET) 1 Each Tablet, 1 TAB PO BID, #14 TAB Prov:KELVIN HANSEN MD 02/13/18 Budesonide (BUDESONIDE) 0.5 Mg/2 Ml Ampul.neb, 0.5 MG NEB RTBID for 14 Days, EACH Prov:KELVIN HANSEN MD 02/13/18 Zolpidem Tartrate (AMBIEN) 5 Mg Tablet, 5 MG PO PRN QHS PRN for INSOMNIA, #14 TAB Prov:KELVIN HANSEN MD 02/13/18 Lorazepam (ATIVAN) 0.5 Mg Tablet, 0.5 MG PO PRN Q4HRS PRN for ANXIETY / AGITATION, #30 TAB Prov:KELVIN HANSEN MD 02/13/18 Clonidine Hcl (CATAPRES) 0.1 Mg Tablet, 0.1 MG PO PRN Q6HRS PRN for SBP>160 OR DBP>90 for 30 Days, TAB Prov:KELVIN HANSEN MD 02/13/18 Albuterol Sulfate (ALBUTEROL SULFATE NEB SOLN) 2.5 Mg/3 Ml Vial.neb, 2.5 MG NEB PRN Q4HRS PRN for WHEEZING for 14 Days, EACH Prov:KELVIN HANSEN MD 02/13/18 Oxycodone/Apap 5-325 (PERCOCET 5-325 MG TABLET) 1 Each Tablet, 1 TAB PO PRN Q8HRS PRN for PAIN, #30 TAB 0 Refills Prov:KELVIN HANSEN MD 02/13/18 Polyethylene Glycol 3350 (MIRALAX) 17 Gm Powd.pack, 1 PACKET PO DAILY, #2 PACKET 1 Refill Prov:NALDO CAROLINA MD 01/01/18 Fluticasone/Salmeterol (ADVAIR 250-50 DISKUS) 1 Each Disk.w.dev, 1 PUFF IH BID, #1 INHALER 5 Refills Prov:NALDO CAROLINA MD 01/01/18 Reported Medications Triamcinolone Acetonide (TRIAMCINOLONE ACETONIDE) 80 Gm Oint...g., 1 LEO TP BID , #30 GM 1 Refill 12/30/17 Paroxetine Hcl (PAXIL) 40 Mg Tablet, 45 MG PO QHS, TAB 12/25/17 Bexarotene (TARGRETIN) 60 Gm Gel..gram., 60 GM TP, EACH 12/24/17 Acetaminophen (TYLENOL) 325 Mg Tablet, 1 TAB PO PRN Q4HRS, #30 TAB 12/24/17 Sennosides (SENNA LAXATIVE) 8.6 Mg Tablet, 8.6 MG PO, TAB 12/24/17 Amlodipine Besylate (AMLODIPINE BESYLATE) 5 Mg Tablet, 5 MG PO DAILY, TAB 12/24/17 Calcium Carbonate (CALCIUM) 600 Mg Tablet, 1200 MG PO, TAB 01/16/17 Pantoprazole Sodium (PROTONIX) 40 Mg Tablet.dr, 1 TAB PO DAILY, #30 TAB 5 Refills 01/16/17 Carvedilol (CARVEDILOL) 3.125 Mg Tablet, 1 TAB PO BID, #60 TAB 3 Refills 01/16/17 Aspirin (Children's Aspirin) 81 Mg Tab.chew, 81 MG PO, TAB.CHEW 12/09/14 Multivitamin (ONE DAILY) 1 Each Tablet, 1 EACH PO 12/09/14 [place]-3 Fatty Acids (FISH OIL) 300 Mg Capsule, 1200 MG PO DAILY 12/09/14 Hydrocodone Bit/Acetaminophen (HYDROCODONE-APAP 5-325 ) 1 Each Tablet, 1-2 TAB PO Q4-6HRS, #30 TAB 12/09/14 Levothyroxine Sodium (LEVOTHYROXINE SODIUM) 100 Mcg Tablet, 1 TAB PO DAILY, #30 TAB 5 Refills 12/09/14 Cholecalciferol (Vitamin D3) (VITAMIN D) 1,000 Unit Capsule, 5 CAP PO DAILY, # 90 CAP 3 Refills 12/09/14 Atorvastatin Calcium (ATORVASTATIN CALCIUM) 80 Mg Tablet, 1 TAB PO DAILY, #30 TAB 5 Refills 12/09/14 Discontinued Reported Medications Fish Oil/Dha/Epa (FISH OIL 1,200 MG FISH OIL) 1 Each Capsule, 1 EACH PO, CAP 12/24/17 Cholecalciferol (Vitamin D3) (VITAMIN D) 2,000 Unit Capsule, 1 CAP PO HS, #30 CAP 3 Refills 12/09/14 KELVIN HANSEN MD Feb 13, 2018 15:20
--- NOTE | 2018-02-13 16:22 | PDOC ---
PROGRESS NOTES Assessment Assessment Metabolic encephalopathy. Confusion. Generalized weakness. Fall. HTN. HLD. COPD. GERD. Recent left humeral fracture. Advanced degenerative spine and joint diseases. RECOMMENDATIONS/PLAN: Treat medical diseases. OT/PT. EEG on 02/11/18: Encephalopathy. PVC noted on single channel EKG. HISTORY OF THE PRESENT ILLNESS: 87-y-old female patient with above medical diseases had a fall recently with left humeral fracture. She was hospitalized at that time in 01/05 followed by Rehab and was discharged home about 1 week after Rehab. She was brought reportedly by her neighbor to [facility] on 02/09/18 due to her MS changes. Her mental status improved since 02/11/18. Past Medical History Cardiovascular: HTN, Hyperlipidemia, Valve insufficiency Pulmonary: COPD GI: GERD Heme/Onc: No pertinent hx, Other Hepatobiliary: No pertinent hx Psych: No pertinent hx Infectious disease: No pertinent hx Renal/: No pertinent hx Endocrine: No pertinent hx Past Surgical History Total hip replacement, Total knee replacement, Tonsillectomy Family History Coronary Artery Disease, Hypertension ALLERGY: NKDA MEDICATIONS: Refer to [facility] SOCIAL HISTORY: Lives at home.lone. Denies smoking, drinking, and illicit drug use. REVIEW OF SYSTEMS: Constitutional: No malnutrition, weight loss, cachexia. Head: Scalp hematoma in 12/2017. Skin: No edema, or rash. Ear: No infection. Eyes: No vision loss or color blindness. Nose: No bleeding or purulent discharges. Hearing: No hearing decrease. Neck: No injury. Breast: No history of cancer, masses,or discharges. Cardiac: HTN, HLD. Pulmonary: COPD. GI: GERD. Urinary/genital: UTI. Endocrinologic: thyroid disease, over weight. Skeletomuscular: Generalized weakness. Neurological: see HP. Psychiatric: Denies drug use/abuse. Otherwise, not [id number] review of systems. PHYSICAL EXAMINATION: General appearance is in subacute distress. HEENT: Normocephalic and nontraumatic. Eyes, nose, ears, and throat are unremarkable. Neck is supple. No lymphadenopathy. No crepitus. Cardiovascular: S1, S2, regular rate and rhythm. SM 3/6. Pulmonary: Relative clear to auscultation bilaterally. Abdomen: Bowel sounds are positive. Extremities: No rash, lesions, or edema. No restriction of range of motion except left UE. NEUROLOGICAL EXAMINATION: Awake. Able to understand some questions. Oriented partially to time, but knew place and person. PERRL. EOMI. CN: no acute focal findings. Muscle tone: within normal. Muscle strength: 5- except left UE due to recent fracture. DTR: 2- Plantar reflex: Neutral response bilaterally Gait: not examined in bed. Sensory exam: no abnormal findings. No cerebellar signs elicited. F-T-N test fine on right hand. Objective Objective Vital Signs Date Time Temp Pulse Resp B/P (MAP) Pulse Ox O2 Delivery O2 Flow Rate FiO2 02/13/18 15:36 Nasal Cannula 3.0 02/13/18 14:24 98.3 52 16 131/59 (83) 94 98.3 Intake and Output 02/13/18 07:00 Intake Total 1100 ml Balance 1100 ml Intake Oral 1100 ml # Voids 4 # Bowel Movements 1 Vitals Signs Vitals VS - Last 72 Hours, by Label Date Time Temp Pulse Resp B/P (MAP) Pulse Ox O2 Delivery O2 Flow Rate FiO2 02/13/18 15:36 Nasal Cannula 3.0 02/13/18 14:24 98.3 52 16 131/59 (83) 94 Nasal Cannula 3.0 98.3 02/13/18 14:23 18 Nasal Cannula 2.0 02/13/18 11:40 94 Nasal Cannula 3.0 02/13/18 11:03 98.4 61 16 132/59 (83) 95 Nasal Cannula 3.0 98.4 02/13/18 08:18 57 128/53 02/13/18 08:17 57 128/53 02/13/18 08:00 Nasal Cannula 3.0 02/13/18 07:48 97 Nasal Cannula 3.0 02/13/18 07:40 98.7 57 16 128/53 (78) 94 Nasal Cannula 3.0 98.7 02/13/18 04:59 20 Nasal Cannula 3.0 02/13/18 03:59 14 Nasal Cannula 3.0 02/13/18 03:00 98.7 57 20 149/67 (94) Nasal Cannula 3.0 98.7 02/12/18 23:00 98.1 59 20 121/60 (80) 91 Room Air 98.1 02/12/18 20:08 94 Nasal Cannula 4.0 02/12/18 20:02 18 Room Air 02/12/18 19:25 Nasal Cannula 4.0 02/12/18 19:00 98.3 66 16 140/72 (94) 95 98.3 02/12/18 18:43 62 140/72 02/12/18 15:41 93 Nasal Cannula 4.0 02/12/18 15:00 98.4 92 16 108/51 (70) 96 98.4 02/12/18 12:30 16 Nasal Cannula 4.0 02/12/18 11:50 95 Nasal Cannula 4.0 02/12/18 11:00 98.0 62 19 122/56 (78) 93 Simple Mask 2.0 98.0 02/12/18 10:11 59 130/59 02/12/18 10:10 63 130/59 02/12/18 08:00 Nasal Cannula 4.0 02/12/18 07:34 99 Simple Mask 6.0 02/12/18 07:00 98.5 59 19 130/59 (82) 98 Simple Mask 2.0 98.5 Medication Medications Current Medications Lactobacillus Rhamnosus (Culturelle) 1 cap BID PO Last administered on at 08:17; Start 02/12/18 at 21:00 Magnesium Sulfate/ Dextrose 100 ml @ 100 mls/hr 1X ONCE IV ; Start 02/13/18 at 13:45; Stop 02/13/18 at 13:45; Status DC Comment Review of Relevant I have reviewed the following items harvey (where applicable) has been applied. VANESSA GONZALEZ MD Feb 13, 2018 16:21
== END 2018-02-13 17:55 | DRG 871 ==
LOC: 4 NORTH 17:07 → CVICU 02-11 17:47
PROVIDERS: ADMIT Family Medicine; ATTEND Family Medicine
DX: A41.9 Sepsis, unspecified organism (principal); J69.0 Pneumonitis due to inhalation of food and vomit; G93.41 Metabolic encephalopathy; S42.302A Unspecified fracture of shaft of humerus, left arm, initial encounter for closed fracture; J98.11 Atelectasis; S00.03XA Contusion of scalp, initial encounter; J44.9 Chronic obstructive pulmonary disease, unspecified; R09.02 Hypoxemia; E78.5 Hyperlipidemia, unspecified; F41.9 Anxiety disorder, unspecified; I10 Essential (primary) hypertension; I25.10 Atherosclerotic heart disease of native coronary artery without angina pectoris; I49.3 Ventricular premature depolarization; Z96.659 Presence of unspecified artificial knee joint; W18.39XA Other fall on same level, initial encounter; Y93.89 Activity, other specified; Y92.89 Other specified places as the place of occurrence of the external cause; Y99.8 Other external cause status; M19.90 Unspecified osteoarthritis, unspecified site; Z96.649 Presence of unspecified artificial hip joint; I70.0 Atherosclerosis of aorta; K21.9 Gastro-esophageal reflux disease without esophagitis; R13.10 Dysphagia, unspecified; Z82.49 Family history of ischemic heart disease and other diseases of the circulatory system; Z91.81 History of falling; Z90.49 Acquired absence of other specified parts of digestive tract
CPT/HCPCS: 36415; 70450; 71045; 71250; 80053; 81001; 82550; 82607; 83735; 84443; 85007; 85025; 93005; 94640; 94760; 95816; J1170; J1650; J1956; J2060; J2405; J2543; J3475; J7613; J7626; 92610; 97530

== ENCOUNTER 2018-06-29 12:26 | Emergency (ER) | payer MEDICARE ==
[~2018-06-29] VITALS: Ht 171.4 cm; Wt 65.8 kg
[~2018-06-29 12:26] MED LIST changes: +ALBU2.5V5 NEB; +AMLO5TAB10 PO; -AMLO5TAB7 PO; +AMOX1TAB58 PO; +BUDE0.5A NEB; +CARV3.1210 PO; -CARV3.122 PO; +CLON0.1T12 PO; -HYDR-2758 PO; +HYDR-2761 PO; +LORA0.5T96 PO; -MULT-223 PO; +MULT-629 PO; -OXYC-323 PO; +OXYC1TAB15 PO; +ZOLP5TAB PO
[2018-06-29] MEDS ORDERED: DIPHTH,PERTUSS(ACELL),TET TOX 0.5 ML DISP.SYRIN. VAX IM ONE (13:15)
[2018-06-29] MEDS ORDERED: LIDOCAINE WITH 8.4% SOD BICARB 3 ML DISP.SYRIN. INJ ONE (13:15)
[2018-06-29] MEDS ORDERED: ACETAMINOPHEN 500 MG TABLET PO ONE (13:30)
--- NOTE | 2018-06-29 14:06 | RAD ---
EXAM: Head and maxillofacial bone CT without contrast. HISTORY: Trauma. TECHNIQUE: Computed tomographic images the head and maxillofacial bones were obtained without contrast. *One or more of the following individualized dose reduction techniques were utilized for this examination: 1. Automated exposure control. 2. Adjustment of the mA and/or kV according to patient size. 3. Use of iterative reconstruction technique. COMPARISON: 02/10/2018. FINDINGS: There is no acute intracranial hemorrhage. There is no mass effect or midline shift. There is no hydrocephalus. There is cerebral volume loss with compensatory enlargement of the ventricles. There are scattered areas of hypodensity throughout the cerebral white matter, likely due to chronic small vessel disease. There may be chronic infarcts within the bilateral external capsules. There is a small amount of fluid within the inferior left mastoid air cells. There is degenerative change at C1-C2. There is fluid within the left petrous apex. No displaced maxillofacial bone fracture is seen. There is evidence of lens surgery. There is orbital band keratopathy. There is a small suspected left periorbital soft tissue hematoma. There is a 2 mm foreign body within the left supraorbital soft tissues along the skin surface. There is no significant nasal septal deviation. The ostiomeatal units are patent. There is minimal inferior left maxillary sinus mucosal thickening. There is cervical kyphosis and multilevel listhesis. There is erosive changes involving the dens with surrounding soft tissue ossification and calcification due to a pannus. This can be seen with rheumatoid arthritis. There are disc bulges and there is endplate osteophytosis and facet and uncovertebral arthropathy throughout the visualized cervical spine. This results in moderate left foraminal stenosis at C4-C5 and mild bilateral foraminal and central canal stenosis at C5-C6, and suspected severe right and moderate left foraminal stenosis at C6-C7. This is not formally assessed on this exam. IMPRESSION: 1. No acute intracranial finding. 2. Suspected small left periorbital soft tissue hematoma. There is a 2 mm callus formation along the skin surface of the superior left periorbital soft tissues. 3. No evidence of acute or maxillofacial bone fracture. 4. Scattered areas of hypodensity throughout the cerebral white matter, likely due to chronic small vessel disease. 5. Advanced degenerative change throughout the cervical spine and erosive changes with surrounding pannus surrounding the dens, a finding which can be seen with rheumatoid arthritis. Electronically signed by: Jeniffer Quick MD (06/29/2018 2:03 PM) [email or web address]
--- NOTE | 2018-06-29 14:59 | EKG ---
[facility] [address] [place] [address] Test Date: 2018-06-29 Test Time: 12:47:05 Pat Name: RADHA LUNA Department: Room: Gender: F [employer] Excellence Leader: XIAO : 1930 Requested By: TAHIRA TILLEY Order Number: [id number] Reading MD: aPn Tomlinson MD Measurements Intervals [place] Rate: 61 P: 29 MI: 206 QRS: -15 QRSD: 96 T: 23 QT: 402 QTc: 410 Interpretive Statements SINUS RHYTHM PROBABLE PRIOR INFERIOR INFARCT Electronically Signed On 07-08-2018 9:28:55 CDT by Pan Tomlinson MD
--- NOTE | 2018-06-29 15:10 | PHYS DOC ---
Past Medical History Past Medical History: Arthritis, COPD, High Cholesterol, Hypertension, Hypothyroid Additional Past Medical Histor: CHRONIC BACK PAIN Past Surgical History: Hip Replacement, Knee Replacement, Tonsillectomy Additional Past Surgical Histo: L hip, bilat knee Alcohol Use: None Drug Use: None Adult General Chief Complaint Chief Complaint: MECHANICAL FALL HPI HPI Patient is a 88 year old female with multiple medical problems including hypertension, COPD, high cholesterol, who presents to the ED today to be evaluated for left eyebrow laceration, patient states she was walking outside to parts picker her newspaper , she states it's raining, she states she slid and fell hitting her forehead on the ground. Patient denies any loss of consciousness, denies any neck pain. She states she is on a baby aspirin daily. Review of Systems Review of Systems Constitutional: Denies fever or chills [] Eyes: Reports left upper eyebrow laceration. Denies change in visual acuity, redness, or eye pain [] HENT: Denies nasal congestion or sore throat [] Respiratory: Denies cough or shortness of breath [] Cardiovascular: No additional information not addressed in HPI [] GI: Denies abdominal pain, nausea, vomiting, bloody stools or diarrhea [] : Denies dysuria or hematuria [] Musculoskeletal: Denies back pain or joint pain [] Integument: Denies rash or skin lesions [] Neurologic: Denies headache, focal weakness or sensory changes [] All other systems were reviewed and found to be within normal limits, except as documented in this note. Current Medications Current Medications Current Medications Medications (Trade) Dose Ordered Sig/[facility] Start Time Stop Time Status Last Admin Dose Admin Acetaminophen (Tylenol) 500 mg 1X ONCE 06/29/18 13:30 06/29/18 13:31 DC 06/29/18 13:55 500 MG Diphtheria/ Tetanus/Acell Pertussis (Boostrix) 0.5 ml ONCE ONCE 06/29/18 13:15 06/29/18 13:16 DC 06/29/18 13:15 0.5 ML Lidocaine/Sodium Bicarbonate (Buffered Lidocaine 1%) 3 ml 1X ONCE 06/29/18 13:15 06/29/18 13:16 DC 06/29/18 13:59 3 ML Allergies Allergies Allergies Coded Allergies Type Severity Reaction Last Updated Verified No Known Drug Allergies 01/15/17 No Physical Exam Physical Exam Constitutional: Well developed, well nourished, no acute distress, non-toxic appearance. [] HENT: Normocephalic, atraumatic, bilateral external ears normal, oropharynx moist, no oral exudates, nose normal. [] Eyes: Periorbital ecchymosis noted around the left eye. There is a laceration approximately 3 cm long on the left eyebrow. PERRLA, EOMI, conjunctiva normal, no discharge. [] Neck: Normal range of motion, no tenderness, supple, no stridor. [] Cardiovascular:Heart rate regular rhythm, no murmur [] Lungs & Thorax: Bilateral breath sounds clear to auscultation [] Abdomen: Bowel sounds normal, soft, no tenderness, no masses, no pulsatile masses. [] Skin: Warm, dry, no erythema, no rash. [] Back: No tenderness, no CVA tenderness. [] Extremities: No tenderness, no cyanosis, no clubbing, ROM intact, no edema. [] Neurologic: Alert and oriented X 3, normal motor function, normal sensory function, no focal deficits noted. Cranial nerves II through XII intact Psychologic: Affect normal, judgement normal, mood normal. [] Current Patient Data Vital Signs Vital Signs Date Time Temp Pulse Resp B/P (MAP) Pulse Ox O2 Delivery O2 Flow Rate FiO2 06/29/18 12:37 97.6 58 16 188/79 (115) 94 Room Air 97.6 EKG EKG [] Radiology/Procedures Radiology/Procedures Laceration/Wound Repair Wound Location: Left upper eyebrow Wound's Depth, Shape: Horizontal Wound Length (cm): approximately 2 cm Wound Explored: clean Irrigated w/ Saline (ccs): 20 Betadine Prep?: Y Anesthesia: 1% BUFFERED lidocaine Volume Anesthetic (ccs): Approximately 1 mL Wound Repaired With: Absorbable gut Suture Size/Type: 6.0/interrupted sutures Number of Sutures: 6 Progress : Wound was left open to air Course & Med Decision Making Course & Med Decision Making Pertinent Labs and Imaging studies reviewed. (See chart for details) This is a 88-year-old fever patient presenting to the ED today with left upper eyebrow laceration status post falling. CT of the head and maxillary facial is negative for any acute findings. Tetanus updated. Laceration repaired by me as noted in procedures. Wound care instructions and return precautions provided. Dragon Disclaimer Dragon Disclaimer This electronic medical record was generated, in whole or in part, using a voice recognition dictation system. Departure Departure Impression: Primary Impression: Fall Additional Impressions: Laceration of eyebrow, left Forehead contusion Disposition: 01 HOME, SELF-CARE Condition: STABLE Referrals: AMY WEBER (PCP) follow up next week Patient Instructions: Contusion, [id number], Fall Prevention and Home Safety , Laceration Care, Adult, [id number] Additional Instructions: You have left eyebrow laceration that was closed with dissolvable sutures. You can shower. Keep the area clean and dry. Apply Neosporin to the area twice a day for 1 week. Monitor the area for any signs of infection including but not limited to increased redness to the area, warmth to the area, yellow drainage from the area and return to the ED see a primary care doctor if they occur. Problem Qualifiers Primary Impression: Fall Encounter type: initial encounter Qualified Codes: W19.XXXA - Unspecified fall, initial encounter Additional Impressions: Laceration of eyebrow, left Encounter type: initial encounter Qualified Codes: S01.112A - Laceration without foreign body of left eyelid and periocular area, initial encounter Forehead contusion Encounter type: initial encounter Qualified Codes: S00.83XA - Contusion of other part of head, initial encounter TAHIRA TILLEY APRN Jun 29, 2018 15:10
[2018-06-29 15:28] VITALS: BP 137/63
== END 2018-06-29 15:28 | disposition home or self-care (01) ==
LOC: ER 12:26
DX: S01.112A Laceration without foreign body of left eyelid and periocular area, initial encounter (principal); S00.83XA Contusion of other part of head, initial encounter; I10 Essential (primary) hypertension; J44.9 Chronic obstructive pulmonary disease, unspecified; E78.00 Pure hypercholesterolemia, unspecified; E03.9 Hypothyroidism, unspecified; G89.29 Other chronic pain; W18.09XA Striking against other object with subsequent fall, initial encounter; Y93.89 Activity, other specified; Y92.89 Other specified places as the place of occurrence of the external cause; Y99.8 Other external cause status
CPT/HCPCS: 12011; 70450; 70486; 90471; 90715; 93005; 99284-25